=== PATIENT | male | born 1965 | race African-American/Black ===

== ENCOUNTER 2018-03-27 11:39 | Outpatient (CLI) | payer OTHER, BC ==
--- NOTE | 2018-03-27 14:26 | RAD ---
PA AND LATERAL CHEST X-RAY 03/27/18 HISTORY: Dyspnea. COMPARISON: 11/06/15. FINDINGS: The cardiac silhouette and pulmonary vasculature are within normal limits. Again noted are increased interstitial densities seen throughout the lungs bilaterally, overall similar in distribution to the prior study, likely related to chronic interstitial lung changes. Lucencies are seen in each lung ape x which may be related to bullous emphysematous changes. No new focal area of consolidation or pleura l fluid is seen. Again noted is prominence of the hilar structures bilaterally. Prominent calcified h ilar lymph nodes were seen on prior CT exam on 08/31/16 likely accounting for this finding. No other i nterval change. IMPRESSION: Chronic lung changes without evidence of an acute cardiopulmonary process. POS: [facility]
== END 2018-03-27 11:40 | disposition home or self-care (01) ==
LOC: RAD 11:39
PROVIDERS: ATTEND Internal Medicine Critical Care Medicine
DX: R06.00 Dyspnea, unspecified (principal)
CPT/HCPCS: 71046

== ENCOUNTER 2018-06-05 07:32 | Outpatient (CLI) | payer OTHER, BC ==
--- NOTE | 2018-06-05 09:41 | CT ---
CT CHEST WITHOUT CONTRAST: Comparison: 08-31-16, 08-06-15, 04-30-13 History: Sarcoidosis. Technique: Multiple contiguous axial images were obtained in a CT of the chest without contrast. Margaret nal reformats were performed. FINDINGS: Multiple bullae are seen in the lung apices. Increased interstitial lung markings are seen in the rig ht middle lobe and lingula. There are also increased peripheral interstitial lung markings in the shirlene ateral lower lobes. These findings are stable compared to the most recent examination but have progre ssed compared to the exam from 2013. There are multiple enlarged and calcified hilar and mediastinal lymph nodes. The calcifications have become more prominent compared to the exam from 2013. The heart is normal in size. There is stable en largement of the main pulmonary artery. No pneumothorax or pleural effusions are seen. No suspicious pulmonary nodules are present. Visualized subdiaphragmatic structures are unremarkable. The patient is status post cholecystectomy. The osseous structures and chest wall soft tissues are unremarkable. 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 These findings are stable compared to the most recent exam but have progressed from 2013. POS: [facility]
== END 2018-06-05 07:33 | disposition home or self-care (01) ==
LOC: CP 07:32 → CT 07:33
PROVIDERS: ATTEND Internal Medicine Critical Care Medicine
DX: D86.9 Sarcoidosis, unspecified (principal); J84.10 Pulmonary fibrosis, unspecified; J43.9 Emphysema, unspecified
CPT/HCPCS: 71250; 94060; 94727; 94729

== ENCOUNTER 2018-11-13 10:46 | Outpatient (CLI) | payer OTHER, BC ==
--- NOTE | 2018-11-13 11:00 | RAD ---
Exam: Chest 2 views HISTORY:Dyspnea Comparison: 10/19/2018 FINDINGS: Lungs: Patchy bilateral perihilar opacities. Scattered linear oriented densities of each hemithorax m ay relate to calcified pleura. Correlate for history of asbestos related pleural disease. Relative lucency at each upper lung zone indicative of pulmonary emphysema. Cardiac silhouette:Enlarged Pulmonary vessels: Engorged Pleural Spaces: Clear Pneumothorax: None Osseous abnormalities: None of acuity. IMPRESSION: Bilateral perihilar opacities with prominent cardiac silhouette, and pulmonary vascular p rominence which may relate to edema from CHF. Recommend clinical correlation, as well as imaging follow-up.
== END 2018-11-13 10:47 | disposition home or self-care (01) ==
LOC: RAD 10:46
PROVIDERS: ATTEND Internal Medicine Critical Care Medicine
DX: R06.00 Dyspnea, unspecified (principal); R91.8 Other nonspecific abnormal finding of lung field
CPT/HCPCS: 36415; 71046; 80053; 82103; 85025

== ENCOUNTER 2018-12-06 12:55 | Outpatient (CLI) | payer OTHER, BC ==
--- NOTE | 2018-12-06 14:38 | CT ---
CT Chest WO Con: 12/06/2018 12:00 AM CLINICAL INDICATION: Sarcoidosis. COMPARISON: CT of the chest dated June 05, 2018. FINDINGS: Lung and Large Airways: Severe bullous disease in an upper lobe distribution stable. The interstitial fibrotic change of the residual lung with scattered areas of bronchiectasis are stable. Pleura: No effusion or mass. Vessels: Scattered vascular calcifications of the thoracic aorta and coronary arteries are stable. Heart: Normal appearing. No pericardial effusion.. Mediastinum and Bhakti: The numerous enlarged calcified mediastinal and hilar lymph nodes are stable. Chest Wall and Lower Neck: Normal. Upper Abdomen: No acute abnormality. Bones: No acute osseous abnormality. IMPRESSION: Stable examination with severe upper lobe distribution bullous lung disease and scattered interstitia l fibrotic change with areas of scattered bronchiectasis. No acute airspace opacity is evident. No pneumothorax or pleural effusion is demonstrated. Extensive calcified mediastinal and hilar lymphadenopathy is stable.
== END 2018-12-06 12:56 | disposition home or self-care (01) ==
LOC: CT 12:55
PROVIDERS: ATTEND Internal Medicine Critical Care Medicine
DX: D86.9 Sarcoidosis, unspecified (principal); R06.00 Dyspnea, unspecified; J47.9 Bronchiectasis, uncomplicated; J43.9 Emphysema, unspecified; J84.10 Pulmonary fibrosis, unspecified; R59.0 Localized enlarged lymph nodes
CPT/HCPCS: 71250

== ENCOUNTER 2018-12-11 10:14 | Outpatient (CLI) | payer OTHER, BC ==
--- NOTE | 2018-12-12 13:49 | PFT ---
PATIENT HISTORY: HEIGHT: 70 WEIGHT:170 SMOKER: NO HOW LONG:NA PACKS PER DAY PRODUCTIVE COUGH: LUNG DISEASE: PHYSICIAN INTERPRETATION FINAL REPORT: Patient had good effort and cooperation. He had a dry cough during testing. Body box was attempted but could not be performed correctly. Nitrogen washout and Diffusion capacity could not be performed due to a circuit leak. FVC 2.99 (73%), FEV1 1.68 (52%) FEV1/FVC 0.56 FRC 3.29 (105%), RV 2.10 (98%),TLC 6.47 (103%) There is a reduction to both the FEV1 and the FVC. The ratio is consistent with obstructive air flow limitation. There is no significant change following the administration of a bronchodilator. Lung volumes fall within the normal limits. IMPRESSION: Overall, these pulmonary function studies are most consistent with moderately severe obstructive air flow limitation, with no reversibility and normal lung volumes. Interpret the lung volumes with cation given that equipment malfunction was noted. Lacquer Sprayer: ANGIE Wirer Helper: ANGIE MCDONALD
== END 2018-12-11 10:15 | disposition home or self-care (01) ==
LOC: CP 10:14
PROVIDERS: ATTEND Internal Medicine Critical Care Medicine
DX: R06.00 Dyspnea, unspecified (principal); D86.9 Sarcoidosis, unspecified
CPT/HCPCS: 94060

== ENCOUNTER 2019-03-12 08:13 | Outpatient (CLI) | payer OTHER, BC ==
--- NOTE | 2019-03-15 08:05 | PFT ---
PATIENT HISTORY: HEIGHT: 70 IN WEIGHT: 176 SMOKER: NEVER HOW LONG: PACKS PER DAY: PRODUCTIVE COUGH: LUNG DISEASE: PHYSICIAN INTERPRETATION PFT data: 03/12/2019 FEV1 1.43 L 44% predicted, FVC 2.51 L 61% predicted. There is no improvement in flows after bronchodilatation. The Residual Volume is extremely elevated. Total Lung Capacity is normal. DLCO severely reduced. The Maximum Ventilatory Volume is mildly decreased. Compared to PFTs obtained 12/11/2018, the FEV1 and FVC have somewhat decreased. Also, the Residual Volume is much worse on current test compared to old study. IMPRESSION: There is an obstructive pulmonary impairment which is moderate to severe in degree. Air trapping is present. Gas exchange is severely reduced. Inside Technical Sales Representative: ANGIE Teamsite Developer: ANGIE MCDONALD
== END 2019-03-12 08:14 | disposition home or self-care (01) ==
LOC: CP 08:13
PROVIDERS: ATTEND Internal Medicine Critical Care Medicine
DX: D86.9 Sarcoidosis, unspecified (principal)
CPT/HCPCS: 36415; 80053; 85025; 94060; 94727; 94729

== ENCOUNTER 2019-05-11 11:44 | Inpatient (IN) | payer OTHER, BC ==
[2019-05-11 12:12] LABS: Actual Bicarbonate (HCO3a) 23.8 mEq/L (22-28); Analyzer IN Cardio ER; Base Excess (BEa) -3.6 mEq/L (-2.0 to +3.0); CO2 Tension 51.7 mmHg (35.0-45.0); Calcium, Ionized 1.18 mmol/L (1.12-1.30); Carboxyhemoglobin (COHb) 1.5 gm% (0.0-3.0); Hemoglobin (Hb) 16.7 g/dL (14.0-18.0); Potassium - ABG Lab 3.39 mmol/L (3.70-5.30); pH, Arterial 7.28 (7.35-7.45)
[2019-05-11] MEDS ORDERED: Ondansetron PF 4 MG/2 ML Vial ONE (12:12)
[2019-05-11] MEDS ORDERED: Ketamine 50 MG/ML (10ML VIAL) ONE (12:14)
[2019-05-11] MEDS ORDERED: Rocuronium Bromide 50 MG/5 ML VIAL ONE (12:14)
[2019-05-11 12:15] LABS: #Eosinphils 0.2 thou/uL (0.0-0.7); #Lymphocytes 3.7 thou/uL (1.20-3.40); #Neutrophils 10.1 thou/uL (1.40-6.50); %Basophils 0.3 % (0.0-1.0); %Eosinophils 1.2 % (0.0-10.0); %Lymphocytes 24.8 % (21.0-51.0); %Monocytes 6.8 % (0.0-10.0); %Neutrophils 66.9 % (42.0-75.0); Mean Corpuscular HGB CONC 32.5 g/dL (32.0-36.0); Mean Corpuscular Hemoglobin 32.8 pg (27.0-31.0); Mean Platelet Volume 6.7 fL (7.4-10.4); Platelet Count 289 thou/uL (130-400); RBC Distribution Width 14.2 % (11.5-14.5); Red Blood Cell (RBC) Count 4.89 mill/uL (4.70-6.10)
[2019-05-11 12:38] LABS: ALT (SGPT) 18 U/L (8-55); AST (SGOT) 29 U/L (5-34); Albumin 4.5 g/dL (3.5-5.0); Alkaline Phosphatase 45 U/L (40-110); Anion Gap 18 mmol/L (10-20); BUN (Urea Nitrogen) 26 mg/dL (8.4-25.7); Bilirubin, Total 1.7 mg/dL (0.2-1.2); Calc. Creatinine Clearance 0 mL/min (70-130); Calcium 9.6 mg/dL (7.8-10.44); Carbon Dioxide 25 mmol/L (22-29); Chloride 101 mmol/L (98-107); Estimated GFR-MDRD 70; Globulin 2.8 g/dL (2.4-3.5); Glucose 139 mg/dL (70-105); Potassium 3.4 mmol/L (3.5-5.1); Protein, Total 7.3 g/dL (6.0-8.3); Sodium 141 mmol/L (136-145)
--- NOTE | 2019-05-11 12:41 | RAD ---
XR Chest 1 View Portable History: Difficulty breathing Comparison: CT chest December 06, 2018 Findings: Large right pneumothorax with mild leftward mediastinal shift. The peripheral pleura is mar kedly thickened. Severe emphysematous changes and scarring throughout the left lung. Large left apical bulla. Heart size mildly enlarged. Endotracheal tube tip is at level of clavicles. Enteric tube tip below diaphragm although out of field of view. Impression: Large right pneumothorax with subtle leftward mediastinal shift. Given the extensive enmanuel pheral pleural thickening, there is likely an underlying component of trapped lung and may be difficult to reexpand. Code CR: Dr. Sanders at 12:37 PM
--- NOTE | 2019-05-11 12:49 | RAD ---
CHEST ONE VIEW: COMPARISON: Earlier same day. CLINICAL HISTORY: Large pneumothorax, followup. FINDINGS: Demonstration of a large right-sided pneumothorax, similar in configuration to prior exam with persis tent mild leftward shift of the mediastinum. Diffuse interstitial opacification remains throughout the left lung as well as within the compressed right pulmonary parenchyma. Endotracheal tube and ente jackie catheter remain in place. IMPRESSION: Grossly stable large volume right pneumothorax with mild leftward mediastinal shift for which tension component should be considered. Transcribed Date/Time: 05/11/2019 12:52 PM
[2019-05-11] MEDS ORDERED: fentaNYL Citrate/PF 2,000 MCG in Sodium Chloride 0.9% 60 ML IV SCH ×2 (12:52→13:57)
[2019-05-11] MEDS ORDERED: Fentanyl 100 MCG/2 ML VIAL ONE (12:56)
[2019-05-11 13:06] LABS: ALV-art Gradient 232.875 (0-20); Puncture Site LRA
--- NOTE | 2019-05-11 13:26 | RAD ---
XR Chest 1 View Portable History: Chest tube placement Comparison: Radiograph same day Findings: Interval placement of a thoracostomy tube with moderate reexpansion of the right lung. Mild ly reexpansion edema. Fibrosis both lower lobes. Impression: Size decreased right pneumothorax after thoracostomy tube placement with tip near the ple ural apex.
[2019-05-11] MEDS ORDERED: Ventilator Sedation Protocol 1 EACH FS ONE (13:45)
[2019-05-11] MEDS ORDERED: Ondansetron PF 4 MG/2 ML Vial IVP PRN (13:45)
[2019-05-11] MEDS ORDERED: CCU Electrolyte Replacement 1 EACH FS ONE (13:45)
[2019-05-11] MEDS ORDERED: Potassium Chloride 40 MEQ in Premix Bag 1 BAG IVPB PRN (13:56)
[2019-05-11] MEDS ORDERED: Potassium Chloride 40 MEQ in Sodium Chloride 0.9% 250 ML 250 ML IVPB PRN (13:56)
[2019-05-11] MEDS ORDERED: PHOS-NAK 1 PKT PACK PO PRN ×2 (13:56)
[2019-05-11] MEDS ORDERED: Magnesium 2 GM/50 ML 2 GM in Premix Bag 1 BAG IVPB PRN (13:56)
[2019-05-11] MEDS ORDERED: CCU ELECTROLYTE REPLACEMENT PROTOCOL FS PRN (13:56)
[2019-05-11] MEDS ORDERED: Potassium Phosphate 12 MMOL in Sodium Chloride 0.9% 250 ML 250 ML IV PRN (13:56)
[2019-05-11] MEDS ORDERED: Magnesium Oxide 400 MG TAB PO PRN ×2 (13:56)
[2019-05-11] MEDS ORDERED: Potassium Phosphate 15 MMOL in Sodium Chloride 0.9% 250 ML 250 ML IV PRN (13:56)
[2019-05-11] MEDS ORDERED: Potassium Phosphate 9 MMOL in Sodium Chloride 0.9% 100 ML IVPB PRN (13:56)
[2019-05-11] MEDS ORDERED: Potassium Chloride 20 MEQ TAB PO PRN (13:56)
[2019-05-11] MEDS ORDERED: Morphine 2 MG/ML SYRINGE SLOW IVP PRN (13:57)
[2019-05-11] MEDS ORDERED: Lorazepam 2 MG/ML VIAL SLOW IVP PRN (13:57)
[2019-05-11] MEDS ORDERED: DISCONTINUE PREVIOUS NARCOTIC PAIN MEDICATIONS AND BENZODIAZEPINES FS SCH (13:57)
[2019-05-11] MEDS ORDERED: Propofol BOLUS 1,000 MG/100 ML VIAL IV PRN (13:57)
[2019-05-11] MEDS ORDERED: Fentanyl BOLUS 250 ML IVPB PRN (14:00)
--- NOTE | 2019-05-11 14:32 | HP ---
REASON FOR ADMISSION: Acute respiratory failure, pneumothorax on the right side. HISTORY OF PRESENTING ILLNESS: Please note, majority of this history is obtained by talking to the ER physician, Dr. Hutson, as the patient is currently intubated. Per Dr. Hutson, the patient was having shortness of breath at home. EMS was summoned, and his saturations were in the 50% range. He was placed on nasal cannula oxygen along with nebulizations, which brought the saturations up to 80%. He was brought to emergency room and was placed on BiPAP initially and was saturating 90%. He suddenly deteriorated and also vomited once, which prompted intubation. Prior to any of this being done, Dr. Hutson asked the patient if he wants to be intubated and wants to be a full code, for which the patient answered he wanted everything done. He has known history of sarcoidosis per prior records and has seen Dr. Galloway in the past. He has had prior CAT scans done, which shows severe bilateral upper lobe lung disease with severe bullae seen as well. PAST MEDICAL AND SURGICAL HISTORY: History of sarcoidosis with lung involvement. Bullous lung disease. Prior colonoscopy. He has had mediastinoscopy with lymph node biopsy done, which revealed findings of noncaseating granuloma and sarcoidosis. He has had cholecystectomy. He has had eccrine gland removal from his axilla. PERSONAL HISTORY: Does not abuse alcohol or drugs. He works with [employer]. FAMILY HISTORY: Per prior records, the patient's father when he was 21 years old. Mother was alive. ALLERGIES: NO KNOWN DRUG ALLERGIES. CURRENT MEDICATIONS: Per [employer] based on June of 2015, he is on: 1. Norvasc 5 mg daily. 2. Atorvastatin 20 mg daily. 3. Hydrochlorothiazide 25 mg daily. 4. Cozaar 50 mg daily. 5. Prednisone p.r.n. CODE STATUS: Full. REVIEW OF SYSTEMS: Cannot be obtained as the patient is intubated and is not oriented at present. PHYSICAL EXAMINATION: GENERAL: The patient is a 54-year-old male, who is currently on ventilator and is not in any distress. VITAL SIGNS: Blood pressure 136/84, pulse 100 per minute, respiratory rate 18 per minute, temperature 98 degrees Fahrenheit, and saturating 96% on ventilator with FiO2 of 50%. He is orally intubated up to 26 cm to the incisor teeth. He also has an NG tube placed orally. NECK: Supple. No elevated JVD. HEENT: Eyes, the patient appears to have some exophthalmos. Pupils are 3 mm, sluggishly reacting to light. Oral cavity, mucous membranes are dry. No exudates as mentioned above. He has endotracheal tube and nasogastric tube placed through his mouth. RESPIRATORY: Air entry 1+ bilateral. Scattered rhonchi plus and crackles plus bilateral. CARDIOVASCULAR SYSTEM: S1 and S2 heard. Tachycardic. ABDOMEN: Soft. Bowel sounds heard. No tenderness, rigidity, or guarding. EXTREMITIES: No peripheral edema or calf tenderness. VASCULAR SYSTEM: Peripheral pulses 2+ bilateral. No ischemic ulcerations or gangrene. CENTRAL NERVOUS SYSTEM: No gross focal deficits noted. The patient was moving all extremities prior to getting intubated. No current focal neurologic sign seen. PSYCHIATRIC SYSTEM: Cannot be assessed as the patient is currently intubated and is sedated. DIAGNOSTIC STUDIES: EKG done shows sinus tach at 122 beats per minute. There is incomplete RBBB seen. Blood gas done shows a pH of 7.28, pCO2 51, and pO2 59. White count of 15, H and H 16 and 49, platelet count 289, MCV is 101 with 66% neutrophils. BUN 26, creatinine 1.2, serum glucose 139, and total bilirubin 1.7. BNP 543. Chest x-ray done shows right-sided pneumothorax with chest tube placement and a repeat x-ray done shows clearing of pneumothorax. CLINICAL IMPRESSION AND PLAN: The patient will be admitted to ICU for acute respiratory failure with hypoxia and hypercarbia. He has known history of sarcoid lung disease. The patient also had underlying bullous disease in both upper lobes in the past. He will be on Solu-Medrol 40 mg IV q.6 hourly, gentle hydration with normal saline, DuoNeb, empiric Levaquin. Dr. Arora and Dr. Alarcon have been consulted from the ER by Dr. Hutson. We will closely monitor him in ICU. I have tried calling his , Ms. Abrahan Motta, and I am unable to reach her. We will try again later today. He has a chest tube on right side with good air entry now. Job ID: [id number] [facility]
[2019-05-11] MEDS ORDERED: Propofol 1,000 MG/100 ML VIAL IV ONE (14:58)
--- NOTE | 2019-05-11 14:58 | CON ---
DATE OF CONSULTATION: 05/11/2019 CONSULTING PHYSICIAN: Adanist . REASON FOR CONSULTATION: Pneumothorax and acute respiratory failure requiring mechanical ventilation. HISTORY OF PRESENT ILLNESS: The patient is a 54-year-old male with known sarcoidosis. He apparently had trouble breathing today and subsequently came to the hospital for further evaluation. He was intubated after failing BiPAP. After intubation, chest x-ray was obtained showing a large right pneumothorax. Based on what the family is saying, it is my supposition that the patient probably had the pneumothorax prior to presentation at the hospital. PAST MEDICAL HISTORY: 1. Sarcoidosis. 2. Hypertension. PAST SURGICAL HISTORY: EGD. FAMILY MEDICAL HISTORY: Essentially unremarkable. SOCIAL HISTORY: He works in maintenance at [employer]. Never smoker. Does not use illicit drugs. Very occasionally use alcohol. MEDICATIONS: Prior to admission; 1. Prednisone 2.5 mg daily. 2. Losartan 50 mg daily. 3. Hydrochlorothiazide 25 mg daily. 4. Atorvastatin 40 mg daily. 5. Amlodipine 5 mg daily. ALLERGIES: NONE. REVIEW OF SYSTEMS: Cannot be obtained as the patient is currently on mechanical ventilation. PHYSICAL EXAMINATION: VITAL SIGNS: Temperature 98, pulse 111, blood pressure 130/84, O2 saturations 100%. GENERAL: He is currently paralyzed, intubated, sedated on mechanical ventilation. HEENT: Pupils are reactive. Sclerae are anicteric. Oropharynx, clear. NECK: No adenopathy or JVD. LUNGS: Coarse breath sounds bilaterally. No hyper-resonance to percussion. CARDIOVASCULAR: S1 and S2. Slightly tachycardic. ABDOMEN: Soft, nontender, and nondistended. EXTREMITIES: No clubbing, cyanosis, or edema. LABORATORY DATA: Initial ABG; pH 7.28, pCO2 of 52, PO2 of 59, that was on BiPAP 12/6. Sodium 141, potassium 3.4, chloride 101, CO2 of 25, BUN 26, creatinine 1.3, glucose 139. White blood cell count 15, hematocrit 49.3, and platelet count 289. IMAGING STUDIES: His x-ray showed a large right pneumothorax, has since been evacuated by thoracostomy tube drainage. He has no air leak on the Pleur-evac. Endotracheal tube is in good position. ASSESSMENT: 1. Acute respiratory failure secondary to right tension pneumothorax. 2. Sarcoidosis. PLAN: 1. Continue chest tube drainage. 2. Continue antibiotics, steroids, nebulization treatments. 3. Hopefully extubate tomorrow. Job ID: [id number]
[2019-05-11 16:20] LABS: Actual Bicarbonate (HCO3a) 25.3 mEq/L (22-28); Base Excess (BEa) -2.4 mEq/L (-2.0 to +3.0); CO2 Tension 55.1 mmHg (35.0-45.0); Calcium, Ionized 1.17 mmol/L (1.12-1.30); Carboxyhemoglobin (COHb) 1.8 gm% (0.0-3.0); Hemoglobin (Hb) 15.5 g/dL (14.0-18.0); O2 Tension (PaO2) 95.3 mmHg (80.0-100.0); Potassium - ABG Lab 3.97 mmol/L (3.70-5.30); pH, Arterial 7.28 (7.35-7.45)
[2019-05-11] MEDS: methylPREDNISolone Sod Succ/PF 125 MG/2 ML VIAL IVP SCH ×2 (16:57→19:24)
[2019-05-11] MEDS: Sodium Chloride 0.9% 1,000 ML IV SCH (16:58)
[2019-05-11] MEDS: Famotidine/PF 20 mg/2ml Vial SLOW IVP SCH (19:24)
[2019-05-11] MEDS: Propofol 1,000 MG/100 ML VIAL IV PRN (19:25)
[2019-05-12] MEDS: methylPREDNISolone Sod Succ/PF 125 MG/2 ML VIAL IVP SCH ×2 (01:23→08:59)
[2019-05-12] MEDS: Sodium Chloride 0.9% 1,000 ML IV SCH ×2 (04:33→19:33)
[2019-05-12 04:52] LABS: #Lymphocytes 0.4 thou/uL (1.20-3.40); #Monocytes 0.3 thou/uL (0.11-0.59); #Neutrophils 9.8 thou/uL (1.40-6.50); %Monocytes 3.1 % (0.0-10.0); %Neutrophils 92.9 % (42.0-75.0); Hemoglobin 13.7 g/dL (14.0-18.0); Mean Corpuscular HGB CONC 32.6 g/dL (32.0-36.0); Mean Corpuscular Hemoglobin 33.1 pg (27.0-31.0); Mean Platelet Volume 6.7 fL (7.4-10.4); Platelet Count 209 thou/uL (130-400); RBC Distribution Width 14.1 % (11.5-14.5); Red Blood Cell (RBC) Count 4.13 mill/uL (4.70-6.10); White Blood Cell (WBC) Count 10.5 thou/uL (4.8-10.8)
[2019-05-12 05:12] LABS: Anion Gap 16 mmol/L (10-20); BUN (Urea Nitrogen) 21 mg/dL (8.4-25.7); Calc. Creatinine Clearance 85 mL/min (70-130); Calcium 8.7 mg/dL (7.8-10.44); Carbon Dioxide 25 mmol/L (22-29); Chloride 104 mmol/L (98-107); Estimated GFR-MDRD 87; Glucose 152 mg/dL (70-105); Potassium 5.1 mmol/L (3.5-5.1); Sodium 140 mmol/L (136-145)
[2019-05-12] MEDS: Propofol 1,000 MG/100 ML VIAL IV PRN (05:14)
--- NOTE | 2019-05-12 07:57 | RAD ---
XR Chest 1 View Portable History: Pneumonia. Comparison: Radiograph prior day Findings: There is lucency the right upper hemithorax is over the anterior right pneumothorax and on apical pneumothorax. Large left upper lobe bulla. Expansion pulmonary edema right lower lobe. Fibrosis in both lower lobes. Impression: Concern for anterior location of the right-sided pneumothorax. An upright view is recomme nded.
[2019-05-12 08:01] LABS: Actual Bicarbonate (HCO3a) 27.1 mEq/L (22-28); Base Excess (BEa) 0.6 mEq/L (-2.0 to +3.0); CO2 Tension 50.6 mmHg (35.0-45.0); Calcium, Ionized 1.15 mmol/L (1.12-1.30); Carboxyhemoglobin (COHb) 1.3 gm% (0.0-3.0); Hemoglobin (Hb) 14.6 g/dL (14.0-18.0); O2 Tension (PaO2) 130.2 mmHg (80.0-100.0); Potassium - ABG Lab 4.69 mmol/L (3.70-5.30); pH, Arterial 7.35 (7.35-7.45)
[2019-05-12 08:03] LABS: Puncture Site L.R.
[2019-05-12 08:09] LABS: ALV-art Gradient 121.025 (0-20); Puncture Site L.R.
[2019-05-12] MEDS ORDERED: FLU VACC QS2019-20(6MOS UP)/PF 60 MCG/0.5 ML SYRINGE IM ONE (09:00)
[2019-05-12] MEDS ORDERED: Prevnar 13-Val Conj/PF 0.5 ML SYRINGE IM ONE (09:00)
[2019-05-12] MEDS: Enoxaparin Sodium 40 MG/0.4 ML SYRINGE SC SCH (09:01)
[2019-05-12] MEDS: Famotidine/PF 20 mg/2ml Vial SLOW IVP SCH ×2 (09:02→19:28)
[2019-05-12] MEDS ORDERED: DC Sedation Protocol FS ONE (09:30)
[2019-05-12] MEDS ORDERED: methylPREDNISolone Sod Succ/PF 125 MG/2 ML VIAL IVP SCH ×2 (09:31→14:00)
[2019-05-12] MEDS ORDERED: methylPREDNISolone Sod Succ 40 MG VIAL IVP SCH (09:45)
--- NOTE | 2019-05-12 10:12 | PRG ---
DATE OF SERVICE: 05/12/2019 35 minutes of critical care time. SUBJECTIVE: The patient remains intubated on mechanical ventilation. He has had no specific difficulties overnight. He wakes up, follows commands without difficulty. OBJECTIVE: VITAL SIGNS: His temperature is 98.6, pulse 77, respirations 18, blood pressure 115/74, and sat 100%. HEENT: Unremarkable. NECK: No adenopathy or JVD. LUNGS: Clear bilaterally. He has no air leak from his chest tube. CARDIAC: S1 and S2. Regular. ABDOMEN: Soft. EXTREMITIES: No edema. LABORATORY DATA: PH 7.35, pCO2 of 51, pO2 of 130 on SIMV rate 18, tidal volume 500, PEEP 5, pressure support 10, FiO2 of 40%. White blood cell count 10.5, hematocrit 41, and platelet count 209. Sodium 140, potassium 5.1, chloride 104, CO2 of 25, BUN 21, creatinine 1.1, glucose 152. His x-ray shows resolution of pneumothorax. ASSESSMENT: 1. Right pneumothorax, now status post right thoracostomy tube placement. 2. Acute respiratory failure, requiring mechanical ventilation. 3. Underlying sarcoidosis. PLAN: It looks like he will pass spontaneous breathing trial and we will be able to extubate. We will leave the chest tube in. Hopefully, get that out in a day or two. Job ID: [id number]
--- NOTE | 2019-05-12 14:07 | PRG ---
DATE OF SERVICE: 05/12/2019 SUBJECTIVE: The patient seen at bedside, does sitting in a chair, status post extubation today. Complains of mild chest tube site pain, otherwise not in distress. Denies any headache, nausea, vomiting, or diarrhea. Family also present in the room. OBJECTIVE: VITAL SIGNS: Blood pressure 115/77, pulse 91, respirations 18, and oxygen saturation 100% on 3 L nasal cannula. GENERAL: The patient is lying in bed comfortably, not in any distress. HEENT: Conjunctivae are normal. Oral mucosa moist. NECK: Supple. No JVD. No lymphadenopathy. CHEST: Decreased air entry, right lower lung roman. Chest tube in place. ABDOMEN: Soft. Negative edema of feet. LABORATORY DATA: Chest x-ray, concern for anterior location of the right-sided pneumothorax. CBC unremarkable except white blood cell 10.5, hemoglobin 13.7, and platelet 209. BMP unremarkable except potassium 5.1 and blood glucose 152. Troponin negative. ABG; 7.35, 50, and 130. IMPRESSION: 1. Acute hypoxemic hypercapnic respiratory failure, most likely secondary to right-sided tension pneumothorax, status post intubation and chest tube placement, status post extubation today, currently saturating well with oxygen. Continue right-sided chest tube management as per Pulmonology. Continue incentive spirometry. The patient currently not in distress. Continue pain medication as needed. 2. History of sarcoidosis. Continue steroids. Continue home medications with heparin. Continue prophylactic antibiotics. 3. Hypertension. Hold antihypertensive blood pressure medication today. 4. Deep venous thrombosis/gastrointestinal prophylaxis. PLAN: Discussed with the patient and family member and nursing staff. Job ID: [id number]
[2019-05-12] MEDS: methylPREDNISolone Sod Succ 40 MG VIAL IVP SCH ×2 (15:50→19:29)
[2019-05-12] MEDS: Cyclobenzaprine 10 MG TAB PO PRN (19:28)
[2019-05-13] MEDS: methylPREDNISolone Sod Succ 40 MG VIAL IVP SCH ×3 (01:24→15:00)
[2019-05-13 05:33] LABS: #Lymphocytes 0.4 thou/uL (1.20-3.40); #Monocytes 0.7 thou/uL (0.11-0.59); #Neutrophils 11.3 thou/uL (1.40-6.50); %Eosinophils 0.1 % (0.0-10.0); %Lymphocytes 3.2 % (21.0-51.0); %Monocytes 5.3 % (0.0-10.0); %Neutrophils 91.3 % (42.0-75.0); Hemoglobin 12.7 g/dL (14.0-18.0); Mean Corpuscular HGB CONC 32.2 g/dL (32.0-36.0); Mean Corpuscular Hemoglobin 32.8 pg (27.0-31.0); Mean Platelet Volume 7.1 fL (7.4-10.4); Platelet Count 189 thou/uL (130-400); RBC Distribution Width 14.2 % (11.5-14.5); Red Blood Cell (RBC) Count 3.87 mill/uL (4.70-6.10); White Blood Cell (WBC) Count 12.4 thou/uL (4.8-10.8)
[2019-05-13 05:58] LABS: Anion Gap 11 mmol/L (10-20); BUN (Urea Nitrogen) 22 mg/dL (8.4-25.7); Calc. Creatinine Clearance 80 mL/min (70-130); Calcium 8.6 mg/dL (7.8-10.44); Carbon Dioxide 29 mmol/L (22-29); Chloride 104 mmol/L (98-107); Estimated GFR-MDRD 81; Glucose 131 mg/dL (70-105); Sodium 139 mmol/L (136-145)
[2019-05-13] MEDS: azaTHIOprine 50 MG TAB PO SCH (07:59)
[2019-05-13] MEDS: Cyclobenzaprine 10 MG TAB PO PRN (07:59)
[2019-05-13] MEDS: Acetaminophen 325 MG TAB PO PRN (08:00)
[2019-05-13] MEDS: Famotidine/PF 20 mg/2ml Vial SLOW IVP SCH (08:00)
[2019-05-13] MEDS: Isosorbide Mononitrate (ER) 30 MG TAB PO SCH (08:00)
[2019-05-13] MEDS: Enoxaparin Sodium 40 MG/0.4 ML SYRINGE SC SCH (08:00)
--- NOTE | 2019-05-13 08:27 | RAD ---
FRONTAL VIEW CHEST: COMPARISON: Previous day. INDICATION: Pneumothorax, follow-up. FINDINGS: Right thoracostomy tube remains. Degree of expansion of the right lung is similar in appearance. No d iscrete pneumothorax is visualized within limitations of technique, given overlying, extrinsic artifacts. Chest is otherwise stable. IMPRESSION: Stable appearance of the right chest with indwelling thoracostomy tube and no significant pneumothora x identified. Transcribed Date/Time: 05/13/2019 8:37 AM
[2019-05-13] MEDS ORDERED: predniSONE 5 MG TAB PO SCH (09:00)
[2019-05-13] MEDS: Sodium Chloride 0.9% 1,000 ML IV SCH (10:40)
--- NOTE | 2019-05-13 10:47 | PDOC.HOSPP ---
- Subjective Encounter Date: 05/13/19 Encounter Time: 10:45 Subjective: no sob, comfortable - Objective Vital Signs & Weight: Vital Signs (12 hours) Temp Pulse Resp Pulse Ox 05/13/19 08:00 97.9 F 05/13/19 07:45 85 18 100 05/13/19 03:00 98.5 F 05/12/19 23:00 99.2 F Weight Weight 171 lb 11.841 oz Most Recent Monitor Data Heart Rate from ECG 89 NIBP 118/74 NIBP BP-Mean 80 Respiration from ECG 23 SpO2 100 I&O: 05/12/19 05/13/19 05/14/19 06:59 06:59 06:59 Intake Total 2336.2 300 Output Total 1975 Balance 361.2 300 Result Diagrams: 05/13/19 05:14 05/13/19 05:14 Hospitalist ROS - Medication Medications: Active Medications Generic Name Dose Route Start Last Admin Trade Name Freq PRN Reason Stop Dose Admin Acetaminophen 650 mg 05/11/19 13:45 05/13/19 08:00 Tylenol PO 650 mg Q4H PRN Administration Headache/Fever/Mild Pain (1-3) Albuterol/Ipratropium 3 ml 05/11/19 15:00 05/13/19 07:45 Duoneb NEB 3 ml [id number] EVELYN Administration Azathioprine 150 mg 05/13/19 09:00 05/13/19 07:59 Imuran PO 150 mg QAM EVELYN Administration Cholecalciferol 5,000 units 05/13/19 09:00 05/13/19 07:59 Vitamin D3 PO 5,000 units DAILY EVELYN Administration Cyclobenzaprine HCl 10 mg 05/12/19 13:17 05/13/19 07:59 Flexeril PO 10 mg TIDPRN PRN Administration Moderate Pain (4-6) Enoxaparin Sodium 40 mg 05/12/19 09:00 05/13/19 08:00 Lovenox SC 40 mg 0900 EVELYN Administration Famotidine 20 mg 05/11/19 21:00 05/13/19 08:00 Pepcid SLOW IVP Not Given Q12HR EVELYN Levofloxacin 500 mg/ Device 100 mls @ 100 mls/hr 05/11/19 14:00 05/12/19 15: 50 IVPB 100 mls 1400 EVELYN Administration Sodium Chloride 1,000 mls @ 70 mls/hr 05/11/19 13:45 05/13/19 10:40 Normal Saline 0.9% IV Not Given .[id number] EVELYN Isosorbide Mononitrate 30 mg 05/13/19 09:00 05/13/19 08:00 Imdur Er PO 30 mg DAILY EVELYN Administration Methylprednisolone Sodium Succinate 20 mg 05/12/19 14:00 05/13/19 07:58 Solu-Medrol IVP 20 mg 0200,0800,1400,2000 EVELYN Administration Pantoprazole Sodium 40 mg 05/13/19 09:00 05/13/19 08:00 Protonix PO 40 mg DAILY EVELYN Administration Prednisone 10 mg 05/13/19 09:00 05/13/19 08:00 Prednisone PO Not Given DAILY EVELYN Sodium Chloride 10 ml 05/12/19 21:00 05/13/19 10:41 Flush - Normal Saline IVF Not Given Q12HR EVELYN - Exam Neck: no JVD Heart: RRR, no murmur Respiratory: CTAB Respiratory - other findings: chest tube on R Gastrointestinal: soft, normal bowel sounds Extremities: no edema Hosp A/P (1) Acute respiratory failure with hypoxemia Code(s): J96.01 - ACUTE RESPIRATORY FAILURE WITH HYPOXIA Status: Acute (2) Spontaneous pneumothorax Code(s): J93.83 - OTHER PNEUMOTHORAX Status: Acute (3) Sarcoidosis Code(s): D86.9 - SARCOIDOSIS, UNSPECIFIED Status: Chronic (4) HTN (hypertension) Code(s): I10 - ESSENTIAL (PRIMARY) HYPERTENSION Status: Chronic Qualifiers: Hypertension type: essential hypertension Qualified Code(s): I10 - Essential (primary) hypertension - Plan post extubation R chest tube cont routine prednisone, antihypertensives
[2019-05-13] MEDS: Morphine 4 MG/ML VIAL SLOW IVP PRN ×2 (12:58→22:30)
--- NOTE | 2019-05-13 15:55 | PRG ---
DATE OF SERVICE: 05/13/2019 SUBJECTIVE: Mr. Gauthier's events have been reviewed. His radiographs have been reviewed. His right lung is inflated now. His chest tube is to water seal. He has no complaints. OBJECTIVE: VITAL SIGNS: Heart rates in the 90s, blood pressure 122/76, respiratory rates in 20s, and oximetry is 100%. LUNGS: Clear. HEART: Regular rhythm. ABDOMEN: Soft. IMPRESSION AND PLAN: Sarcoid with upper lobe lung destruction. He has a negative alpha-1 antitrypsin level. He is on Imuran and a low-dose of prednisone because he developed signs of adrenal insufficiency when he was tapered off the prednisone. He has an obstructive pattern on pulmonary function tests, so we have treated him with long-acting bronchodilators. He is stable at this point in time. Once his chest tube is out, we may be able to send him home within the next 24 hours. Job ID: [id number]
[2019-05-14] MEDS: Enoxaparin Sodium 40 MG/0.4 ML SYRINGE SC SCH (07:49)
[2019-05-14] MEDS: Isosorbide Mononitrate (ER) 30 MG TAB PO SCH (07:50)
[2019-05-14] MEDS: azaTHIOprine 50 MG TAB PO SCH (07:50)
--- NOTE | 2019-05-14 08:42 | PDOC.HOSPP ---
- Subjective Encounter Date: 05/14/19 Encounter Time: 08:41 Subjective: alert, chest tube out - Objective Vital Signs & Weight: Vital Signs (12 hours) Temp Pulse Resp Pulse Ox 05/14/19 08:00 98.2 F 100 05/14/19 07:09 97 20 99 05/14/19 04:00 98.1 F 05/13/19 23:00 98.8 F Weight Weight 171 lb 11.841 oz Most Recent Monitor Data Heart Rate from ECG 85 NIBP 117/80 NIBP BP-Mean 92 Respiration from ECG 26 SpO2 92 I&O: 05/13/19 05/14/19 05/15/19 06:59 06:59 06:59 Intake Total 2336.2 1115 200 Output Total 1975 1255 0 Balance 361.2 -140 200 Result Diagrams: 05/13/19 05:14 05/13/19 05:14 Hospitalist ROS - Medication Medications: Active Medications Generic Name Dose Route Start Last Admin Trade Name Freq PRN Reason Stop Dose Admin Acetaminophen 650 mg 05/11/19 13:45 05/13/19 08:00 Tylenol PO 650 mg Q4H PRN Administration Headache/Fever/Mild Pain (1-3) Albuterol/Ipratropium 3 ml 05/13/19 18:30 05/14/19 07:09 Duoneb NEB 3 ml TID-RT EVELYN Administration Azathioprine 150 mg 05/13/19 09:00 05/14/19 07:50 Imuran PO 150 mg QAM EVELYN Administration Cholecalciferol 5,000 units 05/13/19 09:00 05/14/19 07:49 Vitamin D3 PO 5,000 units DAILY EVELYN Administration Cyclobenzaprine HCl 10 mg 05/12/19 13:17 05/13/19 07:59 Flexeril PO 10 mg TIDPRN PRN Administration Moderate Pain (4-6) Enoxaparin Sodium 40 mg 05/12/19 09:00 05/14/19 07:49 Lovenox SC 40 mg 0900 EVELYN Administration Isosorbide Mononitrate 30 mg 05/13/19 09:00 05/14/19 07:50 Imdur Er PO 30 mg DAILY EVELYN Administration Levofloxacin 500 mg 05/14/19 06:00 05/14/19 05:29 Levaquin PO 500 mg 0600 EVELYN Administration Morphine Sulfate 4 mg 05/13/19 12:33 05/13/19 22:30 Morphine SLOW IVP 4 mg Q2H PRN Administration Pain Pantoprazole Sodium 40 mg 05/13/19 09:00 05/14/19 07:50 Protonix PO 40 mg DAILY EVELYN Administration Prednisone 40 mg 05/14/19 09:00 05/14/19 07:50 Prednisone PO 40 mg DAILY EVELYN Administration Sodium Chloride 10 ml 05/13/19 21:00 05/14/19 07:51 Flush - Normal Saline IVF 10 ml Q12HR EVELYN Administration - Exam Neck: no JVD Heart: RRR, no murmur Respiratory: CTAB Gastrointestinal: soft, normal bowel sounds Extremities: no edema Hosp A/P (1) Acute respiratory failure with hypoxemia Code(s): J96.01 - ACUTE RESPIRATORY FAILURE WITH HYPOXIA Status: Acute (2) Spontaneous pneumothorax Code(s): J93.83 - OTHER PNEUMOTHORAX Status: Acute (3) Sarcoidosis Code(s): D86.9 - SARCOIDOSIS, UNSPECIFIED Status: Chronic (4) HTN (hypertension) Code(s): I10 - ESSENTIAL (PRIMARY) HYPERTENSION Status: Chronic Qualifiers: Hypertension type: essential hypertension Qualified Code(s): I10 - Essential (primary) hypertension - Plan post chest tube removal cont routine prednisone, antihypertensives
--- NOTE | 2019-05-14 08:44 | RAD ---
PORTABLE CHEST: HISTORY: Respiratory distress. COMPARISON: 05/13/2019 FINDINGS: Heart size and mediastinum are within normal limits. Right chest tube is in place. Parenchymal lung c hanges are stable. IMPRESSION: Stable examination. POS: [facility]
[2019-05-14] MEDS ORDERED: predniSONE 20 MG TAB PO SCH (09:00)
[2019-05-14] MEDS: Losartan 25 MG TAB PO SCH (16:20)
--- NOTE | 2019-05-14 19:38 | PRG ---
DATE OF SERVICE: 05/14/2019 SUBJECTIVE: Andres Gauthier had his chest tube removed early this morning. He is in no distress. He is transferred out of the Critical Care Unit. OBJECTIVE: VITAL SIGNS: He is afebrile. Oximetry is 94% on 3 L cannula. Respiratory rate 16. LUNGS: Clear. HEART: Regular rhythm. ABDOMEN: Soft. IMAGING: Chest radiograph this morning showed inflated right lung. 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 He is stable to move out of the Critical Care Unit. Once he is ambulatory and weaned off oxygen, we will discharge him home. Job ID: [id number]
[2019-05-15] MEDS: Acetaminophen 325 MG TAB PO PRN (04:54)
--- NOTE | 2019-05-15 08:02 | RAD ---
PORTABLE CHEST: DATE: 05/15/2019. PROVIDED CLINICAL HISTORY: Pneumonia. FINDINGS: Comparison 05/14/2019. Interval removal of right-sided chest tube. Small right pneumothorax is noted . Cardiac and mediastinal silhouette is unchanged in appearance. Mid and lower lung zone interstiti al opacities with emphysematous change redemonstrated. IMPRESSION: Status post right-sided chest tube removal with small right pneumothorax. POS: OFF
[2019-05-15] MEDS: Losartan 25 MG TAB PO SCH (08:30)
[2019-05-15] MEDS: azaTHIOprine 50 MG TAB PO SCH (08:30)
[2019-05-15] MEDS: Enoxaparin Sodium 40 MG/0.4 ML SYRINGE SC SCH (08:31)
[2019-05-15] MEDS: Isosorbide Mononitrate (ER) 30 MG TAB PO SCH (08:31)
[2019-05-15] MEDS: predniSONE 20 MG TAB PO SCH (08:31)
--- NOTE | 2019-05-15 09:30 | PDOC.HOSPP ---
- Subjective Encounter Date: 05/15/19 Encounter Time: 09:26 Subjective: sob walking - Objective Vital Signs & Weight: Vital Signs (12 hours) Temp Pulse Resp BP Pulse Ox 05/15/19 07:49 98.0 F 85 20 143/93 H 92 L 05/15/19 06:33 98 05/15/19 06:31 87 16 98 05/15/19 04:00 98.0 F 86 18 129/87 93 L Weight Weight 171 lb 11.841 oz Most Recent Monitor Data Heart Rate from ECG 85 NIBP 117/80 NIBP BP-Mean 92 Respiration from ECG 26 SpO2 92 I&O: 05/14/19 05/15/19 05/16/19 06:59 06:59 06:59 Intake Total 1115 680 Output Total 1255 0 Balance -140 680 Result Diagrams: 05/13/19 05:14 05/13/19 05:14 Hospitalist ROS - Medication Medications: Active Medications Generic Name Dose Route Start Last Admin Trade Name Freq PRN Reason Stop Dose Admin Acetaminophen 650 mg 05/11/19 13:45 05/15/19 04:54 Tylenol PO 650 mg Q4H PRN Administration Headache/Fever/Mild Pain (1-3) Albuterol/Ipratropium 3 ml 05/13/19 18:30 05/15/19 06:31 Duoneb NEB 3 ml TID-RT EVELYN Administration Azathioprine 150 mg 05/13/19 09:00 05/15/19 08:30 Imuran PO 150 mg QAM EVELYN Administration Cholecalciferol 5,000 units 05/13/19 09:00 05/15/19 08:29 Vitamin D3 PO 5,000 units DAILY EVELYN Administration Cyclobenzaprine HCl 10 mg 05/12/19 13:17 05/13/19 07:59 Flexeril PO 10 mg TIDPRN PRN Administration Moderate Pain (4-6) Enoxaparin Sodium 40 mg 05/12/19 09:00 05/15/19 08:31 Lovenox SC 40 mg 0900 EVELYN Administration Isosorbide Mononitrate 30 mg 05/13/19 09:00 05/15/19 08:31 Imdur Er PO 30 mg DAILY EVELYN Administration Levofloxacin 500 mg 05/14/19 06:00 05/15/19 04:54 Levaquin PO 500 mg 0600 EVELYN Administration Losartan Potassium 50 mg 05/15/19 09:00 05/15/19 08:30 Cozaar PO 50 mg DAILY EVELYN Administration Pantoprazole Sodium 40 mg 05/13/19 09:00 05/15/19 08:30 Protonix PO 40 mg DAILY EVELYN Administration Prednisone 20 mg 05/15/19 09:00 05/15/19 08:31 Prednisone PO 20 mg DAILY EVELYN Administration Sodium Chloride 10 ml 05/13/19 21:00 05/15/19 08:31 Flush - Normal Saline IVF Not Given Q12HR EVELYN - Exam General Appearance: NAD Neck: no JVD Heart: RRR, no murmur Respiratory: CTAB Respiratory - other findings: good BS bilat Gastrointestinal: soft, non-tender, normal bowel sounds Extremities: no edema Hosp A/P (1) Acute respiratory failure with hypoxemia Code(s): J96.01 - ACUTE RESPIRATORY FAILURE WITH HYPOXIA Status: Acute (2) Spontaneous pneumothorax Code(s): J93.83 - OTHER PNEUMOTHORAX Status: Acute (3) Sarcoidosis Code(s): D86.9 - SARCOIDOSIS, UNSPECIFIED Status: Chronic (4) HTN (hypertension) Code(s): I10 - ESSENTIAL (PRIMARY) HYPERTENSION Status: Chronic Qualifiers: Hypertension type: essential hypertension Qualified Code(s): I10 - Essential (primary) hypertension - Plan RA sat 77, WAS 64 with O2 post exercise. has not been evaluated by pulmonology for his sarcoid lung prior to this event discuss with Pulmonology
--- NOTE | 2019-05-15 15:31 | PRG ---
DATE OF SERVICE: 05/15/2019 SUBJECTIVE: Andres Gauthier desats with exercise, . OBJECTIVE: VITAL SIGNS: He is afebrile. Oximetry is 2 L. He is not on oxygen. Blood pressure 126/86. HEART: Unchanged. ABDOMEN: Unchanged. He has tiny apical pneumothorax IMPRESSION: Spontaneous pneumothorax with sarcoid. PLAN: Increase his activity level, hopefully with increased activity we will see improvement in his . Job ID: [id number]
[2019-05-16] MEDS: azaTHIOprine 50 MG TAB PO SCH (08:46)
[2019-05-16] MEDS: Losartan 25 MG TAB PO SCH (08:47)
[2019-05-16] MEDS: Isosorbide Mononitrate (ER) 30 MG TAB PO SCH (08:47)
[2019-05-16] MEDS: predniSONE 20 MG TAB PO SCH (08:47)
[2019-05-16] MEDS: Enoxaparin Sodium 40 MG/0.4 ML SYRINGE SC SCH (08:47)
--- NOTE | 2019-05-16 09:59 | PDOC.HOSPP ---
- Subjective Encounter Date: 05/16/19 Encounter Time: 09:57 Subjective: no chest pain or sob - Objective Vital Signs & Weight: Vital Signs (12 hours) Temp Pulse Resp BP Pulse Ox 05/16/19 07:58 80 15 05/16/19 07:43 98.4 F 92 16 146/92 H 99 Weight Weight 171 lb 11.841 oz Most Recent Monitor Data Heart Rate from ECG 85 NIBP 117/80 NIBP BP-Mean 92 Respiration from ECG 26 SpO2 92 I&O: 05/15/19 05/16/19 05/17/19 06:59 06:59 06:59 Intake Total 680 800 Output Total 0 Balance 680 800 Result Diagrams: 05/13/19 05:14 05/13/19 05:14 Hospitalist ROS - Medication Medications: Active Medications Generic Name Dose Route Start Last Admin Trade Name Freq PRN Reason Stop Dose Admin Acetaminophen 650 mg 05/11/19 13:45 05/15/19 04:54 Tylenol PO 650 mg Q4H PRN Administration Headache/Fever/Mild Pain (1-3) Albuterol/Ipratropium 3 ml 05/13/19 18:30 05/16/19 07:58 Duoneb NEB 3 ml TID-RT EVELYN Administration Azathioprine 150 mg 05/13/19 09:00 05/16/19 08:46 Imuran PO 150 mg QAM EVELYN Administration Cholecalciferol 5,000 units 05/13/19 09:00 05/16/19 08:46 Vitamin D3 PO 5,000 units DAILY EVELYN Administration Cyclobenzaprine HCl 10 mg 05/12/19 13:17 05/13/19 07:59 Flexeril PO 10 mg TIDPRN PRN Administration Moderate Pain (4-6) Enoxaparin Sodium 40 mg 05/12/19 09:00 05/16/19 08:47 Lovenox SC 40 mg 0900 EVELYN Administration Isosorbide Mononitrate 30 mg 05/13/19 09:00 05/16/19 08:47 Imdur Er PO 30 mg DAILY EVELYN Administration Levofloxacin 500 mg 05/14/19 06:00 05/16/19 06:03 Levaquin PO 500 mg 0600 EVELYN Administration Losartan Potassium 50 mg 05/15/19 09:00 05/16/19 08:47 Cozaar PO 50 mg DAILY EVELYN Administration Pantoprazole Sodium 40 mg 05/13/19 09:00 05/16/19 08:47 Protonix PO 40 mg DAILY EVELYN Administration Prednisone 20 mg 05/15/19 09:00 05/16/19 08:47 Prednisone PO 20 mg DAILY EVELYN Administration Sodium Chloride 10 ml 05/13/19 21:00 05/16/19 08:47 Flush - Normal Saline IVF Not Given Q12HR EVELYN - Exam Neck: no JVD, no carotid bruit Heart: RRR, no murmur Respiratory: CTAB Gastrointestinal: soft, normal bowel sounds Extremities: no edema Hosp A/P (1) Acute respiratory failure with hypoxemia Code(s): J96.01 - ACUTE RESPIRATORY FAILURE WITH HYPOXIA Status: Acute (2) Spontaneous pneumothorax Code(s): J93.83 - OTHER PNEUMOTHORAX Status: Acute (3) Sarcoidosis Code(s): D86.9 - SARCOIDOSIS, UNSPECIFIED Status: Chronic (4) HTN (hypertension) Code(s): I10 - ESSENTIAL (PRIMARY) HYPERTENSION Status: Chronic Qualifiers: Hypertension type: essential hypertension Qualified Code(s): I10 - Essential (primary) hypertension - Plan CXR reveals continued res still requiring O@ still desats with exercise, discuss with intensivistolution of Pneumothorax
--- NOTE | 2019-05-16 10:11 | RAD ---
ONE VIEW CHEST: HISTORY: Pneumonia, COMPARISON: 05/15/2019. FINDINGS: Normal cardiac silhouette. The pulmonary vessels and hilum are normal. Costophrenic angles are karen r. Lungs are hyperinflated. Chronic changes are noted. Stable opacification of the lung bases. St able right apical pneumothorax. IMPRESSION: 1. Stable right apical pneumothorax. 2. Chronic lung parenchymal changes. POS: [facility]
--- NOTE | 2019-05-16 10:51 | RAD ---
CHEST 1 VIEW: HISTORY: Pneumothorax. Comparison: 05/16/2019. FINDINGS: Cardiac silhouette: Normal. Aorta: Unremarkable. Pulmonary vessels: Normal. Costophrenic angles: Clear. Lungs: Chronic changes of the lung parenchyma. Pneumothorax: Interval development of a severe right-sided pneumothorax. Osseous abnormalities: None. IMPRESSION: 1. Interval development of a severe right-sided pneumothorax. 2. Chronic changes of the lung parenchyma. 3. Results of the study discussed with Dr. Zuñiga 05/16/2019 at 10:51 AM. Code CR Transcribed Date/Time: 05/16/2019 10:54 AM
[2019-05-16] MEDS ORDERED: Lidocaine 1% (PF) 30 ML VIAL ONE (10:58)
[2019-05-16] MEDS ORDERED: Sodium Chloride 0.9% 1,000 ML IV SCH (11:00)
--- NOTE | 2019-05-16 11:15 | PDOC.HOSPP ---
- Subjective Encounter Date: 05/16/19 Encounter Time: 11:13 Subjective: acute respiratory distress - Objective Vital Signs & Weight: Vital Signs (12 hours) Temp Pulse Resp BP Pulse Ox 05/16/19 07:58 80 15 05/16/19 07:43 98.4 F 92 16 146/92 H 99 Weight Weight 171 lb 11.841 oz Most Recent Monitor Data Heart Rate from ECG 85 NIBP 117/80 NIBP BP-Mean 92 Respiration from ECG 26 SpO2 92 I&O: 05/15/19 05/16/19 05/17/19 06:59 06:59 06:59 Intake Total 680 800 Output Total 0 Balance 680 800 Result Diagrams: 05/13/19 05:14 05/13/19 05:14 Radiology Reviewed by me: Yes (cxr- large pneumothoax on R) Hospitalist ROS - Medication Medications: Active Medications Generic Name Dose Route Start Last Admin Trade Name Freq PRN Reason Stop Dose Admin Acetaminophen 650 mg 05/11/19 13:45 05/15/19 04:54 Tylenol PO 650 mg Q4H PRN Administration Headache/Fever/Mild Pain (1-3) Albuterol/Ipratropium 3 ml 05/13/19 18:30 05/16/19 07:58 Duoneb NEB 3 ml TID-RT EVELYN Administration Azathioprine 150 mg 05/13/19 09:00 05/16/19 08:46 Imuran PO 150 mg QAM EVELYN Administration Cholecalciferol 5,000 units 05/13/19 09:00 05/16/19 08:46 Vitamin D3 PO 5,000 units DAILY EVELYN Administration Cyclobenzaprine HCl 10 mg 05/12/19 13:17 05/13/19 07:59 Flexeril PO 10 mg TIDPRN PRN Administration Moderate Pain (4-6) Enoxaparin Sodium 40 mg 05/12/19 09:00 05/16/19 08:47 Lovenox SC 40 mg 0900 EVELYN Administration Isosorbide Mononitrate 30 mg 05/13/19 09:00 05/16/19 08:47 Imdur Er PO 30 mg DAILY EVELYN Administration Levofloxacin 500 mg 05/14/19 06:00 05/16/19 06:03 Levaquin PO 500 mg 0600 EVELYN Administration Losartan Potassium 50 mg 05/15/19 09:00 05/16/19 08:47 Cozaar PO 50 mg DAILY EVELYN Administration Pantoprazole Sodium 40 mg 05/13/19 09:00 05/16/19 08:47 Protonix PO 40 mg DAILY EVELYN Administration Prednisone 20 mg 05/15/19 09:00 05/16/19 08:47 Prednisone PO 20 mg DAILY EVELYN Administration Sodium Chloride 10 ml 05/13/19 21:00 05/16/19 08:47 Flush - Normal Saline IVF Not Given Q12HR EVELYN - Exam General - other findings: struggling to reath Heart: RRR, no murmur Heart - other findings: tachy Respiratory - other findings: dereased BS on R Gastrointestinal: soft, normal bowel sounds Extremities: no edema Hosp A/P (1) Acute respiratory failure with hypoxemia Code(s): J96.01 - ACUTE RESPIRATORY FAILURE WITH HYPOXIA Status: Acute (2) Spontaneous pneumothorax Code(s): J93.83 - OTHER PNEUMOTHORAX Status: Acute (3) Sarcoidosis Code(s): D86.9 - SARCOIDOSIS, UNSPECIFIED Status: Chronic (4) HTN (hypertension) Code(s): I10 - ESSENTIAL (PRIMARY) HYPERTENSION Status: Chronic Qualifiers: Hypertension type: essential hypertension Qualified Code(s): I10 - Essential (primary) hypertension - Plan recurrent pneumothorax with O2 sat about 50% and HR 130 CXR obtianed,moved to CCU intensivi called Chest tube placd EKG, CBC, CMP ordered 45 m1n Critcal care time (1030 [id number]
--- NOTE | 2019-05-16 11:34 | RAD ---
Exam: Chest one view: HISTORY: Chest tube insertion, follow-up pneumothorax COMPARISON: 05/16/2019, 10:43 AM FINDINGS: The previously noted large right-sided pneumothorax has markedly improved with some persistent apical component. Extensive bilateral chronic interstitial lung disease. Bilateral upper lung bullous changes. IMPRESSION: Marked improvement in the large right-sided pneumothorax after placement of a small-caliber chest tub e. Continued short-term follow-up.
[2019-05-16 11:35] LABS: ALT (SGPT) 40 U/L (8-55); AST (SGOT) 31 U/L (5-34); Albumin 4.1 g/dL (3.5-5.0); Alkaline Phosphatase 42 U/L (40-110); Anion Gap 14 mmol/L (10-20); BUN (Urea Nitrogen) 19 mg/dL (8.4-25.7); Bilirubin, Total 1.7 mg/dL (0.2-1.2); Calc. Creatinine Clearance 76 mL/min (70-130); Calcium 9.4 mg/dL (7.8-10.44); Carbon Dioxide 31 mmol/L (22-29); Chloride 102 mmol/L (98-107); Estimated GFR-MDRD 76; Globulin 2.9 g/dL (2.4-3.5); Glucose 121 mg/dL (70-105); Potassium 3.6 mmol/L (3.5-5.1); Sodium 143 mmol/L (136-145)
[2019-05-16 11:37] LABS: Hemoglobin 15.3 g/dL (14.0-18.0); Lymphocytes 9 % (21-51); MDiff Complete? YES; Mean Corpuscular HGB CONC 31.4 g/dL (32.0-36.0); Mean Corpuscular Hemoglobin 32.1 pg (27.0-31.0); Mean Platelet Volume 7.1 fL (7.4-10.4); Monocytes 7 % (0-10); Neutrophil 84 % (42-75); Platelet Count 232 thou/uL (130-400); Platelet Morphology Comment Appears Adequate; RBC Distribution Width 14.1 % (11.5-14.5); Red Blood Cell (RBC) Count 4.78 mill/uL (4.70-6.10); White Blood Cell (WBC) Count 13.4 thou/uL (4.8-10.8)
[2019-05-16] MEDS: Sodium Chloride 0.9% 1,000 ML IV SCH ×2 (12:05→19:52)
[2019-05-16] MEDS ORDERED: Midazolam HCl 2 mg/2 ml Vial ONE (13:13)
[2019-05-16] MEDS ORDERED: Fentanyl 100 MCG/2 ML VIAL ONE (13:13)
[2019-05-16] MEDS ORDERED: Lidocaine 1% w/Epinephrine 1:100K 20 ML VIAL ONE (13:13)
--- NOTE | 2019-05-16 14:13 | RAD ---
Exam: Chest one view: HISTORY: Chest tube placement COMPARISON: 05/16/2019 11:18 AM The patient's small caliber chest tube has been removed with placement of a larger caliber chest tube with the tip extending into the right apex. There may be a very tiny amount of right apical persistent pneumothorax. Extensive stable bilateral perihilar and lower lobe parenchymal changes. No new process. IMPRESSION: Placement of large-caliber chest tube with possible tiny right apical pneumothorax. Otherwise stable chest.
[2019-05-16] MEDS ORDERED: Morphine 4 MG/ML VIAL ONE (14:33)
--- NOTE | 2019-05-16 15:15 | OP ---
DATE OF PROCEDURE: 05/16/2019 PROCEDURE PERFORMED: A 28-Prydeinig right tube thoracostomy. PREOPERATIVE DIAGNOSIS: Recurrent right pneumothorax. POSTOPERATIVE DIAGNOSIS: Recurrent right pneumothorax. ANESTHESIA: 1% lidocaine, local anesthesia with intravenous sedation consisting of a total of 2 mg of Versed and 50 mcg of fentanyl. INDICATIONS FOR PROCEDURE: The patient is a 54-year-old man with sarcoidosis, who presented with shortness of breath and was found to have a large right-sided pneumothorax. It was decompressed with tube thoracostomy. His chest tube was removed, but today he had recurrence of it. He was decompressed with an 8-Prydeinig catheter, which is now being replaced with a more conventional chest tube. NARRATIVE REPORT: After informed consent was obtained, the patient was incrementally given sedation, and his right chest was prepped and draped in sterile fashion. 1% lidocaine was infiltrated in the skin and subcutaneous tissues overlying the rib, a little lateral to the nipple line just above the level of the xiphoid. The skin was sharply incised, and a subcutaneous tract was developed superiorly and posteriorly by blunt dissection. Additional lidocaine was then infiltrated over the superior rib margin and into the intercostal space. Blunt dissection was used to enter the pleural space, which was then probed with my finger. A 28-Prydeinig chest tube was then inserted and secured to the skin with suture. He was connected to close suction drainage and dressed. The patient's small bore catheter was then removed. The chest x-ray is pending. Job ID: [id number]
[2019-05-16] MEDS: Cyclobenzaprine 10 MG TAB PO PRN ×2 (15:41→23:45)
[2019-05-16] MEDS: Morphine 4 MG/ML VIAL SLOW IVP PRN ×4 (15:41→23:45)
--- NOTE | 2019-05-16 17:11 | PRG ---
DATE OF SERVICE: 05/16/2019 Andres Gauthier developed respiratory distress this morning. Chest radiograph showed recurrence of his pneumothorax. My associate, Dr. Saenz placed a small bore chest tube. I have consulted CT Surgery to place a larger tube given the extent of his upper lung field bullous disease. When I evaluated him, his only complaint was some chest discomfort. Equal breath sounds. Heart, regular rhythm. Abdomen is soft. Extremities without asymmetry. Chest radiograph shows placement of a small bore tube with inflation of his lung. Since then, larger tube has been placed by Dr. Koenig. Obviously, this tube will stay in for a longer period of time. I talked to Dr. Alarcon about stapling of blebs, but given the anatomy of his pathology, it would be difficult he tells me to know where to staple. At this point in time, we will just continue with chest tube suction much longer. Tomorrow, we will encourage him to get out of bed more. Add morphine to his medicine list. Job ID: [id number]
--- NOTE | 2019-05-16 17:34 | EKG ---
Test Reason : Blood Pressure : / mmHG Vent. Rate : 102 BPM Atrial Rate : 102 BPM P-R Int : 116 ms QRS Dur : 104 ms QT Int : 368 ms P-R-T Axes : 073 087 068 degrees QTc Int : 479 ms Sinus tachycardia Possible Left atrial enlargement Incomplete right bundle branch block Abnormal ECG When compared with ECG of 11-MAY-2019 11:51, (Unconfirmed) Premature ventricular complexes are no longer Present ST now depressed in Anterior leads T wave inversion more evident in Anterior leads Confirmed by DR. Gen CROW (3) on 05/16/2019 5:33:47 PM Referred By: EILEEN Confirmed By:DR. Gen CROW
[2019-05-17] MEDS: Morphine 4 MG/ML VIAL SLOW IVP PRN ×5 (03:38→20:29)
[2019-05-17] MEDS: Sodium Chloride 0.9% 1,000 ML IV SCH ×2 (05:24→16:40)
[2019-05-17] MEDS ORDERED: Metoprolol Tartrate 5 MG/5 ML VIAL ONE (06:49)
[2019-05-17] MEDS ORDERED: Metoprolol Tartrate 5 MG/5 ML VIAL IVP SCH (07:00)
--- NOTE | 2019-05-17 07:58 | PRG ---
DATE OF SERVICE: 05/17/2019 SUBJECTIVE: Mr. Gauthier has better pain control today. OBJECTIVE: GENERAL: He is in no distress. LUNGS: Clear. HEART: Regular rhythm. ABDOMEN: Soft. EXTREMITIES: Without edema. LABORATORY DATA: White count 13.4, hemoglobin 15.3, platelets 232. Chest radiograph shows inflation of his right lung. He has had some SVT today. He is given Lopressor by the hospitalist early. I ordered an echocardiogram earlier because of this and we will have Cardiology see him. He has no air leak, looking at his chest tube drainage. We will continue supportive care for his spontaneous pneumothorax created by sarcoidosis. Job ID: [id number]
--- NOTE | 2019-05-17 08:17 | RAD ---
PORTABLE CHEST: HISTORY: Pneumonia. COMPARISON: Prior day's exam. FINDINGS: Right-sided chest tube remains in place. I do not see a definite pneumothorax on this exam. Some im provement to the bibasilar lung changes. COPD changes are noted. There are prominent emphysematous changes in the upper lobes. IMPRESSION: Interval improvement in the bibasilar interstitial lung changes. POS: OFF
[2019-05-17] MEDS: azaTHIOprine 50 MG TAB PO SCH (09:25)
[2019-05-17] MEDS: Enoxaparin Sodium 40 MG/0.4 ML SYRINGE SC SCH (09:25)
[2019-05-17] MEDS: predniSONE 20 MG TAB PO SCH (09:26)
[2019-05-17] MEDS: Isosorbide Mononitrate (ER) 30 MG TAB PO SCH (09:26)
[2019-05-17] MEDS: Losartan 25 MG TAB PO SCH (09:26)
--- NOTE | 2019-05-17 10:38 | OP ---
DATE OF PROCEDURE: 05/16/2019 SERVICE: Pulmonary Medicine. PROCEDURE PERFORMED: Right-sided chest tube placement in the anterior second intercostal space. CONSENT: The consent was implied because this was an emergent procedure. STAFF PHYSICIAN: Ryan Saenz MD MEDICATIONS USED: Lidocaine 1% without epinephrine, 10 mL. PREOPERATIVE DIAGNOSES: 1. Acute hypoxic respiratory failure. 2. Tension pneumothorax. POSTOPERATIVE DIAGNOSES: 1. Acute hypoxic respiratory failure. 2. Tension pneumothorax. DESCRIPTION OF PROCEDURE: A time-out was performed by the procedure team and patient. The patient was positively identified using name and date of . The procedure site was marked. Vital sign monitoring was accomplished by noninvasive hemodynamic monitoring, pulse oximetry, and telemetry. In the supine position, the skin overlying the second intercostal space was prepped and draped in sterile fashion and anesthetized with 1% lidocaine without epinephrine. A finder needle was inserted in the pleural space with return of significant amount of air. A small chest tube was then inserted in the same location. The catheter was sutured to the skin with 3-0 silk needle x1. After the catheter was placed, the hemodynamics immediately improved. He was hooked up to chest tube drainage kit, and there was small amount of bubbling. Postprocedure chest x-ray demonstrated near complete re-expansion of the right lung. ESTIMATED BLOOD LOSS: None. COMPLICATIONS: None. Job ID: [id number] [facility]
--- NOTE | 2019-05-17 14:21 | EKG ---
Test Reason : Blood Pressure : / mmHG Vent. Rate : 140 BPM Atrial Rate : 140 BPM P-R Int : 118 ms QRS Dur : 094 ms QT Int : 284 ms P-R-T Axes : 021 090 034 degrees QTc Int : 433 ms Sinus tachycardia with Premature supraventricular complexes Right ventricular hypertrophy with repolarization abnormality Nonspecific T wave abnormality Abnormal ECG When compared with ECG of 16-MAY-2019 12:00, Premature supraventricular complexes are now Present Nonspecific T wave abnormality now evident in Inferior leads Confirmed by DR. Gen CROW (3) on 05/17/2019 2:21:12 PM Referred By: ZACARIAS Confirmed By:DR. Gen CROW
--- NOTE | 2019-05-17 15:20 | PDOC.HOSPP ---
- Subjective Subjective: Seen and examined. In ICU, with chest tube in position. Expected chest discomfort at chest tube site. Pain with deep inspiration as expected. All questions answered in detail. - Objective Vital Signs & Weight: Vital Signs (12 hours) Temp Pulse Resp Pulse Ox 05/17/19 13:34 100 20 100 05/17/19 12:00 98.7 F 05/17/19 08:00 98 05/17/19 07:27 135 H 20 100 05/17/19 07:00 97.9 F 05/17/19 04:00 97.6 F Weight Weight 171 lb 11.841 oz Most Recent Monitor Data Heart Rate from ECG 106 NIBP 86/60 NIBP BP-Mean 68 Respiration from ECG 19 SpO2 100 I&O: 05/16/19 05/17/19 05/18/19 06:59 06:59 06:59 Intake Total 800 6018 240 Output Total 1270 600 Balance 800 4748 -360 Result Diagrams: 05/16/19 10:53 05/16/19 10:53 Radiology Reviewed by me: Yes (CXR) Hospitalist ROS - Review of Systems All other systems reviewed; all pertinent +/- noted in HPI/Subj - Medication Medications: Active Medications Generic Name Dose Route Start Last Admin Trade Name Freq PRN Reason Stop Dose Admin Acetaminophen 650 mg 05/11/19 13:45 05/15/19 04:54 Tylenol PO 650 mg Q4H PRN Administration Headache/Fever/Mild Pain (1-3) Albuterol/Ipratropium 3 ml 05/13/19 18:30 05/17/19 13:34 Duoneb NEB 3 ml TID-RT EVELYN Administration Azathioprine 150 mg 05/13/19 09:00 05/17/19 09:25 Imuran PO 150 mg QAM EVELYN Administration Cholecalciferol 5,000 units 05/13/19 09:00 05/17/19 09:25 Vitamin D3 PO 5,000 units DAILY EVELYN Administration Cyclobenzaprine HCl 10 mg 05/12/19 13:17 05/16/19 23:45 Flexeril PO 10 mg TIDPRN PRN Administration Moderate Pain (4-6) Enoxaparin Sodium 40 mg 05/12/19 09:00 05/17/19 09:25 Lovenox SC 40 mg 0900 EVELYN Administration Sodium Chloride 1,000 mls @ 100 mls/hr 05/16/19 11:00 05/17/19 05:24 Normal Saline 0.9% IV 1,000 mls .Q10H EVELYN Administration Isosorbide Mononitrate 30 mg 05/13/19 09:00 05/17/19 09:26 Imdur Er PO 30 mg DAILY EVELYN Administration Levofloxacin 500 mg 05/14/19 06:00 05/17/19 05:20 Levaquin PO 500 mg 0600 EVELYN Administration Losartan Potassium 50 mg 05/15/19 09:00 05/17/19 09:26 Cozaar PO 50 mg DAILY EVELYN Administration Morphine Sulfate 4 mg 05/16/19 14:32 05/17/19 10:01 Morphine SLOW IVP 4 mg Q1H PRN Administration Chest Pain Pantoprazole Sodium 40 mg 05/13/19 09:00 05/17/19 09:26 Protonix PO 40 mg DAILY EVELYN Administration Prednisone 20 mg 05/15/19 09:00 05/17/19 09:26 Prednisone PO 20 mg DAILY EVELYN Administration Sodium Chloride 10 ml 05/13/19 21:00 05/17/19 09:42 Flush - Normal Saline IVF Not Given Q12HR EVELYN - Exam General Appearance: NAD, awake alert Eye: anicteric sclera ENT: normocephalic atraumatic, moist mucosa Neck: supple, symmetric, no lymphadenopathy Heart: no murmur, no gallops, no rubs Respiratory: no wheezes, no rales, no ronchi Respiratory - other findings: Decreased brath sounds right. Chest tube in position Gastrointestinal: soft, non-tender, no guarding, no rigidity Extremities: no clubbing, no edema Skin: normal turgor, no rashes Neurological: cranial nerve grossly intact, no weakness Psychiatric: normal affect, A&O x 3 Hosp A/P (1) Pleurisy Code(s): R09.1 - PLEURISY Status: Acute (2) Acute respiratory failure with hypoxemia Code(s): J96.01 - ACUTE RESPIRATORY FAILURE WITH HYPOXIA Status: Acute (3) Spontaneous pneumothorax Code(s): J93.83 - OTHER PNEUMOTHORAX Status: Acute (4) HTN (hypertension) Code(s): I10 - ESSENTIAL (PRIMARY) HYPERTENSION Status: Chronic Qualifiers: Hypertension type: essential hypertension Qualified Code(s): I10 - Essential (primary) hypertension (5) Sarcoidosis Code(s): D86.9 - SARCOIDOSIS, UNSPECIFIED Status: Chronic - Plan Plan: Intensive care unit Critical care/pulmonology consultation, recommendations appreciated chest tube management supplemental oxygen to maintain O2 saturation Symptomatic control for pleuritic chest pain pulmonary hygiene blood pressure control blood sugar control continue home medications as able
--- NOTE | 2019-05-17 17:16 | CON ---
DATE OF CONSULTATION: 05/17/2019 REASON FOR CONSULTATION: SVT. HISTORY OF PRESENT ILLNESS: Mr. Gauthier is a pleasant 54-year-old gentleman, who comes to the hospital for respiratory failure. He was found to have a spontaneous right-sided pneumothorax, thought to be related to sarcoidosis and had to have a chest tube placed. He has been in the ICU since. This morning, he had a run of tachycardia, appeared to be SVT, so Cardiology has been consulted for this. On my evaluation, Mr. Gauthier has no new complaints. He states that he did not really feel any palpitations this morning. He denies any chest pain other than the discomfort of the chest and the right-sided pneumothorax. PAST MEDICAL HISTORY: 1. Sarcoidosis with lung involvement. 2. Bullous lung disease. PAST SURGICAL HISTORY: 1. Mediastinoscopy with lymph node biopsy, which revealed noncaseating granulomas and sarcoid. 2. Cholecystectomy. 3. Eccrine gland removal from his axilla. SOCIAL HISTORY: No alcohol, tobacco, or drugs. FAMILY HISTORY: No early coronary artery disease. ALLERGIES: NO KNOWN DRUG ALLERGIES. OUTPATIENT MEDICATIONS: 1. Norvasc 5 mg a day. 2. Atorvastatin 20 mg a day. 3. Hydrochlorothiazide 25 mg a day. 4. Cozaar 50 mg a day. 5. Prednisone. REVIEW OF SYSTEMS: A 12-point review of systems was done and was found to be negative unless stated in the history of present illness. PHYSICAL EXAMINATION: VITAL SIGNS: Temperature 98.3, pulse 105, respiratory rate 20, saturating 98% on 2 L nasal cannula, and blood pressure 107/83. GENERAL: Awake, alert, and oriented x3. In no distress. HEENT: Normocephalic, atraumatic. NECK: Supple. LUNGS: Clear. CARDIOVASCULAR: S1 and S2. No S3 or S4. No murmurs. ABDOMEN: Soft. Positive bowel sounds. EXTREMITIES: No edema. SKIN: Warm and dry. LABORATORY DATA: Laboratory work was reviewed. White count of 13, hemoglobin 15, hematocrit 48, and platelet count of 232. ABG was reviewed, chemistries were reviewed, mostly unremarkable. Total bilirubin 1.7. BNP was 543 with normal troponin. Telemetry was reviewed. He had a small run of nonsustained atrial tachycardia about 25 seconds of worth. This was asymptomatic. He converted on his own. ASSESSMENT: 1. Nonsustained atrial tachycardia/supraventricular tachycardia. 2. Spontaneous pneumothorax. 3. Sarcoidosis. PLAN: 1. We would plan on stopping his isosorbide mononitrate to make sure that his blood pressure does not come down too much and we will put him on a very low-dose beta sandy daily. Otherwise, continue to monitor on telemetry once out of the ICU. 2. Echocardiogram to be done. Thank you for letting me to participate in the care of your patient. We will follow. Job ID: [id number]
[2019-05-17] MEDS: Acetaminophen 325 MG TAB PO PRN (20:20)
[2019-05-17] MEDS: Cyclobenzaprine 10 MG TAB PO PRN (20:21)
[2019-05-18] MEDS: Morphine 4 MG/ML VIAL SLOW IVP PRN ×3 (02:43→19:32)
[2019-05-18] MEDS: Sodium Chloride 0.9% 1,000 ML IV SCH ×3 (03:20→22:00)
--- NOTE | 2019-05-18 07:36 | RAD ---
EXAM: Portable chest PROVIDED CLINICAL HISTORY: Pneumonia COMPARISON: 05/17/2019 FINDINGS: Significant interval change with respect to the prior examination is not apparent. IMPRESSION: As above.
[2019-05-18] MEDS: azaTHIOprine 50 MG TAB PO SCH (09:00)
[2019-05-18] MEDS: predniSONE 20 MG TAB PO SCH (09:02)
[2019-05-18] MEDS: Enoxaparin Sodium 40 MG/0.4 ML SYRINGE SC SCH (09:03)
--- NOTE | 2019-05-18 11:30 | PRG ---
DATE OF SERVICE: 05/18/2019 SERVICE: Pulmonary Service. INTERVAL HISTORY: The patient is doing really well from Respiratory standpoint. Breathing comfortably. No complaints of chest discomfort, nausea, or vomiting. His chest tube insertion site is uncomfortable. Whenever he takes a deep breath or cough, he does get pleuritic chest discomfort. Otherwise, he is breathing fine. PHYSICAL EXAMINATION: VITAL SIGNS: Afebrile, pulse 106, blood pressure 141/95, respirations 22, and saturation 94%, currently on 2 L nasal cannula. GENERAL: The patient is awake and alert, in no apparent distress. LUNGS: Decent air entry with no prolonged expiratory phase or wheezing present. HEART: Normal rate and regular. ABDOMEN: Soft, nontender, and nondistended. Bowel sounds are positive. MUSCULOSKELETAL: No cyanosis or clubbing. There is no pitting in the bilateral lower extremities. NEUROLOGIC: Grossly nonfocal. LABORATORY DATA: WBC 13.4, hemoglobin 15.3, and platelets 232,000. Basic metabolic profile is otherwise unremarkable. All of these laboratories are several days old. IMAGING DATA: Chest x-ray demonstrates chest tube is in good position. There is a very small apical pneumothorax present. Otherwise, there is wonderful expansion of the lung. I do not see any focal consolidating lesions present. Echocardiogram demonstrates normal ejection fraction. There is a right ventricular pressure elevation. Grade 3/3 diastolic dysfunction. There is a reduced right ventricular systolic function. Pressures are moderately elevated at 45. ASSESSMENT: 1. Acute on chronic hypoxic respiratory failure. 2. Secondary spontaneous pneumothorax, recurrent. 3. Sarcoidosis. 4. Pulmonary hypertension based on echo only. 5. Chronic diastolic heart failure, currently euvolemic. DISCUSSION AND PLAN: The patient is doing fine from Respiratory standpoint. He has had no leak for 24 hours. I am going to give him one additional day. If he is without leak tomorrow morning, we will consider once again removing his chest tube. Pulmonary/Critical Care will follow while he remains in the ICU. Job ID: [id number]
--- NOTE | 2019-05-18 13:02 | PDOC.CPN ---
- Subjective Date: 05/18/19 Time: 13:00 Interval history: He is doing better. No more arrhythmias seen. - Review of Systems General: denies: fever/chills, weight/appetite/sleep changes, night sweats, fatigue Respiratory: denies: cough, congestion, shortness of breath, exercise intolerance Cardiovascular: denies: chest pain, palpitation, edema, paroxysmal nocturnal dyspnea, orthopnea Gastrointestinal: denies: nausea, vomiting, diarrhea, constipation, abd pain, GI bleeding Musculoskeletal: denies: pain, tenderness, stiffness, swelling, arthritis/ arthralgias Neurological: denies: numbness, syncope, seizure, weakness - Objective Allergies/Adverse Reactions: Allergies Allergy/AdvReac Type Severity Reaction Status Date / Time No Known Allergies Allergy Unverified 06/19/15 15:23 Visit Medications: Current Medications Acetaminophen (Tylenol) 650 mg PO Q4H PRN PRN Reason: Headache/Fever/Mild Pain (1-3) Last Admin: 05/17/19 20:20 Dose: 650 mg Albuterol/Ipratropium (Duoneb) 3 ml NEB TID-RT [facility] Last Admin: 05/18/19 07:40 Dose: 3 ml Azathioprine (Imuran) 150 mg PO QAM [facility] Last Admin: 05/18/19 09:00 Dose: 150 mg Cholecalciferol (Vitamin D3) 5,000 units PO DAILY [facility] Last Admin: 05/18/19 08:59 Dose: 5,000 units Cyclobenzaprine HCl (Flexeril) 10 mg PO TIDPRN PRN PRN Reason: Moderate Pain (4-6) Last Admin: 05/17/19 20:21 Dose: 10 mg Enoxaparin Sodium (Lovenox) 40 mg SC 0900 [facility] Last Admin: 05/18/19 09:03 Dose: 40 mg Sodium Chloride (Normal Saline 0.9%) 1,000 mls @ 100 mls/hr IV .Q10H [facility] Last Admin: 05/18/19 11:54 Dose: 1,000 mls Levofloxacin (Levaquin) 500 mg PO 0600 [facility] Last Admin: 05/18/19 06:20 Dose: 500 mg Metoprolol Succinate (Toprol Xl) 12.5 mg PO DAILY [facility] Last Admin: 05/18/19 09:01 Dose: 12.5 mg Morphine Sulfate (Morphine) 4 mg SLOW IVP Q1H PRN PRN Reason: Chest Pain Last Admin: 05/18/19 05:59 Dose: 4 mg Ondansetron HCl (Zofran) 4 mg IVP Q6H PRN PRN Reason: Nausea/Vomiting Pantoprazole Sodium (Protonix) 40 mg PO DAILY [facility] Last Admin: 05/18/19 09:01 Dose: 40 mg Prednisone (Prednisone) 20 mg PO DAILY [facility] Last Admin: 05/18/19 09:02 Dose: 20 mg Sodium Chloride (Flush - Normal Saline) 10 ml IVF Q12HR [facility] Last Admin: 05/18/19 09:03 Dose: 10 ml Sodium Chloride (Flush - Normal Saline) 10 ml IVF PRN PRN PRN Reason: Saline Flush Vital Signs & Weight: Vital Signs Temp Pulse Resp Pulse Ox 05/18/19 11:00 98.3 F 05/18/19 07:49 100 05/18/19 07:42 99 05/18/19 07:40 110 H 15 99 05/18/19 07:00 98.6 F 05/18/19 04:00 98.5 F Weight 178 lb 12.718 oz - Physical Exam General: alert & oriented x3, no apparent distress HEENT: mucus membranes moist Neck: supple neck, midline trachea Cardiac: regular rate and rhythm, no murmur Lungs: normal breath sounds Neuro: grossly intact Abdomen: active bowel sounds, soft, non-tender Extremities: no edema Skin: clear Musculoskeletal: no pain - Labs Result Diagrams: 05/16/19 10:53 05/16/19 10:53 Troponin/CKMB Troponin I 0.027 ng/mL (< 0.028) 05/11/19 12:01 - Telemetry Sinus rhythms and dysrhythmias: sinus tachycardia - Assessment/Plan Assessment/Plan: 1. Atrial tachycardia vs SVT 2. Spontaneous Pneumothorax. 3. Sarcoid lung 4. Grade 3/3 diastolic dysfunction. 5. Mild pulmonary hypertension.
--- NOTE | 2019-05-18 14:23 | PDOC.HOSPP ---
- Subjective Subjective: Seen and examined. Clinically improving. Still with pain related to the chest tube and pain with deep inspiration that is not worsened or significantly gotten better. Family at bedside, all questions answered in detail. Happy with progression. - Objective Vital Signs & Weight: Vital Signs (12 hours) Temp Pulse Resp Pulse Ox 05/18/19 14:12 92 18 99 05/18/19 11:00 98.3 F 05/18/19 07:49 100 05/18/19 07:42 99 05/18/19 07:40 110 H 15 99 05/18/19 07:00 98.6 F 05/18/19 04:00 98.5 F Weight Weight 178 lb 12.718 oz Most Recent Monitor Data Heart Rate from ECG 96 NIBP 119/80 NIBP BP-Mean 93 Respiration from ECG 27 SpO2 100 I&O: 05/17/19 05/18/19 05/19/19 06:59 06:59 06:59 Intake Total 6018 2939 920 Output Total 1270 1620 900 Balance 4748 1319 20 Result Diagrams: 05/16/19 10:53 05/16/19 10:53 Radiology Reviewed by me: Yes Hospitalist ROS - Review of Systems All other systems reviewed; all pertinent +/- noted in HPI/Subj - Medication Medications: Active Medications Generic Name Dose Route Start Last Admin Trade Name Freq PRN Reason Stop Dose Admin Acetaminophen 650 mg 05/11/19 13:45 05/17/19 20:20 Tylenol PO 650 mg Q4H PRN Administration Headache/Fever/Mild Pain (1-3) Albuterol/Ipratropium 3 ml 05/13/19 18:30 05/18/19 14:12 Duoneb NEB 3 ml TID-RT EVELYN Administration Azathioprine 150 mg 05/13/19 09:00 05/18/19 09:00 Imuran PO 150 mg QAM EVELYN Administration Cholecalciferol 5,000 units 05/13/19 09:00 05/18/19 08:59 Vitamin D3 PO 5,000 units DAILY EVELYN Administration Cyclobenzaprine HCl 10 mg 05/12/19 13:17 05/17/19 20:21 Flexeril PO 10 mg TIDPRN PRN Administration Moderate Pain (4-6) Enoxaparin Sodium 40 mg 05/12/19 09:00 05/18/19 09:03 Lovenox SC 40 mg 0900 EVELYN Administration Sodium Chloride 1,000 mls @ 100 mls/hr 05/16/19 11:00 05/18/19 11:54 Normal Saline 0.9% IV 1,000 mls .Q10H EVELYN Administration Levofloxacin 500 mg 05/14/19 06:00 05/18/19 06:20 Levaquin PO 500 mg 0600 EVELYN Administration Metoprolol Succinate 12.5 mg 05/18/19 09:00 05/18/19 09:01 Toprol Xl PO 12.5 mg DAILY EVELYN Administration Morphine Sulfate 4 mg 05/16/19 14:32 05/18/19 05:59 Morphine SLOW IVP 4 mg Q1H PRN Administration Chest Pain Pantoprazole Sodium 40 mg 05/13/19 09:00 05/18/19 09:01 Protonix PO 40 mg DAILY EVELYN Administration Prednisone 20 mg 05/15/19 09:00 05/18/19 09:02 Prednisone PO 20 mg DAILY EVELYN Administration Sodium Chloride 10 ml 05/13/19 21:00 05/18/19 09:03 Flush - Normal Saline IVF 10 ml Q12HR EVELYN Administration - Exam General Appearance: NAD, awake alert Eye: anicteric sclera ENT: normocephalic atraumatic, moist mucosa Neck: supple, no lymphadenopathy Heart: no murmur, no gallops, no rubs Respiratory: no wheezes, no rales, no ronchi Respiratory - other findings: Deminished breath sounds on the right Gastrointestinal: soft, non-tender, no guarding, no rigidity Extremities: no edema Skin: no lesions, no rashes Neurological: cranial nerve grossly intact, no focal deficits Musculoskeletal: normal tone, normal strength Psychiatric: normal affect, A&O x 3 Hosp A/P (1) Pleurisy Code(s): R09.1 - PLEURISY Status: Acute (2) Acute respiratory failure with hypoxemia Code(s): J96.01 - ACUTE RESPIRATORY FAILURE WITH HYPOXIA Status: Acute (3) Spontaneous pneumothorax Code(s): J93.83 - OTHER PNEUMOTHORAX Status: Acute (4) HTN (hypertension) Code(s): I10 - ESSENTIAL (PRIMARY) HYPERTENSION Status: Chronic Qualifiers: Hypertension type: essential hypertension Qualified Code(s): I10 - Essential (primary) hypertension (5) Sarcoidosis Code(s): D86.9 - SARCOIDOSIS, UNSPECIFIED Status: Chronic - Plan Plan: Intensive care unit Critical care/pulmonology consultation, recommendations appreciated Cardiology consultation, recommendations appreciated Improving on maximum medical management chest tube management supplemental oxygen to maintain O2 saturation Symptomatic control for pleuritic chest pain pulmonary hygiene blood pressure control blood sugar control continue home medications as able
[2019-05-19] MEDS: Morphine 4 MG/ML VIAL SLOW IVP PRN (04:07)
[2019-05-19] MEDS: Acetaminophen 325 MG TAB PO PRN (07:17)
[2019-05-19] MEDS: azaTHIOprine 50 MG TAB PO SCH (08:31)
[2019-05-19] MEDS: Enoxaparin Sodium 40 MG/0.4 ML SYRINGE SC SCH (08:31)
[2019-05-19] MEDS: predniSONE 20 MG TAB PO SCH (08:33)
[2019-05-19] MEDS: Sodium Chloride 0.9% 1,000 ML IV SCH (08:34)
--- NOTE | 2019-05-19 09:29 | RAD ---
Exam: Chest one view: HISTORY: Follow-up pneumonia COMPARISON: 05/18/2019 FINDINGS: Marked bullous emphysema changes and linear, interstitial, reticular nodular parenchymal changes thro ughout both lungs. Stable right chest tube. No significant pneumothorax. IMPRESSION: Overall stable chest.
--- NOTE | 2019-05-19 11:23 | PDOC.HOSPP ---
- Subjective Subjective: Seen and examined. Clinically improving. Breathing much more comfortably. Chest x-ray reviewed. Still with expected pain. - Objective Vital Signs & Weight: Vital Signs (12 hours) Temp Pulse Resp Pulse Ox 05/19/19 07:34 98 05/19/19 07:00 97.9 F 05/19/19 06:41 91 20 100 05/19/19 04:00 98.2 F 05/19/19 00:00 98.4 F Weight Weight 178 lb 5.663 oz Most Recent Monitor Data Heart Rate from ECG 89 NIBP 137/88 NIBP BP-Mean 104 Respiration from ECG 23 SpO2 98 I&O: 05/18/19 05/19/19 05/20/19 06:59 06:59 06:59 Intake Total 2939 3449 370 Output Total 1620 2295 200 Balance 1319 1154 170 Result Diagrams: 05/16/19 10:53 05/16/19 10:53 Radiology Reviewed by me: Yes Hospitalist ROS - Review of Systems All other systems reviewed; all pertinent +/- noted in HPI/Subj - Medication Medications: Active Medications Generic Name Dose Route Start Last Admin Trade Name Freq PRN Reason Stop Dose Admin Acetaminophen 650 mg 05/11/19 13:45 05/19/19 07:17 Tylenol PO 650 mg Q4H PRN Administration Headache/Fever/Mild Pain (1-3) Albuterol/Ipratropium 3 ml 05/13/19 18:30 05/19/19 06:41 Duoneb NEB 3 ml TID-RT EVELYN Administration Azathioprine 150 mg 05/13/19 09:00 05/19/19 08:31 Imuran PO 150 mg QAM EVELYN Administration Cholecalciferol 5,000 units 05/13/19 09:00 05/19/19 08:32 Vitamin D3 PO 5,000 units DAILY EVELYN Administration Cyclobenzaprine HCl 10 mg 05/12/19 13:17 05/17/19 20:21 Flexeril PO 10 mg TIDPRN PRN Administration Moderate Pain (4-6) Enoxaparin Sodium 40 mg 05/12/19 09:00 05/19/19 08:31 Lovenox SC 40 mg 0900 EVELYN Administration Sodium Chloride 1,000 mls @ 100 mls/hr 05/16/19 11:00 05/19/19 08:34 Normal Saline 0.9% IV Not Given .Q10H EVELYN Levofloxacin 500 mg 05/14/19 06:00 05/19/19 05:40 Levaquin PO 500 mg 0600 EVELYN Administration Metoprolol Succinate 12.5 mg 05/18/19 09:00 05/19/19 08:32 Toprol Xl PO 12.5 mg DAILY EVELYN Administration Morphine Sulfate 4 mg 05/16/19 14:32 05/19/19 04:07 Morphine SLOW IVP 4 mg Q1H PRN Administration Chest Pain Pantoprazole Sodium 40 mg 05/13/19 09:00 05/19/19 08:32 Protonix PO 40 mg DAILY EVELYN Administration Prednisone 20 mg 05/15/19 09:00 05/19/19 08:33 Prednisone PO 20 mg DAILY EVELYN Administration Sodium Chloride 10 ml 05/13/19 21:00 05/19/19 08:33 Flush - Normal Saline IVF 10 ml Q12HR EVELYN Administration - Exam General Appearance: NAD Eye: anicteric sclera ENT: normocephalic atraumatic, moist mucosa Neck: supple, symmetric, no lymphadenopathy Heart: RRR, no murmur, no gallops Respiratory: CTAB, no wheezes, no rales, no ronchi Respiratory - other findings: improved aeration of the right lung and more symetrical breath sounds Gastrointestinal: soft, non-tender, no guarding, no rigidity Extremities: no edema Skin: no lesions, no rashes Neurological: cranial nerve grossly intact, no focal deficits Musculoskeletal: normal tone, normal strength Psychiatric: normal affect, A&O x 3 Hosp A/P (1) Pleurisy Code(s): R09.1 - PLEURISY Status: Acute (2) Acute respiratory failure with hypoxemia Code(s): J96.01 - ACUTE RESPIRATORY FAILURE WITH HYPOXIA Status: Acute (3) Spontaneous pneumothorax Code(s): J93.83 - OTHER PNEUMOTHORAX Status: Acute (4) HTN (hypertension) Code(s): I10 - ESSENTIAL (PRIMARY) HYPERTENSION Status: Chronic Qualifiers: Hypertension type: essential hypertension Qualified Code(s): I10 - Essential (primary) hypertension (5) Sarcoidosis Code(s): D86.9 - SARCOIDOSIS, UNSPECIFIED Status: Chronic - Plan Plan: Intensive care unit Critical care/pulmonology consultation, recommendations appreciated Cardiology consultation, recommendations appreciated Improving on maximum medical management chest tube management, improving with maximum medical/ surgical care CXR reviewed supplemental oxygen to maintain O2 saturation Symptomatic control for pleuritic chest pain pulmonary hygiene blood pressure control blood sugar control continue home medications as able
[2019-05-19] MEDS: Milk Of Magnesia 30 ML UDCUP PO PRN (11:25)
--- NOTE | 2019-05-19 13:29 | PDOC.CPN ---
- Subjective Date: 05/19/19 Time: 13:27 - Review of Systems General: denies: fever/chills, weight/appetite/sleep changes, night sweats, fatigue Respiratory: denies: cough, congestion, shortness of breath, exercise intolerance Cardiovascular: reports: chest pain. denies: palpitation, edema, paroxysmal nocturnal dyspnea, orthopnea Gastrointestinal: denies: nausea, vomiting, diarrhea, constipation, abd pain, GI bleeding Musculoskeletal: denies: pain, tenderness, stiffness, swelling, arthritis/ arthralgias Neurological: denies: numbness, syncope, seizure, weakness - Objective Allergies/Adverse Reactions: Allergies Allergy/AdvReac Type Severity Reaction Status Date / Time No Known Allergies Allergy Unverified 06/19/15 15:23 Visit Medications: Current Medications Acetaminophen (Tylenol) 650 mg PO Q4H PRN PRN Reason: Headache/Fever/Mild Pain (1-3) Last Admin: 05/19/19 07:17 Dose: 650 mg Albuterol/Ipratropium (Duoneb) 3 ml NEB TID-RT [facility] Last Admin: 05/19/19 06:41 Dose: 3 ml Azathioprine (Imuran) 150 mg PO QAM [facility] Last Admin: 05/19/19 08:31 Dose: 150 mg Cholecalciferol (Vitamin D3) 5,000 units PO DAILY [facility] Last Admin: 05/19/19 08:32 Dose: 5,000 units Cyclobenzaprine HCl (Flexeril) 10 mg PO TIDPRN PRN PRN Reason: Moderate Pain (4-6) Last Admin: 05/17/19 20:21 Dose: 10 mg Enoxaparin Sodium (Lovenox) 40 mg SC 0900 [facility] Last Admin: 05/19/19 08:31 Dose: 40 mg Sodium Chloride (Normal Saline 0.9%) 1,000 mls @ 100 mls/hr IV .Q10H [facility] Last Admin: 05/19/19 08:34 Dose: Not Given Levofloxacin (Levaquin) 500 mg PO 0600 [facility] Last Admin: 05/19/19 05:40 Dose: 500 mg Magnesium Hydroxide (Milk Of Magnesium) 30 ml PO Q12H PRN PRN Reason: Constipation Last Admin: 05/19/19 11:25 Dose: 30 ml Metoprolol Succinate (Toprol Xl) 12.5 mg PO DAILY [facility] Last Admin: 05/19/19 08:32 Dose: 12.5 mg Morphine Sulfate (Morphine) 4 mg SLOW IVP Q1H PRN PRN Reason: Chest Pain Last Admin: 05/19/19 04:07 Dose: 4 mg Ondansetron HCl (Zofran) 4 mg IVP Q6H PRN PRN Reason: Nausea/Vomiting Pantoprazole Sodium (Protonix) 40 mg PO DAILY [facility] Last Admin: 05/19/19 08:32 Dose: 40 mg Prednisone (Prednisone) 20 mg PO DAILY [facility] Last Admin: 05/19/19 08:33 Dose: 20 mg Sodium Chloride (Flush - Normal Saline) 10 ml IVF Q12HR [facility] Last Admin: 05/19/19 08:33 Dose: 10 ml Sodium Chloride (Flush - Normal Saline) 10 ml IVF PRN PRN PRN Reason: Saline Flush Vital Signs & Weight: Vital Signs Temp Pulse Resp Pulse Ox 05/19/19 12:00 98 F 05/19/19 07:34 98 05/19/19 07:00 97.9 F 05/19/19 06:41 91 20 100 05/19/19 04:00 98.2 F Weight 178 lb 5.663 oz - Physical Exam General: alert & oriented x3 HEENT: mucus membranes moist, normocephaly Neck: supple neck Cardiac: regular rate and rhythm Lungs: decreased breath sounds Neuro: grossly intact Abdomen: active bowel sounds, soft, non-tender Extremities: no edema Skin: clear Musculoskeletal: no pain - Labs Result Diagrams: 05/16/19 10:53 05/16/19 10:53 Troponin/CKMB Troponin I 0.027 ng/mL (< 0.028) 05/11/19 12:01 - Telemetry Sinus rhythms and dysrhythmias: sinus rhythm - Assessment/Plan Assessment/Plan: 1. Atrial tachycardia vs SVT 2. Spontaneous Pneumothorax. 3. Sarcoid lung 4. Grade 3/3 diastolic dysfunction. 5. Mild pulmonary hypertension. PLAN: - Continue low dose BB. - Normal LV function. - BP well controlled.
--- NOTE | 2019-05-19 15:10 | PRG ---
DATE OF SERVICE: 05/19/2019 SERVICE: Pulmonary Medicine. INTERVAL HISTORY: The patient put out about 120 mL of water through his chest tube last night. I did not see any air leak this morning. That being said, earlier, Dr. Katz did. As such, the chest tubes staying in for an additional day. The patient is absolutely wonderful. He has no complaints other than when he coughs or takes a deep breath. PHYSICAL EXAMINATION: VITAL SIGNS: Afebrile, pulse 97, blood pressure 124/83, respirations 35, saturations 100%, currently on 2 L nasal cannula. GENERAL: The patient is awake, alert, in no apparent distress. LUNGS: Decent air entry. There are extensive crackles present. No prolonged expiratory phase or wheezing appreciated. HEART: Normal rate regular. ABDOMEN: Soft, nontender, nondistended. Bowel sounds are positive. MUSCULOSKELETAL: No cyanosis or clubbing. There is no pitting in the bilateral lower extremities. NEUROLOGIC: Grossly nonfocal. IMAGING STUDIES: Chest x-ray demonstrates good placement of the right-sided thoracostomy drain. I do not appreciate any apical pneumothorax. There is very good expansion of bilateral lung roman. Cardiac silhouette is generous. Chronic interstitial lung markings are present. ASSESSMENT: 1. Acute hypoxic respiratory failure, improved. 2. Spontaneous secondary pneumothorax, recurrent. 3. Sarcoidosis. 4. Pulmonary hypertension based on echo criteria. 5. Chronic diastolic heart failure, euvolemic. DISCUSSION AND PLAN: The patient is doing wonderful from a respiratory standpoint. We will continue daily surveillance chest x-rays. Once the air leak completely stops, a removal of the chest tube will be performed. Pulmonary will continue to follow while the patient remains inhouse. Hemodynamics and respiratory status otherwise stable. Job ID: [id number]
[2019-05-19] MEDS: HYDROcodone/Acetaminophen 10/325 mg Tablet PO PRN ×2 (17:28→22:22)
[2019-05-19] MEDS: Morphine 2 MG/ML SYRINGE SLOW IVP PRN ×2 (17:53→22:48)
[2019-05-20] MEDS: HYDROcodone/Acetaminophen 10/325 mg Tablet PO PRN ×3 (05:42→19:18)
[2019-05-20] MEDS: predniSONE 20 MG TAB PO SCH (09:20)
[2019-05-20] MEDS: azaTHIOprine 50 MG TAB PO SCH (09:20)
[2019-05-20] MEDS: Enoxaparin Sodium 40 MG/0.4 ML SYRINGE SC SCH (09:22)
--- NOTE | 2019-05-20 09:26 | RAD ---
PORTABLE CHEST: Date: 05/20/19 PROVIDED CLINICAL HISTORY: Pneumonia. FINDINGS: Comparison with 05/19/19. Significant interval change with respect to the prior examination is not apparent. IMPRESSION: As above. POS: OFF
[2019-05-20] MEDS: Milk Of Magnesia 30 ML UDCUP PO PRN ×2 (09:28→20:53)
--- NOTE | 2019-05-20 15:05 | PDOC.HOSPP ---
- Subjective Subjective: Seen and examined. Patient breathing more comfortably. Less pain associated with chest tube. No new complaints. Family at bedside, all questions answered in detail. Patient and family are happy with plan of care. - Objective Vital Signs & Weight: Vital Signs (12 hours) Temp Pulse Resp Pulse Ox 05/20/19 12:58 95 18 99 05/20/19 11:00 98.1 F 05/20/19 08:19 99 05/20/19 08:06 95 20 99 05/20/19 08:00 100 05/20/19 07:00 98.1 F 05/20/19 04:00 98.0 F Weight Weight 172 lb 6.424 oz Most Recent Monitor Data Heart Rate from ECG 92 NIBP 122/87 NIBP BP-Mean 98 Respiration from ECG 12 SpO2 100 I&O: 05/19/19 05/20/19 05/21/19 06:59 06:59 06:59 Intake Total 3449 1320 1090 Output Total 2295 1230 300 Balance 1154 90 790 Result Diagrams: 05/16/19 10:53 05/16/19 10:53 Radiology Reviewed by me: Yes (CXR) Hospitalist ROS - Review of Systems All other systems reviewed; all pertinent +/- noted in HPI/Subj - Medication Medications: Active Medications Generic Name Dose Route Start Last Admin Trade Name Freq PRN Reason Stop Dose Admin Acetaminophen 650 mg 05/11/19 13:45 05/19/19 07:17 Tylenol PO 650 mg Q4H PRN Administration Headache/Fever/Mild Pain (1-3) Hydrocodone Bitart/Acetaminophen 1 tab 05/19/19 14:53 05/20/19 09:26 [place] 10/325 PO 1 tab Q4H PRN Administration Pain 4-6 Albuterol/Ipratropium 3 ml 05/13/19 18:30 05/20/19 12:58 Duoneb NEB 3 ml TID-RT [facility] Administration Azathioprine 150 mg 05/13/19 09:00 05/20/19 09:20 Imuran PO 150 mg QAM [facility] Administration Cholecalciferol 5,000 units 05/13/19 09:00 05/20/19 09:21 Vitamin D3 PO 5,000 units DAILY [facility] Administration Cyclobenzaprine HCl 10 mg 05/12/19 13:17 05/17/19 20:21 Flexeril PO 10 mg TIDPRN PRN Administration Moderate Pain (4-6) Enoxaparin Sodium 40 mg 05/12/19 09:00 05/20/19 09:22 Lovenox SC 40 mg 0900 [facility] Administration Magnesium Hydroxide 30 ml 05/19/19 09:31 05/20/19 09:28 Milk Of Magnesium PO 30 ml Q12H PRN Administration Constipation Metoprolol Succinate 12.5 mg 05/18/19 09:00 05/20/19 09:20 Toprol Xl PO 12.5 mg DAILY [facility] Administration Morphine Sulfate 2 mg 05/19/19 14:53 05/19/19 22:48 Morphine SLOW IVP 2 mg Q1H PRN Administration Chest Pain Pantoprazole Sodium 40 mg 05/13/19 09:00 05/20/19 09:20 Protonix PO 40 mg DAILY [facility] Administration Prednisone 20 mg 05/15/19 09:00 05/20/19 09:20 Prednisone PO 20 mg DAILY [facility] Administration Sodium Chloride 10 ml 05/13/19 21:00 05/20/19 09:38 Flush - Normal Saline IVF 10 ml Q12HR [facility] Administration - Exam General Appearance: NAD, awake alert Eye: PERRL, anicteric sclera ENT: normocephalic atraumatic, moist mucosa Neck: supple, symmetric, no lymphadenopathy Heart: no murmur, no gallops, no rubs Respiratory: no rales, no ronchi, normal chest expansion, wheezes Respiratory - other findings: Improved aeration on the right, chest tube taped into postion Gastrointestinal: soft, non-tender, non-distended, no guarding, no rigidity Extremities: no edema Skin: no rashes Neurological: cranial nerve grossly intact, no focal deficits Musculoskeletal: generalized weakness Psychiatric: normal affect, A&O x 3 Hosp A/P (1) Pleurisy Code(s): R09.1 - PLEURISY Status: Acute (2) Acute respiratory failure with hypoxemia Code(s): J96.01 - ACUTE RESPIRATORY FAILURE WITH HYPOXIA Status: Acute (3) Spontaneous pneumothorax Code(s): J93.83 - OTHER PNEUMOTHORAX Status: Acute (4) HTN (hypertension) Code(s): I10 - ESSENTIAL (PRIMARY) HYPERTENSION Status: Chronic Qualifiers: Hypertension type: essential hypertension Qualified Code(s): I10 - Essential (primary) hypertension (5) Sarcoidosis Code(s): D86.9 - SARCOIDOSIS, UNSPECIFIED Status: Chronic - Plan Plan: Intensive care unit Critical care/pulmonology consultation, recommendations appreciated Cardiology consultation, recommendations appreciated Breathing more comfortably today, on low flow NC chest tube management, improving with maximum medical/ surgical care CXR reviewed supplemental oxygen to maintain O2 saturation Symptomatic control for pleuritic chest pain pulmonary hygiene blood pressure control blood sugar control continue home medications as able Patient and family happy with progression and plan of care
--- NOTE | 2019-05-20 18:06 | PDOC.CPN ---
- Subjective Date: 05/20/19 Time: 18:05 Interval history: No new issues. No recurrent arrhythmias. - Review of Systems General: denies: fever/chills, weight/appetite/sleep changes, night sweats, fatigue Respiratory: denies: cough, congestion, shortness of breath, exercise intolerance Cardiovascular: denies: chest pain, palpitation, edema, paroxysmal nocturnal dyspnea, orthopnea Gastrointestinal: denies: nausea, vomiting, diarrhea, constipation, abd pain, GI bleeding Musculoskeletal: reports: pain. denies: tenderness, stiffness, swelling, arthritis/arthralgias Neurological: denies: numbness, syncope, seizure, weakness - Objective Allergies/Adverse Reactions: Allergies Allergy/AdvReac Type Severity Reaction Status Date / Time No Known Allergies Allergy Unverified 06/19/15 15:23 Visit Medications: Current Medications Acetaminophen (Tylenol) 650 mg PO Q4H PRN PRN Reason: Headache/Fever/Mild Pain (1-3) Last Admin: 05/19/19 07:17 Dose: 650 mg Hydrocodone Bitart/Acetaminophen ([place] 10/325) 1 tab PO Q4H PRN PRN Reason: Pain 4-6 Last Admin: 05/20/19 09:26 Dose: 1 tab Albuterol/Ipratropium (Duoneb) 3 ml NEB TID-RT [facility] Last Admin: 05/20/19 12:58 Dose: 3 ml Azathioprine (Imuran) 150 mg PO QAM [facility] Last Admin: 05/20/19 09:20 Dose: 150 mg Cholecalciferol (Vitamin D3) 5,000 units PO DAILY [facility] Last Admin: 05/20/19 09:21 Dose: 5,000 units Cyclobenzaprine HCl (Flexeril) 10 mg PO TIDPRN PRN PRN Reason: Moderate Pain (4-6) Last Admin: 05/17/19 20:21 Dose: 10 mg Enoxaparin Sodium (Lovenox) 40 mg SC 0900 [facility] Last Admin: 05/20/19 09:22 Dose: 40 mg Magnesium Hydroxide (Milk Of Magnesium) 30 ml PO Q12H PRN PRN Reason: Constipation Last Admin: 05/20/19 09:28 Dose: 30 ml Metoprolol Succinate (Toprol Xl) 12.5 mg PO DAILY [facility] Last Admin: 05/20/19 09:20 Dose: 12.5 mg Morphine Sulfate (Morphine) 2 mg SLOW IVP Q1H PRN PRN Reason: Chest Pain Last Admin: 05/19/19 22:48 Dose: 2 mg Ondansetron HCl (Zofran) 4 mg IVP Q6H PRN PRN Reason: Nausea/Vomiting Pantoprazole Sodium (Protonix) 40 mg PO DAILY [facility] Last Admin: 05/20/19 09:20 Dose: 40 mg Prednisone (Prednisone) 20 mg PO DAILY [facility] Last Admin: 05/20/19 09:20 Dose: 20 mg Sodium Chloride (Flush - Normal Saline) 10 ml IVF Q12HR [facility] Last Admin: 05/20/19 09:38 Dose: 10 ml Sodium Chloride (Flush - Normal Saline) 10 ml IVF PRN PRN PRN Reason: Saline Flush Vital Signs & Weight: Vital Signs Temp Pulse Resp Pulse Ox 05/20/19 15:00 97.9 F 05/20/19 12:58 95 18 99 05/20/19 11:00 98.1 F 05/20/19 08:19 99 05/20/19 08:06 95 20 99 05/20/19 08:00 100 05/20/19 07:00 98.1 F Weight 172 lb 6.424 oz - Physical Exam General: alert & oriented x3 HEENT: mucus membranes moist Neck: supple neck Cardiac: regular rate and rhythm Lungs: decreased breath sounds Neuro: grossly intact Abdomen: active bowel sounds, soft, non-tender Extremities: no edema Skin: clear Musculoskeletal: no pain - Labs Result Diagrams: 05/16/19 10:53 05/16/19 10:53 Troponin/CKMB Troponin I 0.027 ng/mL (< 0.028) 05/11/19 12:01 - Telemetry Sinus rhythms and dysrhythmias: sinus rhythm - Assessment/Plan Assessment/Plan: 1. Atrial tachycardia vs SVT 2. Spontaneous Pneumothorax. 3. Sarcoid lung 4. Grade 3/3 diastolic dysfunction. 5. Mild pulmonary hypertension. PLAN: - Continue low dose BB. - Normal LV function. - BP well controlled. - Will sign off. Please call with any questions.
[2019-05-20] MEDS: Cyclobenzaprine 10 MG TAB PO PRN (20:54)
--- NOTE | 2019-05-21 07:59 | RAD ---
EXAM: Single view of the chest HISTORY: Right pneumothorax COMPARISON: 05/20/2019 FINDINGS: Single view of the chest shows a normal sized cardiomediastinal silhouette. The right ches t tube is unchanged in position. No pneumothorax is visualized. There is no evidence of consolidation, mass, or pleural effusion. Atelectasis is seen in the lung bases. The bones are unrema rkable. IMPRESSION: Stable exam
[2019-05-21] MEDS: Enoxaparin Sodium 40 MG/0.4 ML SYRINGE SC SCH (08:04)
[2019-05-21] MEDS: Cyclobenzaprine 10 MG TAB PO PRN (08:05)
[2019-05-21] MEDS: azaTHIOprine 50 MG TAB PO SCH (08:05)
[2019-05-21] MEDS: predniSONE 20 MG TAB PO SCH (08:06)
[2019-05-21] MEDS: HYDROcodone/Acetaminophen 10/325 mg Tablet PO PRN (11:13)
[2019-05-21] MEDS: Morphine 2 MG/ML SYRINGE SLOW IVP PRN ×2 (12:22→21:34)
--- NOTE | 2019-05-21 19:14 | PRG ---
DATE OF SERVICE: 05/21/2019 SUBJECTIVE: Mr. Gauthier continues to do reasonably well. We had a long talk with his and him about this illness, disability. My goal for him would be to get him back to work if at all possible. 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 He has not had rapid progression of his CT or pulmonary function abnormalities fortunately. He has been maintained on Imuran. I feel that he has a degree of adrenal insufficiency, so he has been kept on a low dose of prednisone. Hemodynamics remained stable. He does not have an air leak today. His pain is intermittently controlled with the hydrocodone, but he is still requiring occasional morphine doses. We will plan to cut his prednisone back to 10 mg a day starting tomorrow, which is his baseline. He will probably have a chest tube to water seal for many days prior to removing it since he had a recurrence of his pneumothorax only a few days after his chest tube was removed last time. He clearly does not do well with one lung ventilation. He has bilateral equal breath sounds without wheezes. Heart, regular rhythm. Abdomen is soft. He has not had any recent recurrence of his SVT. White count and lab work had been repeated since the 7th. We will order a lab in the morning. IMPRESSION: 1. Sarcoidosis. 2. Spontaneous pneumothorax. I will fill out his [place] papers for him. Hopefully, he can get him back to work. I anticipated the several weeks for a strong enough to go back to work at a minimum. Job ID: [id number]
--- NOTE | 2019-05-21 19:34 | PRG ---
DATE OF SERVICE: 05/20/2019 SUBJECTIVE: Andres Gauthier has no new complaints. I answered his 's and his questions again about going back to work. It is too early to tell whether he will be able to, but I am hopeful that he can. OBJECTIVE: VITAL SIGNS: Heart rate is 107, respiratory rates in 20s, oximetry is 98% on 2 L, and blood pressure 114/79. LUNGS: Remarkably equal breath sounds. HEART: Regular rhythm. ABDOMEN: Soft. EXTREMITIES: Without edema. Chest tube does not show an air leak at the time I was in the room with him. We will see him again in followup. He is stable to move out of Critical Care to intermediate care. Job ID: [id number]
[2019-05-22] MEDS: Cyclobenzaprine 10 MG TAB PO PRN ×2 (03:46→22:13)
[2019-05-22 05:45] LABS: Anion Gap 10 mmol/L (10-20); BUN (Urea Nitrogen) 18 mg/dL (8.4-25.7); Calc. Creatinine Clearance 91 mL/min (70-130); Calcium 8.2 mg/dL (7.8-10.44); Carbon Dioxide 29 mmol/L (22-29); Chloride 108 mmol/L (98-107); Estimated GFR-MDRD 89; Glucose 82 mg/dL (70-105); Sodium 143 mmol/L (136-145)
[2019-05-22 05:58] LABS: Band 8 % (5-11); Hemoglobin 12.1 g/dL (14.0-18.0); Lymphocytes 16 % (21-51); MDiff Complete? YES; Mean Corpuscular HGB CONC 32.3 g/dL (32.0-36.0); Mean Platelet Volume 6.8 fL (7.4-10.4); Monocytes 10 % (0-10); Neutrophil 65 % (42-75); Platelet Count 187 thou/uL (130-400); RBC Distribution Width 13.5 % (11.5-14.5); Reactive Lymphocytes 1 % (0-10); Red Blood Cell (RBC) Count 3.68 mill/uL (4.70-6.10); White Blood Cell (WBC) Count 7.8 thou/uL (4.8-10.8)
--- NOTE | 2019-05-22 08:00 | RAD ---
RADIOGRAPH CHEST 1 VIEW: DATE: 05/22/2019 TIME: 4:41 AM HISTORY: 54-year-old male with pneumonia COMPARISON: 05/21/2019 5:01 AM FINDINGS: Right-sided chest tube remains. Bilateral lower lung zone infiltrates remain. Hyperinflation of bilat eral mid and upper lung zones consistent with COPD, including large left upper lobe bullae. No pneumothorax identified. No interval change. IMPRESSION: 1. Right-sided chest tube. 2. No pneumothorax identified. 3. Severe paraseptal emphysema. 4. Bibasilar infiltrates, probably chronic. 5. No interval change.
[2019-05-22] MEDS: HYDROcodone/Acetaminophen 10/325 mg Tablet PO PRN (10:08)
[2019-05-22] MEDS: azaTHIOprine 50 MG TAB PO SCH (10:09)
[2019-05-22] MEDS: Enoxaparin Sodium 40 MG/0.4 ML SYRINGE SC SCH (10:10)
[2019-05-22] MEDS: predniSONE 20 MG TAB PO SCH (10:10)
--- NOTE | 2019-05-22 13:10 | PRG ---
DATE OF SERVICE: 05/22/2019 SUBJECTIVE: Mr. Gauthier went for a walk today, off suction today, with his Pleur-Evac and when he got back and sat down on the bedside commode, he started developing an air leak that was visible and shortness of breath. As soon as he was connected back to suction, the nurse tells me a large volume of air came out through the Pleur-evac and then his dyspnea resolved. He does not have an air leak at this time, but it is clear that he still has a defect in the surface of the lung that probably is exposed with removal of negative pressure. I have asked the nurses not to remove him from negative pressure and he will have to go to a bedside commode and exercise walking in place. OBJECTIVE: VITAL SIGNS: He is afebrile. Oximetry is 97% on 2 L, blood pressure 140/98, and heart rate 87. LUNGS: He has equal breath sounds at this time. HEART: Regular rhythm. ABDOMEN: Soft, IMAGING STUDIES: Chest x-ray at 9 a.m. showed no pneumothorax. IMPRESSION: 1. Sarcoidosis. 2. Spontaneous pneumothorax with persistent air leak. PLAN: Continue current care. Job ID: [id number]
--- NOTE | 2019-05-22 18:36 | PDOC.HOSPP ---
- Subjective Encounter Date: 05/22/19 Encounter Time: 12:00 Subjective: no sob, has pain at chest tube site at bedside - Objective Vital Signs & Weight: Vital Signs (12 hours) Temp Pulse Pulse Resp BP Pulse Ox Pulse Ox 05/22/19 15:37 97.3 F L 05/22/19 13:26 104 H 21 H 100 05/22/19 11:07 98.4 F 05/22/19 09:52 102 H 129/82 99 05/22/19 08:00 97 05/22/19 07:39 100 05/22/19 07:38 86 14 100 05/22/19 07:34 98.0 F Weight Weight 179 lb 3.2 oz Most Recent Monitor Data Heart Rate from ECG 106 NIBP 129/82 NIBP BP-Mean 97 Respiration from ECG 26 SpO2 99 I&O: 05/21/19 05/22/19 05/23/19 06:59 06:59 06:59 Intake Total 1870 860 Output Total 1230 425 Balance 640 435 Result Diagrams: 05/22/19 04:53 05/22/19 04:53 Hospitalist ROS - Medication Medications: Active Medications Generic Name Dose Route Start Last Admin Trade Name Freq PRN Reason Stop Dose Admin Acetaminophen 650 mg 05/11/19 13:45 05/19/19 07:17 Tylenol PO 650 mg Q4H PRN Administration Headache/Fever/Mild Pain (1-3) Hydrocodone Bitart/Acetaminophen 1 tab 05/19/19 14:53 05/22/19 10:08 [place] 10/325 PO 1 tab Q4H PRN Administration Pain 4-6 Albuterol/Ipratropium 3 ml 05/13/19 18:30 05/22/19 13:26 Duoneb NEB 3 ml TID-RT [facility] Administration Azathioprine 150 mg 05/13/19 09:00 05/22/19 10:09 Imuran PO 150 mg QAM [facility] Administration Cyclobenzaprine HCl 10 mg 05/12/19 13:17 05/22/19 03:46 Flexeril PO 10 mg TIDPRN PRN Administration Moderate Pain (4-6) Enoxaparin Sodium 40 mg 05/12/19 09:00 05/22/19 10:10 Lovenox SC 40 mg 0900 [facility] Administration Magnesium Hydroxide 30 ml 05/19/19 09:31 05/20/19 20:53 Milk Of Magnesium PO 30 ml Q12H PRN Administration Constipation Metoprolol Succinate 12.5 mg 05/18/19 09:00 05/22/19 10:09 Toprol Xl PO 12.5 mg DAILY [facility] Administration Morphine Sulfate 2 mg 05/19/19 14:53 05/21/19 21:34 Morphine SLOW IVP 2 mg Q1H PRN Administration Chest Pain Pantoprazole Sodium 40 mg 05/13/19 09:00 05/22/19 10:10 Protonix PO 40 mg DAILY [facility] Administration Prednisone 10 mg 05/22/19 09:00 05/22/19 10:10 Prednisone PO 10 mg DAILY [facility] Administration Sodium Chloride 10 ml 05/13/19 21:00 05/22/19 10:20 Flush - Normal Saline IVF 10 ml Q12HR [facility] Administration - Exam General Appearance: awake alert Eye: PERRL, anicteric sclera ENT: no oropharyngeal lesions, moist mucosa Neck: supple, no JVD Heart: RRR, no murmur Respiratory: no wheezes, no rales Respiratory - other findings: chest tube right side+ Gastrointestinal: soft, non-tender, normal bowel sounds Extremities: no cyanosis, no edema Neurological: cranial nerve grossly intact, no focal deficits Psychiatric: normal affect, A&O x 3 Hosp A/P (1) Spontaneous pneumothorax Code(s): J93.83 - OTHER PNEUMOTHORAX Status: Acute (2) HTN (hypertension) Code(s): I10 - ESSENTIAL (PRIMARY) HYPERTENSION Status: Chronic Qualifiers: Hypertension type: essential hypertension Qualified Code(s): I10 - Essential (primary) hypertension (3) Sarcoidosis Code(s): D86.9 - SARCOIDOSIS, UNSPECIFIED Status: Chronic - Plan has severe bullous lung disease with sarcoidosis (biopsy proven) recurrent pneumothorax, has chest tube on right side hemostable continue azathioprine, nebs, toprol xl, protonix and prednisone at 10mg echo showed normal ef
[2019-05-23] MEDS: HYDROcodone/Acetaminophen 10/325 mg Tablet PO PRN ×3 (06:11→22:54)
--- NOTE | 2019-05-23 07:52 | RAD ---
Chest AP view INDICATION: Pneumonia COMPARISON: May 22, 2019 FINDINGS: Lungs:Bibasilar interstitial and airspace opacities are stable. Emphysema changes are stable. Cardiac silhouette:Mild cardiomegaly is stable Pulmonary vasculature:Normal Pleural spaces:Right-sided thoracostomy tube is unchanged in position. No pneumothorax. Upper abdomen:No abnormality seen. Osseous structures: No acute osseous abnormality. Additional findings:None. IMPRESSION: Stable exam. Persistent bibasilar pneumonia. No pneumothorax. Right-sided thoracostomy tu be is unchanged. Mild cardiomegaly is stable.
[2019-05-23] MEDS: Enoxaparin Sodium 40 MG/0.4 ML SYRINGE SC SCH (08:56)
[2019-05-23] MEDS: azaTHIOprine 50 MG TAB PO SCH (08:56)
[2019-05-23] MEDS: predniSONE 20 MG TAB PO SCH (08:56)
--- NOTE | 2019-05-23 12:19 | PDOC.HOSPP ---
- Subjective Encounter Date: 05/23/19 Encounter Time: 11:00 Subjective: awake, not in distress at bedside - Objective Vital Signs & Weight: Vital Signs (12 hours) Temp Pulse Resp BP Pulse Ox 05/23/19 07:50 98.2 F 05/23/19 07:35 100 05/23/19 07:25 100 05/23/19 07:23 92 21 H 97 05/23/19 04:00 148/96 H 05/23/19 03:37 98.3 F Weight Weight 175 lb 1.6 oz Most Recent Monitor Data Heart Rate from ECG 100 NIBP 133/90 NIBP BP-Mean 104 Respiration from ECG 39 SpO2 94 I&O: 05/22/19 05/23/19 05/24/19 06:59 06:59 06:59 Intake Total 860 510 Output Total 425 400 Balance 435 110 Result Diagrams: 05/22/19 04:53 05/22/19 04:53 Hospitalist ROS - Medication Medications: Active Medications Generic Name Dose Route Start Last Admin Trade Name Freq PRN Reason Stop Dose Admin Acetaminophen 650 mg 05/11/19 13:45 05/19/19 07:17 Tylenol PO 650 mg Q4H PRN Administration Headache/Fever/Mild Pain (1-3) Hydrocodone Bitart/Acetaminophen 1 tab 05/19/19 14:53 05/23/19 12:14 [place] 10/325 PO 1 tab Q4H PRN Administration Pain 4-6 Albuterol/Ipratropium 3 ml 05/13/19 18:30 05/23/19 07:23 Duoneb NEB 3 ml TID-RT EVELYN Administration Azathioprine 150 mg 05/13/19 09:00 05/23/19 08:56 Imuran PO 150 mg QAM EVELYN Administration Cyclobenzaprine HCl 10 mg 05/12/19 13:17 05/22/19 22:13 Flexeril PO 10 mg TIDPRN PRN Administration Moderate Pain (4-6) Enoxaparin Sodium 40 mg 05/12/19 09:00 05/23/19 08:56 Lovenox SC 40 mg 0900 EVELYN Administration Magnesium Hydroxide 30 ml 05/19/19 09:31 05/20/19 20:53 Milk Of Magnesium PO 30 ml Q12H PRN Administration Constipation Metoprolol Succinate 12.5 mg 05/18/19 09:00 05/23/19 08:57 Toprol Xl PO 12.5 mg DAILY EVELYN Administration Morphine Sulfate 2 mg 05/19/19 14:53 05/21/19 21:34 Morphine SLOW IVP 2 mg Q1H PRN Administration Chest Pain Pantoprazole Sodium 40 mg 05/13/19 09:00 05/23/19 08:56 Protonix PO 40 mg DAILY EVELYN Administration Prednisone 10 mg 05/22/19 09:00 05/23/19 08:56 Prednisone PO 10 mg DAILY EVELYN Administration Sodium Chloride 10 ml 05/13/19 21:00 05/23/19 08:57 Flush - Normal Saline IVF 10 ml Q12HR EVELYN Administration - Exam General Appearance: NAD, awake alert Eye: PERRL, anicteric sclera ENT: no oropharyngeal lesions, moist mucosa Neck: supple, no JVD Heart: RRR, no murmur Respiratory: no wheezes, no rales Respiratory - other findings: chest tube right+ Gastrointestinal: soft, non-tender, non-distended, normal bowel sounds Extremities: no cyanosis, no edema Neurological: cranial nerve grossly intact, no focal deficits Psychiatric: normal affect, A&O x 3 Hosp A/P (1) Spontaneous pneumothorax Code(s): J93.83 - OTHER PNEUMOTHORAX Status: Acute (2) HTN (hypertension) Code(s): I10 - ESSENTIAL (PRIMARY) HYPERTENSION Status: Chronic Qualifiers: Hypertension type: essential hypertension Qualified Code(s): I10 - Essential (primary) hypertension (3) Sarcoidosis Code(s): D86.9 - SARCOIDOSIS, UNSPECIFIED Status: Chronic - Plan has severe bullous lung disease with sarcoidosis (biopsy proven) recurrent pneumothorax, has chest tube on right side hemostable continue azathioprine, nebs, toprol xl, protonix and prednisone at 10mg echo showed normal ef d/w patient and at bedside, I have shown them a old CT chest and current xrays, are aware of reasons for rec pneumothorax
--- NOTE | 2019-05-23 16:13 | PRG ---
DATE OF SERVICE: 05/23/2019 Mr. Gauthier is in no distress. He is talking on the phone with a friend of his. I have filled out disability placard as well as [place] papers for him and his . His heart rate is 100, respiratory rate is in the 20s, oximetry is 99%, and blood pressure 140/93. I have asked him to walk in place four times a day. He has only walked with physical therapy today. It is imperative that we not connect him from suction, but it is also imperative that he exercise in place, so he will never recover from this. He has no air leak looking at his pleural vac. He has equal breath sounds. We will continue with suctioning for now under the guidance supervision of Cardiothoracic surgery. Job ID: [id number]
--- NOTE | 2019-05-23 18:30 | PDOC.CPN ---
- Subjective Date: 05/23/19 Time: 18:29 Interval history: Called to bedside as he went back into [facility]. He is asymptomatic. - Review of Systems General: denies: fever/chills, weight/appetite/sleep changes, night sweats, fatigue Respiratory: denies: cough, congestion, shortness of breath, exercise intolerance Cardiovascular: denies: chest pain, palpitation, edema, paroxysmal nocturnal dyspnea, orthopnea Gastrointestinal: denies: nausea, vomiting, diarrhea, constipation, abd pain, GI bleeding Musculoskeletal: denies: pain, tenderness, stiffness, swelling, arthritis/ arthralgias Neurological: denies: numbness, syncope, seizure, weakness - Objective Allergies/Adverse Reactions: Allergies Allergy/AdvReac Type Severity Reaction Status Date / Time No Known Allergies Allergy Unverified 06/19/15 15:23 Visit Medications: Current Medications Acetaminophen (Tylenol) 650 mg PO Q4H PRN PRN Reason: Headache/Fever/Mild Pain (1-3) Last Admin: 05/19/19 07:17 Dose: 650 mg Hydrocodone Bitart/Acetaminophen ([place] 10/325) 1 tab PO Q4H PRN PRN Reason: Pain 4-6 Last Admin: 05/23/19 12:14 Dose: 1 tab Albuterol/Ipratropium (Duoneb) 3 ml NEB TID-RT [facility] Last Admin: 05/23/19 13:18 Dose: 3 ml Azathioprine (Imuran) 150 mg PO QAM [facility] Last Admin: 05/23/19 08:56 Dose: 150 mg Cyclobenzaprine HCl (Flexeril) 10 mg PO TIDPRN PRN PRN Reason: Moderate Pain (4-6) Last Admin: 05/22/19 22:13 Dose: 10 mg Enoxaparin Sodium (Lovenox) 40 mg SC 0900 [facility] Last Admin: 05/23/19 08:56 Dose: 40 mg Diltiazem HCl 125 mg/Miscellaneous Medication 1 each/ Sodium Chloride 125 mls @ 5 mls/hr IVPB INF [facility]; Protocol Magnesium Hydroxide (Milk Of Magnesium) 30 ml PO Q12H PRN PRN Reason: Constipation Last Admin: 05/20/19 20:53 Dose: 30 ml Metoprolol Succinate (Toprol Xl) 12.5 mg PO DAILY [facility] Last Admin: 05/23/19 08:57 Dose: 12.5 mg Morphine Sulfate (Morphine) 2 mg SLOW IVP Q1H PRN PRN Reason: Chest Pain Last Admin: 05/21/19 21:34 Dose: 2 mg Ondansetron HCl (Zofran) 4 mg IVP Q6H PRN PRN Reason: Nausea/Vomiting Pantoprazole Sodium (Protonix) 40 mg PO DAILY [facility] Last Admin: 05/23/19 08:56 Dose: 40 mg Prednisone (Prednisone) 10 mg PO DAILY [facility] Last Admin: 05/23/19 08:56 Dose: 10 mg Sodium Chloride (Flush - Normal Saline) 10 ml IVF Q12HR [facility] Last Admin: 05/23/19 08:57 Dose: 10 ml Sodium Chloride (Flush - Normal Saline) 10 ml IVF PRN PRN PRN Reason: Saline Flush Vital Signs & Weight: Vital Signs Temp Pulse Pulse Pulse Pulse Resp BP 05/23/19 13:21 116 H 101 H 120 H 160/106 H 05/23/19 13:18 101 H 25 H 05/23/19 07:50 98.2 F 05/23/19 07:35 05/23/19 07:25 05/23/19 07:23 92 21 H BP Pulse Ox Pulse Ox Pulse Ox 05/23/19 13:21 140/93 H 100 100 05/23/19 13:18 99 05/23/19 07:50 05/23/19 07:35 100 05/23/19 07:25 100 05/23/19 07:23 97 Admit Weight 171 lb 11.841 oz Weight 175 lb 1.6 oz - Physical Exam General: alert & oriented x3 HEENT: mucus membranes moist Neck: supple neck Cardiac: regular rate and rhythm, tachycardia Lungs: normal breath sounds Neuro: grossly intact Abdomen: active bowel sounds, soft, non-tender Extremities: no edema Skin: clear Musculoskeletal: no pain - Labs Result Diagrams: 05/22/19 04:53 05/22/19 04:53 Troponin/CKMB Troponin I 0.027 ng/mL (< 0.028) 05/11/19 12:01 - Telemetry Supraventricular conduction: other (Atrial tachycardia.) - Assessment/Plan Assessment/Plan: 1. Atrial tachycardia 2. Spontaneous Pneumothorax. 3. Sarcoid lung 4. Grade 3/3 diastolic dysfunction. 5. Mild pulmonary hypertension. PLAN: - Continue low dose BB. - Normal LV function. - Will start amiodarone drip for rate control. I expect him to convert soon. Will consult EP for opinion on antiarrhythmics and possibly ablation in future. May not be best time to do an ablation now given his pneumothorax and would not place on ventilator for sedation.
[2019-05-23] MEDS: Amiodarone 450 MG in Dextrose 5% in Water 250 ML IVPB SCH (20:01)
[2019-05-24] MEDS: HYDROcodone/Acetaminophen 10/325 mg Tablet PO PRN ×3 (03:39→18:37)
[2019-05-24] MEDS: Amiodarone 450 MG in Dextrose 5% in Water 250 ML IVPB SCH (03:41)
--- NOTE | 2019-05-24 08:28 | RAD ---
SINGLE VIEW OF THE CHEST: COMPARISON: 05/23/2019. HISTORY: Pneumonia. FINDINGS: A single view of the chest shows an enlarged but stable cardiomediastinal silhouette. A right chest tube is again seen without evidence of pneumothorax. Bibasilar atelectasis is seen. No significant change has occurred compared to the prior exam. IMPRESSION: Stable exam. POS: CET
[2019-05-24] MEDS: Enoxaparin Sodium 40 MG/0.4 ML SYRINGE SC SCH (09:18)
[2019-05-24] MEDS: predniSONE 20 MG TAB PO SCH (09:18)
[2019-05-24] MEDS: azaTHIOprine 50 MG TAB PO SCH (09:18)
--- NOTE | 2019-05-24 11:36 | PRG ---
DATE OF SERVICE: 05/24/2019 SUBJECTIVE: Andres rangel does not have an air leak. I have encouraged him to walk in place. OBJECTIVE: VITAL SIGNS: Heart rate is 98, blood pressure 120/84, and respiratory rate 30. LUNGS: Clear. HEART: Regular rhythm. ABDOMEN: Soft. IMPRESSION: Sarcoid with spontaneous pneumothorax, requiring 2 chest tubes this admission. CT surgery will decide when to place him to water-seal. I have encouraged him to walk in place. Remain connected to suction for now. Ideally needs to be walking in place for 15 to 20 or even 30 minutes four times a day if he wants to have a decent amount of strength when he is discharged. Job ID: [id number]
--- NOTE | 2019-05-24 14:09 | PDOC.HOSPP ---
- Subjective Encounter Date: 05/24/19 Encounter Time: 10:35 Subjective: no sob or chest pain is sitting in chair - Objective Vital Signs & Weight: Vital Signs (12 hours) Temp Pulse Pulse Pulse Resp BP BP 05/24/19 12:36 101 H 28 H 05/24/19 11:37 98.6 F 05/24/19 10:30 84 96 104/74 120/84 05/24/19 08:00 96.1 F L 05/24/19 07:42 05/24/19 07:41 85 16 05/24/19 03:14 97.0 F L 05/24/19 03:00 98 F Pulse Ox Pulse Ox Pulse Ox 05/24/19 12:36 98 05/24/19 11:37 05/24/19 10:30 94 L 96 05/24/19 08:00 99 05/24/19 07:42 100 05/24/19 07:41 05/24/19 03:14 05/24/19 03:00 Weight Admit Weight 171 lb 11.841 oz Weight 169 lb 4 oz Most Recent Monitor Data Heart Rate from ECG 99 NIBP 118/82 NIBP BP-Mean 94 Respiration from ECG 31 SpO2 100 I&O: 05/23/19 05/24/19 05/25/19 06:59 06:59 06:59 Intake Total 510 1265 Output Total 400 950 10 Balance 110 315 -10 Result Diagrams: 05/22/19 04:53 05/22/19 04:53 Hospitalist ROS - Medication Medications: Active Medications Generic Name Dose Route Start Last Admin Trade Name Freq PRN Reason Stop Dose Admin Acetaminophen 650 mg 05/11/19 13:45 05/19/19 07:17 Tylenol PO 650 mg Q4H PRN Administration Headache/Fever/Mild Pain (1-3) Hydrocodone Bitart/Acetaminophen 1 tab 05/19/19 14:53 05/24/19 13:05 [place] 10/325 PO 1 tab Q4H PRN Administration Pain 4-6 Albuterol/Ipratropium 3 ml 05/13/19 18:30 05/24/19 12:36 Duoneb NEB 3 ml TID-RT EVELYN Administration Azathioprine 150 mg 05/13/19 09:00 05/24/19 09:18 Imuran PO 150 mg QAM EVELYN Administration Cyclobenzaprine HCl 10 mg 05/12/19 13:17 05/22/19 22:13 Flexeril PO 10 mg TIDPRN PRN Administration Moderate Pain (4-6) Enoxaparin Sodium 40 mg 05/12/19 09:00 05/24/19 09:18 Lovenox SC 40 mg 0900 EVELYN Administration Amiodarone HCl 450 mg/ 259 mls @ 0 mls/hr 05/23/19 18:45 05/24/19 03:41 Dextrose/Water IVPB 259 mls INF EVELYN Administration Protocol Per Protocol Magnesium Hydroxide 30 ml 05/19/19 09:31 05/20/19 20:53 Milk Of Magnesium PO 30 ml Q12H PRN Administration Constipation Metoprolol Succinate 12.5 mg 05/18/19 09:00 05/24/19 09:19 Toprol Xl PO 12.5 mg DAILY EVELYN Administration Morphine Sulfate 2 mg 05/19/19 14:53 05/21/19 21:34 Morphine SLOW IVP 2 mg Q1H PRN Administration Chest Pain Pantoprazole Sodium 40 mg 05/13/19 09:00 05/24/19 09:18 Protonix PO 40 mg DAILY EVELYN Administration Prednisone 10 mg 05/22/19 09:00 05/24/19 09:18 Prednisone PO 10 mg DAILY EVELYN Administration Sodium Chloride 10 ml 05/13/19 21:00 05/24/19 09:19 Flush - Normal Saline IVF 10 ml Q12HR EVELYN Administration - Exam General Appearance: awake alert Eye: PERRL, anicteric sclera ENT: no oropharyngeal lesions, moist mucosa Neck: supple, no JVD Heart: RRR, no murmur Respiratory: no wheezes, no rales Respiratory - other findings: chest tube+ Gastrointestinal: soft, non-tender, non-distended, normal bowel sounds Extremities: no cyanosis, no edema Neurological: cranial nerve grossly intact, no focal deficits Psychiatric: normal affect, A&O x 3 Hosp A/P (1) Spontaneous pneumothorax Code(s): J93.83 - OTHER PNEUMOTHORAX Status: Acute (2) HTN (hypertension) Code(s): I10 - ESSENTIAL (PRIMARY) HYPERTENSION Status: Chronic Qualifiers: Hypertension type: essential hypertension Qualified Code(s): I10 - Essential (primary) hypertension (3) Sarcoidosis Code(s): D86.9 - SARCOIDOSIS, UNSPECIFIED Status: Chronic - Plan has severe bullous lung disease with sarcoidosis (biopsy proven) recurrent pneumothorax, has chest tube on right side hemostable on azathioprine, nebs, toprol xl, protonix and prednisone at 10mg echo showed normal ef patient and are aware of reasons for rec pneumothorax.
--- NOTE | 2019-05-24 15:40 | PDOC.CPN ---
- Subjective Date: 05/24/19 Time: 15:37 Interval history: He is doing well. No angina. Back in sinus. - Review of Systems General: denies: fever/chills, weight/appetite/sleep changes, night sweats, fatigue Respiratory: denies: cough, congestion, shortness of breath, exercise intolerance Cardiovascular: denies: chest pain, palpitation, edema, paroxysmal nocturnal dyspnea, orthopnea Gastrointestinal: denies: nausea, vomiting, diarrhea, constipation, abd pain, GI bleeding Musculoskeletal: denies: pain, tenderness, stiffness, swelling, arthritis/ arthralgias Neurological: denies: numbness, syncope, seizure, weakness - Objective Allergies/Adverse Reactions: Allergies Allergy/AdvReac Type Severity Reaction Status Date / Time No Known Allergies Allergy Unverified 06/19/15 15:23 Visit Medications: Current Medications Acetaminophen (Tylenol) 650 mg PO Q4H PRN PRN Reason: Headache/Fever/Mild Pain (1-3) Last Admin: 05/19/19 07:17 Dose: 650 mg Hydrocodone Bitart/Acetaminophen ([place] 10/325) 1 tab PO Q4H PRN PRN Reason: Pain 4-6 Last Admin: 05/24/19 13:05 Dose: 1 tab Albuterol/Ipratropium (Duoneb) 3 ml NEB TID-RT [facility] Last Admin: 05/24/19 12:36 Dose: 3 ml Azathioprine (Imuran) 150 mg PO QAM [facility] Last Admin: 05/24/19 09:18 Dose: 150 mg Cyclobenzaprine HCl (Flexeril) 10 mg PO TIDPRN PRN PRN Reason: Moderate Pain (4-6) Last Admin: 05/22/19 22:13 Dose: 10 mg Enoxaparin Sodium (Lovenox) 40 mg SC 0900 [facility] Last Admin: 05/24/19 09:18 Dose: 40 mg Amiodarone HCl 450 mg/ (Dextrose/Water) 259 mls @ 0 mls/hr IVPB INF [facility]; Protocol Last Admin: 05/24/19 03:41 Dose: 259 mls Magnesium Hydroxide (Milk Of Magnesium) 30 ml PO Q12H PRN PRN Reason: Constipation Last Admin: 05/20/19 20:53 Dose: 30 ml Metoprolol Succinate (Toprol Xl) 12.5 mg PO DAILY [facility] Last Admin: 05/24/19 09:19 Dose: 12.5 mg Morphine Sulfate (Morphine) 2 mg SLOW IVP Q1H PRN PRN Reason: Chest Pain Last Admin: 05/21/19 21:34 Dose: 2 mg Ondansetron HCl (Zofran) 4 mg IVP Q6H PRN PRN Reason: Nausea/Vomiting Pantoprazole Sodium (Protonix) 40 mg PO DAILY [facility] Last Admin: 05/24/19 09:18 Dose: 40 mg Prednisone (Prednisone) 10 mg PO DAILY [facility] Last Admin: 05/24/19 09:18 Dose: 10 mg Sodium Chloride (Flush - Normal Saline) 10 ml IVF Q12HR [facility] Last Admin: 05/24/19 09:19 Dose: 10 ml Sodium Chloride (Flush - Normal Saline) 10 ml IVF PRN PRN PRN Reason: Saline Flush Vital Signs & Weight: Vital Signs Temp Pulse Pulse Pulse Resp BP BP 05/24/19 12:36 101 H 28 H 05/24/19 11:37 98.6 F 05/24/19 10:30 84 96 104/74 120/84 05/24/19 08:00 96.1 F L 05/24/19 07:42 05/24/19 07:41 85 16 Pulse Ox Pulse Ox Pulse Ox 05/24/19 12:36 98 05/24/19 11:37 05/24/19 10:30 94 L 96 05/24/19 08:00 99 05/24/19 07:42 100 05/24/19 07:41 Admit Weight 171 lb 11.841 oz Weight 169 lb 4 oz - Physical Exam General: alert & oriented x3 HEENT: mucus membranes moist Neck: supple neck Cardiac: regular rate and rhythm, no murmur Lungs: normal breath sounds Neuro: grossly intact Abdomen: soft Extremities: no edema Skin: clear Musculoskeletal: no pain - Labs Result Diagrams: 05/22/19 04:53 05/22/19 04:53 Troponin/CKMB Troponin I 0.027 ng/mL (< 0.028) 05/11/19 12:01 - Telemetry Sinus rhythms and dysrhythmias: sinus rhythm - Assessment/Plan Assessment/Plan: 1. Atrial tachycardia 2. Spontaneous Pneumothorax. 3. Sarcoid lung 4. Grade 3/3 diastolic dysfunction. 5. Mild pulmonary hypertension. PLAN: - Continue low dose BB and amiodarone gtt. - Normal LV function. - EP consult.
[2019-05-25] MEDS: HYDROcodone/Acetaminophen 10/325 mg Tablet PO PRN ×3 (05:12→23:37)
--- NOTE | 2019-05-25 09:00 | RAD ---
RADIOGRAPH CHEST 1 VIEW: DATE: 05/25/2019 TIME: 4:45 AM HISTORY: 54-year-old male with pneumonia COMPARISON: 05/22/2019 and 05/24/2019 FINDINGS: Right-sided chest tube remains. Bilateral lower lung zone infiltrates remain. Hyperinflation of bilat eral mid and upper lung zones consistent with COPD, including large left upper lobe bullae. No pneumothorax identified. No interval change. IMPRESSION: 1. Right-sided chest tube. 2. No pneumothorax identified. 3. Severe paraseptal emphysema. 4. Bibasilar infiltrates, probably chronic. 5. No interval change.
[2019-05-25] MEDS: azaTHIOprine 50 MG TAB PO SCH (09:17)
[2019-05-25] MEDS: Enoxaparin Sodium 40 MG/0.4 ML SYRINGE SC SCH (09:18)
[2019-05-25] MEDS: predniSONE 20 MG TAB PO SCH (09:18)
--- NOTE | 2019-05-25 09:45 | PRG ---
DATE OF SERVICE: 05/25/2019 SUBJECTIVE: This morning, no pain. No shortness of breath. X-ray shows the right lung is up. No pneumothorax. I do not see any air leak. OBJECTIVE: VITAL SIGNS: Temperature 97, respirations 16, saturations are 98%, blood pressure 120/84. CHEST: Decreased breath sounds. No wheezing. CARDIAC: Normal S1 and S2. No gallops. ABDOMEN: No masses. ASSESSMENT: Pneumothorax, sarcoidosis spontaneous, status post chest tube. PLAN: Continue supportive care and PT. Continue CT drainage. Job ID: [id number]
--- NOTE | 2019-05-25 10:51 | PRG ---
DATE OF SERVICE: 05/25/2019 SUBJECTIVE: Mr. Gauthier says his breathing is doing okay today. No chest pain unless he takes a breath. He is in normal sinus rhythm. OBJECTIVE: LUNGS: Some diffuse scattered wheezing. CARDIAC: Normal S1. Normal S2. ABDOMEN: Soft and nontender. EXTREMITIES: No edema. ASSESSMENT: 1. Status post spontaneous pneumothorax. 2. Sarcoid lung disease. 3. Atrial tachycardia, currently in sinus rhythm. PLAN: 1. He has been taken off the intravenous amiodarone. 2. He is on a beta sandy, low-dose metoprolol succinate 12.5 mg a day. We will increase to 25 mg a day starting tomorrow. Job ID: [id number]
--- NOTE | 2019-05-25 12:17 | PDOC.HOSPP ---
- Subjective Encounter Date: 05/25/19 Encounter Time: 08:50 Subjective: no sob or palp has pain at chest tube insertion site - Objective Vital Signs & Weight: Vital Signs (12 hours) Temp Pulse Resp Pulse Ox 05/25/19 10:32 97.8 F 05/25/19 07:21 97.6 F 05/25/19 07:10 90 16 05/25/19 07:09 98 05/25/19 04:00 98.5 F 05/25/19 00:32 95 Weight Admit Weight 171 lb 11.841 oz Weight 175 lb 3.2 oz Most Recent Monitor Data Heart Rate from ECG 101 NIBP 127/85 NIBP BP-Mean 99 Respiration from ECG 22 SpO2 97 I&O: 05/24/19 05/25/19 05/26/19 06:59 06:59 06:59 Intake Total 1265 1610 Output Total 950 995 Balance 315 615 Result Diagrams: 05/22/19 04:53 05/22/19 04:53 Hospitalist ROS - Medication Medications: Active Medications Generic Name Dose Route Start Last Admin Trade Name Freq PRN Reason Stop Dose Admin Acetaminophen 650 mg 05/11/19 13:45 05/19/19 07:17 Tylenol PO 650 mg Q4H PRN Administration Headache/Fever/Mild Pain (1-3) Hydrocodone Bitart/Acetaminophen 1 tab 05/19/19 14:53 05/25/19 10:59 [place] 10/325 PO 1 tab Q4H PRN Administration Pain 4-6 Albuterol/Ipratropium 3 ml 05/13/19 18:30 05/25/19 07:10 Duoneb NEB 3 ml TID-RT EVELYN Administration Azathioprine 150 mg 05/13/19 09:00 05/25/19 09:17 Imuran PO 150 mg QAM EVELYN Administration Cyclobenzaprine HCl 10 mg 05/12/19 13:17 05/22/19 22:13 Flexeril PO 10 mg TIDPRN PRN Administration Moderate Pain (4-6) Enoxaparin Sodium 40 mg 05/12/19 09:00 05/25/19 09:18 Lovenox SC 40 mg 0900 EVELYN Administration Magnesium Hydroxide 30 ml 05/19/19 09:31 05/20/19 20:53 Milk Of Magnesium PO 30 ml Q12H PRN Administration Constipation Morphine Sulfate 2 mg 05/19/19 14:53 05/21/19 21:34 Morphine SLOW IVP 2 mg Q1H PRN Administration Chest Pain Pantoprazole Sodium 40 mg 05/13/19 09:00 05/25/19 09:18 Protonix PO 40 mg DAILY EVELYN Administration Prednisone 10 mg 05/22/19 09:00 05/25/19 09:18 Prednisone PO 10 mg DAILY [facility]ELYN Administration Sodium Chloride 10 ml 05/13/19 21:00 05/25/19 09:18 Flush - Normal Saline IVF 10 ml Q12HR EVELYN Administration - Exam General Appearance: awake alert Eye: PERRL, anicteric sclera ENT: no oropharyngeal lesions, moist mucosa Neck: supple, no JVD Heart: RRR, no murmur Respiratory: no wheezes, no rales Gastrointestinal: soft, non-tender, non-distended, normal bowel sounds Extremities: no cyanosis, no edema Neurological: cranial nerve grossly intact, no focal deficits Psychiatric: normal affect, A&O x 3 Hosp A/P (1) Spontaneous pneumothorax Code(s): J93.83 - OTHER PNEUMOTHORAX Status: Acute (2) HTN (hypertension) Code(s): I10 - ESSENTIAL (PRIMARY) HYPERTENSION Status: Chronic Qualifiers: Hypertension type: essential hypertension Qualified Code(s): I10 - Essential (primary) hypertension (3) Sarcoidosis Code(s): D86.9 - SARCOIDOSIS, UNSPECIFIED Status: Chronic - Plan has severe bullous lung disease with sarcoidosis (biopsy proven) recurrent pneumothorax, has chest tube on right side hemostable on azathioprine, nebs, toprol xl, protonix and prednisone at 10mg echo showed normal ef patient and are aware of reasons for rec pneumothorax.
--- NOTE | 2019-05-26 09:26 | PDOC.HOSPP ---
- Subjective Encounter Date: 05/26/19 Encounter Time: 09:24 Subjective: Patient seen and examined. No new complaints. No overnight events. No N/V or cp reported. No sob. - Objective Vital Signs & Weight: Vital Signs (12 hours) Temp Pulse Resp Pulse Ox 05/26/19 07:04 97.2 F L 05/26/19 06:59 93 12 05/26/19 03:55 98.0 F 05/26/19 01:37 98 05/25/19 23:56 98.3 F Weight Admit Weight 171 lb 11.841 oz Weight 175 lb 1.6 oz Most Recent Monitor Data Heart Rate from ECG 91 NIBP 139/96 NIBP BP-Mean 110 Respiration from ECG 21 SpO2 99 I&O: 05/25/19 05/26/19 05/27/19 06:59 06:59 06:59 Intake Total 1610 1230 Output Total 995 1090 Balance 615 140 Result Diagrams: 05/22/19 04:53 05/22/19 04:53 Radiology Reviewed by me: Yes Hospitalist ROS - Medication Medications: Active Medications Generic Name Dose Route Start Last Admin Trade Name Freq PRN Reason Stop Dose Admin Acetaminophen 650 mg 05/11/19 13:45 05/19/19 07:17 Tylenol PO 650 mg Q4H PRN Administration Headache/Fever/Mild Pain (1-3) Hydrocodone Bitart/Acetaminophen 1 tab 05/19/19 14:53 05/25/19 23:37 [place] 10/325 PO 1 tab Q4H PRN Administration Pain 4-6 Albuterol/Ipratropium 3 ml 05/13/19 18:30 05/26/19 06:59 Duoneb NEB 3 ml TID-RT EVELYN Administration Azathioprine 150 mg 05/13/19 09:00 05/25/19 09:17 Imuran PO 150 mg QAM EVELYN Administration Cyclobenzaprine HCl 10 mg 05/12/19 13:17 05/22/19 22:13 Flexeril PO 10 mg TIDPRN PRN Administration Moderate Pain (4-6) Enoxaparin Sodium 40 mg 05/12/19 09:00 05/25/19 09:18 Lovenox SC 40 mg 0900 EVELYN Administration Magnesium Hydroxide 30 ml 05/19/19 09:31 05/20/19 20:53 Milk Of Magnesium PO 30 ml Q12H PRN Administration Constipation Morphine Sulfate 2 mg 05/19/19 14:53 05/21/19 21:34 Morphine SLOW IVP 2 mg Q1H PRN Administration Chest Pain Pantoprazole Sodium 40 mg 05/13/19 09:00 05/25/19 09:18 Protonix PO 40 mg DAILY EVELYN Administration Prednisone 10 mg 05/22/19 09:00 05/25/19 09:18 Prednisone PO 10 mg DAILY EVELYN Administration Sodium Chloride 10 ml 05/13/19 21:00 05/25/19 20:50 Flush - Normal Saline IVF 10 ml Q12HR EVELYN Administration - Exam General Appearance: NAD Eye: anicteric sclera ENT: normocephalic atraumatic Neck: supple Heart: RRR Respiratory: CTAB Gastrointestinal: soft Extremities: no edema Neurological: no weakness Musculoskeletal: normal tone, normal strength Psychiatric: normal affect Hosp A/P (1) Acute respiratory failure with hypoxemia Code(s): J96.01 - ACUTE RESPIRATORY FAILURE WITH HYPOXIA Status: Acute (2) Pleurisy Code(s): R09.1 - PLEURISY Status: Acute (3) Spontaneous pneumothorax Code(s): J93.83 - OTHER PNEUMOTHORAX Status: Acute (4) HTN (hypertension) Code(s): I10 - ESSENTIAL (PRIMARY) HYPERTENSION Status: Chronic Qualifiers: Hypertension type: essential hypertension Qualified Code(s): I10 - Essential (primary) hypertension (5) Sarcoidosis Code(s): D86.9 - SARCOIDOSIS, UNSPECIFIED Status: Chronic - Plan old records reviewed/req, plan discussed w/ family, PT/OT, oncology social work, DVT proph w/lovenox continue azathioprine, prednisone. Appreciate pulm/card input. continue rt sidede CT drainage. Toprol dose adjusted by cardiology. Monitor HR. f/u CXR. Hemo stable. AM labs.
[2019-05-26] MEDS: Enoxaparin Sodium 40 MG/0.4 ML SYRINGE SC SCH (09:32)
[2019-05-26] MEDS: predniSONE 20 MG TAB PO SCH (09:32)
--- NOTE | 2019-05-26 09:32 | PRG ---
DATE OF SERVICE: 05/26/2019 SUBJECTIVE: Mr. Gauthier is doing fine. He is sitting up in the chair. No complaints. OBJECTIVE: VITAL SIGNS: Blood pressure 139/96 and pulse is 100 and sinus. LUNGS: Clear. CARDIAC: Normal S1. Normal S2. ASSESSMENT AND PLAN: 1. Status post spontaneous pneumothorax. 2. Atrial arrhythmias, controlled. He is on low-dose beta sandy. Dr. Marshall to resume care tomorrow. Job ID: [id number]
[2019-05-26] MEDS: azaTHIOprine 50 MG TAB PO SCH (09:33)
--- NOTE | 2019-05-26 10:24 | RAD ---
Exam: Chest one view HISTORY:Pneumonia Comparison: 05/25/2019 FINDINGS: Cardiac silhouette:Stable cardiomegaly Aorta: Unremarkable Pulmonary vessels: Normal Costophrenic angles: Clear LUNGS: Persistent interstitial opacities throughout the lung parenchyma, greatest in the lung bases. Stable emphysematous changes in the left and right upper lobe. Pneumothorax: Stable right-sided chest tube. No definite pneumothorax. Osseous abnormalities: None IMPRESSION: No significant interval change.
--- NOTE | 2019-05-26 11:21 | PRG ---
DATE OF SERVICE: 05/26/2019 SUBJECTIVE: This morning, he is awake, alert, responsive, in no distress. X-ray looks good. I do not see any evidence of an air leak in the chest tube. OBJECTIVE: VITAL SIGNS: Blood pressure 119/84, saturations are 98%, respirations 24, pulse 80, and afebrile. CHEST: Decreased breath sounds. No wheezing. CARDIAC: Normal S1 and S2. No gallops. ABDOMEN: No masses. ASSESSMENT: Spontaneous pneumothorax and azotemia, resolved. PLAN: Continue supportive care and PT. We will follow. Job ID: [id number]
[2019-05-26] MEDS: HYDROcodone/Acetaminophen 10/325 mg Tablet PO PRN ×2 (13:07→22:05)
--- NOTE | 2019-05-26 16:18 | EKG ---
Test Reason : Blood Pressure : / mmHG Vent. Rate : 138 BPM Atrial Rate : 138 BPM P-R Int : 122 ms QRS Dur : 092 ms QT Int : 362 ms P-R-T Axes : 020 084 033 degrees QTc Int : 548 ms Poor data quality, interpretation may be adversely affected Sinus tachycardia Incomplete right bundle branch block Abnormal ECG Confirmed by DR. Amadeo HILLMAN ([id number]) on 05/26/2019 4:18:44 PM Referred By: Confirmed By:DR. Amadeo HILLMAN
[2019-05-27 06:41] LABS: #Eosinphils 0.2 thou/uL (0.0-0.7); #Lymphocytes 0.8 thou/uL (1.20-3.40); #Monocytes 0.6 thou/uL (0.11-0.59); #Neutrophils 5.8 thou/uL (1.40-6.50); %Basophils 0.2 % (0.0-1.0); %Monocytes 7.7 % (0.0-10.0); %Neutrophils 78.2 % (42.0-75.0); Hemoglobin 12.2 g/dL (14.0-18.0); Mean Corpuscular HGB CONC 33.1 g/dL (32.0-36.0); Mean Corpuscular Hemoglobin 32.8 pg (27.0-31.0); Mean Corpuscular Volume 99.2 fL (78.0-98.0); Mean Platelet Volume 6.5 fL (7.4-10.4); Platelet Count 216 thou/uL (130-400); RBC Distribution Width 13.4 % (11.5-14.5); Red Blood Cell (RBC) Count 3.72 mill/uL (4.70-6.10); White Blood Cell (WBC) Count 7.4 thou/uL (4.8-10.8)
[2019-05-27 07:10] LABS: Anion Gap 10 mmol/L (10-20); BUN (Urea Nitrogen) 13 mg/dL (8.4-25.7); Calc. Creatinine Clearance 98 mL/min (70-130); Calcium 8.7 mg/dL (7.8-10.44); Carbon Dioxide 28 mmol/L (22-29); Chloride 106 mmol/L (98-107); Estimated GFR-MDRD Greater than 90; Glucose 83 mg/dL (70-105); Sodium 140 mmol/L (136-145)
--- NOTE | 2019-05-27 08:14 | RAD ---
FRONTAL RADIOGRAPH CHEST: DATE: 05/27/2019. COMPARISON: 05/26/2019. HISTORY: Pneumonia. FINDINGS: There are coarse increased linear interstitial densities noted in the bilateral perihilar regions in both lung bases, unchanged when compared to the prior exam. Stable emphysematous changes are noted i n bilateral lung apices. Stable subcutaneous gas within right chest wall with stable medial right-si ded chest tube. Small pneumothorax in right lung apex is unchanged. IMPRESSION: Stable appearance of the chest as detailed above. POS: AMMY
[2019-05-27] MEDS: Enoxaparin Sodium 40 MG/0.4 ML SYRINGE SC SCH (09:15)
[2019-05-27] MEDS: predniSONE 20 MG TAB PO SCH (09:16)
[2019-05-27] MEDS: azaTHIOprine 50 MG TAB PO SCH (09:16)
--- NOTE | 2019-05-27 13:32 | PDOC.HOSPP ---
- Subjective Encounter Date: 05/27/19 Encounter Time: 12:20 Subjective: no sob or pain feels good at bedside - Objective Vital Signs & Weight: Vital Signs (12 hours) Temp Pulse Resp Pulse Ox 05/27/19 11:59 99 26 H 05/27/19 11:32 98.4 F 05/27/19 08:00 97 05/27/19 07:29 97.6 F 05/27/19 06:57 88 19 05/27/19 04:00 98.6 F Weight Admit Weight 171 lb 11.841 oz Weight 172 lb 4.8 oz Most Recent Monitor Data Heart Rate from ECG 98 NIBP 146/89 NIBP BP-Mean 108 Respiration from ECG 36 SpO2 100 I&O: 05/26/19 05/27/19 05/28/19 06:59 06:59 06:59 Intake Total 1230 650 Output Total 1090 1410 Balance 140 -760 Result Diagrams: 05/27/19 06:10 05/27/19 06:10 Hospitalist ROS - Medication Medications: Active Medications Generic Name Dose Route Start Last Admin Trade Name Freq PRN Reason Stop Dose Admin Acetaminophen 650 mg 05/11/19 13:45 05/19/19 07:17 Tylenol PO 650 mg Q4H PRN Administration Headache/Fever/Mild Pain (1-3) Hydrocodone Bitart/Acetaminophen 1 tab 05/19/19 14:53 05/26/19 22:05 [place] 10/325 PO 1 tab Q4H PRN Administration Pain 4-6 Albuterol/Ipratropium 3 ml 05/13/19 18:30 05/27/19 11:59 Duoneb NEB 3 ml TID-RT EVELYN Administration Azathioprine 150 mg 05/13/19 09:00 05/27/19 09:16 Imuran PO 150 mg QAM EVELYN Administration Cyclobenzaprine HCl 10 mg 05/12/19 13:17 05/22/19 22:13 Flexeril PO 10 mg TIDPRN PRN Administration Moderate Pain (4-6) Enoxaparin Sodium 40 mg 05/12/19 09:00 05/27/19 09:15 Lovenox SC 40 mg 0900 EVELYN Administration Magnesium Hydroxide 30 ml 05/19/19 09:31 05/20/19 20:53 Milk Of Magnesium PO 30 ml Q12H PRN Administration Constipation Metoprolol Succinate 25 mg 05/26/19 09:00 05/27/19 09:16 Toprol Xl PO 25 mg DAILY EVELYN Administration Morphine Sulfate 2 mg 05/19/19 14:53 05/21/19 21:34 Morphine SLOW IVP 2 mg Q1H PRN Administration Chest Pain Pantoprazole Sodium 40 mg 05/13/19 09:00 05/27/19 09:16 Protonix PO 40 mg DAILY EVELYN Administration Prednisone 10 mg 05/22/19 09:00 05/27/19 09:16 Prednisone PO 10 mg DAILY EVELYN Administration Sodium Chloride 10 ml 05/13/19 21:00 05/27/19 09:17 Flush - Normal Saline IVF 10 ml Q12HR EVELYN Administration - Exam General Appearance: NAD, awake alert Eye: PERRL, anicteric sclera ENT: no oropharyngeal lesions, moist mucosa Neck: supple, no JVD Heart: RRR, no murmur Respiratory: no wheezes, no rales Respiratory - other findings: right chest tube Gastrointestinal: soft, non-tender, normal bowel sounds Extremities: no cyanosis, no edema Neurological: cranial nerve grossly intact, no focal deficits Psychiatric: normal affect, A&O x 3 Hosp A/P (1) Spontaneous pneumothorax Code(s): J93.83 - OTHER PNEUMOTHORAX Status: Acute (2) HTN (hypertension) Code(s): I10 - ESSENTIAL (PRIMARY) HYPERTENSION Status: Chronic Qualifiers: Hypertension type: essential hypertension Qualified Code(s): I10 - Essential (primary) hypertension (3) Sarcoidosis Code(s): D86.9 - SARCOIDOSIS, UNSPECIFIED Status: Chronic - Plan has severe bullous lung disease with sarcoidosis (biopsy proven) recurrent pneumothorax, has chest tube on right side, removal per CTS/pulm adv hemostable on azathioprine, nebs, toprol xl, protonix and prednisone at 10mg echo showed normal ef patient and are aware of reasons for rec pneumothorax.
--- NOTE | 2019-05-27 16:59 | PRG ---
DATE OF SERVICE: 05/27/2019 Mr. Gauthier is clinically unchanged. He still has chest tube in. His chest radiograph stable. Main issue at this point is weakness. He was working up until the day he developed his pneumothorax. I am hoping with some physical therapy, we can get him back there. I planned to talk to Dr. Alarcon today about possibly placing talc in the pleural space to minimize the risk of this in the future. My hesitancy with regard to that would be that it might make a little technically more difficult for lung transplant procedure in the future, but at the same time decreased risk of recurrent pneumothorax which was almost fatal for him. He does not have enough reserve to tolerate a completely collapsed lung. Job ID: [id number]
--- NOTE | 2019-05-27 19:24 | CON ---
DATE OF CONSULTATION: 05/27/2019 This is Verena Nuñez NP performing a consultation in collaboration with Jewel Chavira MD. PRIMARY BLACK PULLER: Lauro Marshall MD. REASON FOR CONSULTATION: SVT. HISTORY OF PRESENT ILLNESS: Mr. Gauthier is a 54-year-old gentleman who presented to [facility] for respiratory failure. He was found to have spontaneous right-sided pneumothorax likely related to sarcoidosis and had a chest tube placed. On 05/17, he had a run of tachycardia at 140 to 150 beats per minute, thought to be SVT and Cardiology was consulted for this. He was started on low dose beta blockers and Cardiology signed off. On 05/23, he had recurrent and more sustained episode of SVT and he was placed on IV amiodarone for rate control and anticipating that he was spontaneously converted to sinus rhythm. His IV amiodarone was stopped. EP consultation is for consideration of possible ablation versus antiarrhythmic guidance regarding this supraventricular arrhythmia. Mr. Gauthier continues to have chest tube in place. There have been multiple attempts to remove this chest tube, all of which have been unsuccessful and his lung deflates again. When he is having his SVT and tachycardic episode, he is asymptomatic. He is aware that his heart rate is beating fast and heavily, but has no associated symptoms such as chest pain, dizziness, passing out. He reports that he has occasionally had episodes similar to this in the past, but these are largely not bothersome or limiting to him other than the awareness of his heart rate going rapidly. Mr. Gauthier is currently sitting upright in his chair. He denies any current heart racing, palpitations, chest pain, pressure, syncope, near syncope, stroke, or stroke like symptoms. He continues to feel somewhat short of breath and weak. He reports having a stress test in the past with his private secretary, but has never required a left heart catheterization. Also an echocardiogram this hospitalization showed a preserved EF with grade 3 diastolic dysfunction as well as moderately elevated RV systolic pressure of 45 mmHg. REVIEW OF SYSTEMS: A 12-point review of systems was negative except that listed above in HPI. PAST MEDICAL HISTORY: 1. Sarcoidosis with lung involvement. 2. Bullous lung disease. 3. Mediastinoscopy with lymph node biopsy revealing noncaseating granuloma and sarcoid. 4. Cholecystectomy. 5. Eccrine gland removal from his axilla. SOCIAL HISTORY: Negative for alcohol, tobacco, or illicit drug use. FAMILY HISTORY: Negative for sudden cardiac or early onset coronary artery disease. ALLERGIES: NO KNOWN DRUG ALLERGIES. HOME MEDICATIONS: 1. Losartan one tablet daily. 2. Vitamin D3 5000 units daily. 3. Flexeril 10 mg p.o. t.i.d. as needed. 4. Protonix 40 mg daily. 5. Isosorbide mononitrate 30 mg daily. 6. Azathioprine 150 mg q.a.m. 7. Amlodipine 5 mg daily. 8. Atorvastatin 1 tablet daily. 9. Prednisone 10 mg daily. OBJECTIVE: VITAL SIGNS: Most recent vital signs; temperature 98.7 degrees Fahrenheit, pulse 100, blood pressure 113/80, respirations 20, and oxygen is 95 % on supplemental O2 via nasal cannula. GENERAL: The patient is alert and oriented. Speech is clear. Affect is appropriate. He is in no apparent distress, sitting upright in the chair at the time of exam. NECK: Supple without jugular venous distention. There is no lymphadenopathy. Carotids are without bruit. LUNGS: Bilateral lung roman exhibit crackles diminished in the bases. Respirations are even and unlabored. There is poor bilateral excursion with deep inspiration. HEART: Rate is regular but rapid with crisp S1 and S2. PMI is nondisplaced. ABDOMEN: Soft and nontender without palpable masses. EXTREMITIES: Warm and dry to touch. Well perfused without clubbing, cyanosis, or edema. NEUROLOGIC: Nonfocal. Grossly intact with no unilateral deficits. Gait was not assessed. LABORATORY DATA: Hematology was unremarkable. Today chemistry unremarkable, creatinine 0.95, potassium 4. Liver enzymes are within normal limits. Echocardiogram on 05/17/2019, ejection fraction 60% to 65%, D-shaped left ventricle, grade 3/3 diastolic dysfunction, mild concentric LVH, dilated RV with reduced RV systolic function, mildly dilated left atrium, markedly enlarged right atrium, elevated RV systolic pressure 45 mmHg, small pericardial effusion without tamponade. Telemetry and EKGs were all personally reviewed. Bedside monitoring reveals sinus rhythm/sinus tachycardia with 2 to 3 episodes of atrial tachycardia. A very short run of typical atrial flutter is seen. [place] intervals remain within normal ranges. 12-lead EKG in the chart from 05/23 shows sinus tachycardia versus atrial tachycardia. Onset and termination were not captured. Ventricular rate at that time was ~140 beats per minute IMPRESSION: 1. Supraventricular tachycardia likely atrial tachycardia, asymptomatic with rates 140 to 150 beats per minute. Brief run of atria flutter 2. Spontaneous pneumothorax. 3. Sarcoidosis with lung involvement. 4. Preserved ejection fraction. No history of coronary artery disease. 5. Non sustained ventricular tachycardia PLAN AND RECOMMENDATIONS: Mr. Gauthier appears to be having paroxysmal episodes of atrial tachycardia in the setting of recurrent pneumothorax. On the , his episode was more sustained and he was briefly placed on amiodarone until he converted to sinus rhythm. He remains borderline tachycardic at 100 beats per minute despite the addition of low-dose beta blockers. He is currently on Toprol-XL 25 mg daily. At this point with his acute recurrent pneumothorax issues ongoing with failed attempts at removing his chest tube, we would refrain from ablation. This does not appear to be AVNRT and ablation could be more involved process for him. He is asymptomatic with his episodes which could all be related to his curent respiratory issues. For now, we would opt for medical management adding flecainide 50 mg b.i.d. His QRS is narrowed at 102 msec. This was all discussed at length with Mr. Gauthier and his family at bedside. We discussed atrial arrhythmias and treatment options. They are in full agreement with medical management at this time. They understand that should he become symptomatic and episodes are not responsive to medical management, ablation could be considered if he is medically stable. The patient's consultation was performed in collaboration from Dr. Chavira. Thank you for allowing us to participate in care of this patient. We will follow. Job ID: [id number] [facility]
[2019-05-27] MEDS: Flecainide 50 MG TAB PO SCH (20:36)
[2019-05-27] MEDS: HYDROcodone/Acetaminophen 10/325 mg Tablet PO PRN (20:37)
--- NOTE | 2019-05-28 08:30 | RAD ---
CHEST ONE VIEW: INDICATIONS: History of pneumonia. COMPARISON: Prior exam dated 05/27/2019. FINDINGS: Coarse prominent interstitial lung markings are stable. Cardiomegaly persists. A right-sided thoracos stephenie tube is unchanged. Bullous disease of both lung apices appears similar appearing. Small right ap ical pneumothorax has reduced in size. Small residual apical pneumothorax remains IMPRESSION: 1. Slowly resolving right apical pneumothorax. 2. Stable chronic obstructive pulmonary disease change. 3. Stable cardiomegaly. POS: TPC
[2019-05-28] MEDS: azaTHIOprine 50 MG TAB PO SCH (08:53)
[2019-05-28] MEDS: Flecainide 50 MG TAB PO SCH ×2 (08:53→21:46)
[2019-05-28] MEDS: Enoxaparin Sodium 40 MG/0.4 ML SYRINGE SC SCH (08:53)
[2019-05-28] MEDS: predniSONE 20 MG TAB PO SCH (08:53)
--- NOTE | 2019-05-28 11:26 | PRG ---
DATE OF SERVICE: 05/28/2019 Andres Gauthier has no air leak. He has been seen by the personal banking advisor. Last air leak that I am aware of was when he walked disconnected from wall suction last . When he was reconnected, he had a significant amount of air evacuated from his pleural space. I would resign myself to giving him talc, but apparently [place] available [place] told. I have been hestant to use doxycycline given the discomfort associated with this. We will continue suction for now. Discussed with CT Surgery again today. He is in no distress. Has equal breath sounds on both sides. We will continue to do physical therapy in the room. Job ID: [id number] MTDD
--- NOTE | 2019-05-28 13:39 | PDOC.HOSPP ---
- Subjective Encounter Date: 05/28/19 Encounter Time: 12:00 Subjective: no sob, feels better at bedside is eating and sleeping well exercising next to bed and on bed is having reg bm's - Objective Vital Signs & Weight: Vital Signs (12 hours) Temp Pulse Resp Pulse Ox 05/28/19 07:00 98.4 F 05/28/19 06:56 96 05/28/19 06:54 82 16 96 05/28/19 03:36 97.2 F L 05/28/19 02:36 91 L Weight Admit Weight 171 lb 11.841 oz Weight 172 lb 4.8 oz Most Recent Monitor Data Heart Rate from ECG 88 NIBP 130/84 NIBP BP-Mean 99 Respiration from ECG 27 SpO2 97 I&O: 05/27/19 05/28/19 05/29/19 06:59 06:59 06:59 Intake Total 650 700 Output Total 1410 2185 Balance -760 -1597 Result Diagrams: 05/27/19 06:10 05/27/19 06:10 Hospitalist ROS - Medication Medications: Active Medications Generic Name Dose Route Start Last Admin Trade Name Freq PRN Reason Stop Dose Admin Acetaminophen 650 mg 05/11/19 13:45 05/19/19 07:17 Tylenol PO 650 mg Q4H PRN Administration Headache/Fever/Mild Pain (1-3) Hydrocodone Bitart/Acetaminophen 1 tab 05/19/19 14:53 05/27/19 20:37 [place] 10/325 PO 1 tab Q4H PRN Administration Pain 4-6 Albuterol/Ipratropium 3 ml 05/13/19 18:30 05/28/19 06:54 Duoneb NEB 3 ml TID-RT EVELYN Administration Azathioprine 150 mg 05/13/19 09:00 05/28/19 08:53 Imuran PO 150 mg QAM EVELYN Administration Cyclobenzaprine HCl 10 mg 05/12/19 13:17 05/22/19 22:13 Flexeril PO 10 mg TIDPRN PRN Administration Moderate Pain (4-6) Enoxaparin Sodium 40 mg 05/12/19 09:00 05/28/19 08:53 Lovenox SC 40 mg 0900 EVELYN Administration Flecainide Acetate 50 mg 05/27/19 21:00 05/28/19 08:53 Tambocor PO 50 mg Q12HR EVELYN Administration Magnesium Hydroxide 30 ml 05/19/19 09:31 05/20/19 20:53 Milk Of Magnesium PO 30 ml Q12H PRN Administration Constipation Metoprolol Succinate 25 mg 05/26/19 09:00 05/28/19 08:53 Toprol Xl PO 25 mg DAILY EVELYN Administration Morphine Sulfate 2 mg 05/19/19 14:53 05/21/19 21:34 Morphine SLOW IVP 2 mg Q1H PRN Administration Chest Pain Pantoprazole Sodium 40 mg 05/13/19 09:00 05/28/19 08:53 Protonix PO 40 mg DAILY EVELYN Administration Prednisone 10 mg 05/22/19 09:00 05/28/19 08:53 Prednisone PO 10 mg DAILY EVELYN Administration Sodium Chloride 10 ml 05/13/19 21:00 05/28/19 08:54 Flush - Normal Saline IVF 10 ml Q12HR EVELYN Administration - Exam General Appearance: NAD, awake alert Eye: PERRL, anicteric sclera ENT: no oropharyngeal lesions Neck: supple, no JVD Heart: RRR, no murmur Respiratory: no wheezes, no rales Respiratory - other findings: chest tube right Gastrointestinal: soft, non-tender, non-distended, normal bowel sounds Extremities: no cyanosis, no edema Neurological: cranial nerve grossly intact, no focal deficits Psychiatric: normal affect, A&O x 3 Hosp A/P (1) Spontaneous pneumothorax Code(s): J93.83 - OTHER PNEUMOTHORAX Status: Acute (2) HTN (hypertension) Code(s): I10 - ESSENTIAL (PRIMARY) HYPERTENSION Status: Chronic Qualifiers: Hypertension type: essential hypertension Qualified Code(s): I10 - Essential (primary) hypertension (3) Sarcoidosis Code(s): D86.9 - SARCOIDOSIS, UNSPECIFIED Status: Chronic - Plan has severe bullous lung disease with sarcoidosis (biopsy proven) recurrent pneumothorax, has chest tube on right side, removal per CTS/pulm adv plans are on for possible pleurodesis? hemostable on azathioprine, nebs, toprol xl, protonix and prednisone at 10mg echo showed normal ef patient and are aware of reasons for rec pneumothorax.
--- NOTE | 2019-05-28 21:08 | PDOC.CPN ---
- Subjective Date: 05/28/19 Time: 08:00 Interval history: EP PROGRESS NOTE:05/28/19 Seen as follow up for paroxysmal atrial tachycardia and arrhythmia management. Pt feels well today. Resting in bed. No new cardiac related concerns. - Review of Systems General: denies: fever/chills, weight/appetite/sleep changes, night sweats, fatigue Respiratory: reports: cough, shortness of breath. denies: congestion, exercise intolerance Cardiovascular: denies: chest pain, palpitation, edema, paroxysmal nocturnal dyspnea, orthopnea Gastrointestinal: denies: nausea, vomiting, diarrhea, constipation, abd pain, GI bleeding Musculoskeletal: reports: pain (r/t chest tube), tenderness. denies: stiffness , swelling Neurological: denies: syncope, weakness - Objective Allergies/Adverse Reactions: Allergies Allergy/AdvReac Type Severity Reaction Status Date / Time No Known Allergies Allergy Unverified 06/19/15 15:23 Visit Medications: Current Medications Acetaminophen (Tylenol) 650 mg PO Q4H PRN PRN Reason: Headache/Fever/Mild Pain (1-3) Last Admin: 05/19/19 07:17 Dose: 650 mg Hydrocodone Bitart/Acetaminophen ([place] 10/325) 1 tab PO Q4H PRN PRN Reason: Pain 4-6 Last Admin: 05/27/19 20:37 Dose: 1 tab Albuterol/Ipratropium (Duoneb) 3 ml NEB TID-RT [facility] Last Admin: 05/28/19 18:29 Dose: 3 ml Azathioprine (Imuran) 150 mg PO QAM [facility] Last Admin: 05/28/19 08:53 Dose: 150 mg Cyclobenzaprine HCl (Flexeril) 10 mg PO TIDPRN PRN PRN Reason: Moderate Pain (4-6) Last Admin: 05/22/19 22:13 Dose: 10 mg Enoxaparin Sodium (Lovenox) 40 mg SC 0900 [facility] Last Admin: 05/28/19 08:53 Dose: 40 mg Flecainide Acetate (Tambocor) 50 mg PO Q12HR [facility] Last Admin: 05/28/19 08:53 Dose: 50 mg Magnesium Hydroxide (Milk Of Magnesium) 30 ml PO Q12H PRN PRN Reason: Constipation Last Admin: 05/20/19 20:53 Dose: 30 ml Metoprolol Succinate (Toprol Xl) 25 mg PO DAILY [facility] Last Admin: 05/28/19 08:53 Dose: 25 mg Morphine Sulfate (Morphine) 2 mg SLOW IVP Q1H PRN PRN Reason: Chest Pain Last Admin: 05/21/19 21:34 Dose: 2 mg Ondansetron HCl (Zofran) 4 mg IVP Q6H PRN PRN Reason: Nausea/Vomiting Pantoprazole Sodium (Protonix) 40 mg PO DAILY [facility] Last Admin: 05/28/19 08:53 Dose: 40 mg Prednisone (Prednisone) 10 mg PO DAILY [facility] Last Admin: 05/28/19 08:53 Dose: 10 mg Sodium Chloride (Flush - Normal Saline) 10 ml IVF Q12HR [facility] Last Admin: 05/28/19 08:54 Dose: 10 ml Sodium Chloride (Flush - Normal Saline) 10 ml IVF PRN PRN PRN Reason: Saline Flush Vital Signs & Weight: Vital Signs Temp Pulse Pulse Pulse Resp BP BP 05/28/19 19:40 99.0 F 05/28/19 18:29 92 16 05/28/19 16:00 98.6 F 05/28/19 14:49 100 90 124/89 135/91 H 05/28/19 13:35 89 24 H 05/28/19 12:00 97.4 F L Pulse Ox Pulse Ox Pulse Ox 05/28/19 19:40 05/28/19 18:29 93 L 05/28/19 16:00 05/28/19 14:49 88 L 96 05/28/19 13:35 97 05/28/19 12:00 Admit Weight 171 lb 11.841 oz Weight 172 lb 4.8 oz - Physical Exam General: alert & oriented x3, appears well, no apparent distress HEENT: mucus membranes moist, normocephaly Neck: supple neck, midline trachea, no JVD/HJR, no masses, no bruit, no lymphadenopathy, no thromegaly Cardiac: regular rate and rhythm, no murmur, regular rate, regular rhythm Neuro: other (diminished. Poor inspiratory effort. Crackles throughout) Abdomen: unremarkable, active bowel sounds, soft, no masses - Labs Result Diagrams: 05/27/19 06:10 05/27/19 06:10 Troponin/CKMB Troponin I 0.027 ng/mL (< 0.028) 05/11/19 12:01 - Telemetry Sinus rhythms and dysrhythmias: sinus rhythm - Assessment/Plan Assessment/Plan: 1. Supraventricular tachycardia likely atrial tachycardia -asymptomatic with rates 140 to 150 beats per minute. -Brief run of atria flutter 2. Spontaneous pneumothorax. 3. Sarcoidosis with lung involvement. 4. Preserved ejection fraction. No history of coronary artery disease. 5. Non sustained ventricular tachycardia ~12 beats, <3 seconds Low dose flecainide started to suppress atrial arrhythmias, QRS stable. Rhythm stable overnight and this AM. No further PAT or sinus tach runs. Continue beta sandy for NSVT.
[2019-05-29] MEDS: HYDROcodone/Acetaminophen 10/325 mg Tablet PO PRN ×3 (05:06→23:29)
--- NOTE | 2019-05-29 08:32 | RAD ---
PORTABLE CHEST 1 VIEW: DATE: 05/29/2019. TIME: 4:37 a.m. HISTORY: Pneumonia. FINDINGS/IMPRESSION: Comparison is made with the exam of the previous day. Right-sided chest tube remains in place. Chronic changes are again seen. The heart size is stable. A questionable tiny right apical pneumothorax may be present. POS: HANH
[2019-05-29] MEDS: Enoxaparin Sodium 40 MG/0.4 ML SYRINGE SC SCH (09:15)
[2019-05-29] MEDS: predniSONE 20 MG TAB PO SCH (09:16)
[2019-05-29] MEDS: Flecainide 50 MG TAB PO SCH ×2 (09:16→20:43)
[2019-05-29] MEDS: azaTHIOprine 50 MG TAB PO SCH (09:17)
--- NOTE | 2019-05-29 13:57 | PDOC.CPN ---
- Subjective Date: 05/29/19 Time: 13:54 Interval history: EP PROGRESS NOTE:05/29/19 Seen as follow up for paroxysmal atrial tachycardia and arrhythmia management. Pt feels well today. Resting in bed. No new cardiac related concerns. - Review of Systems Respiratory: reports: shortness of breath - Objective Allergies/Adverse Reactions: Allergies Allergy/AdvReac Type Severity Reaction Status Date / Time No Known Allergies Allergy Unverified 06/19/15 15:23 Visit Medications: Current Medications Acetaminophen (Tylenol) 650 mg PO Q4H PRN PRN Reason: Headache/Fever/Mild Pain (1-3) Last Admin: 05/19/19 07:17 Dose: 650 mg Hydrocodone Bitart/Acetaminophen ([place] 10/325) 1 tab PO Q4H PRN PRN Reason: Pain 4-6 Last Admin: 05/29/19 05:06 Dose: 1 tab Albuterol/Ipratropium (Duoneb) 3 ml NEB TID-RT [facility] Last Admin: 05/29/19 12:39 Dose: 3 ml Azathioprine (Imuran) 150 mg PO QAM [facility] Last Admin: 05/29/19 09:17 Dose: 150 mg Cyclobenzaprine HCl (Flexeril) 10 mg PO TIDPRN PRN PRN Reason: Moderate Pain (4-6) Last Admin: 05/22/19 22:13 Dose: 10 mg Enoxaparin Sodium (Lovenox) 40 mg SC 0900 [facility] Last Admin: 05/29/19 09:15 Dose: 40 mg Flecainide Acetate (Tambocor) 50 mg PO Q12HR [facility] Last Admin: 05/29/19 09:16 Dose: 50 mg Magnesium Hydroxide (Milk Of Magnesium) 30 ml PO Q12H PRN PRN Reason: Constipation Last Admin: 05/20/19 20:53 Dose: 30 ml Metoprolol Succinate (Toprol Xl) 25 mg PO DAILY [facility] Last Admin: 05/29/19 09:17 Dose: 25 mg Morphine Sulfate (Morphine) 2 mg SLOW IVP Q1H PRN PRN Reason: Chest Pain Last Admin: 05/21/19 21:34 Dose: 2 mg Ondansetron HCl (Zofran) 4 mg IVP Q6H PRN PRN Reason: Nausea/Vomiting Pantoprazole Sodium (Protonix) 40 mg PO DAILY [facility] Last Admin: 05/29/19 09:17 Dose: 40 mg Prednisone (Prednisone) 10 mg PO DAILY [facility] Last Admin: 05/29/19 09:16 Dose: 10 mg Sodium Chloride (Flush - Normal Saline) 10 ml IVF Q12HR [facility] Last Admin: 05/29/19 09:17 Dose: 10 ml Sodium Chloride (Flush - Normal Saline) 10 ml IVF PRN PRN PRN Reason: Saline Flush Vital Signs & Weight: Vital Signs Temp Pulse Resp Pulse Ox 05/29/19 12:39 93 17 05/29/19 11:27 97.6 F 05/29/19 08:00 96 05/29/19 07:10 97.9 F 05/29/19 07:06 84 20 05/29/19 03:55 93 L 05/29/19 03:41 98.4 F Admit Weight 171 lb 11.841 oz Weight 172 lb 4.8 oz - Physical Exam General: alert & oriented x3, appears well Neck: no JVD/HJR, no bruit Cardiac: regular rate and rhythm, no murmur Lungs: clear to auscultation, normal exam (CT still in place) - Labs Result Diagrams: 05/27/19 06:10 05/27/19 06:10 Troponin/CKMB Troponin I 0.027 ng/mL (< 0.028) 05/11/19 12:01 - Telemetry Sinus rhythms and dysrhythmias: sinus rhythm - Assessment/Plan Assessment/Plan: 1. Supraventricular tachycardia likely atrial tachycardia -asymptomatic with rates 140 to 150 beats per minute. -Brief run of atria flutter 2. Spontaneous pneumothorax. 3. Sarcoidosis with lung involvement. 4. Preserved ejection fraction. No history of coronary artery disease. 5. Non sustained ventricular tachycardia ~12 beats, <3 seconds Low dose flecainide started to suppress atrial arrhythmias, QRS stable. Rhythm stable overnight and this AM. No further PAT or sinus tach runs. Continue beta sandy for NSVT. Appears stable Would sign off. Call if can be further help.
--- NOTE | 2019-05-29 16:59 | PRG ---
DATE OF SERVICE: 05/29/2019 Mr. Gauthier is unchanged. He still has no air leak. I talked to Dr. Alarcon about doing a chemical pleurodesis. I think the severity of his decompensation when he has a pneumothorax. We would leave this to need to do something to hopefully minimize the risk for future pneumothorax. I have been hesitant to recommend this because of issues with possible lung transplantation in the future, but I do not think we have any choice. There is no [place] surgical option from my discussion with Dr. Alarcon from a standpoint of stapling blebs or anything like that, so this probably is the best option. We ideal since doxycycline is painful to sedate him for that procedure and perhaps give him a fentanyl pump for pain control afterward. He is willing to go through with this. The next step will be probably just place a Heimlich valve on his chest tube and hopefully we can document that he is stable for a few days in the hospital and getting home one day next week. Job ID: [id number]
--- NOTE | 2019-05-29 20:32 | PDOC.HOSPP ---
- Subjective Encounter Date: 05/29/19 Encounter Time: 11:28 Subjective: 54 y/o male with Sacroid and bullous lung disease admitted with acute SOB. Intubated due to worsening Symptoms and further evaluation revealed large pneumonthorax wchich was treated with thoracostomy with resolution. He however later developed recurrent pneumothorac hence chest tube placement. Hospital course was complaicted by development of tachyarrhthmia which was thought to be atrial tachycardia or SVT. No new problem. - Objective Vital Signs & Weight: Vital Signs (12 hours) Temp Pulse Pulse Resp BP BP Pulse Ox 05/29/19 20:00 98.9 F 05/29/19 18:53 93 28 H 100 05/29/19 15:53 92 88/73 L 119/89 05/29/19 15:17 98.4 F 05/29/19 12:39 93 17 05/29/19 11:27 97.6 F Pulse Ox 05/29/19 20:00 05/29/19 18:53 05/29/19 15:53 96 05/29/19 15:17 05/29/19 12:39 05/29/19 11:27 Weight Admit Weight 171 lb 11.841 oz Weight 172 lb 4.8 oz Most Recent Monitor Data Heart Rate from ECG 95 NIBP 103/74 NIBP BP-Mean 83 Respiration from ECG 32 SpO2 100 I&O: 05/28/19 05/29/19 05/30/19 06:59 06:59 06:59 Intake Total 700 1380 1210 Output Total 2185 1870 510 Balance -1485 -490 700 Result Diagrams: 05/27/19 06:10 05/27/19 06:10 Hospitalist ROS - Medication Medications: Active Medications Generic Name Dose Route Start Last Admin Trade Name Freq PRN Reason Stop Dose Admin Acetaminophen 650 mg 05/11/19 13:45 05/19/19 07:17 Tylenol PO 650 mg Q4H PRN Administration Headache/Fever/Mild Pain (1-3) Hydrocodone Bitart/Acetaminophen 1 tab 05/19/19 14:53 05/29/19 18:32 [place] 10/325 PO 1 tab Q4H PRN Administration Pain 4-6 Albuterol/Ipratropium 3 ml 05/13/19 18:30 05/29/19 18:53 Duoneb NEB 3 ml TID-RT EVELYN Administration Azathioprine 150 mg 05/13/19 09:00 05/29/19 09:17 Imuran PO 150 mg QAM EVELYN Administration Cyclobenzaprine HCl 10 mg 05/12/19 13:17 05/22/19 22:13 Flexeril PO 10 mg TIDPRN PRN Administration Moderate Pain (4-6) Enoxaparin Sodium 40 mg 05/12/19 09:00 05/29/19 09:15 Lovenox SC 40 mg 09 EVELYN Administration Flecainide Acetate 50 mg 05/27/19 21:00 05/29/19 09:16 Tambocor PO 50 mg Q12HR EVELYN Administration Magnesium Hydroxide 30 ml 05/19/19 09:31 05/20/19 20:53 Milk Of Magnesium PO 30 ml Q12H PRN Administration Constipation Metoprolol Succinate 25 mg 05/26/19 09:00 05/29/19 09:17 Toprol Xl PO 25 mg DAILY EVELYN Administration Morphine Sulfate 2 mg 05/19/19 14:53 05/21/19 21:34 Morphine SLOW IVP 2 mg Q1H PRN Administration Chest Pain Pantoprazole Sodium 40 mg 05/13/19 09:00 05/29/19 09:17 Protonix PO 40 mg DAILY EVELYN Administration Prednisone 10 mg 05/22/19 09:00 05/29/19 09:16 Prednisone PO 10 mg DAILY EVELYN Administration Sodium Chloride 10 ml 05/13/19 21:00 05/29/19 09:17 Flush - Normal Saline IVF 10 ml Q12HR EVELYN Administration - Exam General Appearance: awake alert Eye: anicteric sclera ENT: normocephalic atraumatic Neck: supple Heart: RRR Respiratory: no ronchi, normal chest expansion Respiratory - other findings: Right chest tube noted. Gastrointestinal: soft, non-tender, non-distended, normal bowel sounds Extremities: no cyanosis, no edema Neurological: cranial nerve grossly intact, no focal deficits Psychiatric: A&O x 3 Hosp A/P (1) Spontaneous pneumothorax Code(s): J93.83 - OTHER PNEUMOTHORAX Status: Acute (2) Acute respiratory failure with hypoxemia Code(s): J96.01 - ACUTE RESPIRATORY FAILURE WITH HYPOXIA Status: Acute (3) Paroxysmal SVT (supraventricular tachycardia) Code(s): I47.1 - SUPRAVENTRICULAR TACHYCARDIA Status: Acute (4) Diastolic dysfunction Code(s): I51.89 - OTHER ILL-DEFINED HEART DISEASES Status: Acute (5) Mild pulmonary hypertension Code(s): I27.20 - PULMONARY HYPERTENSION, UNSPECIFIED Status: Acute (6) NSVT (nonsustained ventricular tachycardia) Code(s): I47.2 - VENTRICULAR TACHYCARDIA Status: Acute (7) Pleurisy Code(s): R09.1 - PLEURISY Status: Acute (8) HTN (hypertension) Code(s): I10 - ESSENTIAL (PRIMARY) HYPERTENSION Status: Chronic Qualifiers: Hypertension type: essential hypertension Qualified Code(s): I10 - Essential (primary) hypertension (9) Sarcoidosis Code(s): D86.9 - SARCOIDOSIS, UNSPECIFIED Status: Chronic - Plan Chest tube management as per CTS antiarrhythmics as per EPS. Analgesic as needed Continue supportive care.
[2019-05-30 05:34] LABS: #Eosinphils 0.3 thou/uL (0.0-0.7); #Lymphocytes 1.1 thou/uL (1.20-3.40); #Monocytes 0.6 thou/uL (0.11-0.59); %Basophils 0.5 % (0.0-1.0); %Eosinophils 3.4 % (0.0-10.0); %Lymphocytes 13.3 % (21.0-51.0); %Monocytes 7.6 % (0.0-10.0); %Neutrophils 75.2 % (42.0-75.0); Hemoglobin 12.2 g/dL (14.0-18.0); Mean Corpuscular HGB CONC 31.7 g/dL (32.0-36.0); Mean Corpuscular Hemoglobin 32.1 pg (27.0-31.0); Mean Platelet Volume 6.5 fL (7.4-10.4); Platelet Count 236 thou/uL (130-400); RBC Distribution Width 13.3 % (11.5-14.5); Red Blood Cell (RBC) Count 3.82 mill/uL (4.70-6.10)
[2019-05-30 05:51] LABS: Albumin 3.2 g/dL (3.5-5.0); Anion Gap 9 mmol/L (10-20); BUN (Urea Nitrogen) 14 mg/dL (8.4-25.7); BUN/Creatinine Ratio 10.85; Calc. Creatinine Clearance 71 mL/min (70-130); Calcium 8.7 mg/dL (7.8-10.44); Carbon Dioxide 35 mmol/L (22-29); Chloride 103 mmol/L (98-107); Estimated GFR-MDRD 70; Glucose 88 mg/dL (70-105); Magnesium 1.8 mg/dL (1.6-2.6); Phosphorus 3.8 mg/dL (2.3-4.7); Potassium 4.8 mmol/L (3.5-5.1); Sodium 142 mmol/L (136-145)
[2019-05-30] MEDS ORDERED: SODIUM CHLORIDE 0.9% I-PLEURAL SCH (06:00)
[2019-05-30] MEDS ORDERED: Midazolam HCl 5 mg/5 ml Vial FS SCH ×3 (06:00→07:45)
[2019-05-30] MEDS ORDERED: Lidocaine 1% (PF) 30 ML VIAL I-PLEURAL SCH (06:00)
[2019-05-30] MEDS ORDERED: DOXYCYCLINE HYCLATE I-PLEURAL SCH (06:00)
[2019-05-30] MEDS: Fentanyl 100 MCG/2 ML VIAL SLOW IVP SCH ×4 (06:50→08:39)
--- NOTE | 2019-05-30 08:01 | RAD ---
Portable frontal chest radiograph: 05/30/2019 COMPARISON: 05/29/2019 HISTORY: Pneumonia, evaluate right-sided chest tube in FINDINGS: Stable right chest tube. Coarse increased linear interstitial density noted in the lung bas es with emphysematous change and bilateral lung apices. No discrete pneumothorax is evident on either side. Interstitial and mild alveolar opacity noted in bilateral lung bases, unchanged. Stable heart and med iastinal contours. IMPRESSION: Stable appearance of the chest as detailed above.
[2019-05-30] MEDS ORDERED: Midazolam HCl 2 mg/2 ml Vial IVP SCH (08:15)
[2019-05-30] MEDS ORDERED: Ketorolac Tromethamine 30 MG/ML VIAL IVP PRN (08:58)
[2019-05-30] MEDS ORDERED: Promethazine HCl 25 MG/ML VIAL IM PRN (08:58)
[2019-05-30] MEDS ORDERED: diphenhydrAMINE 50 MG/ML VIAL IM/IV PRN (08:58)
[2019-05-30] MEDS ORDERED: diphenhydrAMINE 25 MG CAP PO PRN (08:58)
[2019-05-30] MEDS ORDERED: Acetaminophen 1,000 MG in Premix Bag 1 BAG IVPB PRN (08:59)
[2019-05-30] MEDS ORDERED: Fentanyl 100 MCG/2 ML VIAL SLOW IVP SCH (09:00)
--- NOTE | 2019-05-30 09:38 | PRG ---
DATE OF SERVICE: 05/30/2019 SUBJECTIVE: Mr. Gauthier recently underwent pleurodesis. He has a significant discomfort. He currently received Versed and is currently on fentanyl. From a rhythm standpoint, his rhythm has been stable over the last 48 hours. OBJECTIVE: VITAL SIGNS: Heart rate 79, blood pressure 130/81. LUNGS: Decreased breath sounds on right versus left. HEART: Regular rate and rhythm. ABDOMEN: Soft, nontender, and nondistended. EXTREMITIES: No edema. IMPRESSION: 1. Arrhythmia. 2. Spontaneous pneumothorax. 3. Sarcoidosis. RECOMMENDATIONS: The patient is currently being followed by Dr. Chavira for arrhythmia. From a CV standpoint, he is otherwise stable. Continue flecainide 50 mg p.o. b.i.d. Job ID: [id number]
[2019-05-30] MEDS: azaTHIOprine 50 MG TAB PO SCH (10:11)
[2019-05-30] MEDS: predniSONE 20 MG TAB PO SCH (10:11)
[2019-05-30] MEDS: Flecainide 50 MG TAB PO SCH ×2 (10:11→20:18)
[2019-05-30] MEDS: Enoxaparin Sodium 40 MG/0.4 ML SYRINGE SC SCH (10:12)
[2019-05-30] MEDS: fentaNYL Citrate/PF 2,000 MCG in Sodium Chloride 0.9% 60 ML IV PRN (10:15)
--- NOTE | 2019-05-30 10:26 | PRG ---
DATE OF SERVICE: 05/30/2019 Andres Gauthier had doxycycline pleurodesis this morning. He had a tremendous amount of pain afterwards. I contacted the Anesthesia Service and they provided him with a pain pump. Currently, his blood pressures came down. He became hypertensive and diaphoretic with the pain. He now appears comfortable. He has equal breath sounds. I believe, the doxycycline is in his pleural space for a couple of hours and rolling [id number]. Discussed the above with the nurses. Job ID: [id number]
--- NOTE | 2019-05-30 13:49 | PDOC.HOSPP ---
- Subjective Encounter Date: 05/30/19 Encounter Time: 10:48 Subjective: 54 y/o male with Sacroid and bullous lung disease admitted with acute SOB. Intubated due to worsening Symptoms and further evaluation revealed large pneumonthorax wchich was treated with thoracostomy with resolution. He however later developed recurrent pneumothorac hence chest tube placement. Hospital course was complaicted by development of tachyarrhthmia which was thought to be atrial tachycardia or SVT. No new problem. Had doxycyline pleurodesis earlier today. - Objective Vital Signs & Weight: Vital Signs (12 hours) Temp Pulse Resp Pulse Ox 05/30/19 12:21 88 24 H 98 05/30/19 12:00 98 05/30/19 11:09 98.2 F 05/30/19 08:00 94 L 05/30/19 07:43 97.2 F L 05/30/19 03:32 98.6 F Weight Admit Weight 171 lb 11.841 oz Weight 172 lb 4.8 oz Most Recent Monitor Data Heart Rate from ECG 89 NIBP 141/88 NIBP BP-Mean 105 Respiration from ECG 26 SpO2 97 I&O: 05/29/19 05/30/19 05/31/19 06:59 06:59 06:59 Intake Total 1380 1450 Output Total 1870 1170 Balance -490 280 Result Diagrams: 05/30/19 05:06 05/30/19 05:06 Hospitalist ROS - Medication Medications: Active Medications Generic Name Dose Route Start Last Admin Trade Name Freq PRN Reason Stop Dose Admin Acetaminophen 650 mg 05/11/19 13:45 05/19/19 07:17 Tylenol PO 650 mg Q4H PRN Administration Headache/Fever/Mild Pain (1-3) Albuterol/Ipratropium 3 ml 05/13/19 18:30 05/30/19 12:21 Duoneb NEB 3 ml TID-RT EVELYN Administration Azathioprine 150 mg 05/13/19 09:00 05/30/19 10:11 Imuran PO 150 mg QAM EVELYN Administration Cyclobenzaprine HCl 10 mg 05/12/19 13:17 05/22/19 22:13 Flexeril PO 10 mg TIDPRN PRN Administration Moderate Pain (4-6) Enoxaparin Sodium 40 mg 05/12/19 09:00 05/30/19 10:12 Lovenox SC 40 mg 0900 EVELYN Administration Flecainide Acetate 50 mg 05/27/19 21:00 05/30/19 10:11 Tambocor PO 50 mg Q12HR EVELYN Administration Fentanyl Citrate 2,000 mcg/ 100 mls @ 0 mls/hr 05/30/19 08:58 05/30/19 10:15 Sodium Chloride IV 100 mls INF PRN Administration Pain As Directed Acetaminophen 1,000 mg/ Device 100 mls @ 400 mls/hr 05/30/19 08:59 05/30/19 09:17 IVPB 05/31/19 09:00 100 mls Q6H PRN Administration PAIN/FEVER Ketorolac Tromethamine 30 mg 05/30/19 08:58 05/30/19 09:16 Toradol IVP 06/02/19 08:59 30 mg Q6H PRN Administration Moderate Pain 4-6 Lidocaine HCl 20 ml 05/30/19 06:00 05/30/19 06:43 Xylocaine 1% Pf I-PLEURAL 05/30/19 20:00 10 ml WILLCALL EVELYN Administration Magnesium Hydroxide 30 ml 05/19/19 09:31 05/20/19 20:53 Milk Of Magnesium PO 30 ml Q12H PRN Administration Constipation Metoprolol Succinate 25 mg 05/26/19 09:00 05/30/19 10:13 Toprol Xl PO 25 mg DAILY EVELYN Administration Pantoprazole Sodium 40 mg 05/13/19 09:00 05/30/19 10:11 Protonix PO 40 mg DAILY EVELYN Administration Prednisone 10 mg 05/22/19 09:00 05/30/19 10:11 Prednisone PO 10 mg DAILY EVELYN Administration Sodium Chloride 10 ml 05/13/19 21:00 05/30/19 10:13 Flush - Normal Saline IVF 10 ml Q12HR EVELYN Administration - Exam General Appearance: awake alert Eye: anicteric sclera ENT: normocephalic atraumatic Neck: supple, symmetric, no JVD Heart: RRR Respiratory: no ronchi, normal chest expansion, no tachypnea Respiratory - other findings: fair air entry with pleural rub and transmitted sound. chest tube in place Gastrointestinal: soft, non-tender, non-distended, normal bowel sounds Extremities: no cyanosis, no edema Neurological: cranial nerve grossly intact, no focal deficits Psychiatric: A&O x 3 Hosp A/P (1) Spontaneous pneumothorax Code(s): J93.83 - OTHER PNEUMOTHORAX Status: Acute (2) Acute respiratory failure with hypoxemia Code(s): J96.01 - ACUTE RESPIRATORY FAILURE WITH HYPOXIA Status: Acute (3) Paroxysmal SVT (supraventricular tachycardia) Code(s): I47.1 - SUPRAVENTRICULAR TACHYCARDIA Status: Acute (4) Diastolic dysfunction Code(s): I51.89 - OTHER ILL-DEFINED HEART DISEASES Status: Acute (5) Mild pulmonary hypertension Code(s): I27.20 - PULMONARY HYPERTENSION, UNSPECIFIED Status: Acute (6) NSVT (nonsustained ventricular tachycardia) Code(s): I47.2 - VENTRICULAR TACHYCARDIA Status: Acute (7) Pleurisy Code(s): R09.1 - PLEURISY Status: Acute (8) HTN (hypertension) Code(s): I10 - ESSENTIAL (PRIMARY) HYPERTENSION Status: Chronic Qualifiers: Hypertension type: essential hypertension Qualified Code(s): I10 - Essential (primary) hypertension (9) Sarcoidosis Code(s): D86.9 - SARCOIDOSIS, UNSPECIFIED Status: Chronic - Plan Chest tube management as per CTS. S/p Doxycycline pleurodesis antiarrhythmics as per EPS. On flecainide Analgesic as needed Continue supportive care.
[2019-05-30] MEDS ORDERED: Naloxone HCl 0.4 mg/ml Vial IV PRN (22:29)
--- NOTE | 2019-05-31 07:37 | PRG ---
DATE OF SERVICE: 05/29/2019 SUBJECTIVE: Mr. Gauthier is doing better. He continues to have pain, but not as significant as yesterday. His rhythm has been stable overnight. OBJECTIVE: VITAL SIGNS: Blood pressure 134/88, pulse 81, respirations 20. LUNGS: Decreased breath sounds on right versus left. HEART: Regular rate and rhythm. ABDOMEN: Soft, nontender, and nondistended. EXTREMITIES: No edema. PERTINENT LABORATORY DATA: Hemoglobin 12.2, hematocrit 38.6. Creatinine 1.29. IMPRESSION: 1. Supraventricular tachycardia. 2. Recurrent spontaneous pneumothorax. 3. Sarcoidosis. RECOMMENDATIONS: 1. Repeat EKG today. 2. Continue flecainide for rhythm changes. We would consider changing to beta sandy therapy given that he has been stable. Job ID: [id number]
[2019-05-31] MEDS: azaTHIOprine 50 MG TAB PO SCH (08:56)
[2019-05-31] MEDS: Flecainide 50 MG TAB PO SCH ×2 (08:56→20:18)
[2019-05-31] MEDS: predniSONE 20 MG TAB PO SCH (08:56)
[2019-05-31] MEDS: Enoxaparin Sodium 40 MG/0.4 ML SYRINGE SC SCH (08:57)
--- NOTE | 2019-05-31 09:31 | RAD ---
CHEST 1 VIEW: Date: 05/31/19 INDICATION: History of pneumonia. COMPARISON: Prior exam dated 05/30/19. FINDINGS: There has been some improvement in the bibasilar air space opacity seen from the prior exam. Right-si ded thoracostomy tube is unchanged. Severe COPD change is again noted. No pneumothorax is evident. Mi ld cardiomegaly is stable. Osseous structures are unchanged. IMPRESSION: Improving bibasilar opacity. POS: OFF
[2019-05-31 09:48] LABS: Anion Gap 8 mmol/L (10-20); BUN (Urea Nitrogen) 18 mg/dL (8.4-25.7); BUN/Creatinine Ratio 17.65; Calc. Creatinine Clearance 89 mL/min (70-130); Calcium 8.2 mg/dL (7.8-10.44); Carbon Dioxide 29 mmol/L (22-29); Chloride 106 mmol/L (98-107); Estimated GFR-MDRD Greater than 90; Glucose 88 mg/dL (70-105); Phosphorus 3.3 mg/dL (2.3-4.7); Sodium 139 mmol/L (136-145)
--- NOTE | 2019-05-31 18:19 | PDOC.HOSPP ---
- Subjective Encounter Date: 05/31/19 Encounter Time: 12:18 Subjective: 54 y/o male with Sacroid and bullous lung disease admitted with acute SOB. Intubated due to worsening Symptoms and further evaluation revealed large pneumothorax wchich was treated with thoracostomy with resolution. He however later developed recurrent pneumothorac hence chest tube placement. Hospital course was complaicted by development of tachyarrhthmia which was thought to be atrial tachycardia or SVT. Had doxycyline pleurodesis. Chest pain is better controlled. - Objective Vital Signs & Weight: Vital Signs (12 hours) Temp Pulse Resp Pulse Ox 05/31/19 15:14 97.2 F L 05/31/19 13:41 83 22 H 96 05/31/19 11:09 97.1 F L 05/31/19 08:00 97 05/31/19 07:17 98.0 F 05/31/19 07:00 81 21 H 100 Weight Admit Weight 171 lb 11.841 oz Weight 172 lb 4.8 oz Most Recent Monitor Data Heart Rate from ECG 78 NIBP 123/82 NIBP BP-Mean 95 Respiration from ECG 22 SpO2 100 I&O: 05/30/19 05/31/19 06/01/19 06:59 06:59 06:59 Intake Total 1450 1204 Output Total 1170 740 Balance 280 464 Result Diagrams: 05/30/19 05:06 05/31/19 08:52 Hospitalist ROS - Medication Medications: Active Medications Generic Name Dose Route Start Last Admin Trade Name Freq PRN Reason Stop Dose Admin Acetaminophen 650 mg 05/11/19 13:45 05/19/19 07:17 Tylenol PO 650 mg Q4H PRN Administration Headache/Fever/Mild Pain (1-3) Albuterol/Ipratropium 3 ml 05/13/19 18:30 05/31/19 13:41 Duoneb NEB 3 ml TID-RT EVELYN Administration Azathioprine 150 mg 05/13/19 09:00 05/31/19 08:56 Imuran PO 150 mg QAM EVELYN Administration Cyclobenzaprine HCl 10 mg 05/12/19 13:17 05/22/19 22:13 Flexeril PO 10 mg TIDPRN PRN Administration Moderate Pain (4-6) Enoxaparin Sodium 40 mg 05/12/19 09:00 05/31/19 08:57 Lovenox SC 40 mg 0900 EVELYN Administration Flecainide Acetate 50 mg 05/27/19 21:00 05/31/19 08:56 Tambocor PO 50 mg Q12HR EVELYN Administration Fentanyl Citrate 2,000 mcg/ 100 mls @ 0 mls/hr 05/30/19 08:58 05/30/19 10:15 Sodium Chloride IV 100 mls INF PRN Administration Pain As Directed Ketorolac Tromethamine 30 mg 05/30/19 08:58 05/30/19 09:16 Toradol IVP 06/02/19 08:59 30 mg Q6H PRN Administration Moderate Pain 4-6 Magnesium Hydroxide 30 ml 05/19/19 09:31 05/20/19 20:53 Milk Of Magnesium PO 30 ml Q12H PRN Administration Constipation Metoprolol Succinate 25 mg 05/26/19 09:00 05/31/19 08:57 Toprol Xl PO 25 mg DAILY EVELYN Administration Pantoprazole Sodium 40 mg 05/13/19 09:00 05/31/19 08:57 Protonix PO 40 mg DAILY EVELYN Administration Prednisone 10 mg 05/22/19 09:00 05/31/19 08:56 Prednisone PO 10 mg DAILY EVELYN Administration Sodium Chloride 10 ml 05/13/19 21:00 05/31/19 08:57 Flush - Normal Saline IVF 10 ml Q12HR EVELYN Administration - Exam General Appearance: awake alert Eye: anicteric sclera ENT: normocephalic atraumatic Neck: supple, symmetric Heart: RRR Respiratory: no wheezes, no ronchi, normal chest expansion Respiratory - other findings: good air entry with few fine bibasal crackles posteriorly Gastrointestinal: soft, non-tender, non-distended, normal bowel sounds Extremities: no cyanosis, no edema Neurological: cranial nerve grossly intact, no focal deficits Musculoskeletal: normal tone Psychiatric: normal affect, A&O x 3 Hosp A/P (1) Spontaneous pneumothorax Code(s): J93.83 - OTHER PNEUMOTHORAX Status: Acute (2) Acute respiratory failure with hypoxemia Code(s): J96.01 - ACUTE RESPIRATORY FAILURE WITH HYPOXIA Status: Acute (3) Paroxysmal SVT (supraventricular tachycardia) Code(s): I47.1 - SUPRAVENTRICULAR TACHYCARDIA Status: Acute (4) Diastolic dysfunction Code(s): I51.89 - OTHER ILL-DEFINED HEART DISEASES Status: Acute (5) Mild pulmonary hypertension Code(s): I27.20 - PULMONARY HYPERTENSION, UNSPECIFIED Status: Acute (6) NSVT (nonsustained ventricular tachycardia) Code(s): I47.2 - VENTRICULAR TACHYCARDIA Status: Acute (7) Pleurisy Code(s): R09.1 - PLEURISY Status: Acute (8) HTN (hypertension) Code(s): I10 - ESSENTIAL (PRIMARY) HYPERTENSION Status: Chronic Qualifiers: Hypertension type: essential hypertension Qualified Code(s): I10 - Essential (primary) hypertension (9) Sarcoidosis Code(s): D86.9 - SARCOIDOSIS, UNSPECIFIED Status: Chronic - Plan Chest tube management as per CTS. S/p Doxycycline pleurodesis antiarrhythmics as per EPS. On flecainide Analgesic as needed Continue supportive care. Monitor renal function in view of NSAID therapy
[2019-06-01 04:37] LABS: #Eosinphils 0.2 thou/uL (0.0-0.7); #Lymphocytes 0.9 thou/uL (1.20-3.40); #Monocytes 0.6 thou/uL (0.11-0.59); #Neutrophils 6.1 thou/uL (1.40-6.50); %Basophils 0.1 % (0.0-1.0); %Eosinophils 2.6 % (0.0-10.0); %Lymphocytes 11.8 % (21.0-51.0); %Monocytes 7.7 % (0.0-10.0); %Neutrophils 77.8 % (42.0-75.0); Hemoglobin 11.6 g/dL (14.0-18.0); Mean Corpuscular HGB CONC 31.6 g/dL (32.0-36.0); Mean Corpuscular Hemoglobin 31.7 pg (27.0-31.0); Mean Platelet Volume 6.6 fL (7.4-10.4); Platelet Count 233 thou/uL (130-400); Red Blood Cell (RBC) Count 3.65 mill/uL (4.70-6.10); White Blood Cell (WBC) Count 7.8 thou/uL (4.8-10.8)
[2019-06-01 05:00] LABS: Albumin 2.9 g/dL (3.5-5.0); Anion Gap 11 mmol/L (10-20); BUN (Urea Nitrogen) 14 mg/dL (8.4-25.7); BUN/Creatinine Ratio 15.38; Calc. Creatinine Clearance 100 mL/min (70-130); Calcium 8.1 mg/dL (7.8-10.44); Carbon Dioxide 27 mmol/L (22-29); Chloride 107 mmol/L (98-107); Estimated GFR-MDRD Greater than 90; Glucose 106 mg/dL (70-105); Phosphorus 3.2 mg/dL (2.3-4.7); Potassium 3.7 mmol/L (3.5-5.1); Sodium 141 mmol/L (136-145)
--- NOTE | 2019-06-01 08:54 | RAD ---
FRONTAL RADIOGRAPH CHEST: 06/01/2019 HISTORY: Pneumonia. COMPARISON: 05/31/2019 FINDINGS: Stable right-sided chest tube. Small pneumothorax noted in the right lung apex, pleural edge projecti ng just superior to the level of the clavicle. Heart and mediastinal contours are stable. Increased d ensity noted in the region of the AP window, which may signify an enlarged pulmonary artery, on the b asis of PAH. There are emphysematous changes noted in both upper lobes and there is nonspecific patch y increased linear density in the lung bases. There is a linear lucency along the inferior aspect of the right lung, consistent with a tiny degree of basilar pneumothorax on the right. IMPRESSION: Emphysematous changes. Right sided chest tube in place with small pneumothorax in the right lung apex and tiny component of pneumothorax in the right base. POS: [facility]
[2019-06-01] MEDS: azaTHIOprine 50 MG TAB PO SCH (08:56)
[2019-06-01] MEDS: Enoxaparin Sodium 40 MG/0.4 ML SYRINGE SC SCH (08:56)
[2019-06-01] MEDS: Flecainide 50 MG TAB PO SCH ×2 (08:57→20:21)
[2019-06-01] MEDS: predniSONE 20 MG TAB PO SCH (08:57)
--- NOTE | 2019-06-01 18:17 | PRG ---
DATE OF SERVICE: 06/01/2019 SUBJECTIVE: Andres Gauthier remains stable. He appears a little better today. He is in less pain. OBJECTIVE: VITAL SIGNS: He is afebrile, heart rate is 111, respiratory rate is 14 to 18, and oximetry is 99. CHEST: He has equal breath sounds. Chest tube has no air leak. IMPRESSION: Spontaneous pneumothorax status post doxycycline, chemical pleurodesis. PLAN: Continue suction for now. Job ID: [id number]
--- NOTE | 2019-06-01 20:00 | PDOC.HOSPP ---
- Subjective Encounter Date: 06/01/19 Encounter Time: 09:58 Subjective: 54 y/o male with Sacroid and bullous lung disease admitted with acute SOB. Intubated due to worsening Symptoms and further evaluation revealed large pneumothorax wchich was treated with thoracostomy with resolution. He however later developed recurrent pneumothorac hence chest tube placement. Hospital course was complaicted by development of tachyarrhthmia which was thought to be atrial tachycardia or SVT. Had doxycyline pleurodesis on 05/30/2019. Pleuritic chest pain is better. No fever or SOB. - Objective Vital Signs & Weight: Vital Signs (12 hours) Temp Pulse Resp Pulse Ox 06/01/19 19:20 98.6 F 06/01/19 18:51 82 22 H 98 06/01/19 13:18 92 26 H 100 06/01/19 12:00 97.3 F L Weight Admit Weight 171 lb 11.841 oz Weight 172 lb 4.8 oz Most Recent Monitor Data Heart Rate from ECG 82 NIBP 134/90 NIBP BP-Mean 104 Respiration from ECG 21 SpO2 100 I&O: 05/31/19 06/01/19 06/02/19 06:59 06:59 06:59 Intake Total 1204 1710 1510 Output Total 740 960 790 Balance 464 750 720 Result Diagrams: 06/01/19 04:05 06/01/19 04:05 Hospitalist ROS - Medication Medications: Active Medications Generic Name Dose Route Start Last Admin Trade Name Freq PRN Reason Stop Dose Admin Acetaminophen 650 mg 05/11/19 13:45 05/19/19 07:17 Tylenol PO 650 mg Q4H PRN Administration Headache/Fever/Mild Pain (1-3) Albuterol/Ipratropium 3 ml 05/13/19 18:30 06/01/19 18:51 Duoneb NEB 3 ml TID-RT EVELYN Administration Azathioprine 150 mg 05/13/19 09:00 06/01/19 08:56 Imuran PO 150 mg QAM EVELYN Administration Cyclobenzaprine HCl 10 mg 05/12/19 13:17 05/22/19 22:13 Flexeril PO 10 mg TIDPRN PRN Administration Moderate Pain (4-6) Enoxaparin Sodium 40 mg 05/12/19 09:00 06/01/19 08:56 Lovenox SC 40 mg 0900 EVELYN Administration Flecainide Acetate 50 mg 05/27/19 21:00 06/01/19 08:57 Tambocor PO 50 mg Q12HR EVELYN Administration Fentanyl Citrate 2,000 mcg/ 100 mls @ 0 mls/hr 05/30/19 08:58 05/30/19 10:15 Sodium Chloride IV 100 mls INF PRN Administration Pain As Directed Ketorolac Tromethamine 30 mg 05/30/19 08:58 05/30/19 09:16 Toradol IVP 06/02/19 08:59 30 mg Q6H PRN Administration Moderate Pain 4-6 Magnesium Hydroxide 30 ml 05/19/19 09:31 05/20/19 20:53 Milk Of Magnesium PO 30 ml Q12H PRN Administration Constipation Metoprolol Succinate 25 mg 05/26/19 09:00 06/01/19 08:57 Toprol Xl PO 25 mg DAILY EVELYN Administration Pantoprazole Sodium 40 mg 05/13/19 09:00 06/01/19 08:57 Protonix PO 40 mg DAILY EVELYN Administration Prednisone 10 mg 05/22/19 09:00 06/01/19 08:57 Prednisone PO 10 mg DAILY EVELYN Administration Sodium Chloride 10 ml 05/13/19 21:00 06/01/19 08:58 Flush - Normal Saline IVF 10 ml Q12HR EVELYN Administration - Exam General Appearance: awake alert Eye: PERRL, anicteric sclera ENT: normocephalic atraumatic, moist mucosa Neck: supple, symmetric, no JVD Heart: RRR Respiratory: no wheezes, no ronchi, normal chest expansion Respiratory - other findings: fine crackles and transmitted sound both bases posteriorly Gastrointestinal: soft, non-tender, non-distended, normal bowel sounds Extremities: no edema Neurological: cranial nerve grossly intact, no focal deficits Hosp A/P (1) Spontaneous pneumothorax Code(s): J93.83 - OTHER PNEUMOTHORAX Status: Acute (2) Acute respiratory failure with hypoxemia Code(s): J96.01 - ACUTE RESPIRATORY FAILURE WITH HYPOXIA Status: Acute (3) Paroxysmal SVT (supraventricular tachycardia) Code(s): I47.1 - SUPRAVENTRICULAR TACHYCARDIA Status: Acute (4) Diastolic dysfunction Code(s): I51.89 - OTHER ILL-DEFINED HEART DISEASES Status: Acute (5) Mild pulmonary hypertension Code(s): I27.20 - PULMONARY HYPERTENSION, UNSPECIFIED Status: Acute (6) NSVT (nonsustained ventricular tachycardia) Code(s): I47.2 - VENTRICULAR TACHYCARDIA Status: Acute (7) Pleurisy Code(s): R09.1 - PLEURISY Status: Acute (8) HTN (hypertension) Code(s): I10 - ESSENTIAL (PRIMARY) HYPERTENSION Status: Chronic Qualifiers: Hypertension type: essential hypertension Qualified Code(s): I10 - Essential (primary) hypertension (9) Sarcoidosis Code(s): D86.9 - SARCOIDOSIS, UNSPECIFIED Status: Chronic - Plan Chest tube management as per CTS. antiarrhythmics as per EPS. On flecainide Analgesic as needed Continue supportive care. For discharge once cleared by Pulmonary and CTS.
[2019-06-02] MEDS: predniSONE 20 MG TAB PO SCH (09:25)
[2019-06-02] MEDS: Enoxaparin Sodium 40 MG/0.4 ML SYRINGE SC SCH (09:25)
[2019-06-02] MEDS: Flecainide 50 MG TAB PO SCH ×2 (09:26→20:08)
[2019-06-02] MEDS: azaTHIOprine 50 MG TAB PO SCH (09:26)
--- NOTE | 2019-06-02 11:03 | RAD ---
FRONTAL RADIOGRAPH CHEST: 06/02/2019 HISTORY: Pneumonia. COMPARISON: 06/01/2019 FINDINGS: There is a stable right-sided chest tube with slight possible kinking at the right costophrenic angle region. There is a small pneumothorax in the right lung apex, similar when compared to the prior demetra ging. No left-sided pneumothorax. Emphysematous changes noted bilaterally. Nonspecific patchy increas ed linear density noted in both lung bases. Stable small volume subcutaneous emphysema within the rig ht chest wall. IMPRESSION: 1. No appreciable interval change. 2. Stable small pneumothorax in the right lung apex. POS: [facility]
--- NOTE | 2019-06-02 12:49 | EKG ---
Test Reason : Blood Pressure : / mmHG Vent. Rate : 092 BPM Atrial Rate : 092 BPM P-R Int : 122 ms QRS Dur : 104 ms QT Int : 422 ms P-R-T Axes : 066 085 093 degrees QTc Int : 521 ms Normal sinus rhythm Possible Left atrial enlargement Incomplete right bundle branch block Prolonged QT Abnormal ECG When compared with ECG of 23-MAY-2019 17:15, Vent. rate has decreased BY 46 BPM Nonspecific T wave abnormality no longer evident in Inferior leads Confirmed by HARMAN GRAY (2) on 06/02/2019 12:49:04 PM Referred By: ANKITA HITCHCOCK Confirmed By:HARMAN GRAY
--- NOTE | 2019-06-02 14:48 | PDOC.HOSPP ---
- Subjective Encounter Date: 06/02/19 Encounter Time: 10:46 Subjective: 54 y/o male with Sacroid and bullous lung disease admitted with acute SOB. Intubated due to worsening Symptoms and further evaluation revealed large pneumothorax which was initially treated with thoracostomy with resolution. He however later developed recurrent pneumothorax hence chest tube placement. Hospital course was complaicted by development of tachyarrhthmia which was thought to be atrial tachycardia or SVT and was started on flecainide by EPS with resolution. Had doxycyline pleurodesis on 05/30/2019. No new problem. No fever or SOB. - Objective Vital Signs & Weight: Vital Signs (12 hours) Temp Pulse Resp Pulse Ox 06/02/19 13:29 89 20 97 06/02/19 12:00 98.2 F 06/02/19 08:00 100 06/02/19 07:15 98.0 F 06/02/19 06:58 72 20 100 06/02/19 03:39 98.0 F Weight Admit Weight 171 lb 11.841 oz Weight 170 lb 9 oz Most Recent Monitor Data Heart Rate from ECG 99 NIBP 134/85 NIBP BP-Mean 101 Respiration from ECG 21 SpO2 92 I&O: 06/01/19 06/02/19 06/03/19 06:59 06:59 06:59 Intake Total 1710 2742 270 Output Total 960 1450 Balance 750 1292 270 Result Diagrams: 06/01/19 04:05 06/01/19 04:05 Hospitalist ROS - Medication Medications: Active Medications Generic Name Dose Route Start Last Admin Trade Name Freq PRN Reason Stop Dose Admin Acetaminophen 650 mg 05/11/19 13:45 05/19/19 07:17 Tylenol PO 650 mg Q4H PRN Administration Headache/Fever/Mild Pain (1-3) Albuterol/Ipratropium 3 ml 05/13/19 18:30 06/02/19 13:29 Duoneb NEB 3 ml TID-RT EVELYN Administration Azathioprine 150 mg 05/13/19 09:00 06/02/19 09:26 Imuran PO 150 mg QAM EVELYN Administration Cyclobenzaprine HCl 10 mg 05/12/19 13:17 05/22/19 22:13 Flexeril PO 10 mg TIDPRN PRN Administration Moderate Pain (4-6) Enoxaparin Sodium 40 mg 05/12/19 09:00 06/02/19 09:25 Lovenox SC 40 mg 0900 EVELYN Administration Flecainide Acetate 50 mg 05/27/19 21:00 06/02/19 09:26 Tambocor PO 50 mg Q12HR EVELYN Administration Fentanyl Citrate 2,000 mcg/ 100 mls @ 0 mls/hr 05/30/19 08:58 05/30/19 10:15 Sodium Chloride IV 100 mls INF PRN Administration Pain As Directed Magnesium Hydroxide 30 ml 05/19/19 09:31 05/20/19 20:53 Milk Of Magnesium PO 30 ml Q12H PRN Administration Constipation Metoprolol Succinate 25 mg 05/26/19 09:00 06/02/19 09:25 Toprol Xl PO 25 mg DAILY EVELYN Administration Pantoprazole Sodium 40 mg 05/13/19 09:00 06/02/19 09:26 Protonix PO 40 mg DAILY EVELYN Administration Prednisone 10 mg 05/22/19 09:00 06/02/19 09:25 Prednisone PO 10 mg DAILY EVELYN Administration Sodium Chloride 10 ml 05/13/19 21:00 06/02/19 09:26 Flush - Normal Saline IVF 10 ml Q12HR EVELYN Administration - Exam General Appearance: awake alert Eye: anicteric sclera ENT: normocephalic atraumatic Neck: supple, symmetric Heart: RRR Respiratory: no wheezes, no ronchi, normal chest expansion Respiratory - other findings: few bibasal fine crackles posteriorly. R chest tube in place Gastrointestinal: soft, non-tender, non-distended, normal bowel sounds Extremities: no cyanosis, no edema Neurological: cranial nerve grossly intact, no focal deficits Psychiatric: normal affect, A&O x 3 Hosp A/P (1) Spontaneous pneumothorax Code(s): J93.83 - OTHER PNEUMOTHORAX Status: Acute (2) Acute respiratory failure with hypoxemia Code(s): J96.01 - ACUTE RESPIRATORY FAILURE WITH HYPOXIA Status: Acute (3) Paroxysmal SVT (supraventricular tachycardia) Code(s): I47.1 - SUPRAVENTRICULAR TACHYCARDIA Status: Acute (4) Diastolic dysfunction Code(s): I51.89 - OTHER ILL-DEFINED HEART DISEASES Status: Acute (5) Mild pulmonary hypertension Code(s): I27.20 - PULMONARY HYPERTENSION, UNSPECIFIED Status: Acute (6) NSVT (nonsustained ventricular tachycardia) Code(s): I47.2 - VENTRICULAR TACHYCARDIA Status: Acute (7) Pleurisy Code(s): R09.1 - PLEURISY Status: Acute (8) HTN (hypertension) Code(s): I10 - ESSENTIAL (PRIMARY) HYPERTENSION Status: Chronic Qualifiers: Hypertension type: essential hypertension Qualified Code(s): I10 - Essential (primary) hypertension (9) Sarcoidosis Code(s): D86.9 - SARCOIDOSIS, UNSPECIFIED Status: Chronic - Plan Chest tube management as per CTS. CXR still showed small apical pneumothorax. On flecainide as per EPS. Analgesic as needed Continue supportive care.
--- NOTE | 2019-06-02 21:52 | PRG ---
DATE OF SERVICE: 06/02/2019 SUBJECTIVE: Mr. Gauthier remains to suction. He had no complaints. He is trying to exercise in the room with his Pleur-Evac connected to suction. OBJECTIVE: VITAL SIGNS: Oximetry is 100% on 3 L. LUNGS: Bilateral equal breath sounds. HEART: Regular rhythm. ABDOMEN: Soft. IMPRESSION: Spontaneous pneumothorax associated with sarcoid, status post two chest tube placements this admission. He has now undergone doxycycline pleurodesis. His pain for the most part resolved. We will continue with suction and eventually be switched to water seal and a Heimlich valve to go home with the chest tube. Job ID: [id number]
[2019-06-03] MEDS: Flecainide 50 MG TAB PO SCH ×2 (10:13→20:10)
[2019-06-03] MEDS: azaTHIOprine 50 MG TAB PO SCH (10:13)
[2019-06-03] MEDS: predniSONE 20 MG TAB PO SCH (10:14)
[2019-06-03] MEDS: Enoxaparin Sodium 40 MG/0.4 ML SYRINGE SC SCH (10:14)
--- NOTE | 2019-06-03 10:17 | RAD ---
RADIOGRAPH CHEST 1 VIEW: Date: 06/03/19 Time: 0434 HOURS HISTORY: 54-year-old male follow-up pneumonia. COMPARISON: 06/02/19 at 0434 hours. FINDINGS: Previously, there was a small right pneumothorax. That has become significantly larger, and currently occupies approximately 25% volume of the right hemithoracic cavity. Right-sided chest tube is unchan ged. Infiltrates at right medial lower lung zone unchanged. Large left apical bullae again noted. Pro minent interstitial markings throughout the left lung. IMPRESSION: 1. Interval increase in volume of right-sided pneumothorax. 2. No other interval change. JN [] POS: [facility]
--- NOTE | 2019-06-03 11:16 | PRG ---
DATE OF SERVICE: 05/31/2019 SUBJECTIVE: Mr. Gauthier states he is feeling better today. He has less discomfort. Intake is 1204, output 740. Chest tube drainage is 300 mL. OBJECTIVE: equal breath sounds. HEART: Regular rhythm. ABDOMEN: Soft He has no air leak. Chest x-ray, no change with the exception of atelectasisat his base. IMPRESSION: 1. Status post doxycycline pleurodesis after spontaneous pneumothorax x2. 2. Sarcoid . 3.supraventricular tachycardia, seen by the automatic steel tie adjuster, felt to be most likely atrial tachycardia that was asymptomatic. He was also felt to have a brief run of atrial flutter. He certainly could have sarcoid involving his cardiac conductions. 4. We will continue to follow. 5. We might consider placing his chest tube to water seal tomorrow and starting to ambulate outside of his room, will talk to CT surgery about this. Job ID: [id number] MTDD
--- NOTE | 2019-06-03 13:23 | PRG ---
DATE OF SERVICE: 06/03/2019 SERVICE: Pulmonary Medicine. INTERVAL HISTORY: The patient is doing okay from respiratory standpoint. He continues to have chest tube, which is being drained. He denies any current fevers, chills, nausea, or vomiting. There are no significant overnight events and he has no symptoms other than localized to his right chest wall. PHYSICAL EXAMINATION: VITAL SIGNS: Afebrile, pulse 92, blood pressure 121/85, respirations 30, and saturation 97%, currently on 1 L nasal cannula. HEENT: Normocephalic and atraumatic. Sclerae white. Conjunctivae pink. Oral mucosa is moist without lesions. LUNGS: Decent air entry. Crackles are present. No prolonged expiratory phase or wheezing is appreciated. HEART: Normal rate, regular. ABDOMEN: Soft, nontender, nondistended. Bowel sounds are positive. MUSCULOSKELETAL: No cyanosis or clubbing. There is no pitting in the bilateral lower extremities. NEUROLOGIC: Grossly nonfocal. IMAGING DATA: Chest x-ray demonstrates slight enlargement of the right apical pneumothorax and right lateral pneumothorax. Chest tube is in inferior/dependent location. ASSESSMENT: 1. Acute hypoxic respiratory failure. 2. Secondary spontaneous pneumothorax, status post pleurodesis. 3. Sarcoidosis. 4. Pulmonary hypertension by echo criteria only. 5. Chronic diastolic heart failure, currently euvolemic. DISCUSSION AND PLAN: I had the patient to take a deep breath and cough hard. It is my suspicion this apical area, it may not be communicating with the rest of the chest cavity. We will try him on water seal. If he can tolerate this, even if he has a little bit of a persistent pneumothorax, we may be able to send him home with a Heimlich valve. Pulmonary/Critical Care will continue to follow along. Job ID: [id number]
[2019-06-03] MEDS: fentaNYL Citrate/PF 2,000 MCG in Sodium Chloride 0.9% 60 ML IV PRN (15:07)
--- NOTE | 2019-06-03 16:44 | PDOC.HOSPP ---
- Subjective Encounter Date: 06/03/19 Encounter Time: 11:42 Subjective: 54 y/o male with Sacroid and bullous lung disease admitted with acute SOB. Intubated due to worsening Symptoms and further evaluation revealed large pneumothorax which was initially treated with thoracostomy with resolution. He however later developed recurrent pneumothorax hence chest tube placement. Hospital course was complaicted by development of tachyarrhthmia which was thought to be atrial tachycardia or SVT and was started on flecainide by EPS with resolution. Had doxycyline pleurodesis on 05/30/2019. No new problem. No fever or SOB. CXR still persistent apical pneumothorax. - Objective Vital Signs & Weight: Vital Signs (12 hours) Temp Pulse Pulse Pulse Resp BP BP 06/03/19 15:21 98.3 F 06/03/19 14:17 91 28 H 06/03/19 11:18 97.9 F 06/03/19 08:42 90 89 99/67 137/87 06/03/19 08:00 06/03/19 07:21 96.8 F L 06/03/19 07:03 06/03/19 07:02 83 28 H Pulse Ox Pulse Ox Pulse Ox 06/03/19 15:21 06/03/19 14:17 96 06/03/19 11:18 06/03/19 08:42 114 H 96 06/03/19 08:00 98 06/03/19 07:21 06/03/19 07:03 97 06/03/19 07:02 97 Weight Admit Weight 171 lb 11.841 oz Weight 172 lb 4 oz Most Recent Monitor Data Heart Rate from ECG 91 NIBP 122/88 NIBP BP-Mean 99 Respiration from ECG 32 SpO2 97 I&O: 06/02/19 06/03/19 06/04/19 06:59 06:59 06:59 Intake Total 2742 1516 Output Total 1450 735 Balance 1292 781 Result Diagrams: 06/01/19 04:05 06/01/19 04:05 Hospitalist ROS - Medication Medications: Active Medications Generic Name Dose Route Start Last Admin Trade Name Freq PRN Reason Stop Dose Admin Acetaminophen 650 mg 05/11/19 13:45 05/19/19 07:17 Tylenol PO 650 mg Q4H PRN Administration Headache/Fever/Mild Pain (1-3) Albuterol/Ipratropium 3 ml 05/13/19 18:30 06/03/19 14:17 Duoneb NEB 3 ml TID-RT EVELYN Administration Azathioprine 150 mg 05/13/19 09:00 06/03/19 10:13 Imuran PO 150 mg QAM EVELYN Administration Cyclobenzaprine HCl 10 mg 05/12/19 13:17 05/22/19 22:13 Flexeril PO 10 mg TIDPRN PRN Administration Moderate Pain (4-6) Enoxaparin Sodium 40 mg 05/12/19 09:00 06/03/19 10:14 Lovenox SC 40 mg 0900 EVELYN Administration Flecainide Acetate 50 mg 05/27/19 21:00 06/03/19 10:13 Tambocor PO 50 mg Q12HR EVELYN Administration Fentanyl Citrate 2,000 mcg/ 100 mls @ 0 mls/hr 05/30/19 08:58 06/03/19 15:07 Sodium Chloride IV 100 mls INF PRN Administration Pain As Directed Magnesium Hydroxide 30 ml 05/19/19 09:31 05/20/19 20:53 Milk Of Magnesium PO 30 ml Q12H PRN Administration Constipation Metoprolol Succinate 25 mg 05/26/19 09:00 06/03/19 10:13 Toprol Xl PO 25 mg DAILY EVELYN Administration Pantoprazole Sodium 40 mg 05/13/19 09:00 06/03/19 10:14 Protonix PO 40 mg DAILY EVELYN Administration Prednisone 10 mg 05/22/19 09:00 06/03/19 10:14 Prednisone PO 10 mg DAILY EVELYN Administration Sodium Chloride 10 ml 05/13/19 21:00 06/03/19 10:14 Flush - Normal Saline IVF 10 ml Q12HR EVELYN Administration - Exam General Appearance: awake alert Eye: anicteric sclera ENT: normocephalic atraumatic, moist mucosa Neck: supple, symmetric Heart: RRR Respiratory: no wheezes, no ronchi, normal chest expansion Respiratory - other findings: Bibasal crackles noted Gastrointestinal: soft, non-tender, non-distended, normal bowel sounds Extremities: no cyanosis, no edema Neurological: cranial nerve grossly intact, no focal deficits Musculoskeletal: generalized weakness Psychiatric: normal affect, A&O x 3 Hosp A/P (1) Spontaneous pneumothorax Code(s): J93.83 - OTHER PNEUMOTHORAX Status: Acute (2) Acute respiratory failure with hypoxemia Code(s): J96.01 - ACUTE RESPIRATORY FAILURE WITH HYPOXIA Status: Acute (3) Paroxysmal SVT (supraventricular tachycardia) Code(s): I47.1 - SUPRAVENTRICULAR TACHYCARDIA Status: Acute (4) Diastolic dysfunction Code(s): I51.89 - OTHER ILL-DEFINED HEART DISEASES Status: Acute (5) Mild pulmonary hypertension Code(s): I27.20 - PULMONARY HYPERTENSION, UNSPECIFIED Status: Acute (6) NSVT (nonsustained ventricular tachycardia) Code(s): I47.2 - VENTRICULAR TACHYCARDIA Status: Acute (7) Pleurisy Code(s): R09.1 - PLEURISY Status: Acute (8) HTN (hypertension) Code(s): I10 - ESSENTIAL (PRIMARY) HYPERTENSION Status: Chronic Qualifiers: Hypertension type: essential hypertension Qualified Code(s): I10 - Essential (primary) hypertension (9) Sarcoidosis Code(s): D86.9 - SARCOIDOSIS, UNSPECIFIED Status: Chronic (10) Physical deconditioning Code(s): R53.81 - OTHER MALAISE Status: Acute - Plan Chest tube management as per CTS. CXR still showed small apical pneumothorax. Analgesic as needed Continue supportive care. PT to continue
--- NOTE | 2019-06-04 07:45 | RAD ---
Chest AP view INDICATION: History of pneumonia COMPARISON: Prior exam dated June 03, 2019 FINDINGS: Lungs:The bibasilar interstitial and airspace opacities, right greater than left persists. Chronic marietta ng changes are stable. 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 Cardiac silhouette:Mild cardiomegaly is stable Pulmonary vasculature:Normal Pleural spaces:Small right apical pneumothorax is slightly reduced in size from the prior exam. Right -sided thoracostomy tube is unchanged in position. Upper abdomen:No abnormality seen. Osseous structures: No acute osseous abnormality. Additional findings:None. IMPRESSION: Decrease in size of the right apical pneumothorax. Right-sided thoracostomy tube. Stable bibasilar opacities.
[2019-06-04] MEDS: azaTHIOprine 50 MG TAB PO SCH (09:17)
[2019-06-04] MEDS: Enoxaparin Sodium 40 MG/0.4 ML SYRINGE SC SCH (09:17)
[2019-06-04] MEDS: predniSONE 20 MG TAB PO SCH (09:18)
[2019-06-04] MEDS: Flecainide 50 MG TAB PO SCH ×2 (09:18→20:26)
--- NOTE | 2019-06-04 09:43 | PDOC.HOSPP ---
- Subjective Encounter Date: 06/04/19 Encounter Time: 09:41 Subjective: 54 y/o male with Sacroid and bullous lung disease admitted with acute SOB. Intubated due to worsening Symptoms and further evaluation revealed large pneumothorax which was initially treated with thoracostomy with resolution. He however later developed recurrent pneumothorax hence chest tube placement. Hospital course was complaicted by development of tachyarrhthmia which was thought to be atrial tachycardia or SVT and was started on flecainide by EPS with resolution. Had doxycyline pleurodesis on 05/30/2019. Developed worsening SOB and hypoxia this morning associated with worsening cough. No fever or chest pain. - Objective Vital Signs & Weight: Vital Signs (12 hours) Temp Pulse Resp Pulse Ox 06/04/19 08:00 97 06/04/19 07:15 98.6 F 06/04/19 06:44 84 22 H 06/04/19 04:00 26 H 06/03/19 23:26 97.6 F Weight Admit Weight 171 lb 11.841 oz Weight 173 lb 7 oz Most Recent Monitor Data Heart Rate from ECG 82 NIBP 134/94 NIBP BP-Mean 107 Respiration from ECG 18 SpO2 98 I&O: 06/03/19 06/04/19 06/05/19 06:59 06:59 06:59 Intake Total 1516 1728 Output Total 735 1015 Balance 781 713 Result Diagrams: 06/01/19 04:05 06/01/19 04:05 Hospitalist ROS - Medication Medications: Active Medications Generic Name Dose Route Start Last Admin Trade Name Freq PRN Reason Stop Dose Admin Acetaminophen 650 mg 05/11/19 13:45 05/19/19 07:17 Tylenol PO 650 mg Q4H PRN Administration Headache/Fever/Mild Pain (1-3) Albuterol/Ipratropium 3 ml 05/13/19 18:30 06/04/19 06:44 Duoneb NEB 3 ml TID-RT EVELYN Administration Azathioprine 150 mg 05/13/19 09:00 06/04/19 09:17 Imuran PO 150 mg QAM EVELYN Administration Cyclobenzaprine HCl 10 mg 05/12/19 13:17 05/22/19 22:13 Flexeril PO 10 mg TIDPRN PRN Administration Moderate Pain (4-6) Enoxaparin Sodium 40 mg 05/12/19 09:00 06/04/19 09:17 Lovenox SC 40 mg 0900 EVELYN Administration Flecainide Acetate 50 mg 05/27/19 21:00 06/04/19 09:18 Tambocor PO 50 mg Q12HR EVELYN Administration Fentanyl Citrate 2,000 mcg/ 100 mls @ 0 mls/hr 05/30/19 08:58 06/03/19 15:07 Sodium Chloride IV 100 mls INF PRN Administration Pain As Directed Magnesium Hydroxide 30 ml 05/19/19 09:31 05/20/19 20:53 Milk Of Magnesium PO 30 ml Q12H PRN Administration Constipation Metoprolol Succinate 25 mg 05/26/19 09:00 06/04/19 09:17 Toprol Xl PO 25 mg DAILY EVELYN Administration Pantoprazole Sodium 40 mg 05/13/19 09:00 06/04/19 09:17 Protonix PO 40 mg DAILY EVELYN Administration Prednisone 10 mg 05/22/19 09:00 06/04/19 09:18 Prednisone PO 10 mg DAILY EVELYN Administration Sodium Chloride 10 ml 05/13/19 21:00 06/04/19 09:18 Flush - Normal Saline IVF 10 ml Q12HR EVELYN Administration - Exam General Appearance: awake alert General - other findings: mild to moderate reesspiratory distress Eye: anicteric sclera ENT: normocephalic atraumatic, moist mucosa Neck: supple, symmetric, no JVD Heart: RRR Respiratory: tachypneic Respiratory - other findings: decreased air entry right base and mid zone. Gastrointestinal: soft, non-tender, non-distended, normal bowel sounds Extremities: no cyanosis, no edema Neurological: cranial nerve grossly intact, no focal deficits Psychiatric: A&O x 3 Hosp A/P (1) Spontaneous pneumothorax Code(s): J93.83 - OTHER PNEUMOTHORAX Status: Acute (2) Acute respiratory failure with hypoxemia Code(s): J96.01 - ACUTE RESPIRATORY FAILURE WITH HYPOXIA Status: Acute (3) Paroxysmal SVT (supraventricular tachycardia) Code(s): I47.1 - SUPRAVENTRICULAR TACHYCARDIA Status: Acute (4) Diastolic dysfunction Code(s): I51.89 - OTHER ILL-DEFINED HEART DISEASES Status: Acute (5) Mild pulmonary hypertension Code(s): I27.20 - PULMONARY HYPERTENSION, UNSPECIFIED Status: Acute (6) NSVT (nonsustained ventricular tachycardia) Code(s): I47.2 - VENTRICULAR TACHYCARDIA Status: Acute (7) Pleurisy Code(s): R09.1 - PLEURISY Status: Acute (8) HTN (hypertension) Code(s): I10 - ESSENTIAL (PRIMARY) HYPERTENSION Status: Chronic Qualifiers: Hypertension type: essential hypertension Qualified Code(s): I10 - Essential (primary) hypertension (9) Sarcoidosis Code(s): D86.9 - SARCOIDOSIS, UNSPECIFIED Status: Chronic (10) Physical deconditioning Code(s): R53.81 - OTHER MALAISE Status: Acute - Plan Acute worsening of respiratory status: ? worsening of pneumothorax vs mucus plugging. Will get Stat Chest X ray. increase oxygen supplementation. Chest tube management as per CTS and pulmonary Analgesic as needed Continue supportive care. Further treatment to follow CXR review. CT chest contemplated given persistent bilateral bibasal opacities.
--- NOTE | 2019-06-04 10:08 | RAD ---
CHEST 1 VIEW: HISTORY: Shortness of breath, chest tube. COMPARISON: 06/04/2019. FINDINGS: A moderate-sized right-sided pneumothorax has developed since the most recent prior study after takin g the chest tube off of suction. The left chest is stable. IMPRESSION: Development of a moderate right-sided pneumothorax after taking the chest tube off suction. Findings were discussed with nurse Tori who indicated that they are putting the patient back on suct ion. Stable left chest and cardiomegaly. CODE CR POS: TPC
--- NOTE | 2019-06-04 13:36 | PRG ---
DATE OF SERVICE: 06/04/2019 SERVICE: Pulmonary Medicine. INTERVAL HISTORY: The patient was doing poorly overnight from respiratory standpoint with significant amounts of coughing. This morning, he had a chest x-ray demonstrating an interval enlargement in the pneumothorax. He was put back on suction, his breathing improved immediately. He has no complaints of chest discomfort, nausea, vomiting, fevers, or chills. His appetite is poor. Otherwise, he is doing okay. PHYSICAL EXAMINATION: VITAL SIGNS: Afebrile. Pulse 87, blood pressure 138/89, respirations 31, saturation 100% on room air. GENERAL: The patient is awake and alert, in no apparent distress. LUNGS: Decent air entry. No prolonged expiratory phase. Crackles are present. No wheezing or rhonchi. HEART: Normal rate, regular. ABDOMEN: Soft, nontender, nondistended. Bowel sounds are positive. MUSCULOSKELETAL: No cyanosis or clubbing. There is no pitting in the bilateral lower extremities. NEUROLOGIC: Grossly nonfocal. IMAGING DATA: Chest x-ray demonstrates interval increase in size of the right apical pneumothorax. Chronic interstitial lung changes are present throughout bilateral lung roman. ASSESSMENT: 1. Acute hypoxic respiratory failure. 2. Secondary spontaneous pneumothorax, status post pleurodesis. 3. Sarcoidosis. 4. Pulmonary hypertension by echo criteria. 5. Chronic diastolic heart failure, euvolemic. DISCUSSION AND PLAN: We had to put the patient back on suction. At this moment, there is not a significant air leak. We will repeat a chest x-ray tomorrow morning. On a personal note, the patient's mother couple of days ago. Because of this, he would very much like to make it to her , which is scheduled for Monday. We are going to do everything we can to arrange for him to have a portable suction canister and a day pass from the hospital on Monday, so that he can attend the . Pulmonary/Critical Care will continue to follow closely. Job ID: [id number]
[2019-06-05 04:18] LABS: Albumin 2.9 g/dL (3.5-5.0); Anion Gap 11 mmol/L (10-20); BUN (Urea Nitrogen) 16 mg/dL (8.4-25.7); BUN/Creatinine Ratio 11.94; Calc. Creatinine Clearance 68 mL/min (70-130); Calcium 8.4 mg/dL (7.8-10.44); Carbon Dioxide 30 mmol/L (22-29); Chloride 107 mmol/L (98-107); Estimated GFR-MDRD 67; Glucose 96 mg/dL (70-105); Phosphorus 4.5 mg/dL (2.3-4.7); Potassium 4.2 mmol/L (3.5-5.1); Sodium 144 mmol/L (136-145)
[2019-06-05 04:19] LABS: #Eosinphils 0.3 thou/uL (0.0-0.7); #Lymphocytes 0.9 thou/uL (1.20-3.40); #Monocytes 0.7 thou/uL (0.11-0.59); #Neutrophils 5.4 thou/uL (1.40-6.50); %Basophils 0.2 % (0.0-1.0); %Eosinophils 4.6 % (0.0-10.0); %Lymphocytes 12.1 % (21.0-51.0); %Monocytes 8.9 % (0.0-10.0); %Neutrophils 74.3 % (42.0-75.0); Hemoglobin 11.8 g/dL (14.0-18.0); Mean Corpuscular HGB CONC 32.1 g/dL (32.0-36.0); Mean Corpuscular Hemoglobin 31.8 pg (27.0-31.0); Mean Corpuscular Volume 99.1 fL (78.0-98.0); Mean Platelet Volume 6.7 fL (7.4-10.4); Platelet Count 235 thou/uL (130-400); RBC Distribution Width 12.9 % (11.5-14.5); Red Blood Cell (RBC) Count 3.71 mill/uL (4.70-6.10); White Blood Cell (WBC) Count 7.3 thou/uL (4.8-10.8)
[2019-06-05] MEDS ORDERED: Sodium Chloride 0.45% 1,000 ML IV SCH (06:45)
--- NOTE | 2019-06-05 06:54 | PRG ---
DATE OF SERVICE: 06/05/2019 SERVICE: Pulmonary Medicine. INTERVAL HISTORY: Patient is breathing a little bit better. This happened immediately on putting him back to suction yesterday. He denies any fevers or chills. There has been no interval change to his condition. PHYSICAL EXAMINATION: VITAL SIGNS: Afebrile, pulse 84, blood pressure 123/101, respirations 30, saturation 100%, currently on 3 L nasal cannula. GENERAL: The patient is awake and alert, in no apparent distress. LUNGS: Decent air entry. No prolonged expiratory phase present. Extensive crackling is noted. No wheezing or rhonchi appreciated. HEART: Normal rate regular. ABDOMEN: Soft, nontender, nondistended, bowel sounds are positive. MUSCULOSKELETAL: No cyanosis or clubbing. No pitting in the bilateral lower extremities. NEUROLOGIC: Grossly nonfocal. LABORATORY DATA: WBC 7.3, hemoglobin 11.8, and platelets 235,000. Bicarb 30. Basic metabolic profile is otherwise unremarkable. Creatinine is gently up trending to 1.34. Albumin 2.9. IMAGING: Chest x-ray demonstrates interval improvement in the pneumothorax. There remains an apical pneumothorax present. Chronic interstitial lung changes are otherwise appreciated. ASSESSMENT: 1. Acute hypoxic respiratory failure. 2. Secondary spontaneous pneumothorax, status post pleurodesis with doxycycline. 3. Sarcoidosis. 4. Pulmonary hypertension by echo criteria only. 5. Chronic diastolic heart failure, likely on the dry side. DISCUSSION AND PLAN: The labs are suggesting slight contraction alkalosis. As such, I will give him 1 L of fluid. I will discontinue it after that. He is going to be in the hospital for a protracted course. LTAC may be a viable option. We are working on setting up a day pass for him to attend his mother's on Monday of this weekend. It appears that we will have the resources to get him there. Pulmonary Medicine will continue to follow. Job ID: [id number]
--- NOTE | 2019-06-05 08:47 | RAD ---
CHEST 1 VIEW: INDICATION: History of pneumonia. COMPARISON: Prior exam dated 06/04/2019. IMPRESSION: There is improvement in the right-sided pneumothorax. Bullous disease and COPD change are similar ap pearing. Airspace opacity involving both lower lobes persist. Cardiomegaly is unchanged. POS: BH
[2019-06-05] MEDS: Enoxaparin Sodium 40 MG/0.4 ML SYRINGE SC SCH (08:48)
[2019-06-05] MEDS: azaTHIOprine 50 MG TAB PO SCH (08:48)
[2019-06-05] MEDS: Flecainide 50 MG TAB PO SCH ×2 (08:48→20:53)
[2019-06-05] MEDS: predniSONE 20 MG TAB PO SCH (08:48)
[2019-06-05] MEDS ORDERED: AFRIN NASAL MIST 15 ML BOT NS PRN (12:13)
[2019-06-05] MEDS: Benzonatate 100 MG CAP PO PRN ×2 (12:43→18:14)
--- NOTE | 2019-06-05 16:40 | PDOC.HOSPP ---
- Subjective Encounter Date: 06/05/19 Encounter Time: 16:38 Subjective: 54 y/o male with Sacroid and bullous lung disease admitted with acute SOB. Intubated due to worsening Symptoms and further evaluation revealed large pneumothorax which was initially treated with thoracostomy with resolution. He however later developed recurrent pneumothorax hence chest tube placement. Hospital course was complaicted by development of tachyarrhthmia which was thought to be atrial tachycardia or SVT and was started on flecainide by EPS with resolution. Had doxycyline pleurodesis on 05/30/2019. Developed worsening SOB and hypoxia on 06/04/2019 after chest tube was removed from suction and repeat CXR showed worsening of pneumothorax which improvedwith reconnection to suction. Still SOB especially with exertion. - Objective Vital Signs & Weight: Vital Signs (12 hours) Temp Pulse Pulse Resp BP Pulse Ox Pulse Ox 06/05/19 15:27 97.1 F L 06/05/19 12:00 96 06/05/19 11:15 97.3 F L 06/05/19 09:12 117 H 155/99 H 90 L 06/05/19 08:00 98 06/05/19 07:43 98.1 F 06/05/19 07:40 83 25 H 100 Pulse Ox Pulse Ox 06/05/19 15:27 06/05/19 12:00 06/05/19 11:15 06/05/19 09:12 77 L 94 L 06/05/19 08:00 06/05/19 07:43 06/05/19 07:40 Weight Admit Weight 171 lb 11.841 oz Weight 172 lb 3 oz Most Recent Monitor Data Heart Rate from ECG 85 NIBP 150/95 NIBP BP-Mean 113 Respiration from ECG 30 SpO2 97 I&O: 06/04/19 06/05/19 06/06/19 06:59 06:59 06:59 Intake Total 1728 1114 Output Total 1015 780 Balance 713 334 Result Diagrams: 06/05/19 03:41 06/05/19 03:41 Hospitalist ROS - Medication Medications: Active Medications Generic Name Dose Route Start Last Admin Trade Name Freq PRN Reason Stop Dose Admin Acetaminophen 650 mg 05/11/19 13:45 05/19/19 07:17 Tylenol PO 650 mg Q4H PRN Administration Headache/Fever/Mild Pain (1-3) Azathioprine 150 mg 05/13/19 09:00 06/05/19 08:48 Imuran PO 150 mg QAM EVELYN Administration Benzonatate 100 mg 06/05/19 12:13 06/05/19 12:43 Tessalon PO 100 mg TIDPRN PRN Administration Cough Cyclobenzaprine HCl 10 mg 05/12/19 13:17 05/22/19 22:13 Flexeril PO 10 mg TIDPRN PRN Administration Moderate Pain (4-6) Enoxaparin Sodium 40 mg 05/12/19 09:00 06/05/19 08:48 Lovenox SC 40 mg 0900 EVELYN Administration Flecainide Acetate 50 mg 05/27/19 21:00 06/05/19 08:48 Tambocor PO 50 mg Q12HR EVELYN Administration Fentanyl Citrate 2,000 mcg/ 100 mls @ 0 mls/hr 05/30/19 08:58 06/03/19 15:07 Sodium Chloride IV 100 mls INF PRN Administration Pain As Directed Magnesium Hydroxide 30 ml 05/19/19 09:31 05/20/19 20:53 Milk Of Magnesium PO 30 ml Q12H PRN Administration Constipation Metoprolol Succinate 25 mg 05/26/19 09:00 06/05/19 08:48 Toprol Xl PO 25 mg DAILY EVELYN Administration Pantoprazole Sodium 40 mg 05/13/19 09:00 06/05/19 08:48 Protonix PO 40 mg DAILY EVELYN Administration Prednisone 10 mg 05/22/19 09:00 06/05/19 08:48 Prednisone PO 10 mg DAILY EVELYN Administration Sodium Chloride 10 ml 05/13/19 21:00 06/05/19 09:09 Flush - Normal Saline IVF Not Given Q12HR EVELYN - Exam General Appearance: awake alert Eye: anicteric sclera ENT: normocephalic atraumatic, moist mucosa Neck: supple, symmetric Heart: RRR Respiratory: tachypneic Respiratory - other findings: decreased air entry right base with some transmitted sound Gastrointestinal: soft, non-tender, non-distended, normal bowel sounds Extremities: no edema Neurological: cranial nerve grossly intact, no focal deficits Hosp A/P (1) Spontaneous pneumothorax Code(s): J93.83 - OTHER PNEUMOTHORAX Status: Acute (2) Acute respiratory failure with hypoxemia Code(s): J96.01 - ACUTE RESPIRATORY FAILURE WITH HYPOXIA Status: Acute (3) Paroxysmal SVT (supraventricular tachycardia) Code(s): I47.1 - SUPRAVENTRICULAR TACHYCARDIA Status: Acute (4) Diastolic dysfunction Code(s): I51.89 - OTHER ILL-DEFINED HEART DISEASES Status: Acute (5) Mild pulmonary hypertension Code(s): I27.20 - PULMONARY HYPERTENSION, UNSPECIFIED Status: Acute (6) NSVT (nonsustained ventricular tachycardia) Code(s): I47.2 - VENTRICULAR TACHYCARDIA Status: Acute (7) Pleurisy Code(s): R09.1 - PLEURISY Status: Acute (8) HTN (hypertension) Code(s): I10 - ESSENTIAL (PRIMARY) HYPERTENSION Status: Chronic Qualifiers: Hypertension type: essential hypertension Qualified Code(s): I10 - Essential (primary) hypertension (9) Sarcoidosis Code(s): D86.9 - SARCOIDOSIS, UNSPECIFIED Status: Chronic (10) Physical deconditioning Code(s): R53.81 - OTHER MALAISE Status: Acute (11) MARCELINO (acute kidney injury) Code(s): N17.9 - ACUTE KIDNEY FAILURE, UNSPECIFIED Status: Acute - Plan IVF therapy as per pulmonary. Monitor renal function Chest tube management as per CTS and pulmonary Analgesic as needed Continue supportive care.
[2019-06-05] MEDS ORDERED: traMADol HCl 50 MG TAB PO PRN ×2 (17:47)
[2019-06-05] MEDS ORDERED: Fentanyl 100 MCG/2 ML VIAL SLOW IVP PRN (17:48)
[2019-06-05] MEDS: HYDROcodone/Acetaminophen 10/325 mg Tablet PO PRN (19:28)
[2019-06-06 04:42] LABS: Albumin 2.8 g/dL (3.5-5.0); Anion Gap 5 mmol/L (10-20); BUN (Urea Nitrogen) 12 mg/dL (8.4-25.7); BUN/Creatinine Ratio 11.32; Calc. Creatinine Clearance 87 mL/min (70-130); Calcium 8.4 mg/dL (7.8-10.44); Carbon Dioxide 35 mmol/L (22-29); Chloride 106 mmol/L (98-107); Estimated GFR-MDRD 88; Glucose 88 mg/dL (70-105); Phosphorus 3.6 mg/dL (2.3-4.7); Sodium 142 mmol/L (136-145)
[2019-06-06] MEDS: HYDROcodone/Acetaminophen 10/325 mg Tablet PO PRN ×3 (05:18→23:01)
[2019-06-06] MEDS: Benzonatate 100 MG CAP PO PRN ×2 (05:31→17:17)
--- NOTE | 2019-06-06 07:20 | RAD ---
CHEST 1 VIEW: Date: 06/06/19 INDICATION: Pneumonia. COMPARISON: Prior exam dated 06/05/19. IMPRESSION: Right apical pneumothorax is unchanged. Right-sided thoracostomy tube is stable. COPD and cardiomegal y stable. Bibasilar air space opacities are mildly improved. Osseous structures are unchanged. POS: BH
[2019-06-06] MEDS: predniSONE 20 MG TAB PO SCH (09:29)
[2019-06-06] MEDS: azaTHIOprine 50 MG TAB PO SCH (09:29)
[2019-06-06] MEDS: Enoxaparin Sodium 40 MG/0.4 ML SYRINGE SC SCH (09:29)
[2019-06-06] MEDS: Flecainide 50 MG TAB PO SCH ×2 (09:29→20:51)
--- NOTE | 2019-06-06 14:28 | PDOC.HOSPP ---
- Subjective Encounter Date: 06/06/19 Encounter Time: 10:26 Subjective: 54 y/o male with Sacroid and bullous lung disease admitted with acute SOB. Intubated due to worsening Symptoms and further evaluation revealed large pneumothorax which was initially treated with thoracostomy with resolution. He however later developed recurrent pneumothorax hence chest tube placement. Hospital course was complaicted by development of tachyarrhthmia which was thought to be atrial tachycardia or SVT and was started on flecainide by EPS with resolution. Had doxycyline pleurodesis on 05/30/2019. Developed worsening SOB and hypoxia on 06/04/2019 after chest tube was removed from suction and repeat CXR showed worsening of pneumothorax which improved with reconnection to suction. Getting SOB and hypoxic with minimal exertion. - Objective Vital Signs & Weight: Vital Signs (12 hours) Temp Pulse BP Pulse Ox Pulse Ox Pulse Ox Pulse Ox 06/06/19 09:02 113 H 141/100 H 78 L 68 L 92 L 06/06/19 08:00 98 06/06/19 07:09 97.4 F L 06/06/19 03:39 97.6 F Weight Admit Weight 171 lb 11.841 oz Weight 175 lb Most Recent Monitor Data Heart Rate from ECG 82 NIBP 152/96 NIBP BP-Mean 114 Respiration from ECG 25 SpO2 94 I&O: 06/05/19 06/06/19 06/07/19 06:59 06:59 06:59 Intake Total 1114 3500 Output Total 780 920 Balance 334 2580 Result Diagrams: 06/05/19 03:41 06/06/19 03:49 Hospitalist ROS - Medication Medications: Active Medications Generic Name Dose Route Start Last Admin Trade Name Freq PRN Reason Stop Dose Admin Acetaminophen 650 mg 05/11/19 13:45 05/19/19 07:17 Tylenol PO 650 mg Q4H PRN Administration Headache/Fever/Mild Pain (1-3) Hydrocodone Bitart/Acetaminophen 2 tab 06/05/19 17:45 06/06/19 05:18 [place] 10/325 PO 2 tab Q4H PRN Administration PAIN SCALE 7-10 Azathioprine 150 mg 05/13/19 09:00 06/06/19 09:29 Imuran PO 150 mg QAM EVELYN Administration Benzonatate 100 mg 06/05/19 12:13 06/06/19 05:31 Tessalon PO 100 mg TIDPRN PRN Administration Cough Cyclobenzaprine HCl 10 mg 05/12/19 13:17 05/22/19 22:13 Flexeril PO 10 mg TIDPRN PRN Administration Moderate Pain (4-6) Enoxaparin Sodium 40 mg 05/12/19 09:00 06/06/19 09:29 Lovenox SC 40 mg 0900 EVELYN Administration Flecainide Acetate 50 mg 05/27/19 21:00 06/06/19 09:29 Tambocor PO 50 mg Q12HR EVELYN Administration Magnesium Hydroxide 30 ml 05/19/19 09:31 05/20/19 20:53 Milk Of Magnesium PO 30 ml Q12H PRN Administration Constipation Metoprolol Succinate 25 mg 05/26/19 09:00 06/06/19 09:29 Toprol Xl PO 25 mg DAILY EVELYN Administration Pantoprazole Sodium 40 mg 05/13/19 09:00 06/06/19 09:29 Protonix PO 40 mg DAILY EVELYN Administration Prednisone 10 mg 05/22/19 09:00 06/06/19 09:29 Prednisone PO 10 mg DAILY EVELYN Administration Sodium Chloride 10 ml 05/13/19 21:00 06/06/19 09:30 Flush - Normal Saline IVF 10 ml Q12HR EVELYN Administration - Exam General Appearance: awake alert General - other findings: mild to moderate respiratory distress ENT: normocephalic atraumatic, moist mucosa Neck: supple, symmetric, no JVD Heart: RRR Respiratory - other findings: decreased air entry right hemithorax. Few scattered rhonchi both lung field Gastrointestinal: soft, non-tender, non-distended, normal bowel sounds Extremities: no cyanosis, no edema Neurological: cranial nerve grossly intact, no focal deficits Musculoskeletal: generalized weakness Psychiatric: A&O x 3 Hosp A/P (1) Spontaneous pneumothorax Code(s): J93.83 - OTHER PNEUMOTHORAX Status: Acute (2) Acute respiratory failure with hypoxemia Code(s): J96.01 - ACUTE RESPIRATORY FAILURE WITH HYPOXIA Status: Acute (3) Paroxysmal SVT (supraventricular tachycardia) Code(s): I47.1 - SUPRAVENTRICULAR TACHYCARDIA Status: Acute (4) Diastolic dysfunction Code(s): I51.89 - OTHER ILL-DEFINED HEART DISEASES Status: Acute (5) Mild pulmonary hypertension Code(s): I27.20 - PULMONARY HYPERTENSION, UNSPECIFIED Status: Acute (6) NSVT (nonsustained ventricular tachycardia) Code(s): I47.2 - VENTRICULAR TACHYCARDIA Status: Acute (7) Pleurisy Code(s): R09.1 - PLEURISY Status: Acute (8) HTN (hypertension) Code(s): I10 - ESSENTIAL (PRIMARY) HYPERTENSION Status: Chronic Qualifiers: Hypertension type: essential hypertension Qualified Code(s): I10 - Essential (primary) hypertension (9) Sarcoidosis Code(s): D86.9 - SARCOIDOSIS, UNSPECIFIED Status: Chronic (10) Physical deconditioning Code(s): R53.81 - OTHER MALAISE Status: Acute (11) MARCELINO (acute kidney injury) Code(s): N17.9 - ACUTE KIDNEY FAILURE, UNSPECIFIED Status: Acute - Plan Chest tube management as per CTS and pulmonary Analgesic as needed Continue supportive care.
--- NOTE | 2019-06-06 15:52 | ULT ---
BILATERAL LOWER EXTREMITY VENOUS DUPLEX EXAM: Date: 06/06/19 INDICATION: Lower extremity pain and edema. Hypoxia. FINDINGS: Deep veins of both lower extremities evaluated with ultrasound Doppler. Color Doppler with spectral a nalysis and compression studies performed. Deep veins of both lower extremities show normal blood mohsen w and compression. No evidence of deep venous thrombosis. IMPRESSION: Negative bilateral lower extremity venous duplex exam. POS: OFF
--- NOTE | 2019-06-06 16:55 | PRG ---
DATE OF SERVICE: 06/06/2019 LABORATORY DATA: Andres Gauthier continues the chest tube suction. He gets short of breath when he moves around. A lot of this was related to deconditioning. He has now been in the hospital almost a month. I recommended lower extremity venography today as I cannot rule out thromboembolic disease by taking him downstairs. His Dopplers were negative. He has equal breath sounds. IMPRESSION: Sarcoid with apical bullous disease, status post spontaneous pneumothorax. PLAN: Continue with suction after doxycycline pleurodesis. Job ID: [id number]
[2019-06-07] MEDS: Benzonatate 100 MG CAP PO PRN ×3 (05:17→19:47)
--- NOTE | 2019-06-07 09:33 | RAD ---
CHEST 1 VIEW: INDICATION: Pneumonia. COMPARISON: Prior exam dated 06/06/2019. IMPRESSION: Examination has not appreciably changed from the comparison examination. Right apical pneumothorax i s stable. Right basilar airspace opacities persist. Cardiomegaly is stable. COPD change is again n oted. POS: BH
[2019-06-07] MEDS: Flecainide 50 MG TAB PO SCH ×2 (09:49→20:41)
[2019-06-07] MEDS: azaTHIOprine 50 MG TAB PO SCH (09:49)
[2019-06-07] MEDS: predniSONE 20 MG TAB PO SCH (09:49)
[2019-06-07] MEDS: Enoxaparin Sodium 40 MG/0.4 ML SYRINGE SC SCH (09:52)
--- NOTE | 2019-06-07 11:06 | PRG ---
DATE OF SERVICE: 06/07/2019 SUBJECTIVE: He feels very poorly. He is having trouble coughing. He is having right-sided chest pain. OBJECTIVE: VITAL SIGNS: Temperature 96.7, pulse 97, blood pressure 165/110, O2 saturation 100%. HEENT: Unremarkable. NECK: No adenopathy or JVD. LUNGS: Diminished breath sounds on the right compared to left. He has a chest tube on the right. CARDIAC: S1, S2. Regular. ABDOMEN: Soft. EXTREMITIES: No edema. IMAGING DATA: Doppler ultrasound of the lower extremities was negative. A chest x-ray demonstrates right-sided chest tube. No evidence of pneumothorax. There is no evidence of air leak on chest tube. ASSESSMENT: 1. Sarcoidosis. 2. Right pneumothorax. PLAN: 1. Add Mucinex to see if this will help his secretions. 2. Continue pain management. 3. Hopefully, chest tube to come out by Monday. Job ID: [id number]
[2019-06-07] MEDS ORDERED: ALPRAZolam 0.25 MG TAB PO PRN (13:42)
--- NOTE | 2019-06-07 14:57 | PDOC.HOSPP ---
- Subjective Encounter Date: 06/07/19 Encounter Time: 14:55 Subjective: 54 y/o male with Sacroid and bullous lung disease admitted with acute SOB. Intubated due to worsening Symptoms and further evaluation revealed large pneumothorax which was initially treated with thoracostomy with resolution. He however later developed recurrent pneumothorax hence chest tube placement. Hospital course was complaicted by development of tachyarrhthmia which was thought to be atrial tachycardia or SVT and was started on flecainide by EPS with resolution. Had doxycyline pleurodesis on 05/30/2019. Developed worsening SOB and hypoxia on 06/04/2019 after chest tube was removed from suction and repeat CXR showed worsening of pneumothorax which improved with reconnection to suction. Getting SOB and hypoxic with minimal exertion. Getting anxious and emotionally labile. Mothers burial is tomorrow and he will not be making it due to worsening respiratory status. - Objective Vital Signs & Weight: Vital Signs (12 hours) Temp Pulse Ox 06/07/19 11:17 98.6 F 06/07/19 08:00 100 06/07/19 07:21 96.7 F L 06/07/19 03:25 97.2 F L Weight Admit Weight 171 lb 11.841 oz Weight 175 lb Most Recent Monitor Data Heart Rate from ECG 103 NIBP 161/103 NIBP BP-Mean 122 Respiration from ECG 30 SpO2 99 I&O: 06/06/19 06/07/19 06/08/19 06:59 06:59 06:59 Intake Total 3500 930 Output Total 920 975 150 Balance 2580 -45 -150 Result Diagrams: 06/05/19 03:41 06/06/19 03:49 Hospitalist ROS - Medication Medications: Active Medications Generic Name Dose Route Start Last Admin Trade Name Freq PRN Reason Stop Dose Admin Acetaminophen 650 mg 05/11/19 13:45 05/19/19 07:17 Tylenol PO 650 mg Q4H PRN Administration Headache/Fever/Mild Pain (1-3) Hydrocodone Bitart/Acetaminophen 1 tab 06/05/19 17:45 06/06/19 23:01 [place] 10/325 PO 1 tab Q4H PRN Administration PAIN SCALE 4-6 Hydrocodone Bitart/Acetaminophen 2 tab 06/05/19 17:45 06/06/19 17:16 [place] 10/325 PO 2 tab Q4H PRN Administration PAIN SCALE 7-10 Alprazolam 0.25 mg 06/07/19 13:42 06/07/19 14:01 Xanax PO 0.25 mg Q4H PRN Administration Anxiety Azathioprine 150 mg 05/13/19 09:00 06/07/19 09:49 Imuran PO 150 mg QAM EVELYN Administration Benzonatate 100 mg 06/05/19 12:13 06/07/19 14:00 Tessalon PO 100 mg TIDPRN PRN Administration Cough Cyclobenzaprine HCl 10 mg 05/12/19 13:17 05/22/19 22:13 Flexeril PO 10 mg TIDPRN PRN Administration Moderate Pain (4-6) Enoxaparin Sodium 40 mg 05/12/19 09:00 06/07/19 09:52 Lovenox SC 40 mg 0900 EVELYN Administration Flecainide Acetate 50 mg 05/27/19 21:00 06/07/19 09:49 Tambocor PO 50 mg Q12HR EVELYN Administration Magnesium Hydroxide 30 ml 05/19/19 09:31 05/20/19 20:53 Milk Of Magnesium PO 30 ml Q12H PRN Administration Constipation Metoprolol Succinate 25 mg 05/26/19 09:00 06/07/19 09:49 Toprol Xl PO 25 mg DAILY EVELYN Administration Pantoprazole Sodium 40 mg 05/13/19 09:00 06/07/19 09:49 Protonix PO 40 mg DAILY EVELYN Administration Prednisone 10 mg 05/22/19 09:00 06/07/19 09:49 Prednisone PO 10 mg DAILY EVELYN Administration Sodium Chloride 10 ml 05/13/19 21:00 06/07/19 09:50 Flush - Normal Saline IVF 10 ml Q12HR EVELYN Administration - Exam General Appearance: awake alert General - other findings: mild respiratory distress Eye: anicteric sclera ENT: normocephalic atraumatic Neck: supple, symmetric, no JVD Heart: RRR Respiratory: no wheezes, no ronchi, tachypneic Gastrointestinal: soft, non-tender, non-distended, normal bowel sounds Extremities: no cyanosis, no edema Neurological: cranial nerve grossly intact, no focal deficits Psychiatric: A&O x 3 Psychiatric - other findings: emotionally labile Hosp A/P (1) Spontaneous pneumothorax Code(s): J93.83 - OTHER PNEUMOTHORAX Status: Acute (2) Acute respiratory failure with hypoxemia Code(s): J96.01 - ACUTE RESPIRATORY FAILURE WITH HYPOXIA Status: Acute (3) Paroxysmal SVT (supraventricular tachycardia) Code(s): I47.1 - SUPRAVENTRICULAR TACHYCARDIA Status: Acute (4) Diastolic dysfunction Code(s): I51.89 - OTHER ILL-DEFINED HEART DISEASES Status: Acute (5) Mild pulmonary hypertension Code(s): I27.20 - PULMONARY HYPERTENSION, UNSPECIFIED Status: Acute (6) NSVT (nonsustained ventricular tachycardia) Code(s): I47.2 - VENTRICULAR TACHYCARDIA Status: Acute (7) Pleurisy Code(s): R09.1 - PLEURISY Status: Acute (8) HTN (hypertension) Code(s): I10 - ESSENTIAL (PRIMARY) HYPERTENSION Status: Chronic Qualifiers: Hypertension type: essential hypertension Qualified Code(s): I10 - Essential (primary) hypertension (9) Sarcoidosis Code(s): D86.9 - SARCOIDOSIS, UNSPECIFIED Status: Chronic (10) Physical deconditioning Code(s): R53.81 - OTHER MALAISE Status: Acute (11) MARCELINO (acute kidney injury) Code(s): N17.9 - ACUTE KIDNEY FAILURE, UNSPECIFIED Status: Acute (12) Anxiety and depression Code(s): F41.9 - ANXIETY DISORDER, UNSPECIFIED; F32.9 - MAJOR DEPRESSIVE DISORDER, SINGLE EPISODE, UNSPECIFIED Status: Acute - Plan Chest tube management as per CTS and pulmonary Analgesic as needed Start xanax prn. Continue supportive care.
[2019-06-07] MEDS: HYDROcodone/Acetaminophen 10/325 mg Tablet PO PRN (19:53)
[2019-06-07] MEDS: guaiFENesin/DM ER PO SCH (20:41)
[2019-06-08] MEDS: HYDROcodone/Acetaminophen 10/325 mg Tablet PO PRN ×3 (00:10→18:19)
--- NOTE | 2019-06-08 07:58 | RAD ---
CHEST 1 VIEW: INDICATION: Pneumonia. IMPRESSION: Right-sided apical pneumothorax is unchanged. Airspace opacity within both lung bases, t greater joao n left is stable. Right-sided thoracostomy tubes are unchanged. COPD change is similar appearing. Cardiomegaly is stable. POS: BH
[2019-06-08] MEDS: Flecainide 50 MG TAB PO SCH ×2 (08:13→20:55)
[2019-06-08] MEDS: azaTHIOprine 50 MG TAB PO SCH (08:16)
[2019-06-08] MEDS: Enoxaparin Sodium 40 MG/0.4 ML SYRINGE SC SCH (08:17)
[2019-06-08] MEDS: guaiFENesin/DM ER PO SCH ×2 (08:17→20:54)
[2019-06-08] MEDS: predniSONE 20 MG TAB PO SCH (08:18)
[2019-06-08] MEDS: Benzonatate 100 MG CAP PO PRN ×2 (08:23→18:19)
[2019-06-08 08:39] LABS: #Basophils 0.1 thou/uL (0.0-0.2); #Eosinphils 0.4 thou/uL (0.0-0.7); #Monocytes 0.7 thou/uL (0.11-0.59); #Neutrophils 6.1 thou/uL (1.40-6.50); %Basophils 0.7 % (0.0-1.0); %Eosinophils 4.7 % (0.0-10.0); %Lymphocytes 11.8 % (21.0-51.0); %Neutrophils 73.8 % (42.0-75.0); Hemoglobin 13.3 g/dL (14.0-18.0); Mean Corpuscular HGB CONC 32.8 g/dL (32.0-36.0); Mean Corpuscular Hemoglobin 32.2 pg (27.0-31.0); Mean Corpuscular Volume 98.1 fL (78.0-98.0); Mean Platelet Volume 6.3 fL (7.4-10.4); Platelet Count 252 thou/uL (130-400); RBC Distribution Width 12.9 % (11.5-14.5); Red Blood Cell (RBC) Count 4.12 mill/uL (4.70-6.10); White Blood Cell (WBC) Count 8.3 thou/uL (4.8-10.8)
[2019-06-08 08:56] LABS: ALT (SGPT) 34 U/L (8-55); AST (SGOT) 27 U/L (5-34); Albumin 3.2 g/dL (3.5-5.0); Alkaline Phosphatase 43 U/L (40-110); Anion Gap 11 mmol/L (10-20); BUN (Urea Nitrogen) 12 mg/dL (8.4-25.7); Bilirubin, Total 1.1 mg/dL (0.2-1.2); Calc. Creatinine Clearance 91 mL/min (70-130); Calcium 8.9 mg/dL (7.8-10.44); Carbon Dioxide 31 mmol/L (22-29); Chloride 103 mmol/L (98-107); Estimated GFR-MDRD Greater than 90; Globulin 2.6 g/dL (2.4-3.5); Glucose 113 mg/dL (70-105); Potassium 3.6 mmol/L (3.5-5.1); Protein, Total 5.8 g/dL (6.0-8.3); Sodium 141 mmol/L (136-145)
--- NOTE | 2019-06-08 10:51 | PRG ---
DATE OF SERVICE: 06/08/2019 SUBJECTIVE: For the first time, his pain is improved. He is able to sit up in bed. He is working with physical therapy. OBJECTIVE: VITAL SIGNS: On exam, temperature 97.9, pulse 87, blood pressure 157/105. A 24-hour intake 1450, output 1375. HEENT: Unremarkable. NECK: No adenopathy or JVD. LUNGS: Clear. CARDIAC: S1, S2. Regular. ABDOMEN: Soft. EXTREMITIES: No edema. DIAGNOSTIC IMPRESSION: His chest x-ray does not show any changes. LABORATORY DATA: White blood cell count 8.3, hematocrit 40, and platelet count 252. Sodium 141, potassium 3.6, BUN 12, creatinine 1.0 and glucose 113. ASSESSMENT: 1. Right-sided pneumothorax - recurrent. 2. Sarcoidosis. 3. Status post pleurodesis. PLAN: 1. I think we can go ahead and back off on his lab draws. 2. Increase activity as tolerated. 3. Hopefully, the chest tube can be removed soon. Job ID: [id number]
--- NOTE | 2019-06-08 13:05 | PDOC.HOSPP ---
- Subjective Encounter Date: 06/08/19 Encounter Time: 11:03 Subjective: 54 y/o male with Sacroid and bullous lung disease admitted with acute SOB. Intubated due to worsening Symptoms and further evaluation revealed large pneumothorax which was initially treated with thoracostomy with resolution. He however later developed recurrent pneumothorax hence chest tube placement. Hospital course was complaicted by development of tachyarrhthmia which was thought to be atrial tachycardia or SVT and was started on flecainide by EPS with resolution. Had doxycyline pleurodesis on 05/30/2019. Developed worsening SOB and hypoxia on 06/04/2019 after chest tube was removed from suction and repeat CXR showed worsening of pneumothorax which improved with reconnection to suction. No new problem - Objective Vital Signs & Weight: Vital Signs (12 hours) Temp Pulse Pulse BP BP Pulse Ox Pulse Ox 06/08/19 11:15 97.8 F 06/08/19 10:14 133 H 122 H 174/115 H 155/105 H 90 L 06/08/19 08:00 100 06/08/19 07:09 97.9 F 06/08/19 03:58 100 06/08/19 03:09 97.7 F Pulse Ox Pulse Ox 06/08/19 11:15 06/08/19 10:14 87 L 96 06/08/19 08:00 06/08/19 07:09 06/08/19 03:58 06/08/19 03:09 Weight Admit Weight 171 lb 11.841 oz Weight 175 lb Most Recent Monitor Data Heart Rate from ECG 81 NIBP 159/97 NIBP BP-Mean 117 Respiration from ECG 21 SpO2 100 I&O: 06/07/19 06/08/19 06/09/19 06:59 06:59 06:59 Intake Total 930 1450 Output Total 975 1375 Balance -45 75 Result Diagrams: 06/08/19 08:26 06/08/19 08:26 Hospitalist ROS - Medication Medications: Active Medications Generic Name Dose Route Start Last Admin Trade Name Freq PRN Reason Stop Dose Admin Acetaminophen 650 mg 05/11/19 13:45 05/19/19 07:17 Tylenol PO 650 mg Q4H PRN Administration Headache/Fever/Mild Pain (1-3) Hydrocodone Bitart/Acetaminophen 1 tab 06/05/19 17:45 06/08/19 00:10 [place] 10/325 PO 1 tab Q4H PRN Administration PAIN SCALE 4-6 Hydrocodone Bitart/Acetaminophen 2 tab 06/05/19 17:45 06/08/19 08:14 [place] 10/325 PO 2 tab Q4H PRN Administration PAIN SCALE 7-10 Alprazolam 0.25 mg 06/07/19 13:42 06/07/19 14:01 Xanax PO 0.25 mg Q4H PRN Administration Anxiety Azathioprine 150 mg 05/13/19 09:00 06/08/19 08:16 Imuran PO 150 mg QAM EVELYN Administration Benzonatate 100 mg 06/05/19 12:13 06/08/19 08:23 Tessalon PO 100 mg TIDPRN PRN Administration Cough Cyclobenzaprine HCl 10 mg 05/12/19 13:17 05/22/19 22:13 Flexeril PO 10 mg TIDPRN PRN Administration Moderate Pain (4-6) Enoxaparin Sodium 40 mg 05/12/19 09:00 06/08/19 08:17 Lovenox SC 40 mg 0900 EVELYN Administration Flecainide Acetate 50 mg 05/27/19 21:00 06/08/19 08:13 Tambocor PO 50 mg Q12HR EVELYN Administration Guaifenesin/Dextromethorphan 1 tab 06/07/19 21:00 06/08/19 08:17 Mucinex Dm PO 1 tab Q12HR EVELYN Administration Magnesium Hydroxide 30 ml 05/19/19 09:31 05/20/19 20:53 Milk Of Magnesium PO 30 ml Q12H PRN Administration Constipation Metoprolol Succinate 25 mg 05/26/19 09:00 06/08/19 08:17 Toprol Xl PO 25 mg DAILY EVELYN Administration Pantoprazole Sodium 40 mg 05/13/19 09:00 06/08/19 08:16 Protonix PO 40 mg DAILY EVELYN Administration Prednisone 10 mg 05/22/19 09:00 06/08/19 08:18 Prednisone PO 10 mg DAILY EVELYN Administration Sodium Chloride 10 ml 05/13/19 21:00 06/08/19 08:18 Flush - Normal Saline IVF 10 ml Q12HR EVELYN Administration - Exam General Appearance: awake alert Eye: anicteric sclera ENT: normocephalic atraumatic Neck: supple, symmetric, no JVD Heart: RRR Respiratory: no wheezes, no ronchi, normal chest expansion Respiratory - other findings: work of breathing is increased Gastrointestinal: soft, non-tender, non-distended, normal bowel sounds Extremities: no cyanosis, no edema Neurological: cranial nerve grossly intact, no focal deficits Psychiatric: A&O x 3 Hosp A/P (1) Spontaneous pneumothorax Code(s): J93.83 - OTHER PNEUMOTHORAX Status: Acute (2) Acute respiratory failure with hypoxemia Code(s): J96.01 - ACUTE RESPIRATORY FAILURE WITH HYPOXIA Status: Acute (3) Paroxysmal SVT (supraventricular tachycardia) Code(s): I47.1 - SUPRAVENTRICULAR TACHYCARDIA Status: Acute (4) Diastolic dysfunction Code(s): I51.89 - OTHER ILL-DEFINED HEART DISEASES Status: Acute (5) Mild pulmonary hypertension Code(s): I27.20 - PULMONARY HYPERTENSION, UNSPECIFIED Status: Acute (6) NSVT (nonsustained ventricular tachycardia) Code(s): I47.2 - VENTRICULAR TACHYCARDIA Status: Acute (7) Pleurisy Code(s): R09.1 - PLEURISY Status: Acute (8) HTN (hypertension) Code(s): I10 - ESSENTIAL (PRIMARY) HYPERTENSION Status: Chronic Qualifiers: Hypertension type: essential hypertension Qualified Code(s): I10 - Essential (primary) hypertension (9) Sarcoidosis Code(s): D86.9 - SARCOIDOSIS, UNSPECIFIED Status: Chronic (10) Physical deconditioning Code(s): R53.81 - OTHER MALAISE Status: Acute (11) MARCELINO (acute kidney injury) Code(s): N17.9 - ACUTE KIDNEY FAILURE, UNSPECIFIED Status: Acute (12) Anxiety and depression Code(s): F41.9 - ANXIETY DISORDER, UNSPECIFIED; F32.9 - MAJOR DEPRESSIVE DISORDER, SINGLE EPISODE, UNSPECIFIED Status: Acute - Plan Chest tube management as per CTS and pulmonary Analgesic as needed Continue supportive care.
[2019-06-09] MEDS: HYDROcodone/Acetaminophen 10/325 mg Tablet PO PRN ×3 (00:37→22:50)
[2019-06-09] MEDS: guaiFENesin/DM ER PO SCH ×2 (09:16→20:44)
[2019-06-09] MEDS: Benzonatate 100 MG CAP PO PRN ×3 (09:16→22:50)
[2019-06-09] MEDS: predniSONE 20 MG TAB PO SCH (09:17)
[2019-06-09] MEDS: azaTHIOprine 50 MG TAB PO SCH (09:18)
[2019-06-09] MEDS: Enoxaparin Sodium 40 MG/0.4 ML SYRINGE SC SCH (09:18)
[2019-06-09] MEDS: Flecainide 50 MG TAB PO SCH ×2 (09:18→20:44)
--- NOTE | 2019-06-09 10:39 | PRG ---
DATE OF SERVICE: 06/09/2019 SUBJECTIVE: The patient is doing better, starting to get more energy. He is not having any chest pain. OBJECTIVE: VITAL SIGNS: His temperature is 98.0, pulse 77, blood pressure 120/74, O2 saturation 100%. HEENT: Unremarkable. NECK: No adenopathy or JVD. CHEST: Clear to auscultation anteriorly and bilaterally. CARDIAC: S1, S2. Regular. ABDOMEN: Soft. EXTREMITIES: No edema. ASSESSMENT: Right-sided pneumothorax - now better. PLAN: Hopefully, the chest tube can be taken out soon. I do think it is probably safe to put it on water-seal. I will check with cardiothoracic surgery. Job ID: [id number]
--- NOTE | 2019-06-09 11:28 | RAD ---
Chest AP view INDICATION: Pneumothorax COMPARISON: June 08, 2019 FINDINGS: Lungs:Bibasilar airspace opacities persist. Severe COPD changes stable. Cardiac silhouette:Cardiomegaly is stable Pulmonary vasculature:Normal Pleural spaces:Right apical and small basilar pneumothorax is unchanged. Right-sided upper thoracosto my tube is unchanged. Upper abdomen:No abnormality seen. Osseous structures: No acute osseous abnormality. Additional findings:None. IMPRESSION: Stable right-sided pneumothorax. Persistent bibasilar airspace opacities. Stable moderate cardiomegaly. COPD change.
--- NOTE | 2019-06-09 14:10 | PDOC.HOSPP ---
- Subjective Encounter Date: 06/09/19 Encounter Time: 11:09 Subjective: 54 y/o male with Sacroid and bullous lung disease admitted with acute SOB. Intubated due to worsening Symptoms and further evaluation revealed large pneumothorax which was initially treated with thoracostomy with resolution. He however later developed recurrent pneumothorax hence chest tube placement. Hospital course was complaicted by development of tachyarrhthmia which was thought to be atrial tachycardia or SVT and was started on flecainide by EPS with resolution. Had doxycyline pleurodesis on 05/30/2019. Developed worsening SOB and hypoxia on 06/04/2019 after chest tube was removed from suction and repeat CXR showed worsening of pneumothorax which improved with reconnection to suction. No new problem. more comfortable today. - Objective Vital Signs & Weight: Vital Signs (12 hours) Temp 06/09/19 12:00 98.6 F 06/09/19 07:10 98.0 F 06/09/19 05:00 98.3 F Weight Admit Weight 171 lb 11.841 oz Weight 175 lb Most Recent Monitor Data Heart Rate from ECG 77 NIBP 128/74 NIBP BP-Mean 92 Respiration from ECG 23 SpO2 100 I&O: 06/08/19 06/09/19 06/10/19 06:59 06:59 06:59 Intake Total 1450 1535 Output Total 1375 1215 Balance 75 320 Result Diagrams: 06/08/19 08:26 06/08/19 08:26 Hospitalist ROS - Medication Medications: Active Medications Generic Name Dose Route Start Last Admin Trade Name Freq PRN Reason Stop Dose Admin Acetaminophen 650 mg 05/11/19 13:45 05/19/19 07:17 Tylenol PO 650 mg Q4H PRN Administration Headache/Fever/Mild Pain (1-3) Hydrocodone Bitart/Acetaminophen 1 tab 06/05/19 17:45 06/08/19 00:10 [place] 10/325 PO 1 tab Q4H PRN Administration PAIN SCALE 4-6 Hydrocodone Bitart/Acetaminophen 2 tab 06/05/19 17:45 06/09/19 09:17 [place] 10/325 PO 2 tab Q4H PRN Administration PAIN SCALE 7-10 Alprazolam 0.25 mg 06/07/19 13:42 06/07/19 14:01 Xanax PO 0.25 mg Q4H PRN Administration Anxiety Azathioprine 150 mg 05/13/19 09:00 06/09/19 09:18 Imuran PO 150 mg QAM EVELYN Administration Benzonatate 100 mg 06/05/19 12:13 06/09/19 09:16 Tessalon PO 100 mg TIDPRN PRN Administration Cough Cyclobenzaprine HCl 10 mg 05/12/19 13:17 05/22/19 22:13 Flexeril PO 10 mg TIDPRN PRN Administration Moderate Pain (4-6) Enoxaparin Sodium 40 mg 05/12/19 09:00 06/09/19 09:18 Lovenox SC 40 mg 0900 EVELYN Administration Flecainide Acetate 50 mg 05/27/19 21:00 06/09/19 09:18 Tambocor PO 50 mg Q12HR EVELYN Administration Guaifenesin/Dextromethorphan 1 tab 06/07/19 21:00 06/09/19 09:16 Mucinex Dm PO 1 tab Q12HR EVELYN Administration Magnesium Hydroxide 30 ml 05/19/19 09:31 05/20/19 20:53 Milk Of Magnesium PO 30 ml Q12H PRN Administration Constipation Metoprolol Succinate 25 mg 05/26/19 09:00 06/09/19 09:16 Toprol Xl PO 25 mg DAILY EVELYN Administration Pantoprazole Sodium 40 mg 05/13/19 09:00 06/09/19 09:16 Protonix PO 40 mg DAILY EVELYN Administration Prednisone 10 mg 05/22/19 09:00 06/09/19 09:17 Prednisone PO 10 mg DAILY EVELYN Administration Sodium Chloride 10 ml 05/13/19 21:00 06/09/19 09:18 Flush - Normal Saline IVF 10 ml Q12HR EVELYN Administration - Exam General Appearance: awake alert Eye: anicteric sclera ENT: normocephalic atraumatic Neck: supple, symmetric, no JVD Heart: RRR Respiratory: no wheezes, no rales, no ronchi, normal chest expansion Respiratory - other findings: chest tube in place Gastrointestinal: soft, non-tender, non-distended, normal bowel sounds Extremities: no cyanosis, no edema Neurological: cranial nerve grossly intact, no focal deficits Psychiatric: A&O x 3 Hosp A/P (1) Spontaneous pneumothorax Code(s): J93.83 - OTHER PNEUMOTHORAX Status: Acute (2) Acute respiratory failure with hypoxemia Code(s): J96.01 - ACUTE RESPIRATORY FAILURE WITH HYPOXIA Status: Acute (3) Paroxysmal SVT (supraventricular tachycardia) Code(s): I47.1 - SUPRAVENTRICULAR TACHYCARDIA Status: Acute (4) Diastolic dysfunction Code(s): I51.89 - OTHER ILL-DEFINED HEART DISEASES Status: Acute (5) Mild pulmonary hypertension Code(s): I27.20 - PULMONARY HYPERTENSION, UNSPECIFIED Status: Acute (6) NSVT (nonsustained ventricular tachycardia) Code(s): I47.2 - VENTRICULAR TACHYCARDIA Status: Acute (7) Pleurisy Code(s): R09.1 - PLEURISY Status: Acute (8) HTN (hypertension) Code(s): I10 - ESSENTIAL (PRIMARY) HYPERTENSION Status: Chronic Qualifiers: Hypertension type: essential hypertension Qualified Code(s): I10 - Essential (primary) hypertension (9) Sarcoidosis Code(s): D86.9 - SARCOIDOSIS, UNSPECIFIED Status: Chronic (10) Physical deconditioning Code(s): R53.81 - OTHER MALAISE Status: Acute (11) MARCELINO (acute kidney injury) Code(s): N17.9 - ACUTE KIDNEY FAILURE, UNSPECIFIED Status: Acute (12) Anxiety and depression Code(s): F41.9 - ANXIETY DISORDER, UNSPECIFIED; F32.9 - MAJOR DEPRESSIVE DISORDER, SINGLE EPISODE, UNSPECIFIED Status: Acute - Plan Chest tube management as per CTS and pulmonary Analgesic as needed Continue supportive care.
[2019-06-09] MEDS ORDERED: Amlodipine 5 MG TAB PO SCH (18:30)
--- NOTE | 2019-06-10 07:43 | RAD ---
Chest AP view INDICATION: Pneumothorax COMPARISON: June 09, 2019 FINDINGS: Lungs:Bibasilar opacities are stable Cardiac silhouette:Mild cardiomegaly is stable Pulmonary vasculature:Normal Pleural spaces:Right-sided pneumothorax is unchanged. Right-sided thoracostomy tube is unchanged. Upper abdomen:No abnormality seen. Osseous structures: No acute osseous abnormality. Additional findings:None. IMPRESSION: Stable exam
[2019-06-10 08:44] LABS: #Eosinphils 0.3 thou/uL (0.0-0.7); #Lymphocytes 0.8 thou/uL (1.20-3.40); #Monocytes 0.7 thou/uL (0.11-0.59); #Neutrophils 5.9 thou/uL (1.40-6.50); %Eosinophils 4.4 % (0.0-10.0); %Lymphocytes 10.5 % (21.0-51.0); %Monocytes 8.7 % (0.0-10.0); %Neutrophils 76.3 % (42.0-75.0); Hemoglobin 12.5 g/dL (14.0-18.0); Mean Corpuscular HGB CONC 32.4 g/dL (32.0-36.0); Mean Corpuscular Volume 98.7 fL (78.0-98.0); Mean Platelet Volume 6.4 fL (7.4-10.4); Platelet Count 230 thou/uL (130-400); RBC Distribution Width 12.8 % (11.5-14.5); Red Blood Cell (RBC) Count 3.89 mill/uL (4.70-6.10); White Blood Cell (WBC) Count 7.7 thou/uL (4.8-10.8)
[2019-06-10 09:02] LABS: Anion Gap 7 mmol/L (10-20); BUN (Urea Nitrogen) 11 mg/dL (8.4-25.7); Calc. Creatinine Clearance 88 mL/min (70-130); Calcium 8.7 mg/dL (7.8-10.44); Carbon Dioxide 36 mmol/L (22-29); Chloride 101 mmol/L (98-107); Estimated GFR-MDRD 89; Glucose 88 mg/dL (70-105); Potassium 3.8 mmol/L (3.5-5.1); Sodium 140 mmol/L (136-145)
--- NOTE | 2019-06-10 09:03 | PDOC.HOSPP ---
- Subjective Encounter Date: 06/10/19 (f/u acute resp failure) Encounter Time: 09:02 Subjective: Pt without complaints this morning - some pain around chest tube site and requesting pain meds. Denies n/v/abd pain. Last BM 2 days ago, was having harder stools. - Objective Vital Signs & Weight: Vital Signs (12 hours) Temp Pulse Resp BP Pulse Ox 06/10/19 07:30 98.0 F 06/10/19 04:28 100 06/10/19 00:00 98.9 F 77 20 139/93 H 100 Weight Admit Weight 171 lb 11.841 oz Weight 175 lb Most Recent Monitor Data Heart Rate from ECG 88 NIBP 138/90 NIBP BP-Mean 106 Respiration from ECG 30 SpO2 100 I&O: 06/09/19 06/10/19 06/11/19 06:59 06:59 06:59 Intake Total 1535 1240 Output Total 1215 1770 Balance 320 -530 Result Diagrams: 06/10/19 08:01 06/08/19 08:26 EKG Reviewed by me: Yes (sinus 80's) Hospitalist ROS - Review of Systems Gastrointestinal: reports: nausea, vomiting, abdominal pain, diarrhea, constipation, melena, hematochezia, other Skin: reports: rash, lesions, selina, bruising, other - Medication Medications: Active Medications Generic Name Dose Route Start Last Admin Trade Name Freq PRN Reason Stop Dose Admin Acetaminophen 650 mg 05/11/19 13:45 05/19/19 07:17 Tylenol PO 650 mg Q4H PRN Administration Headache/Fever/Mild Pain (1-3) Hydrocodone Bitart/Acetaminophen 1 tab 06/05/19 17:45 06/09/19 22:50 [place] 10/325 PO 1 tab Q4H PRN Administration PAIN SCALE 4-6 Hydrocodone Bitart/Acetaminophen 2 tab 06/05/19 17:45 06/09/19 09:17 [place] 10/325 PO 2 tab Q4H PRN Administration PAIN SCALE 7-10 Alprazolam 0.25 mg 06/07/19 13:42 06/07/19 14:01 Xanax PO 0.25 mg Q4H PRN Administration Anxiety Azathioprine 150 mg 05/13/19 09:00 06/09/19 09:18 Imuran PO 150 mg QAM EVELYN Administration Benzonatate 100 mg 06/05/19 12:13 06/09/19 22:50 Tessalon PO 100 mg TIDPRN PRN Administration Cough Cyclobenzaprine HCl 10 mg 05/12/19 13:17 05/22/19 22:13 Flexeril PO 10 mg TIDPRN PRN Administration Moderate Pain (4-6) Enoxaparin Sodium 40 mg 05/12/19 09:00 06/09/19 09:18 Lovenox SC 40 mg 09 EVELYN Administration Flecainide Acetate 50 mg 05/27/19 21:00 06/09/19 20:44 Tambocor PO 50 mg Q12HR EVELYN Administration Guaifenesin/Dextromethorphan 1 tab 06/07/19 21:00 06/09/19 20:44 Mucinex Dm PO 1 tab Q12HR EVELYN Administration Magnesium Hydroxide 30 ml 05/19/19 09:31 05/20/19 20:53 Milk Of Magnesium PO 30 ml Q12H PRN Administration Constipation Metoprolol Succinate 25 mg 05/26/19 09:00 06/09/19 09:16 Toprol Xl PO 25 mg DAILY EVELYN Administration Pantoprazole Sodium 40 mg 05/13/19 09:00 06/09/19 09:16 Protonix PO 40 mg DAILY EVELYN Administration Prednisone 10 mg 05/22/19 09:00 06/09/19 09:17 Prednisone PO 10 mg DAILY EVELYN Administration Sodium Chloride 10 ml 05/13/19 21:00 06/09/19 20:45 Flush - Normal Saline IVF 10 ml Q12HR EVELYN Administration - Exam General Appearance: NAD Neck: supple Heart: RRR, no murmur Respiratory: CTAB, no wheezes, no rales, no ronchi Gastrointestinal: soft, non-tender, non-distended, normal bowel sounds Extremities: no cyanosis, no clubbing, no edema Skin: normal turgor Hosp A/P (1) Acute respiratory failure with hypoxemia Code(s): J96.01 - ACUTE RESPIRATORY FAILURE WITH HYPOXIA Status: Acute (2) Diastolic dysfunction Code(s): I51.89 - OTHER ILL-DEFINED HEART DISEASES Status: Acute (3) Mild pulmonary hypertension Code(s): I27.20 - PULMONARY HYPERTENSION, UNSPECIFIED Status: Acute (4) Paroxysmal SVT (supraventricular tachycardia) Code(s): I47.1 - SUPRAVENTRICULAR TACHYCARDIA Status: Acute (5) Spontaneous pneumothorax Code(s): J93.83 - OTHER PNEUMOTHORAX Status: Acute (6) HTN (hypertension) Code(s): I10 - ESSENTIAL (PRIMARY) HYPERTENSION Status: Chronic Qualifiers: Hypertension type: essential hypertension Qualified Code(s): I10 - Essential (primary) hypertension (7) Sarcoidosis Code(s): D86.9 - SARCOIDOSIS, UNSPECIFIED Status: Chronic - Plan Appreciate consultants: - CVS with chest tube - Cardiology with cardiac meds for rhythm/rate control - Pulmonology - on steroids, azathioprine Add OT, continue PT - add bowel meds scheduled and prn dvt prophy - lovenox gi prophy - on ppi code status full reviewed plan of care with patient, no questions or further needs at end of eval pt remains at high risk in current condition
[2019-06-10] MEDS ORDERED: Polyethylene Glycol 3350 17 GM Packet PO PRN (09:06)
[2019-06-10] MEDS: guaiFENesin/DM ER PO SCH ×2 (09:58→21:59)
[2019-06-10] MEDS: Docusate 100 MG CAP PO SCH ×2 (09:58→21:58)
[2019-06-10] MEDS: HYDROcodone/Acetaminophen 10/325 mg Tablet PO PRN ×3 (09:58→22:07)
[2019-06-10] MEDS: azaTHIOprine 50 MG TAB PO SCH (09:59)
[2019-06-10] MEDS: Amlodipine 5 MG TAB PO SCH (09:59)
[2019-06-10] MEDS: predniSONE 20 MG TAB PO SCH (09:59)
[2019-06-10] MEDS: Flecainide 50 MG TAB PO SCH ×2 (09:59→22:00)
[2019-06-10] MEDS: Enoxaparin Sodium 40 MG/0.4 ML SYRINGE SC SCH (10:00)
[2019-06-10] MEDS: Benzonatate 100 MG CAP PO PRN ×2 (10:10→17:03)
--- NOTE | 2019-06-10 13:39 | RAD ---
PORTABLE CHEST ONE VIEW: 06/10/2019 1:23 p.m. HISTORY: Acute shortness of breath with known pneumothorax. FINDINGS: There is a large right pneumothorax with interval worsening since the earlier exam of 4:11 a.m. from the same date. The right-sided chest tube remains in place. The remainder of the exam is otherwise stable. Report was called over the telephone to the patient's nurse, Maria Del Carmen Alegria, at 1:28 p.m. CODE CR POS: AMMY
--- NOTE | 2019-06-10 14:17 | PRG ---
DATE OF SERVICE: 06/10/2019 SERVICE: Pulmonary Medicine. INTERVAL HISTORY: This morning, the patient had a coughing fit again. This was shortly after he was put on water-seal. He had increasing dyspnea, though his saturations were fine. A stat chest x-ray was performed demonstrating return of a very large effusion. He was subsequently returned to suction. His shortness of breath and his cough improved. He denies any overnight events. Otherwise, there were no interval issues. PHYSICAL EXAMINATION: VITAL SIGNS: Afebrile, pulse 88, blood pressure 152/101, respirations 27, and saturation 100% currently on 4 L nasal cannula. GENERAL: The patient is awake and alert, in no apparent distress. LUNGS: Decent air entry. Crackles are present. No prolonged expiratory phase or wheezing is appreciated. HEART: Normal rate and regular. ABDOMEN: Soft, nontender, and nondistended. Bowel sounds are positive. MUSCULOSKELETAL: No cyanosis or clubbing. There is no pitting in the bilateral lower extremities. NEUROLOGIC: Grossly nonfocal. LABORATORY DATA: WBC 7.7, hemoglobin 12.5, and platelets 230,000. A pH 7.35, pCO2 of 50, and pO2 of 130. Basic metabolic profile is essentially unremarkable except for a bicarb that is gently up trending. IMAGING: Chest x-ray demonstrates a large right-sided pneumothorax. ASSESSMENT: 1. Acute hypoxic respiratory failure. 2. Secondary spontaneous pneumothorax, status post failed pleurodesis. 3. Sarcoidosis. 4. Pulmonary hypertension by echo criteria. 5. Chronic diastolic heart failure. DISCUSSION AND PLAN: The patient is fine from respiratory standpoint. We put him back on suction and his shortness of breath and oxygen requirements improved. Pulmonary will continue to follow while the patient remains inhouse. It is interesting to me that this leak is quite low. That being said, he had a relatively rapid return of the pneumothorax when he was put on water-seal. Unfortunately, we are not going to be able to get him out of the hospital without having some sort of a suction device at home. Job ID: [id number]
[2019-06-11] MEDS: guaiFENesin/DM ER PO SCH ×2 (08:45→21:40)
[2019-06-11] MEDS: Docusate 100 MG CAP PO SCH ×2 (08:45→21:40)
[2019-06-11] MEDS: predniSONE 20 MG TAB PO SCH (08:45)
[2019-06-11] MEDS: Enoxaparin Sodium 40 MG/0.4 ML SYRINGE SC SCH (08:45)
[2019-06-11] MEDS: azaTHIOprine 50 MG TAB PO SCH (08:45)
[2019-06-11] MEDS: Amlodipine 5 MG TAB PO SCH (08:46)
[2019-06-11] MEDS: Flecainide 50 MG TAB PO SCH ×2 (08:46→21:40)
[2019-06-11] MEDS: HYDROcodone/Acetaminophen 10/325 mg Tablet PO PRN ×2 (10:30→21:41)
[2019-06-11] MEDS: Benzonatate 100 MG CAP PO PRN ×2 (10:30→17:38)
[2019-06-11] MEDS: Ondansetron PF 4 MG/2 ML Vial IVP PRN ×2 (11:38→17:55)
--- NOTE | 2019-06-11 11:45 | PDOC.HOSPP ---
- Subjective Encounter Date: 06/11/19 (f/u pneumothorax) Encounter Time: 11:43 Subjective: Pt with recurrent pneumothorax yesterday - placed back on suction. Worked with PT today and short of breath afterwards, coughing and post-tussive emesis. Some abd pain. - Objective Vital Signs & Weight: Vital Signs (12 hours) Temp Pulse Pulse Ox 06/11/19 10:59 98.5 F 06/11/19 08:46 89 06/11/19 08:00 100 06/11/19 07:25 98.0 F 06/11/19 04:05 98.3 F 06/11/19 03:31 98 06/10/19 23:44 97.5 F L Weight Admit Weight 171 lb 11.841 oz Weight 175 lb Most Recent Monitor Data Heart Rate from ECG 82 NIBP 127/84 NIBP BP-Mean 98 Respiration from ECG 29 SpO2 100 I&O: 06/10/19 06/11/19 06/12/19 06:59 06:59 06:59 Intake Total 1240 1100 Output Total 1770 1700 Balance -530 -600 Result Diagrams: 06/10/19 08:01 06/10/19 08:01 EKG Reviewed by me: Yes (tele - sinus, no arrhythmia) Hospitalist ROS - Medication Medications: Active Medications Generic Name Dose Route Start Last Admin Trade Name Freq PRN Reason Stop Dose Admin Acetaminophen 650 mg 05/11/19 13:45 05/19/19 07:17 Tylenol PO 650 mg Q4H PRN Administration Headache/Fever/Mild Pain (1-3) Hydrocodone Bitart/Acetaminophen 1 tab 06/05/19 17:45 06/10/19 22:07 [place] 10/325 PO 1 tab Q4H PRN Administration PAIN SCALE 4-6 Hydrocodone Bitart/Acetaminophen 2 tab 06/05/19 17:45 06/11/19 10:30 [place] 10/325 PO 2 tab Q4H PRN Administration PAIN SCALE 7-10 Alprazolam 0.25 mg 06/07/19 13:42 06/07/19 14:01 Xanax PO 0.25 mg Q4H PRN Administration Anxiety Amlodipine Besylate 2.5 mg 06/10/19 09:00 06/11/19 08:46 Norvasc PO 2.5 mg DAILY EVELYN Administration Azathioprine 150 mg 05/13/19 09:00 06/11/19 08:45 Imuran PO 150 mg QAM EVELYN Administration Benzonatate 100 mg 06/05/19 12:13 06/11/19 10:30 Tessalon PO 100 mg TIDPRN PRN Administration Cough Cyclobenzaprine HCl 10 mg 05/12/19 13:17 05/22/19 22:13 Flexeril PO 10 mg TIDPRN PRN Administration Moderate Pain (4-6) Docusate Sodium 100 mg 06/10/19 09:00 06/11/19 08:45 Colace PO 100 mg BID EVELYN Administration Enoxaparin Sodium 40 mg 05/12/19 09:00 06/11/19 08:45 Lovenox SC 40 mg 09 EVELYN Administration Flecainide Acetate 50 mg 05/27/19 21:00 06/11/19 08:46 Tambocor PO 50 mg Q12HR EVELYN Administration Guaifenesin/Dextromethorphan 1 tab 06/07/19 21:00 06/11/19 08:45 Mucinex Dm PO 1 tab Q12HR EVELYN Administration Magnesium Hydroxide 30 ml 05/19/19 09:31 05/20/19 20:53 Milk Of Magnesium PO 30 ml Q12H PRN Administration Constipation Metoprolol Succinate 25 mg 05/26/19 09:00 06/11/19 08:46 Toprol Xl PO 25 mg DAILY EVELYN Administration Ondansetron HCl 4 mg 05/30/19 08:58 06/11/19 11:38 Zofran IVP 4 mg Q6H PRN Administration Nausea/Vomiting Pantoprazole Sodium 40 mg 05/13/19 09:00 06/11/19 08:46 Protonix PO 40 mg DAILY EVELYN Administration Prednisone 10 mg 05/22/19 09:00 06/11/19 08:45 Prednisone PO 10 mg DAILY EVELYN Administration Sodium Chloride 10 ml 05/13/19 21:00 06/11/19 08:46 Flush - Normal Saline IVF 10 ml Q12HR EVELYN Administration - Exam General Appearance: NAD Heart: RRR, no murmur Respiratory: tachypneic Respiratory - other findings: dec breath sounds throughout right side, no audible wheezing; Gastrointestinal: soft, normal bowel sounds Extremities: no cyanosis, no clubbing, no edema Psychiatric: normal affect Hosp A/P (1) Acute respiratory failure with hypoxemia Code(s): J96.01 - ACUTE RESPIRATORY FAILURE WITH HYPOXIA Status: Acute (2) Diastolic dysfunction Code(s): I51.89 - OTHER ILL-DEFINED HEART DISEASES Status: Acute (3) Mild pulmonary hypertension Code(s): I27.20 - PULMONARY HYPERTENSION, UNSPECIFIED Status: Acute (4) Paroxysmal SVT (supraventricular tachycardia) Code(s): I47.1 - SUPRAVENTRICULAR TACHYCARDIA Status: Acute (5) Spontaneous pneumothorax Code(s): J93.83 - OTHER PNEUMOTHORAX Status: Acute (6) HTN (hypertension) Code(s): I10 - ESSENTIAL (PRIMARY) HYPERTENSION Status: Chronic Qualifiers: Hypertension type: essential hypertension Qualified Code(s): I10 - Essential (primary) hypertension (7) Sarcoidosis Code(s): D86.9 - SARCOIDOSIS, UNSPECIFIED Status: Chronic - Plan Appreciate consultants: - CVS and Pulmonology with chest tube and transition to home planning - Cardiology with cardiac meds for rhythm/rate control continue PT/OT continue bowel meds scheduled and prn dvt prophy - lovenox gi prophy - on ppi code status full reviewed plan of care with patient, no questions or further needs at end of eval pt remains at high risk in current condition
--- NOTE | 2019-06-11 13:46 | PRG ---
DATE OF SERVICE: 06/11/2019 Andres Gauthier had a pneumothorax over the weekend. Now, he have talc in the pharmacy, so the plan will be to try talc pleurodesis tomorrow. I would then consider every other day or every day doxycycline with a fentanyl pump. 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 This was reasonable as well and going home with a suction device is not the best option at this point. It is frustrating that we are still here after a month, but perhaps more aggressive attempts of pleurodesis would work. I discussed the above with Dr. Alarcon and he still sees no reasonable surgical approach to the problem. Job ID: [id number]
[2019-06-11 14:44] VITALS: BMI 25.1
[2019-06-12] MEDS: azaTHIOprine 50 MG TAB PO SCH (12:20)
[2019-06-12] MEDS: Amlodipine 5 MG TAB PO SCH (12:20)
[2019-06-12] MEDS: Docusate 100 MG CAP PO SCH ×2 (12:21→20:41)
[2019-06-12] MEDS: Enoxaparin Sodium 40 MG/0.4 ML SYRINGE SC SCH (12:22)
[2019-06-12] MEDS: guaiFENesin/DM ER PO SCH ×2 (12:22→20:40)
[2019-06-12] MEDS: Flecainide 50 MG TAB PO SCH ×2 (12:22→20:40)
[2019-06-12] MEDS: predniSONE 20 MG TAB PO SCH (12:24)
[2019-06-12] MEDS: Benzonatate 100 MG CAP PO PRN (13:45)
--- NOTE | 2019-06-12 13:53 | PDOC.HOSPP ---
- Subjective Encounter Date: 06/12/19 (f/u pneumothorax) Encounter Time: 13:51 Subjective: Pt has been hospitalixed for over a month for recurrent pneumonthorax despite interventions and chest tube secondary to sarcoid and bullous lung disease. Hospital course complicated by tachyarrhythmia considered either atrial tachycardia or SVT, started on flecainide by EPS with maintenance of sinus rhythm. Pt underwent doxycycline pleurodesis on May 30. Chest tube was placed on water seal, however 2 days ago with coughing episode had return of pneumothorax and return to chest tube with suction. Pt having more nausea over past 1 1/2 days, and c/o of stomach upset but denies any pain. Reports breathing is about the same. - Objective Vital Signs & Weight: Vital Signs (12 hours) Temp Pulse Resp BP Pulse Ox 06/12/19 12:20 89 06/12/19 12:00 98.2 F 79 28 H 152/100 H 100 06/12/19 08:00 98.3 F 83 24 H 143/92 H 100 06/12/19 07:00 100 Weight Admit Weight 171 lb 11.841 oz Weight 175 lb Most Recent Monitor Data Heart Rate from ECG 79 NIBP 139/88 NIBP BP-Mean 105 Respiration from ECG 21 SpO2 100 I&O: 06/11/19 06/12/19 06/13/19 06:59 06:59 06:59 Intake Total 1100 450 Output Total 1700 700 Balance -600 -250 Result Diagrams: 06/10/19 08:01 06/10/19 08:01 EKG Reviewed by me: Yes (tele - sinus 80's, ) Hospitalist ROS - Medication Medications: Active Medications Generic Name Dose Route Start Last Admin Trade Name Freq PRN Reason Stop Dose Admin Acetaminophen 650 mg 05/11/19 13:45 05/19/19 07:17 Tylenol PO 650 mg Q4H PRN Administration Headache/Fever/Mild Pain (1-3) Hydrocodone Bitart/Acetaminophen 1 tab 06/05/19 17:45 06/11/19 21:41 [place] 10/325 PO 1 tab Q4H PRN Administration PAIN SCALE 4-6 Hydrocodone Bitart/Acetaminophen 2 tab 06/05/19 17:45 06/11/19 10:30 [place] 10/325 PO 2 tab Q4H PRN Administration PAIN SCALE 7-10 Alprazolam 0.25 mg 06/07/19 13:42 06/07/19 14:01 Xanax PO 0.25 mg Q4H PRN Administration Anxiety Amlodipine Besylate 2.5 mg 06/10/19 09:00 06/12/19 12:20 Norvasc PO Not Given DAILY [facility] Azathioprine 150 mg 05/13/19 09:00 06/12/19 12:20 Imuran PO Not Given QAM [facility] Cyclobenzaprine HCl 10 mg 05/12/19 13:17 05/22/19 22:13 Flexeril PO 10 mg TIDPRN PRN Administration Moderate Pain (4-6) Docusate Sodium 100 mg 06/10/19 09:00 06/12/19 12:21 Colace PO Not Given BID [facility] Enoxaparin Sodium 40 mg 05/12/19 09:00 06/12/19 12:22 Lovenox SC Not Given 0900 [facility] Flecainide Acetate 50 mg 05/27/19 21:00 06/12/19 12:22 Tambocor PO Not Given Q12HR [facility] Guaifenesin/Dextromethorphan 1 tab 06/07/19 21:00 06/12/19 12:22 Mucinex Dm PO Not Given Q12HR [facility] Magnesium Hydroxide 30 ml 05/19/19 09:31 05/20/19 20:53 Milk Of Magnesium PO 30 ml Q12H PRN Administration Constipation Metoprolol Succinate 25 mg 05/26/19 09:00 06/12/19 12:22 Toprol Xl PO Not Given DAILY [facility] Ondansetron HCl 4 mg 05/30/19 08:58 06/11/19 17:55 Zofran IVP 4 mg Q6H PRN Administration Nausea/Vomiting Pantoprazole Sodium 40 mg 05/13/19 09:00 06/12/19 12:22 Protonix PO Not Given DAILY [facility] Prednisone 10 mg 05/22/19 09:00 06/12/19 12:24 Prednisone PO Not Given DAILY [facility] Sodium Chloride 10 ml 05/13/19 21:00 06/12/19 12:24 Flush - Normal Saline IVF Not Given Q12HR EVELYN - Exam General Appearance: NAD Heart: RRR, no murmur Respiratory: no rales, no ronchi Respiratory - other findings: decreased breath sounds through right side, unchanged Gastrointestinal: soft, non-tender, non-distended Extremities: no cyanosis, no clubbing, no edema Psychiatric - other findings: blunted affect Hosp A/P (1) Acute respiratory failure with hypoxemia Code(s): J96.01 - ACUTE RESPIRATORY FAILURE WITH HYPOXIA Status: Acute (2) Diastolic dysfunction Code(s): I51.89 - OTHER ILL-DEFINED HEART DISEASES Status: Acute (3) Mild pulmonary hypertension Code(s): I27.20 - PULMONARY HYPERTENSION, UNSPECIFIED Status: Acute (4) Paroxysmal SVT (supraventricular tachycardia) Code(s): I47.1 - SUPRAVENTRICULAR TACHYCARDIA Status: Acute (5) Spontaneous pneumothorax Code(s): J93.83 - OTHER PNEUMOTHORAX Status: Acute (6) HTN (hypertension) Code(s): I10 - ESSENTIAL (PRIMARY) HYPERTENSION Status: Chronic Qualifiers: Hypertension type: essential hypertension Qualified Code(s): I10 - Essential (primary) hypertension (7) Sarcoidosis Code(s): D86.9 - SARCOIDOSIS, UNSPECIFIED Status: Chronic - Plan Appreciate consultants: - CVS and Pulmonology with chest tube and plan for intervention by Pulmonology/ Dr. Galloway as materials are available - Cardiology with cardiac meds for rhythm/rate control continue PT/OT continue bowel meds scheduled and prn RN is adjusting pain meds to see if this is contributing to nausea, and managing cough - will change tessalon perles to scheduled. dvt prophy - lovenox gi prophy - on ppi code status full reviewed plan of care with patient, no questions or further needs at end of eval pt remains at high risk in current condition
[2019-06-12] MEDS: Benzonatate 100 MG CAP PO SCH ×2 (14:53→20:40)
[2019-06-12] MEDS: Ondansetron PF 4 MG/2 ML Vial IVP PRN (16:08)
--- NOTE | 2019-06-12 19:10 | PRG ---
DATE OF SERVICE: 06/12/2019 SUBJECTIVE: Andres Gauthier was having a lot of anxiety issues today, which improved with Xanax. We were told talc was going to be here today for pleurodesis, but it is not and now being told he will be here tomorrow. OBJECTIVE: VITAL SIGNS: Blood pressure is 146/96, heart rate is 83, and respiratory rates in the 20s. LUNGS: Unchanged. HEART: Unchanged. ABDOMEN: Unchanged. He has small air leak with a cough. IMPRESSION: Pneumothorax related to sarcoidosis. PLAN: Attempted pleurodesis with talc. He is status post 1 g doxycycline attempted pleurodesis. May have to do talc and then, a few days later do doxycycline. If we can get him stable with a Heimlich valve, this might be a feasible option, but he apparently had complete lung collapse with a water-seal, which is very uncommon. Unfortunately, he may have a fairly large pleural defect, but seals up when his lung is fully inflated. We will continue to follow. Appreciate Cardiothoracic Surgery's help, met with the and answered all her questions. Job ID: [id number]
--- NOTE | 2019-06-12 20:13 | RAD ---
CHEST ONE VIEW: 06/12/19 COMPARISON: 05/16/19, 06/10/19. HISTORY: Air leak in chest tube when coughing. FINDINGS: This exam is on the taken list and submitted for official interpretation 06/12/19 at 8:08 p.m. Redemonstration of a right sided pneumothorax. There has been slight interval inflation of the right lung when compared to the previous exam. Right sided chest tube is noted. Stable cardiac silhouette a nd chronic changes in the left lung. IMPRESSION: Slightly improved aeration/expansion of the right lung. POS: OFF
[2019-06-12] MEDS: HYDROcodone/Acetaminophen 10/325 mg Tablet PO PRN (20:43)
[2019-06-13] MEDS: Docusate 100 MG CAP PO SCH ×2 (09:20→20:49)
[2019-06-13] MEDS: predniSONE 20 MG TAB PO SCH (09:20)
[2019-06-13] MEDS: HYDROcodone/Acetaminophen 10/325 mg Tablet PO PRN ×4 (09:20→22:38)
[2019-06-13] MEDS: Benzonatate 100 MG CAP PO SCH ×3 (09:20→20:50)
[2019-06-13] MEDS: Amlodipine 5 MG TAB PO SCH (09:21)
[2019-06-13] MEDS: Flecainide 50 MG TAB PO SCH ×2 (09:21→20:49)
[2019-06-13] MEDS: azaTHIOprine 50 MG TAB PO SCH (09:21)
[2019-06-13] MEDS: Enoxaparin Sodium 40 MG/0.4 ML SYRINGE SC SCH (09:22)
[2019-06-13] MEDS: guaiFENesin/DM ER PO SCH ×2 (09:43→20:49)
[2019-06-13] MEDS ORDERED: SODIUM CHLORIDE FS SCH (09:45)
[2019-06-13] MEDS ORDERED: TALC FS SCH (09:45)
[2019-06-13] MEDS ORDERED: [UNRECOGNIZED DRUG - OTHER] FS SCH (09:45)
--- NOTE | 2019-06-13 16:46 | PDOC.HOSPP ---
- Subjective Subjective: Seen and examined. Discuss case with patient's family and nursing staff. All questions answered in detail. Patient with difficulty with chest tube and persistent pneumothorax. Patient now sleeping comfortably laying flat as directed by surgery. - Objective Vital Signs & Weight: Vital Signs (12 hours) Temp Pulse Pulse Ox 06/13/19 16:41 97.2 F L 06/13/19 15:25 99 06/13/19 10:38 99.0 F 06/13/19 09:21 89 06/13/19 08:00 100 06/13/19 07:37 98.0 F Weight Admit Weight 171 lb 11.841 oz Weight 175 lb Most Recent Monitor Data Heart Rate from ECG 80 NIBP 116/80 NIBP BP-Mean 92 Respiration from ECG 15 SpO2 100 I&O: 06/12/19 06/13/19 06/14/19 06:59 06:59 06:59 Intake Total 450 1950 Output Total 700 1360 Balance -250 590 Result Diagrams: 06/10/19 08:01 06/10/19 08:01 Radiology Reviewed by me: Yes Hospitalist ROS - Review of Systems All other systems reviewed; all pertinent +/- noted in HPI/Subj - Medication Medications: Active Medications Generic Name Dose Route Start Last Admin Trade Name Freq PRN Reason Stop Dose Admin Acetaminophen 650 mg 05/11/19 13:45 05/19/19 07:17 Tylenol PO 650 mg Q4H PRN Administration Headache/Fever/Mild Pain (1-3) Hydrocodone Bitart/Acetaminophen 1 tab 06/05/19 17:45 06/13/19 09:20 [place] 10/325 PO 1 tab Q4H PRN Administration PAIN SCALE 4-6 Hydrocodone Bitart/Acetaminophen 2 tab 06/05/19 17:45 06/13/19 13:39 [place] 10/325 PO 2 tab Q4H PRN Administration PAIN SCALE 7-10 Alprazolam 0.25 mg 06/07/19 13:42 06/07/19 14:01 Xanax PO 0.25 mg Q4H PRN Administration Anxiety Amlodipine Besylate 2.5 mg 06/10/19 09:00 06/13/19 09:21 Norvasc PO 2.5 mg DAILY EVELYN Administration Azathioprine 150 mg 05/13/19 09:00 06/13/19 09:21 Imuran PO 150 mg QAM EVELYN Administration Benzonatate 100 mg 06/12/19 15:00 06/13/19 13:37 Tessalon PO 100 mg TID EVELYN Administration Cyclobenzaprine HCl 10 mg 05/12/19 13:17 05/22/19 22:13 Flexeril PO 10 mg TIDPRN PRN Administration Moderate Pain (4-6) Docusate Sodium 100 mg 06/10/19 09:00 06/13/19 09:20 Colace PO 100 mg BID EVELYN Administration Enoxaparin Sodium 40 mg 05/12/19 09:00 06/13/19 09:22 Lovenox SC 40 mg 09 EVELYN Administration Flecainide Acetate 50 mg 05/27/19 21:00 06/13/19 09:21 Tambocor PO 50 mg Q12HR EVELYN Administration Guaifenesin/Dextromethorphan 1 tab 06/07/19 21:00 06/13/19 09:43 Mucinex Dm PO 1 tab Q12HR EVELYN Administration Magnesium Hydroxide 30 ml 05/19/19 09:31 05/20/19 20:53 Milk Of Magnesium PO 30 ml Q12H PRN Administration Constipation Metoprolol Succinate 25 mg 05/26/19 09:00 06/13/19 09:21 Toprol Xl PO 25 mg DAILY EVELNY Administration Ondansetron HCl 4 mg 05/30/19 08:58 06/12/19 16:08 Zofran IVP 4 mg Q6H PRN Administration Nausea/Vomiting Pantoprazole Sodium 40 mg 05/13/19 09:00 06/13/19 09:22 Protonix PO 40 mg DAILY EVELYN Administration Prednisone 10 mg 05/22/19 09:00 06/13/19 09:20 Prednisone PO 10 mg DAILY EVELYN Administration Sodium Chloride 10 ml 05/13/19 21:00 06/13/19 09:22 Flush - Normal Saline IVF 10 ml Q12HR EVELYN Administration Tramadol HCl 50 mg 06/05/19 17:47 06/12/19 16:07 Ultram PO 50 mg Q6H PRN Administration PAIN SCALE 1-5 - Exam General Appearance: NAD, awake alert Eye: anicteric sclera ENT: normocephalic atraumatic, moist mucosa Neck: supple, symmetric, no lymphadenopathy Heart: RRR, no murmur, no gallops Respiratory: CTAB, no wheezes, no rales, no ronchi Respiratory - other findings: Diminished breath sounds upper lung roman Gastrointestinal: soft, non-tender, no guarding, no rigidity Extremities: no edema Skin: no lesions, no rashes Neurological: cranial nerve grossly intact, no focal deficits Psychiatric: A&O x 3, somnolent Hosp A/P (1) Pleurisy Code(s): R09.1 - PLEURISY Status: Acute (2) Acute respiratory failure with hypoxemia Code(s): J96.01 - ACUTE RESPIRATORY FAILURE WITH HYPOXIA Status: Acute (3) Spontaneous pneumothorax Code(s): J93.83 - OTHER PNEUMOTHORAX Status: Acute (4) HTN (hypertension) Code(s): I10 - ESSENTIAL (PRIMARY) HYPERTENSION Status: Chronic Qualifiers: Hypertension type: essential hypertension Qualified Code(s): I10 - Essential (primary) hypertension (5) Sarcoidosis Code(s): D86.9 - SARCOIDOSIS, UNSPECIFIED Status: Chronic - Plan Plan: IMCU Surgery consultation, recommendations appreciated pulmonology consultation, recommendations appreciated Cardiology consultation, recommendations appreciated Breathing more comfortably today, on low flow NC chest tube management, improving with maximum medical/ surgical care CXR reviewed supplemental oxygen to maintain O2 saturation Symptomatic control for pleuritic chest pain pulmonary hygiene blood pressure control blood sugar control continue home medications as able Patient and family happy with progression and plan of care
[2019-06-14] MEDS: Docusate 100 MG CAP PO SCH ×2 (09:14→20:55)
[2019-06-14] MEDS: Flecainide 50 MG TAB PO SCH ×2 (09:14→20:55)
[2019-06-14] MEDS: predniSONE 20 MG TAB PO SCH (09:14)
[2019-06-14] MEDS: Amlodipine 5 MG TAB PO SCH (09:15)
[2019-06-14] MEDS: azaTHIOprine 50 MG TAB PO SCH (09:15)
[2019-06-14] MEDS: Benzonatate 100 MG CAP PO SCH ×3 (09:15→20:55)
[2019-06-14] MEDS: HYDROcodone/Acetaminophen 10/325 mg Tablet PO PRN ×3 (09:16→20:55)
[2019-06-14] MEDS: guaiFENesin/DM ER PO SCH ×2 (09:27→20:55)
[2019-06-14] MEDS: Enoxaparin Sodium 40 MG/0.4 ML SYRINGE SC SCH (09:28)
--- NOTE | 2019-06-14 13:16 | PDOC.HOSPP ---
- Subjective Subjective: Seen and examined. Clinically unchanged. Patient with chest tube in position being managed by pulmonology/surgery. Patient breathing well on low-flow nasal cannula. All questions answered in detail. Patient's family at bedside are happy with plan of care. - Objective Vital Signs & Weight: Vital Signs (12 hours) Temp Pulse Pulse BP Pulse Ox Pulse Ox 06/14/19 10:05 100 113/79 100 06/14/19 09:15 89 06/14/19 08:00 95 06/14/19 07:09 99.5 F 06/14/19 03:10 97.5 F L Weight Admit Weight 171 lb 11.841 oz Weight 175 lb Most Recent Monitor Data Heart Rate from ECG 98 NIBP 113/79 NIBP BP-Mean 90 Respiration from ECG 38 SpO2 100 I&O: 06/13/19 06/14/19 06/15/19 06:59 06:59 06:59 Intake Total 1950 190 Output Total 1360 410 Balance 590 -220 Result Diagrams: 06/10/19 08:01 06/10/19 08:01 Radiology Reviewed by me: Yes Hospitalist ROS - Review of Systems All other systems reviewed; all pertinent +/- noted in HPI/Subj - Medication Medications: Active Medications Generic Name Dose Route Start Last Admin Trade Name Freq PRN Reason Stop Dose Admin Acetaminophen 650 mg 05/11/19 13:45 05/19/19 07:17 Tylenol PO 650 mg Q4H PRN Administration Headache/Fever/Mild Pain (1-3) Hydrocodone Bitart/Acetaminophen 1 tab 06/05/19 17:45 06/14/19 09:16 [place] 10/325 PO 1 tab Q4H PRN Administration PAIN SCALE 4-6 Hydrocodone Bitart/Acetaminophen 2 tab 06/05/19 17:45 06/13/19 22:38 [place] 10/325 PO 2 tab Q4H PRN Administration PAIN SCALE 7-10 Alprazolam 0.25 mg 06/07/19 13:42 06/07/19 14:01 Xanax PO 0.25 mg Q4H PRN Administration Anxiety Amlodipine Besylate 2.5 mg 06/10/19 09:00 06/14/19 09:15 Norvasc PO 2.5 mg DAILY EVELYN Administration Azathioprine 150 mg 05/13/19 09:00 06/14/19 09:15 Imuran PO 150 mg QAM EVELYN Administration Benzonatate 100 mg 06/12/19 15:00 06/14/19 09:15 Tessalon PO 100 mg TID EVELYN Administration Cyclobenzaprine HCl 10 mg 05/12/19 13:17 05/22/19 22:13 Flexeril PO 10 mg TIDPRN PRN Administration Moderate Pain (4-6) Docusate Sodium 100 mg 06/10/19 09:00 06/14/19 09:14 Colace PO 100 mg BID EVELYN Administration Enoxaparin Sodium 40 mg 05/12/19 09:00 06/14/19 09:28 Lovenox SC 40 mg 09 EVELYN Administration Flecainide Acetate 50 mg 05/27/19 21:00 06/14/19 09:14 Tambocor PO 50 mg Q12HR COUNT INCLUDES THE [facility] Administration Guaifenesin/Dextromethorphan 1 tab 06/07/19 21:00 06/14/19 09:27 Mucinex Dm PO 1 tab Q12HR EVELYN Administration Magnesium Hydroxide 30 ml 05/19/19 09:31 05/20/19 20:53 Milk Of Magnesium PO 30 ml Q12H PRN Administration Constipation Metoprolol Succinate 25 mg 05/26/19 09:00 06/14/19 09:15 Toprol Xl PO 25 mg DAILY COUNT INCLUDES THE [facility] Administration Ondansetron HCl 4 mg 05/30/19 08:58 06/12/19 16:08 Zofran IVP 4 mg Q6H PRN Administration Nausea/Vomiting Pantoprazole Sodium 40 mg 05/13/19 09:00 06/14/19 09:14 Protonix PO 40 mg DAILY EVELYN Administration Prednisone 10 mg 05/22/19 09:00 06/14/19 09:14 Prednisone PO 10 mg DAILY COUNT INCLUDES THE [facility] Administration Sodium Chloride 10 ml 05/13/19 21:00 06/14/19 12:30 Flush - Normal Saline IVF Not Given Q12HR COUNT INCLUDES THE [facility] Tramadol HCl 50 mg 06/05/19 17:47 06/12/19 16:07 Ultram PO 50 mg Q6H PRN Administration PAIN SCALE 1-5 - Exam General Appearance: NAD Eye: PERRL, anicteric sclera ENT: normocephalic atraumatic, moist mucosa Neck: supple, symmetric, no JVD, no lymphadenopathy Heart: RRR, no murmur, no gallops, no rubs Respiratory: CTAB, no wheezes, no rales, no ronchi, normal chest expansion Gastrointestinal: soft, non-tender, non-distended, no palpable masses, no guarding, no rigidity Extremities: no edema Skin: no lesions, no rashes Neurological: cranial nerve grossly intact, no focal deficits Musculoskeletal: generalized weakness Psychiatric: normal behavior, flat affect Hosp A/P (1) Pleurisy Code(s): R09.1 - PLEURISY Status: Acute (2) Acute respiratory failure with hypoxemia Code(s): J96.01 - ACUTE RESPIRATORY FAILURE WITH HYPOXIA Status: Acute (3) Spontaneous pneumothorax Code(s): J93.83 - OTHER PNEUMOTHORAX Status: Acute (4) HTN (hypertension) Code(s): I10 - ESSENTIAL (PRIMARY) HYPERTENSION Status: Chronic Qualifiers: Hypertension type: essential hypertension Qualified Code(s): I10 - Essential (primary) hypertension (5) Sarcoidosis Code(s): D86.9 - SARCOIDOSIS, UNSPECIFIED Status: Chronic - Plan Plan: IMCU Surgery consultation, recommendations appreciated pulmonology consultation, recommendations appreciated Cardiology consultation, recommendations appreciated Breathing comfortably today, on low flow NC chest tube management, improving with maximum medical/ surgical care CXR reviewed supplemental oxygen to maintain O2 saturation Symptomatic control for pleuritic chest pain pulmonary hygiene blood pressure control blood sugar control continue home medications as able Patient and family happy with progression and plan of care
--- NOTE | 2019-06-14 13:26 | PRG ---
DATE OF SERVICE: 06/14/2019 SUBJECTIVE: Andres Gauthier has no air leak today. He is tachypneic with minimal exercise, which I am sure is largely dependent secondary to deconditioning. He has been on DVT prophylaxis since he was admitted to the hospital. OBJECTIVE: VITAL SIGNS: His blood pressure 113/79, heart rate is 100, respiratory rates in the 20s, oximetry is 89% to 90% on 4 L. LUNGS: Remarkable for slight decreased breath sounds on the right. HEART: Regular rhythm. ABDOMEN: Soft. LABORATORY DATA: We will order a lab again for tomorrow. ASSESSMENT AND PLAN: I have encouraged him to spend as much time out of bed as possible today. I would like to give him another 5 g of talc on Monday if possible. I met with the and answered all of her questions. Job ID: [id number]
[2019-06-14] MEDS ORDERED: Talc Infusion/Pleuradesis 4 GM BOT I-PLEURAL SCH (20:15)
[2019-06-15 04:22] LABS: BUN (Urea Nitrogen) 10 mg/dL (8.4-25.7); Calc. Creatinine Clearance 100 mL/min (70-130); Estimated GFR-MDRD Greater than 90; Glucose 86 mg/dL (70-105)
[2019-06-15 04:31] LABS: Anion Gap 12 mmol/L (10-20); Carbon Dioxide 37 mmol/L (22-29); Chloride 96 mmol/L (98-107); Potassium 5.1 mmol/L (3.5-5.1); Sodium 140 mmol/L (136-145)
[2019-06-15 04:38] LABS: Band 2 % (5-11); Eosinophils 1 % (0-10); Hemoglobin 12.9 g/dL (14.0-18.0); Lymphocytes 8 % (21-51); MDiff Complete? YES; Mean Corpuscular HGB CONC 31.5 g/dL (32.0-36.0); Mean Corpuscular Hemoglobin 31.1 pg (27.0-31.0); Mean Corpuscular Volume 98.6 fL (78.0-98.0); Mean Platelet Volume 6.6 fL (7.4-10.4); Monocytes 7 % (0-10); Neutrophil 82 % (42-75); Platelet Count 231 thou/uL (130-400); Platelet Morphology Comment Appears Adequate; RBC Distribution Width 12.7 % (11.5-14.5); Red Blood Cell (RBC) Count 4.16 mill/uL (4.70-6.10); White Blood Cell (WBC) Count 12.8 thou/uL (4.8-10.8)
[2019-06-15] MEDS: Enoxaparin Sodium 40 MG/0.4 ML SYRINGE SC SCH (10:21)
--- NOTE | 2019-06-15 10:21 | RAD ---
EXAM: Single view of the chest HISTORY: Shortness of breath COMPARISON: 06/10/2019 FINDINGS: Single view of the chest shows a normal sized cardiomediastinal silhouette. A large right pneumothorax is again seen. The volume has slightly decreased compared to the prior exam. A right chest tube is unchanged in position. There is likely a bulla in the left apex. There is no evidence of consolidation, mass, or pleural effusion. The bones are unremarkable. IMPRESSION: Large right pneumothorax
[2019-06-15] MEDS: predniSONE 20 MG TAB PO SCH (10:22)
[2019-06-15] MEDS: Benzonatate 100 MG CAP PO SCH ×3 (10:22→21:32)
[2019-06-15] MEDS: azaTHIOprine 50 MG TAB PO SCH (10:22)
[2019-06-15] MEDS: Docusate 100 MG CAP PO SCH ×2 (10:22→21:33)
[2019-06-15] MEDS: HYDROcodone/Acetaminophen 10/325 mg Tablet PO PRN ×4 (10:23→18:47)
[2019-06-15] MEDS: Flecainide 50 MG TAB PO SCH ×2 (10:23→21:32)
[2019-06-15] MEDS: Amlodipine 5 MG TAB PO SCH (10:23)
[2019-06-15] MEDS: guaiFENesin/DM ER PO SCH ×2 (10:25→21:35)
[2019-06-15] MEDS ORDERED: Lidocaine 1% w/Epinephrine 1:100K 20 ML VIAL ONE (10:37)
--- NOTE | 2019-06-15 11:58 | RAD ---
XR Chest 1 View Portable HISTORY: Chest tube replacement. COMPARISON: Earlier examination the same day. FINDINGS: The right chest tube is now present with the tip in the right lung apex. There is still mod erate pneumothorax present but it is significantly improved as compared to the prior exam. No other interval change. IMPRESSION: Placement of chest tube with improvement to the size of the right-sided pneumothorax.
--- NOTE | 2019-06-15 13:11 | PDOC.HOSPP ---
- Subjective Subjective: Seen and examined. Laying in bed comfortably. Somnolent this a.m. States that he is having a little bit of difficulty breathing, has not tried a breathing treatment yet this morning. at bedside able to aid in history. tells me that he did spend a good portion out of the bed yesterday. Chest tube in position being managed by specialist. - Objective Vital Signs & Weight: Vital Signs (12 hours) Temp Pulse Pulse Ox 06/15/19 11:40 98.9 F 06/15/19 10:23 89 06/15/19 08:00 98 06/15/19 07:16 97.7 F 06/15/19 04:25 99 06/15/19 04:00 97.8 F Weight Admit Weight 171 lb 11.841 oz Weight 175 lb Most Recent Monitor Data Heart Rate from ECG 80 NIBP 136/82 NIBP BP-Mean 100 Respiration from ECG 30 SpO2 100 I&O: 06/14/19 06/15/19 06/16/19 06:59 06:59 06:59 Intake Total 190 1190 Output Total 410 1870 Balance -220 -680 Result Diagrams: 06/15/19 03:45 06/15/19 03:45 Radiology Reviewed by me: Yes Hospitalist ROS - Review of Systems All other systems reviewed; all pertinent +/- noted in HPI/Subj - Medication Medications: Active Medications Generic Name Dose Route Start Last Admin Trade Name Freq PRN Reason Stop Dose Admin Acetaminophen 650 mg 05/11/19 13:45 05/19/19 07:17 Tylenol PO 650 mg Q4H PRN Administration Headache/Fever/Mild Pain (1-3) Hydrocodone Bitart/Acetaminophen 1 tab 06/05/19 17:45 06/15/19 12:18 [place] 10/325 PO 1 tab Q4H PRN Administration PAIN SCALE 4-6 Hydrocodone Bitart/Acetaminophen 2 tab 06/05/19 17:45 06/13/19 22:38 [place] 10/325 PO 2 tab Q4H PRN Administration PAIN SCALE 7-10 Alprazolam 0.25 mg 06/07/19 13:42 06/07/19 14:01 Xanax PO 0.25 mg Q4H PRN Administration Anxiety Amlodipine Besylate 2.5 mg 06/10/19 09:00 06/15/19 10:23 Norvasc PO 2.5 mg DAILY EVELYN Administration Azathioprine 150 mg 05/13/19 09:00 06/15/19 10:22 Imuran PO 150 mg QAM EVELYN Administration Benzonatate 100 mg 06/12/19 15:00 06/15/19 10:22 Tessalon PO 100 mg TID EVELYN Administration Cyclobenzaprine HCl 10 mg 05/12/19 13:17 05/22/19 22:13 Flexeril PO 10 mg TIDPRN PRN Administration Moderate Pain (4-6) Docusate Sodium 100 mg 06/10/19 09:00 06/15/19 10:22 Colace PO 100 mg BID EVELYN Administration Enoxaparin Sodium 40 mg 05/12/19 09:00 06/15/19 10:21 Lovenox SC 40 mg 0900 EVELYN Administration Fentanyl 50 mcg 06/05/19 17:48 06/15/19 11:01 Sublimaze SLOW IVP 50 mcg Q1H PRN Administration BREAKTHROU PAIN Flecainide Acetate 50 mg 05/27/19 21:00 06/15/19 10:23 Tambocor PO 50 mg Q12HR EVELYN Administration Guaifenesin/Dextromethorphan 1 tab 06/07/19 21:00 06/15/19 10:25 Mucinex Dm PO 1 tab Q12HR EVELYN Administration Magnesium Hydroxide 30 ml 05/19/19 09:31 05/20/19 20:53 Milk Of Magnesium PO 30 ml Q12H PRN Administration Constipation Metoprolol Succinate 25 mg 05/26/19 09:00 06/15/19 10:23 Toprol Xl PO 25 mg DAILY EVELYN Administration Ondansetron HCl 4 mg 05/30/19 08:58 06/12/19 16:08 Zofran IVP 4 mg Q6H PRN Administration Nausea/Vomiting Pantoprazole Sodium 40 mg 05/13/19 09:00 06/15/19 10:23 Protonix PO 40 mg DAILY EVELYN Administration Prednisone 10 mg 05/22/19 09:00 06/15/19 10:22 Prednisone PO 10 mg DAILY EVELYN Administration Sodium Chloride 10 ml 05/13/19 21:00 06/15/19 10:24 Flush - Normal Saline IVF 10 ml Q12HR EVELYN Administration Tramadol HCl 50 mg 06/05/19 17:47 06/12/19 16:07 Ultram PO 50 mg Q6H PRN Administration PAIN SCALE 1-5 - Exam General Appearance: NAD Eye: PERRL, anicteric sclera ENT: normocephalic atraumatic, no oropharyngeal lesions, moist mucosa Neck: symmetric, no JVD Heart: no murmur, no gallops, no rubs Respiratory: CTAB, no wheezes, no rales, no ronchi, no tachypnea Respiratory - other findings: Deminished breath sounds right upper lung roman. Breathing comfortably NC Gastrointestinal: soft, non-tender, no guarding, no rigidity Extremities: no edema Skin: no lesions, no rashes Neurological: cranial nerve grossly intact, no focal deficits Musculoskeletal: no muscle wasting Psychiatric: normal behavior, A&O x 3, somnolent Hosp A/P (1) Pleurisy Code(s): R09.1 - PLEURISY Status: Acute (2) Acute respiratory failure with hypoxemia Code(s): J96.01 - ACUTE RESPIRATORY FAILURE WITH HYPOXIA Status: Acute (3) Spontaneous pneumothorax Code(s): J93.83 - OTHER PNEUMOTHORAX Status: Acute (4) HTN (hypertension) Code(s): I10 - ESSENTIAL (PRIMARY) HYPERTENSION Status: Chronic Qualifiers: Hypertension type: essential hypertension Qualified Code(s): I10 - Essential (primary) hypertension (5) Sarcoidosis Code(s): D86.9 - SARCOIDOSIS, UNSPECIFIED Status: Chronic - Plan Plan: IMCU Surgery consultation, recommendations appreciated pulmonology consultation, recommendations appreciated Cardiology consultation, recommendations appreciated Breathing comfortably today, on low flow NC chest tube management, improving with maximum medical/ surgical care CXR reviewed latest image supplemental oxygen to maintain O2 saturation Symptomatic control for pleuritic chest pain pulmonary hygiene blood pressure control blood sugar control continue home medications as able Encourage patient to have time out of bed in chair daily Patient and family happy with progression and plan of care
--- NOTE | 2019-06-15 16:50 | PRG ---
DATE OF SERVICE: 06/15/2019 SERVICE: Pulmonary Medicine. INTERVAL HISTORY: The patient is doing okay from respiratory standpoint at this point. This morning, he had a chest x-ray, which demonstrated basically near-complete collapse of the lung. He had a subsequent chest tube placed. He denies any current fevers, chills, nausea, or vomiting. Otherwise, there has been no interval change to his condition. PHYSICAL EXAMINATION: VITAL SIGNS: Afebrile; pulse 92; blood pressure 119/85; respirations 19; saturation 100%, currently on 5 L nasal cannula. GENERAL: The patient is awake and alert, in no apparent distress. LUNGS: Decent air entry. Crackles are present. No prolonged expiratory phase or wheezing is appreciated. HEART: Normal rate and regular. ABDOMEN: Soft, nontender, nondistended. Bowel sounds are positive. MUSCULOSKELETAL: No cyanosis or clubbing. There is no pitting in the bilateral lower extremities. NEUROLOGIC: Grossly nonfocal. LABORATORY DATA: WBC 12.8, hemoglobin 12.9, and platelets 231,000. Potassium 5.1. Basic metabolic profile is otherwise unremarkable. IMAGING DATA: Chest x-ray post repeat thoracostomy tube demonstrates subcutaneous air, but good re-expansion of the right lung. No interval pneumothorax is present. There has been subsequent removal of the prior chest tube. This one is larger in caliber. ASSESSMENT: 1. Acute on chronic hypoxic respiratory failure. 2. Spontaneous secondary pneumothorax. 3. Sarcoidosis, extensive. DISCUSSION AND PLAN: The patient is going to get pleurodesis once again. If this does not resolve his pneumothorax, he may need to be considered for transition to a tertiary care center for consideration of endobronchial valves. Pulmonary will continue to follow along while the patient remains inhouse. Job ID: [id number]
[2019-06-15] MEDS: Cyclobenzaprine 10 MG TAB PO PRN (22:10)
[2019-06-16] MEDS: HYDROcodone/Acetaminophen 10/325 mg Tablet PO PRN ×4 (00:12→20:35)
[2019-06-16] MEDS ORDERED: Talc Infusion/Pleuradesis 4 GM BOT I-PLEURAL SCH (08:45)
[2019-06-16] MEDS: Flecainide 50 MG TAB PO SCH ×2 (09:21→20:35)
[2019-06-16] MEDS: Docusate 100 MG CAP PO SCH ×2 (09:21→20:35)
[2019-06-16] MEDS: Amlodipine 5 MG TAB PO SCH (09:22)
[2019-06-16] MEDS: azaTHIOprine 50 MG TAB PO SCH (09:22)
[2019-06-16] MEDS: predniSONE 20 MG TAB PO SCH (09:22)
[2019-06-16] MEDS: Benzonatate 100 MG CAP PO SCH ×3 (09:22→20:35)
[2019-06-16] MEDS: Enoxaparin Sodium 40 MG/0.4 ML SYRINGE SC SCH (09:23)
[2019-06-16] MEDS: guaiFENesin/DM ER PO SCH ×2 (09:29→20:35)
--- NOTE | 2019-06-16 10:35 | PDOC.HOSPP ---
- Subjective Subjective: Seen and examined. Clinically stable. Saturating well on low-flow nasal cannula. I asked patient to take a slow deep breaths so that I could listen to his lungs and caused a mild coughing episode with intense pleuritic pain. Surgery and pulmonology are managing chest tube appropriately. All questions answered in detail. Recommended time out of bed today. Needs to use incentives spirometer. - Objective Vital Signs & Weight: Vital Signs (12 hours) Temp Pulse 06/16/19 09:22 89 06/16/19 08:00 98.3 F 06/16/19 04:00 97.9 F 06/15/19 23:50 97.2 F L Weight Admit Weight 171 lb 11.841 oz Weight 175 lb Most Recent Monitor Data Heart Rate from ECG 78 NIBP 111/76 NIBP BP-Mean 87 Respiration from ECG 22 SpO2 100 I&O: 06/15/19 06/16/19 06/17/19 06:59 06:59 06:59 Intake Total 1190 2510 Output Total 1870 2450 Balance -680 60 Result Diagrams: 06/15/19 03:45 06/15/19 03:45 Radiology Reviewed by me: Yes Hospitalist ROS - Review of Systems All other systems reviewed; all pertinent +/- noted in HPI/Subj - Medication Medications: Active Medications Generic Name Dose Route Start Last Admin Trade Name Freq PRN Reason Stop Dose Admin Acetaminophen 650 mg 05/11/19 13:45 05/19/19 07:17 Tylenol PO 650 mg Q4H PRN Administration Headache/Fever/Mild Pain (1-3) Hydrocodone Bitart/Acetaminophen 1 tab 06/15/19 18:02 06/16/19 09:23 [place] 10/325 PO 1 tab Q4H PRN Administration Moderate Pain (4-6) Hydrocodone Bitart/Acetaminophen 2 tab 06/15/19 18:02 06/16/19 00:12 [place] 10/325 PO 2 tab Q4H PRN Administration Severe Pain (7-10) Alprazolam 0.25 mg 06/07/19 13:42 06/07/19 14:01 Xanax PO 0.25 mg Q4H PRN Administration Anxiety Amlodipine Besylate 2.5 mg 06/10/19 09:00 06/16/19 09:22 Norvasc PO 2.5 mg DAILY EVELYN Administration Azathioprine 150 mg 05/13/19 09:00 06/16/19 09:22 Imuran PO 150 mg QAM EVELYN Administration Benzonatate 100 mg 06/12/19 15:00 06/16/19 09:22 Tessalon PO 100 mg TID EVELYN Administration Cyclobenzaprine HCl 10 mg 05/12/19 13:17 06/15/19 22:10 Flexeril PO 10 mg TIDPRN PRN Administration Moderate Pain (4-6) Docusate Sodium 100 mg 06/10/19 09:00 06/16/19 09:21 Colace PO 100 mg BID EVELYN Administration Enoxaparin Sodium 40 mg 05/12/19 09:00 06/16/19 09:23 Lovenox SC 40 mg 09 EVELYN Administration Flecainide Acetate 50 mg 05/27/19 21:00 06/16/19 09:21 Tambocor PO 50 mg Q12HR EVELYN Administration Guaifenesin/Dextromethorphan 1 tab 06/07/19 21:00 06/16/19 09:29 Mucinex Dm PO 1 tab Q12HR EVELYN Administration Magnesium Hydroxide 30 ml 05/19/19 09:31 05/20/19 20:53 Milk Of Magnesium PO 30 ml Q12H PRN Administration Constipation Metoprolol Succinate 25 mg 05/26/19 09:00 06/16/19 09:22 Toprol Xl PO 25 mg DAILY EVELYN Administration Ondansetron HCl 4 mg 05/30/19 08:58 06/12/19 16:08 Zofran IVP 4 mg Q6H PRN Administration Nausea/Vomiting Pantoprazole Sodium 40 mg 05/13/19 09:00 06/16/19 09:22 Protonix PO 40 mg DAILY EVELYN Administration Prednisone 10 mg 05/22/19 09:00 06/16/19 09:22 Prednisone PO 10 mg DAILY EVELYN Administration Sodium Chloride 10 ml 05/13/19 21:00 06/16/19 09:24 Flush - Normal Saline IVF 10 ml Q12HR EVELYN Administration - Exam General Appearance: NAD Eye: anicteric sclera ENT: normocephalic atraumatic, moist mucosa Neck: supple, symmetric, no lymphadenopathy Heart: no murmur, no gallops, no rubs Respiratory: no rales, rhonchi (few), wheezes (few). negative: normal chest expansion (short shallow breaths) Gastrointestinal: soft, non-tender, no guarding, no rigidity Extremities: no edema Skin: no lesions, no rashes Neurological: cranial nerve grossly intact, no focal deficits Musculoskeletal: generalized weakness Psychiatric: normal affect, A&O x 3 Hosp A/P (1) Pleurisy Code(s): R09.1 - PLEURISY Status: Acute (2) Acute respiratory failure with hypoxemia Code(s): J96.01 - ACUTE RESPIRATORY FAILURE WITH HYPOXIA Status: Acute (3) Spontaneous pneumothorax Code(s): J93.83 - OTHER PNEUMOTHORAX Status: Acute (4) HTN (hypertension) Code(s): I10 - ESSENTIAL (PRIMARY) HYPERTENSION Status: Chronic Qualifiers: Hypertension type: essential hypertension Qualified Code(s): I10 - Essential (primary) hypertension (5) Sarcoidosis Code(s): D86.9 - SARCOIDOSIS, UNSPECIFIED Status: Chronic - Plan Plan: IMCU Surgery consultation, recommendations appreciated pulmonology consultation, recommendations appreciated Cardiology consultation, recommendations appreciated Breathing comfortably today, on low flow NC chest tube management, improving with maximum medical/ surgical care CXR reviewed latest image supplemental oxygen to maintain O2 saturation Symptomatic control for pleuritic chest pain pulmonary hygiene blood pressure control blood sugar control continue home medications as able Encourage patient to have time out of bed in chair daily Patient and family happy with progression and plan of care
--- NOTE | 2019-06-16 14:39 | PRG ---
DATE OF SERVICE: 06/16/2019 SERVICE: Pulmonary Medicine. INTERVAL HISTORY: The patient is doing really well from respiratory standpoint. Breathing comfortably. Denies any current chest discomfort, nausea or vomiting other than his chest tube insertion site. Otherwise, there has been no interval change to his condition. PHYSICAL EXAMINATION: VITAL SIGNS: Afebrile, pulse 85, blood pressure 105/71, respirations 31, saturation 100%, currently on 5 L nasal cannula. GENERAL: The patient is awake and alert, in no apparent distress. LUNGS: Decent air entry bilaterally. Extensive crackling is present. No prolonged expiratory phase or wheezing is appreciated. HEART: Normal rate and regular. ABDOMEN: Soft, nontender, nondistended. Bowel sounds are positive. MUSCULOSKELETAL: No cyanosis or clubbing. No pitting in the bilateral lower extremities. NEUROLOGIC: Grossly nonfocal. ASSESSMENT: 1. Acute on chronic hypoxic respiratory failure. 2. Spontaneous secondary to pneumothorax. 3. Sarcoidosis, extensive. ASSESSMENT: The patient is going to have a repeat talc procedure done. If this fails to keep his lung up, he may need to be considered for transition to a tertiary care center for consideration of endobronchial valves. Obviously, this would be a second best option for Mr. Gauthier. Pulmonary will follow while he remains in-house. Job ID: [id number]
[2019-06-17] MEDS: Enoxaparin Sodium 40 MG/0.4 ML SYRINGE SC SCH (10:26)
[2019-06-17] MEDS: Benzonatate 100 MG CAP PO SCH ×3 (10:27→20:05)
[2019-06-17] MEDS: Flecainide 50 MG TAB PO SCH ×2 (10:27→20:05)
[2019-06-17] MEDS: HYDROcodone/Acetaminophen 10/325 mg Tablet PO PRN ×3 (10:27→23:05)
[2019-06-17] MEDS: Amlodipine 5 MG TAB PO SCH (10:28)
[2019-06-17] MEDS: azaTHIOprine 50 MG TAB PO SCH (10:28)
[2019-06-17] MEDS: Docusate 100 MG CAP PO SCH ×2 (10:28→20:08)
[2019-06-17] MEDS: predniSONE 20 MG TAB PO SCH (10:29)
[2019-06-17] MEDS: guaiFENesin/DM ER PO SCH ×2 (11:20→20:05)
--- NOTE | 2019-06-17 11:24 | OP ---
DATE OF PROCEDURE: 06/16/2019 PREOPERATIVE DIAGNOSES: Right tension pneumothorax with nonfunctioning chest tube. PROCEDURE PERFORMED: Right tube thoracostomy. DESCRIPTION OF PROCEDURE: After prepping and draping, 1% lidocaine with epinephrine was used to infiltrate the skin, subcutaneous tissue, and intercostal space. Incision was made. Blunt dissection carried out. Chest was entered and a large amount of air expelled from the chest cavity. A 32 chest tube was then inserted and secured to the skin. The nonfunctioning tube was then removed and a single suture used to approximate the skin edges. The patient tolerated the procedure well. Job ID: [id number]
--- NOTE | 2019-06-17 19:23 | PDOC.HOSPP ---
- Subjective Encounter Date: 06/17/19 Encounter Time: 12:21 Subjective: 54 y/o male with Sacroid and bullous lung disease admitted with acute SOB. Intubated due to worsening Symptoms and further evaluation revealed large pneumothorax which was initially treated with thoracostomy with resolution. He however later developed recurrent pneumothorax hence chest tube placement. Hospital course was complicated by development of tachyarrhthmia which was thought to be atrial tachycardia or SVT and was started on flecainide by EPS with resolution. Had doxycyline pleurodesis on 05/30/2019 which was unsuccessful hence had a repeat. Feel better today. - Objective Vital Signs & Weight: Vital Signs (12 hours) Pulse Pulse BP Pulse Ox Pulse Ox 06/17/19 12:25 99 121/80 100 06/17/19 10:28 89 06/17/19 07:25 99 Weight Admit Weight 171 lb 11.841 oz Weight 175 lb Most Recent Monitor Data Heart Rate from ECG 90 NIBP 129/92 NIBP BP-Mean 104 Respiration from ECG 15 SpO2 100 I&O: 06/16/19 06/17/19 06/18/19 06:59 06:59 06:59 Intake Total 2510 840 1010 Output Total 2450 930 960 Balance 60 -90 50 Result Diagrams: 06/15/19 03:45 06/15/19 03:45 Hospitalist ROS - Medication Medications: Active Medications Generic Name Dose Route Start Last Admin Trade Name Freq PRN Reason Stop Dose Admin Acetaminophen 650 mg 05/11/19 13:45 05/19/19 07:17 Tylenol PO 650 mg Q4H PRN Administration Headache/Fever/Mild Pain (1-3) Hydrocodone Bitart/Acetaminophen 1 tab 06/15/19 18:02 06/16/19 11:12 [place] 10/325 PO 1 tab Q4H PRN Administration Moderate Pain (4-6) Hydrocodone Bitart/Acetaminophen 2 tab 06/15/19 18:02 06/17/19 18:14 [place] 10/325 PO 2 tab Q4H PRN Administration Severe Pain (7-10) Amlodipine Besylate 2.5 mg 06/10/19 09:00 06/17/19 10:28 Norvasc PO 2.5 mg DAILY EVELYN Administration Azathioprine 150 mg 05/13/19 09:00 06/17/19 10:28 Imuran PO 150 mg QAM EVELYN Administration Benzonatate 100 mg 06/12/19 15:00 06/17/19 14:50 Tessalon PO 100 mg TID EVELYN Administration Cyclobenzaprine HCl 10 mg 05/12/19 13:17 06/15/19 22:10 Flexeril PO 10 mg TIDPRN PRN Administration Moderate Pain (4-6) Docusate Sodium 100 mg 06/10/19 09:00 06/17/19 10:28 Colace PO Not Given BID [facility] Enoxaparin Sodium 40 mg 05/12/19 09:00 06/17/19 10:26 Lovenox SC 40 mg 09 EVELYN Administration Flecainide Acetate 50 mg 05/27/19 21:00 06/17/19 10:27 Tambocor PO 50 mg Q12HR EVELYN Administration Guaifenesin/Dextromethorphan 1 tab 06/07/19 21:00 06/17/19 11:20 Mucinex Dm PO 1 tab Q12HR EVELYN Administration Magnesium Hydroxide 30 ml 05/19/19 09:31 05/20/19 20:53 Milk Of Magnesium PO 30 ml Q12H PRN Administration Constipation Metoprolol Succinate 25 mg 05/26/19 09:00 06/17/19 10:28 Toprol Xl PO 25 mg DAILY EVELYN Administration Ondansetron HCl 4 mg 05/30/19 08:58 06/12/19 16:08 Zofran IVP 4 mg Q6H PRN Administration Nausea/Vomiting Pantoprazole Sodium 40 mg 05/13/19 09:00 06/17/19 10:29 Protonix PO 40 mg DAILY EVELYN Administration Prednisone 10 mg 05/22/19 09:00 06/17/19 10:29 Prednisone PO 10 mg DAILY EVELYN Administration Sodium Chloride 10 ml 05/13/19 21:00 06/17/19 10:29 Flush - Normal Saline IVF 10 ml Q12HR EVELYN Administration - Exam General Appearance: awake alert General - other findings: chronically ill looking Eye: anicteric sclera ENT: normocephalic atraumatic Neck: supple, symmetric, no JVD Heart: RRR Respiratory: no wheezes, no ronchi, normal chest expansion Respiratory - other findings: fair air entry bilaterally. chest tube noted Gastrointestinal: soft, non-tender, non-distended, normal bowel sounds Extremities: no cyanosis, no edema Neurological: cranial nerve grossly intact, no focal deficits Musculoskeletal: generalized weakness, diffuse muscle atrophy Psychiatric: A&O x 3 Hosp A/P (1) Spontaneous pneumothorax Code(s): J93.83 - OTHER PNEUMOTHORAX Status: Acute (2) Acute respiratory failure with hypoxemia Code(s): J96.01 - ACUTE RESPIRATORY FAILURE WITH HYPOXIA Status: Acute (3) Paroxysmal SVT (supraventricular tachycardia) Code(s): I47.1 - SUPRAVENTRICULAR TACHYCARDIA Status: Acute (4) Diastolic dysfunction Code(s): I51.89 - OTHER ILL-DEFINED HEART DISEASES Status: Acute (5) Mild pulmonary hypertension Code(s): I27.20 - PULMONARY HYPERTENSION, UNSPECIFIED Status: Acute (6) NSVT (nonsustained ventricular tachycardia) Code(s): I47.2 - VENTRICULAR TACHYCARDIA Status: Acute (7) Pleurisy Code(s): R09.1 - PLEURISY Status: Acute (8) HTN (hypertension) Code(s): I10 - ESSENTIAL (PRIMARY) HYPERTENSION Status: Chronic Qualifiers: Hypertension type: essential hypertension Qualified Code(s): I10 - Essential (primary) hypertension (9) Sarcoidosis Code(s): D86.9 - SARCOIDOSIS, UNSPECIFIED Status: Chronic (10) Physical deconditioning Code(s): R53.81 - OTHER MALAISE Status: Acute (11) MARCELINO (acute kidney injury) Code(s): N17.9 - ACUTE KIDNEY FAILURE, UNSPECIFIED Status: Acute (12) Anxiety and depression Code(s): F41.9 - ANXIETY DISORDER, UNSPECIFIED; F32.9 - MAJOR DEPRESSIVE DISORDER, SINGLE EPISODE, UNSPECIFIED Status: Acute - Plan Chest tube management as per CTS and pulmonary Analgesic as needed Continue supportive care.
[2019-06-18] MEDS: HYDROcodone/Acetaminophen 10/325 mg Tablet PO PRN ×4 (05:48→18:52)
--- NOTE | 2019-06-18 10:31 | PRG ---
DATE OF SERVICE: 06/17/2019 SUBJECTIVE: Andres yasmany talc pleurodesis again over the weekend. OBJECTIVE: His vital Signs been stable. On exam, he did not have an air leak and he has equal breath sounds bilaterally. IMPRESSION: Persistent pneumothorax, status post talc pleurodesis x2. Doxycycline pleurodesis x1. Continue the same. Job ID: [id number]
[2019-06-18] MEDS: guaiFENesin/DM ER PO SCH ×2 (11:33→20:08)
[2019-06-18] MEDS: azaTHIOprine 50 MG TAB PO SCH (11:33)
[2019-06-18] MEDS: Amlodipine 5 MG TAB PO SCH (11:33)
[2019-06-18] MEDS: Docusate 100 MG CAP PO SCH ×2 (11:34→20:08)
[2019-06-18] MEDS: Benzonatate 100 MG CAP PO SCH ×3 (11:34→20:08)
[2019-06-18] MEDS: Flecainide 50 MG TAB PO SCH ×2 (11:34→20:08)
[2019-06-18] MEDS: Enoxaparin Sodium 40 MG/0.4 ML SYRINGE SC SCH (11:34)
[2019-06-18] MEDS: predniSONE 20 MG TAB PO SCH (11:37)
--- NOTE | 2019-06-18 15:25 | PDOC.HOSPP ---
- Subjective Subjective: eating his dinner and have no acute complaints. - Objective Vital Signs & Weight: Vital Signs (12 hours) Temp Pulse Pulse Pulse BP BP BP 06/18/19 11:33 89 143/95 H 06/18/19 10:10 103 H 86 143/95 H 140/89 06/18/19 07:40 06/18/19 07:26 06/18/19 03:59 97.8 F Pulse Ox Pulse Ox Pulse Ox 06/18/19 11:33 06/18/19 10:10 94 L 100 06/18/19 07:40 98 06/18/19 07:26 100 06/18/19 03:59 Weight Admit Weight 171 lb 11.841 oz Weight 175 lb Most Recent Monitor Data Heart Rate from ECG 121 NIBP 143/95 NIBP BP-Mean 111 Respiration from ECG 31 SpO2 86 I&O: 06/17/19 06/18/19 06/19/19 06:59 06:59 06:59 Intake Total 840 1910 Output Total 930 1890 Balance -90 20 Result Diagrams: 06/15/19 03:45 06/15/19 03:45 Hospitalist ROS - Medication Medications: Active Medications Generic Name Dose Route Start Last Admin Trade Name Freq PRN Reason Stop Dose Admin Acetaminophen 650 mg 05/11/19 13:45 05/19/19 07:17 Tylenol PO 650 mg Q4H PRN Administration Headache/Fever/Mild Pain (1-3) Hydrocodone Bitart/Acetaminophen 1 tab 06/15/19 18:02 06/18/19 11:33 [place] 10/325 PO 1 tab Q4H PRN Administration Moderate Pain (4-6) Hydrocodone Bitart/Acetaminophen 2 tab 06/15/19 18:02 06/18/19 14:52 [place] 10/325 PO 2 tab Q4H PRN Administration Severe Pain (7-10) Amlodipine Besylate 2.5 mg 06/10/19 09:00 06/18/19 11:33 Norvasc PO 2.5 mg DAILY EVELYN Administration Azathioprine 150 mg 05/13/19 09:00 06/18/19 11:33 Imuran PO 150 mg QAM EVELYN Administration Benzonatate 100 mg 06/12/19 15:00 06/18/19 14:52 Tessalon PO 100 mg TID EVELYN Administration Cyclobenzaprine HCl 10 mg 05/12/19 13:17 06/15/19 22:10 Flexeril PO 10 mg TIDPRN PRN Administration Moderate Pain (4-6) Docusate Sodium 100 mg 06/10/19 09:00 06/18/19 11:34 Colace PO Not Given BID EVELYN Enoxaparin Sodium 40 mg 05/12/19 09:00 06/18/19 11:34 Lovenox SC 40 mg 0900 EVELYN Administration Flecainide Acetate 50 mg 05/27/19 21:00 06/18/19 11:34 Tambocor PO 50 mg Q12HR EVELYN Administration Guaifenesin/Dextromethorphan 1 tab 06/07/19 21:00 06/18/19 11:33 Mucinex Dm PO 1 tab Q12HR EVELYN Administration Magnesium Hydroxide 30 ml 05/19/19 09:31 05/20/19 20:53 Milk Of Magnesium PO 30 ml Q12H PRN Administration Constipation Metoprolol Succinate 25 mg 05/26/19 09:00 06/18/19 11:31 Toprol Xl PO 25 mg DAILY EVELYN Administration Ondansetron HCl 4 mg 05/30/19 08:58 06/12/19 16:08 Zofran IVP 4 mg Q6H PRN Administration Nausea/Vomiting Pantoprazole Sodium 40 mg 05/13/19 09:00 06/18/19 11:33 Protonix PO 40 mg DAILY EVELYN Administration Prednisone 10 mg 05/22/19 09:00 06/18/19 11:37 Prednisone PO 10 mg DAILY EVELYN Administration Sodium Chloride 10 ml 05/13/19 21:00 06/18/19 11:34 Flush - Normal Saline IVF 10 ml Q12HR EVELYN Administration - Exam Respiratory: no wheezes, no rales (acceptable air entry mid to upper lobes) Hosp A/P - Plan (1) Spontaneous pneumothorax Code(s): J93.83 - OTHER PNEUMOTHORAX Status: Acute (2) Acute respiratory failure with hypoxemia Code(s): J96.01 - ACUTE RESPIRATORY FAILURE WITH HYPOXIA Status: Acute (3) Paroxysmal SVT (supraventricular tachycardia) Code(s): I47.1 - SUPRAVENTRICULAR TACHYCARDIA Status: Acute (4) Diastolic dysfunction Code(s): I51.89 - OTHER ILL-DEFINED HEART DISEASES Status: Acute (5) Mild pulmonary hypertension Code(s): I27.20 - PULMONARY HYPERTENSION, UNSPECIFIED Status: Acute (6) NSVT (nonsustained ventricular tachycardia) Code(s): I47.2 - VENTRICULAR TACHYCARDIA Status: Acute (7) Pleurisy Code(s): R09.1 - PLEURISY Status: Acute (8) HTN (hypertension) Code(s): I10 - ESSENTIAL (PRIMARY) HYPERTENSION Status: Chronic Qualifiers: Hypertension type: essential hypertension Qualified Code(s): I10 - Essential (primary) hypertension (9) Sarcoidosis Code(s): D86.9 - SARCOIDOSIS, UNSPECIFIED Status: Chronic (10) Physical deconditioning Code(s): R53.81 - OTHER MALAISE Status: Acute (11) MARCELINO (acute kidney injury) Code(s): N17.9 - ACUTE KIDNEY FAILURE, UNSPECIFIED Status: Acute (12) Anxiety and depression Code(s): F41.9 - ANXIETY DISORDER, UNSPECIFIED; F32.9 - MAJOR DEPRESSIVE DISORDER, SINGLE EPISODE, UNSPECIFIED Status: Acute - Plan for 06/17 Chest tube management as per CTS and pulmonary Analgesic as needed Continue supportive care. plan for 06/18 chest tube management as per CTS and pulmonary, will discuss LTAC at some point continue same management
--- NOTE | 2019-06-18 22:09 | PRG ---
DATE OF SERVICE: 06/18/2019 SUBJECTIVE: Mr. Gauthier actually looks the best he has looked in a week. OBJECTIVE: VITAL SIGNS: He is afebrile. Heart rate in the 90s, respiratory rates in the teens, oximetry is 100%. LUNGS: He has equal breath sounds. Slightly decreased on the right. HEART: Regular rhythm. ABDOMEN: Soft. IMPRESSION: Recurrent pneumothorax, status post chest tube malfunction this week. PLAN: Tentatively plan to place TALC again tomorrow. Job ID: [id number]
[2019-06-19] MEDS: HYDROcodone/Acetaminophen 10/325 mg Tablet PO PRN ×4 (02:03→23:05)
[2019-06-19 03:25] LABS: #Eosinphils 0.2 thou/uL (0.0-0.7); #Monocytes 0.8 thou/uL (0.11-0.59); %Basophils 0.1 % (0.0-1.0); %Eosinophils 1.6 % (0.0-10.0); %Lymphocytes 8.7 % (21.0-51.0); %Monocytes 7.6 % (0.0-10.0); Hemoglobin 12.3 g/dL (14.0-18.0); Mean Corpuscular HGB CONC 32.6 g/dL (32.0-36.0); Mean Corpuscular Hemoglobin 31.9 pg (27.0-31.0); Mean Platelet Volume 5.9 fL (7.4-10.4); Platelet Count 273 thou/uL (130-400); RBC Distribution Width 12.5 % (11.5-14.5); Red Blood Cell (RBC) Count 3.85 mill/uL (4.70-6.10); White Blood Cell (WBC) Count 10.9 thou/uL (4.8-10.8)
[2019-06-19 03:42] LABS: Anion Gap 12 mmol/L (10-20); BUN (Urea Nitrogen) 11 mg/dL (8.4-25.7); Calc. Creatinine Clearance 132 mL/min (70-130); Carbon Dioxide 34 mmol/L (22-29); Chloride 97 mmol/L (98-107); Estimated GFR-MDRD Greater than 90; Glucose 94 mg/dL (70-105); Potassium 4.1 mmol/L (3.5-5.1); Sodium 139 mmol/L (136-145)
[2019-06-19] MEDS ORDERED: Talc Infusion/Pleuradesis 4 GM BOT I-PLEURAL SCH (06:45)
[2019-06-19] MEDS: Flecainide 50 MG TAB PO SCH ×2 (09:58→20:37)
[2019-06-19] MEDS: predniSONE 20 MG TAB PO SCH (09:58)
[2019-06-19] MEDS: Benzonatate 100 MG CAP PO SCH ×3 (09:58→20:37)
[2019-06-19] MEDS: Amlodipine 5 MG TAB PO SCH (09:58)
[2019-06-19] MEDS: guaiFENesin/DM ER PO SCH ×2 (09:59→19:04)
[2019-06-19] MEDS: azaTHIOprine 50 MG TAB PO SCH (09:59)
[2019-06-19] MEDS: Enoxaparin Sodium 40 MG/0.4 ML SYRINGE SC SCH (09:59)
[2019-06-19] MEDS: Docusate 100 MG CAP PO SCH ×2 (10:00→20:37)
--- NOTE | 2019-06-19 10:40 | PRG ---
DATE OF SERVICE: 06/19/2019 SERVICE: Pulmonary Medicine. INTERVAL HISTORY: The patient is doing okay from a respiratory standpoint. Breathing comfortably. He got pleurodesis this morning once again. Unfortunately, he did not have a significant inflammatory response to the medication going in. He has no specific complaints otherwise. PHYSICAL EXAMINATION: VITAL SIGNS: Afebrile, pulse 89, blood pressure 143/95, respirations 15, saturation 99% on 4 L nasal cannula. GENERAL: The patient is awake and alert, in no apparent distress. LUNGS: Decent air entry. No prolonged expiratory phase or wheezing is appreciated. HEART: Normal rate. Regular. ABDOMEN: Soft, nontender, and nondistended. Bowel sounds are positive. MUSCULOSKELETAL: No cyanosis or clubbing. There is no pitting in the bilateral lower extremities. NEUROLOGIC: Grossly nonfocal. LABORATORY DATA: WBC 10.9, hemoglobin 12.3, platelets 273,000. Basic metabolic profile is otherwise unremarkable. ASSESSMENT: 1. Acute on chronic hypoxic respiratory failure. 2. Secondary spontaneous pneumothorax, status post talc pleurodesis x3, and doxycycline pleurodesis x1. 3. Sarcoidosis, extensive. DISCUSSION AND PLAN: Hopefully, the patient will respond to this time-out procedure. Unfortunately, he did not seem to have much of an inflammatory response to it. As such, I am doubtful that we are going to get the benefit of this procedure. Pulmonary will continue to follow along. Repeat chest x-ray will be performed tomorrow morning. Job ID: [id number]
--- NOTE | 2019-06-19 15:31 | PDOC.HOSPP ---
- Subjective Subjective: feels comfortable, not too much pain post procedure. - Objective Vital Signs & Weight: Vital Signs (12 hours) Temp Pulse BP Pulse Ox 06/19/19 15:28 98.6 F 06/19/19 11:06 97.4 F L 06/19/19 09:58 89 143/95 H 06/19/19 08:00 99 06/19/19 07:27 98.0 F Weight Admit Weight 171 lb 11.841 oz Weight 175 lb Most Recent Monitor Data Heart Rate from ECG 94 NIBP 119/76 NIBP BP-Mean 90 Respiration from ECG 23 SpO2 100 I&O: 06/18/19 06/19/19 06/20/19 06:59 06:59 06:59 Intake Total 1910 2940 Output Total 1890 2310 Balance 20 630 Result Diagrams: 06/19/19 03:15 06/19/19 03:15 Hospitalist ROS - Medication Medications: Active Medications Generic Name Dose Route Start Last Admin Trade Name Freq PRN Reason Stop Dose Admin Acetaminophen 650 mg 05/11/19 13:45 05/19/19 07:17 Tylenol PO 650 mg Q4H PRN Administration Headache/Fever/Mild Pain (1-3) Hydrocodone Bitart/Acetaminophen 1 tab 06/15/19 18:02 06/18/19 11:33 [place] 10/325 PO 1 tab Q4H PRN Administration Moderate Pain (4-6) Hydrocodone Bitart/Acetaminophen 2 tab 06/15/19 18:02 06/19/19 15:02 [place] 10/325 PO 2 tab Q4H PRN Administration Severe Pain (7-10) Amlodipine Besylate 2.5 mg 06/10/19 09:00 06/19/19 09:58 Norvasc PO 2.5 mg DAILY EVELYN Administration Azathioprine 150 mg 05/13/19 09:00 06/19/19 09:59 Imuran PO 150 mg QAM EVELYN Administration Benzonatate 100 mg 06/12/19 15:00 06/19/19 15:02 Tessalon PO 100 mg TID EVELYN Administration Cyclobenzaprine HCl 10 mg 05/12/19 13:17 06/15/19 22:10 Flexeril PO 10 mg TIDPRN PRN Administration Moderate Pain (4-6) Docusate Sodium 100 mg 06/10/19 09:00 06/19/19 10:00 Colace PO Not Given BID [facility] Enoxaparin Sodium 40 mg 05/12/19 09:00 06/19/19 09:59 Lovenox SC 40 mg 09 EVELYN Administration Flecainide Acetate 50 mg 05/27/19 21:00 06/19/19 09:58 Tambocor PO 50 mg Q12HR EVELYN Administration Guaifenesin/Dextromethorphan 1 tab 06/07/19 21:00 06/19/19 09:59 Mucinex Dm PO 1 tab Q12HR EVELYN Administration Magnesium Hydroxide 30 ml 05/19/19 09:31 05/20/19 20:53 Milk Of Magnesium PO 30 ml Q12H PRN Administration Constipation Metoprolol Succinate 25 mg 05/26/19 09:00 06/19/19 09:58 Toprol Xl PO 25 mg DAILY EVELYN Administration Ondansetron HCl 4 mg 05/30/19 08:58 06/12/19 16:08 Zofran IVP 4 mg Q6H PRN Administration Nausea/Vomiting Pantoprazole Sodium 40 mg 05/13/19 09:00 06/19/19 09:58 Protonix PO 40 mg DAILY EVELYN Administration Prednisone 10 mg 05/22/19 09:00 06/19/19 09:58 Prednisone PO 10 mg DAILY EVELYN Administration Sodium Chloride 10 ml 05/13/19 21:00 06/19/19 09:59 Flush - Normal Saline IVF 10 ml Q12HR EVELYN Administration - Exam Eye: PERRL ENT: normocephalic atraumatic Neck: supple, symmetric Respiratory: no wheezes, no rales, no ronchi Gastrointestinal: soft, non-tender, non-distended Extremities: no cyanosis, no clubbing Hosp A/P - Plan (1) Spontaneous pneumothorax Code(s): J93.83 - OTHER PNEUMOTHORAX Status: Acute (2) Acute respiratory failure with hypoxemia Code(s): J96.01 - ACUTE RESPIRATORY FAILURE WITH HYPOXIA Status: Acute (3) Paroxysmal SVT (supraventricular tachycardia) Code(s): I47.1 - SUPRAVENTRICULAR TACHYCARDIA Status: Acute (4) Diastolic dysfunction Code(s): I51.89 - OTHER ILL-DEFINED HEART DISEASES Status: Acute (5) Mild pulmonary hypertension Code(s): I27.20 - PULMONARY HYPERTENSION, UNSPECIFIED Status: Acute (6) NSVT (nonsustained ventricular tachycardia) Code(s): I47.2 - VENTRICULAR TACHYCARDIA Status: Acute (7) Pleurisy Code(s): R09.1 - PLEURISY Status: Acute (8) HTN (hypertension) Code(s): I10 - ESSENTIAL (PRIMARY) HYPERTENSION Status: Chronic Qualifiers: Hypertension type: essential hypertension Qualified Code(s): I10 - Essential (primary) hypertension (9) Sarcoidosis Code(s): D86.9 - SARCOIDOSIS, UNSPECIFIED Status: Chronic (10) Physical deconditioning Code(s): R53.81 - OTHER MALAISE Status: Acute (11) MARCELINO (acute kidney injury) Code(s): N17.9 - ACUTE KIDNEY FAILURE, UNSPECIFIED Status: Acute (12) Anxiety and depression Code(s): F41.9 - ANXIETY DISORDER, UNSPECIFIED; F32.9 - MAJOR DEPRESSIVE DISORDER, SINGLE EPISODE, UNSPECIFIED Status: Acute - Plan for 06/17 Chest tube management as per CTS and pulmonary Analgesic as needed Continue supportive care. plan for 06/18 chest tube management as per CTS and pulmonary, will discuss LTAC at some point continue same management plan for 06/19 post pleurodesis without much discomfort possibly indicating low level of inflammation. further management as per CTS adn pulmonary
[2019-06-20] MEDS: HYDROcodone/Acetaminophen 10/325 mg Tablet PO PRN ×2 (03:51→08:27)
--- NOTE | 2019-06-20 07:44 | RAD ---
Chest one view HISTORY: Pneumothorax. Chest tube. COMPARISON: 06/19/2019. FINDINGS: Cardiac silhouette is magnified by projection. Pulmonary vasculature are unremarkable. Patc hy areas of parenchymal opacity throughout each lower lobe similar in appearance to the prior study. Right thoracostomy tube remains in place, directed towards the right apex. Continued improvement in i nflation of the right lung. Opacity around the periphery of the right upper lobe may represent a small amount of fluid. Emphysematous bullae at the left apex again demonstrated. Small amount of right chest wall gas. IMPRESSION: Continued improvement in expansion of the right lung. Other findings are stable.
[2019-06-20] MEDS: azaTHIOprine 50 MG TAB PO SCH (08:28)
[2019-06-20] MEDS: Amlodipine 5 MG TAB PO SCH (08:29)
[2019-06-20] MEDS: predniSONE 20 MG TAB PO SCH (08:30)
[2019-06-20] MEDS: Enoxaparin Sodium 40 MG/0.4 ML SYRINGE SC SCH (08:31)
[2019-06-20] MEDS: Docusate 100 MG CAP PO SCH ×2 (08:32→21:14)
[2019-06-20] MEDS: Flecainide 50 MG TAB PO SCH ×2 (08:32→21:14)
[2019-06-20] MEDS: Benzonatate 100 MG CAP PO SCH ×3 (08:32→21:14)
[2019-06-20] MEDS: guaiFENesin/DM ER PO SCH ×2 (08:32→21:14)
--- NOTE | 2019-06-20 14:52 | PDOC.HOSPP ---
- Subjective Subjective: doing better , no complaints, receiving PT. - Objective Vital Signs & Weight: Vital Signs (12 hours) Temp Pulse Resp BP Pulse Ox 06/20/19 12:17 19 06/20/19 11:12 97.7 F 06/20/19 08:29 89 135/76 06/20/19 08:00 98 06/20/19 07:02 97.1 F L 06/20/19 04:00 100 06/20/19 03:17 97.8 F Weight Admit Weight 171 lb 11.841 oz Weight 175 lb Most Recent Monitor Data Heart Rate from ECG 101 NIBP 121/75 NIBP BP-Mean 90 Respiration from ECG 25 SpO2 100 I&O: 06/19/19 06/20/19 06/21/19 06:59 06:59 06:59 Intake Total 2940 2330 Output Total 2310 1575 Balance 630 755 Result Diagrams: 06/19/19 03:15 06/19/19 03:15 Hospitalist ROS - Medication Medications: Active Medications Generic Name Dose Route Start Last Admin Trade Name Freq PRN Reason Stop Dose Admin Acetaminophen 650 mg 05/11/19 13:45 05/19/19 07:17 Tylenol PO 650 mg Q4H PRN Administration Headache/Fever/Mild Pain (1-3) Hydrocodone Bitart/Acetaminophen 1 tab 06/15/19 18:02 06/20/19 08:27 [place] 10/325 PO 1 tab Q4H PRN Administration Moderate Pain (4-6) Hydrocodone Bitart/Acetaminophen 2 tab 06/15/19 18:02 06/20/19 03:51 [place] 10/325 PO 2 tab Q4H PRN Administration Severe Pain (7-10) Amlodipine Besylate 2.5 mg 06/10/19 09:00 06/20/19 08:29 Norvasc PO 2.5 mg DAILY EVELYN Administration Azathioprine 150 mg 05/13/19 09:00 06/20/19 08:28 Imuran PO 150 mg QAM EVELYN Administration Benzonatate 100 mg 06/12/19 15:00 06/20/19 14:03 Tessalon PO 100 mg TID EVELYN Administration Cyclobenzaprine HCl 10 mg 05/12/19 13:17 06/15/19 22:10 Flexeril PO 10 mg TIDPRN PRN Administration Moderate Pain (4-6) Docusate Sodium 100 mg 06/10/19 09:00 06/20/19 08:32 Colace PO 100 mg BID EVELYN Administration Enoxaparin Sodium 40 mg 05/12/19 09:00 06/20/19 08:31 Lovenox SC 40 mg 0900 EVELYN Administration Flecainide Acetate 50 mg 05/27/19 21:00 06/20/19 08:32 Tambocor PO 50 mg Q12HR EVELYN Administration Guaifenesin/Dextromethorphan 1 tab 06/07/19 21:00 06/20/19 08:32 Mucinex Dm PO 1 tab Q12HR EVELYN Administration Magnesium Hydroxide 30 ml 05/19/19 09:31 05/20/19 20:53 Milk Of Magnesium PO 30 ml Q12H PRN Administration Constipation Metoprolol Succinate 25 mg 05/26/19 09:00 06/20/19 08:32 Toprol Xl PO 25 mg DAILY EVELYN Administration Ondansetron HCl 4 mg 05/30/19 08:58 06/12/19 16:08 Zofran IVP 4 mg Q6H PRN Administration Nausea/Vomiting Pantoprazole Sodium 40 mg 05/13/19 09:00 06/20/19 08:32 Protonix PO 40 mg DAILY EVELYN Administration Prednisone 10 mg 05/22/19 09:00 06/20/19 08:30 Prednisone PO 10 mg DAILY EVELYN Administration Sodium Chloride 10 ml 05/13/19 21:00 06/20/19 08:25 Flush - Normal Saline IVF 10 ml Q12HR EVELYN Administration - Exam General Appearance: awake alert Eye: PERRL ENT: normocephalic atraumatic Neck: supple, symmetric, no JVD Heart: RRR, no murmur, no gallops Respiratory: normal chest expansion Gastrointestinal: soft Hosp A/P - Plan (1) Spontaneous pneumothorax Code(s): J93.83 - OTHER PNEUMOTHORAX Status: Acute (2) Acute respiratory failure with hypoxemia Code(s): J96.01 - ACUTE RESPIRATORY FAILURE WITH HYPOXIA Status: Acute (3) Paroxysmal SVT (supraventricular tachycardia) Code(s): I47.1 - SUPRAVENTRICULAR TACHYCARDIA Status: Acute (4) Diastolic dysfunction Code(s): I51.89 - OTHER ILL-DEFINED HEART DISEASES Status: Acute (5) Mild pulmonary hypertension Code(s): I27.20 - PULMONARY HYPERTENSION, UNSPECIFIED Status: Acute (6) NSVT (nonsustained ventricular tachycardia) Code(s): I47.2 - VENTRICULAR TACHYCARDIA Status: Acute (7) Pleurisy Code(s): R09.1 - PLEURISY Status: Acute (8) HTN (hypertension) Code(s): I10 - ESSENTIAL (PRIMARY) HYPERTENSION Status: Chronic Qualifiers: Hypertension type: essential hypertension Qualified Code(s): I10 - Essential (primary) hypertension (9) Sarcoidosis Code(s): D86.9 - SARCOIDOSIS, UNSPECIFIED Status: Chronic (10) Physical deconditioning Code(s): R53.81 - OTHER MALAISE Status: Acute (11) MARCELINO (acute kidney injury) Code(s): N17.9 - ACUTE KIDNEY FAILURE, UNSPECIFIED Status: Acute (12) Anxiety and depression Code(s): F41.9 - ANXIETY DISORDER, UNSPECIFIED; F32.9 - MAJOR DEPRESSIVE DISORDER, SINGLE EPISODE, UNSPECIFIED Status: Acute - Plan for 06/17 Chest tube management as per CTS and pulmonary Analgesic as needed Continue supportive care. plan for 06/18 chest tube management as per CTS and pulmonary, will discuss LTAC at some point continue same management plan for 06/19 post pleurodesis without much discomfort possibly indicating low level of inflammation. further management as per CTS adn pulmonary plan for 06/20 continued improvement, continue same management
[2019-06-20] MEDS ORDERED: Acetaminophen/Codeine 30-300mg Tablet PO PRN (18:08)
[2019-06-20] MEDS: Ondansetron PF 4 MG/2 ML Vial IVP PRN (18:25)
[2019-06-20] MEDS: Acetaminophen 325 MG TAB PO PRN (18:27)
[2019-06-20] MEDS: Acetaminophen/Codeine 30-300mg Tablet PO PRN (18:31)
[2019-06-21] MEDS: Acetaminophen/Codeine 30-300mg Tablet PO PRN (01:10)
[2019-06-21] MEDS: Enoxaparin Sodium 40 MG/0.4 ML SYRINGE SC SCH (08:39)
[2019-06-21] MEDS: Flecainide 50 MG TAB PO SCH ×2 (08:39→21:29)
[2019-06-21] MEDS: Benzonatate 100 MG CAP PO SCH ×3 (08:40→21:29)
[2019-06-21] MEDS: azaTHIOprine 50 MG TAB PO SCH (08:40)
[2019-06-21] MEDS: Docusate 100 MG CAP PO SCH ×2 (08:40→21:28)
[2019-06-21] MEDS: Amlodipine 5 MG TAB PO SCH (08:41)
[2019-06-21] MEDS: predniSONE 20 MG TAB PO SCH (08:43)
[2019-06-21] MEDS: guaiFENesin/DM ER PO SCH ×2 (08:43→21:29)
--- NOTE | 2019-06-21 14:52 | PRG ---
DATE OF SERVICE: 06/21/2019 SERVICE: Pulmonary Medicine. INTERVAL HISTORY: The patient is doing okay from respiratory standpoint. Denies any shortness of breath at this point. He has not had any chest discomfort, nausea, vomiting, fevers, or chills. Otherwise, there has been no interval change to his condition. PHYSICAL EXAMINATION: VITAL SIGNS: Afebrile, pulse 89, blood pressure 134/84, respirations 32, saturation 100% on 4 L nasal cannula currently. GENERAL: The patient is awake and alert, in no apparent distress. LUNGS: Decent air entry with no prolonged expiratory phase or wheezing present. HEART: Normal rate regular. ABDOMEN: Soft, nontender, and nondistended. Bowel sounds are positive. MUSCULOSKELETAL: No cyanosis or clubbing or pitting of the bilateral lower extremities. NEUROLOGIC: Grossly nonfocal. IMAGING: Chest x-ray demonstrates a small amount of subcutaneous emphysema on the right. There is an apical pneumothorax which is minimal. There is a thoracostomy tube in good position. ASSESSMENT: 1. Acute on chronic hypoxic respiratory failure. 2. Spontaneous secondary pneumothorax, status post doxycycline pleurodesis and talc pleurodesis x2. 3. Sarcoidosis, extensive. DISCUSSION AND PLAN: The patient is doing fine from respiratory standpoint. Through the weekend, we will put him to water seal again to see whether or not he can tolerate that. Once he does, he can be considered for transition out of the hospital, but to date, he has not been successful at that. Pulmonary/Critical Care will continue to follow very closely while he remains in-house. Dr. Prado will see him through the weekend. Job ID: [id number] MTDD
--- NOTE | 2019-06-21 15:10 | PDOC.HOSPP ---
- Subjective Subjective: doing well, no specific complaints. - Objective Vital Signs & Weight: Vital Signs (12 hours) Temp Pulse BP Pulse Ox 06/21/19 11:20 98.2 F 06/21/19 08:41 89 120/74 06/21/19 08:00 100 06/21/19 07:13 98.1 F 06/21/19 03:41 97.9 F Weight Admit Weight 171 lb 11.841 oz Weight 175 lb Most Recent Monitor Data Heart Rate from ECG 92 NIBP 129/85 NIBP BP-Mean 99 Respiration from ECG 36 SpO2 100 I&O: 06/20/19 06/21/19 06/22/19 06:59 06:59 06:59 Intake Total 2330 1120 Output Total 1575 1170 Balance 755 -50 Result Diagrams: 06/19/19 03:15 06/19/19 03:15 Hospitalist ROS - Medication Medications: Active Medications Generic Name Dose Route Start Last Admin Trade Name Freq PRN Reason Stop Dose Admin Acetaminophen 650 mg 05/11/19 13:45 05/19/19 07:17 Tylenol PO 650 mg Q4H PRN Administration Headache/Fever/Mild Pain (1-3) Acetaminophen/Codeine Phosphate 1 tab 06/20/19 18:08 06/21/19 01:10 Tylenol #3 PO 1 tab Q4H PRN Administration Moderate Pain (4-6) Amlodipine Besylate 2.5 mg 06/10/19 09:00 06/21/19 08:41 Norvasc PO 2.5 mg DAILY EVELYN Administration Azathioprine 150 mg 05/13/19 09:00 06/21/19 08:40 Imuran PO 150 mg QAM EVELYN Administration Benzonatate 200 mg 06/20/19 21:00 06/21/19 08:40 Tessalon PO 200 mg TID EVELYN Administration Cyclobenzaprine HCl 10 mg 05/12/19 13:17 06/15/19 22:10 Flexeril PO 10 mg TIDPRN PRN Administration Moderate Pain (4-6) Docusate Sodium 100 mg 06/10/19 09:00 06/21/19 08:40 Colace PO 100 mg BID EVELYN Administration Enoxaparin Sodium 40 mg 05/12/19 09:00 06/21/19 08:39 Lovenox SC 40 mg 0900 EVELYN Administration Flecainide Acetate 50 mg 05/27/19 21:00 06/21/19 08:39 Tambocor PO 50 mg Q12HR EVELYN Administration Guaifenesin/Dextromethorphan 1 tab 06/21/19 09:00 06/21/19 08:43 Mucinex Dm PO 1 tab Q12HR EVELYN Administration Magnesium Hydroxide 30 ml 05/19/19 09:31 05/20/19 20:53 Milk Of Magnesium PO 30 ml Q12H PRN Administration Constipation Metoprolol Succinate 25 mg 05/26/19 09:00 06/21/19 08:44 Toprol Xl PO 25 mg DAILY EVELYN Administration Ondansetron HCl 4 mg 05/30/19 08:58 06/20/19 18:25 Zofran IVP 4 mg Q6H PRN Administration Nausea/Vomiting Pantoprazole Sodium 40 mg 05/13/19 09:00 06/21/19 08:40 Protonix PO 40 mg DAILY EVELYN Administration Prednisone 10 mg 05/22/19 09:00 06/21/19 08:43 Prednisone PO 10 mg DAILY EVELYN Administration Sodium Chloride 10 ml 05/13/19 21:00 06/21/19 08:39 Flush - Normal Saline IVF 10 ml Q12HR EVELYN Administration - Exam General Appearance: NAD, awake alert Eye: PERRL, anicteric sclera ENT: normocephalic atraumatic Neck: supple, symmetric Heart: RRR, no murmur, no gallops Respiratory: no wheezes, no rales Gastrointestinal: soft, non-tender, non-distended Extremities: no cyanosis, no clubbing Hosp A/P - Plan (1) Spontaneous pneumothorax Code(s): J93.83 - OTHER PNEUMOTHORAX Status: Acute (2) Acute respiratory failure with hypoxemia Code(s): J96.01 - ACUTE RESPIRATORY FAILURE WITH HYPOXIA Status: Acute (3) Paroxysmal SVT (supraventricular tachycardia) Code(s): I47.1 - SUPRAVENTRICULAR TACHYCARDIA Status: Acute (4) Diastolic dysfunction Code(s): I51.89 - OTHER ILL-DEFINED HEART DISEASES Status: Acute (5) Mild pulmonary hypertension Code(s): I27.20 - PULMONARY HYPERTENSION, UNSPECIFIED Status: Acute (6) NSVT (nonsustained ventricular tachycardia) Code(s): I47.2 - VENTRICULAR TACHYCARDIA Status: Acute (7) Pleurisy Code(s): R09.1 - PLEURISY Status: Acute (8) HTN (hypertension) Code(s): I10 - ESSENTIAL (PRIMARY) HYPERTENSION Status: Chronic Qualifiers: Hypertension type: essential hypertension Qualified Code(s): I10 - Essential (primary) hypertension (9) Sarcoidosis Code(s): D86.9 - SARCOIDOSIS, UNSPECIFIED Status: Chronic (10) Physical deconditioning Code(s): R53.81 - OTHER MALAISE Status: Acute (11) MARCELINO (acute kidney injury) Code(s): N17.9 - ACUTE KIDNEY FAILURE, UNSPECIFIED Status: Acute (12) Anxiety and depression Code(s): F41.9 - ANXIETY DISORDER, UNSPECIFIED; F32.9 - MAJOR DEPRESSIVE DISORDER, SINGLE EPISODE, UNSPECIFIED Status: Acute - Plan for 06/17 Chest tube management as per CTS and pulmonary Analgesic as needed Continue supportive care. plan for 06/18 chest tube management as per CTS and pulmonary, will discuss LTAC at some point continue same management plan for 06/19 post pleurodesis without much discomfort possibly indicating low level of inflammation. further management as per CTS adn pulmonary plan for 06/20 continued improvement, continue same management plan for 06/21 continue same management as per CTS
[2019-06-22] MEDS: Amlodipine 5 MG TAB PO SCH (09:50)
[2019-06-22] MEDS: Docusate 100 MG CAP PO SCH ×2 (09:51→20:12)
[2019-06-22] MEDS: azaTHIOprine 50 MG TAB PO SCH (09:51)
[2019-06-22] MEDS: Enoxaparin Sodium 40 MG/0.4 ML SYRINGE SC SCH (09:51)
[2019-06-22] MEDS: Benzonatate 100 MG CAP PO SCH ×3 (09:51→20:11)
[2019-06-22] MEDS: guaiFENesin/DM ER PO SCH ×2 (09:52→20:11)
[2019-06-22] MEDS: Flecainide 50 MG TAB PO SCH ×2 (09:52→20:11)
[2019-06-22] MEDS: predniSONE 20 MG TAB PO SCH (09:52)
--- NOTE | 2019-06-22 10:25 | PRG ---
DATE OF SERVICE: 06/22/2019 SUBJECTIVE: Andres Gauthier remains in the ICU. Chest tube in place. OBJECTIVE: VITAL SIGNS: Temperature 98, pulse 89, blood pressure 120/74, and respirations 18. GENERAL: Denies any pain or shortness of breath. CHEST: No wheezing or crackles. CARDIAC: Normal S1 and S2. No gallops. ABDOMEN: No masses. ASSESSMENT: Spontaneous pneumothorax, status post multiple pleurodesis. Baseline sarcoidosis. PLAN: Continue CT suction. Last chest x-ray looked pretty good except for a nonspecific density in the right base. We will follow. Job ID: [id number]
--- NOTE | 2019-06-22 11:12 | PRG ---
DATE OF SERVICE: 06/22/2019 SUBJECTIVE: The patient is seen and examined at the bedside. He does not have much complaints to offer. His appetite is not that great. He has some nights, he cannot sleep. OBJECTIVE: VITAL SIGNS: Blood pressure is 120/74, pulse is 89, temperature is 98.0, respiratory rate is 32, and O2 is 100. HEENT: His head is atraumatic and normocephalic. Eyes are PERRLA. Sclerae are nonicteric. Oral mucosa is moist. NECK: Supple. LUNGS: Breath sounds diminished at the right base and the midportion of the right lung. The chest tube is in place. The dressing is on the right side of the chest connected to the seal. ABDOMEN: Soft, nontender, and nondistended. EXTREMITIES: No clubbing, cyanosis, or edema. NEUROLOGIC: He is alert and oriented x4. There is no any motor or sensory deficits. LABORATORY DATA: None today. IMPRESSION: 1. Spontaneous pneumothorax with previous history of sarcoidosis, status post multiple pleurodesis unsuccessful. 2. Acute respiratory failure with hypoxemia. 3. Paroxysmal supraventricular tachycardia. 4. Diastolic heart failure. 5. Hypertension. 6. Sarcoidosis. 7. Acute kidney injury. 8. Anxiety and depression. 9. Insomnia. 10. Anorexia. PLAN: CTS, Pulmonary managing chest tube. We will start him on multivitamin once a day to help his appetite and give him an option for melatonin to use p.r.n. as needed at night for his insomnia. We will continue the rest of the regimen. He is on 10 mg of prednisone. At this point, he is on azathioprine, amlodipine, Colace, flecainide, metoprolol, pantoprazole, and DuoNebs. Job ID: [id number]
--- NOTE | 2019-06-22 22:20 | EKG ---
Test Reason : Blood Pressure : / mmHG Vent. Rate : 122 BPM Atrial Rate : 122 BPM P-R Int : 152 ms QRS Dur : 102 ms QT Int : 322 ms P-R-T Axes : 087 103 071 degrees QTc Int : 458 ms Sinus tachycardia with occasional Premature ventricular complexes Rightward axis Incomplete right bundle branch block Abnormal ECG Confirmed by LETTY MULLINS, MILE ([id number]), publications editor RAJ PAZ ([id number]) on 06/22/2019 10:19:35 PM Referred By: Confirmed By:MILE SAENZ MD
[2019-06-22] MEDS: Melatonin 3 MG TAB PO PRN (23:04)
[2019-06-23 08:23] LABS: #Basophils 0.1 thou/uL (0.0-0.2); #Eosinphils 0.2 thou/uL (0.0-0.7); #Neutrophils 7.7 thou/uL (1.40-6.50); %Basophils 0.8 % (0.0-1.0); %Eosinophils 1.9 % (0.0-10.0); %Lymphocytes 9.6 % (21.0-51.0); %Monocytes 9.6 % (0.0-10.0); %Neutrophils 78.1 % (42.0-75.0); Hemoglobin 12.4 g/dL (14.0-18.0); Mean Corpuscular Hemoglobin 31.2 pg (27.0-31.0); Mean Corpuscular Volume 97.6 fL (78.0-98.0); Mean Platelet Volume 5.6 fL (7.4-10.4); Platelet Count 354 thou/uL (130-400); RBC Distribution Width 12.6 % (11.5-14.5); Red Blood Cell (RBC) Count 3.98 mill/uL (4.70-6.10); White Blood Cell (WBC) Count 9.9 thou/uL (4.8-10.8)
[2019-06-23 08:44] LABS: Anion Gap 12 mmol/L (10-20); BUN (Urea Nitrogen) 9 mg/dL (8.4-25.7); Calc. Creatinine Clearance 114 mL/min (70-130); Calcium 9.1 mg/dL (7.8-10.44); Carbon Dioxide 32 mmol/L (22-29); Chloride 102 mmol/L (98-107); Estimated GFR-MDRD Greater than 90; Glucose 94 mg/dL (70-105); Potassium 3.6 mmol/L (3.5-5.1); Sodium 142 mmol/L (136-145)
[2019-06-23] MEDS: azaTHIOprine 50 MG TAB PO SCH (09:58)
[2019-06-23] MEDS: Benzonatate 100 MG CAP PO SCH ×3 (09:58→20:56)
[2019-06-23] MEDS: Enoxaparin Sodium 40 MG/0.4 ML SYRINGE SC SCH (09:58)
[2019-06-23] MEDS: Amlodipine 5 MG TAB PO SCH (09:58)
[2019-06-23] MEDS: Docusate 100 MG CAP PO SCH ×2 (09:58→20:56)
[2019-06-23] MEDS: guaiFENesin/DM ER PO SCH ×2 (09:59→20:56)
[2019-06-23] MEDS: Multivitamin W/ Minerals 1 TAB PO SCH (09:59)
[2019-06-23] MEDS: predniSONE 20 MG TAB PO SCH (09:59)
[2019-06-23] MEDS: Flecainide 50 MG TAB PO SCH ×2 (09:59→20:56)
--- NOTE | 2019-06-23 11:28 | PRG ---
DATE OF SERVICE: 06/23/2019 SUBJECTIVE: Andres Gauthier is doing well. Less cough. Less shortness of breath. OBJECTIVE: VITAL SIGNS: Temperature 97, saturations 93% on 3 L nasal O2, blood pressure 120/74, pulse 80, respirations 18. CHEST: No wheezing or crackles. CARDIAC: Normal S1 and S2. No gallops. ABDOMEN: No masses. LABORATORY DATA: Unremarkable. ASSESSMENT: Pneumothorax spontaneous, status post multiple talc pleurodesis; underlying sarcoidosis. PLAN: Continue supportive care, PT. Hopefully off suction tomorrow. Hopefully, x-rays show that pneumothorax has abated. Job ID: [id number]
--- NOTE | 2019-06-23 12:43 | PRG ---
DATE OF SERVICE: 06/23/2019 SUBJECTIVE: The patient is seen and examined at the bedside. He is in The chest tube is still in and he is connected to suction as per Cardiovascular surgeon's order. He does not have much complaints to offer. There is not much change since yesterday. He does not have much pain. OBJECTIVE: VITAL SIGNS: Blood pressure is 141/92, pulse is 90, respirations 21, O2 saturation is 100%. HEENT: His pupils are responding to light properly. Sclerae are nonicteric. Oral mucosa is moist. NECK: Supple. LUNGS: Dullness is present at the right lower parts of the right lung. HEART: S1 and S2 normal. No S3. No S4. ABDOMEN: Soft, nontender, nondistended. EXTREMITIES: No clubbing, cyanosis, or edema. NEUROLOGICAL: He follows my commands. He moves his all 4 extremities. LABORATORY DATA: Labs showed white count of 9.9, hemoglobin of 12.4, hematocrit 38.8, platelet count is 354. Sodium of 142, potassium 3.6, chloride 102, CO2 of 32, BUN 9, creatinine 0.81, glucose 94, calcium 9.1. IMPRESSION: 1. Spontaneous pneumothorax, status post multiple pleural disease. 2. Sarcoidosis. 3. Acute respiratory failure with hypoxemia. 4. Paroxysmal supraventricular tachycardia. 5. Diastolic heart failure. 6. Hypertension. 7. Acute kidney injury. 8. Anxiety and depression. 9. Insomnia. 10. Anorexia. PLAN: Cardiovascular Surgeon is managing the chest tube along with Pulmonary with no new findings. We will continue current regimen Job ID: [id number]
[2019-06-24] MEDS: Amlodipine 5 MG TAB PO SCH (09:14)
[2019-06-24] MEDS: Benzonatate 100 MG CAP PO SCH ×3 (09:14→20:42)
[2019-06-24] MEDS: Docusate 100 MG CAP PO SCH ×2 (09:14→20:42)
[2019-06-24] MEDS: Enoxaparin Sodium 40 MG/0.4 ML SYRINGE SC SCH (09:14)
[2019-06-24] MEDS: azaTHIOprine 50 MG TAB PO SCH (09:14)
[2019-06-24] MEDS: Flecainide 50 MG TAB PO SCH ×2 (09:15→20:42)
[2019-06-24] MEDS: Multivitamin W/ Minerals 1 TAB PO SCH (09:15)
[2019-06-24] MEDS: predniSONE 20 MG TAB PO SCH (09:15)
[2019-06-24] MEDS: guaiFENesin/DM ER PO SCH ×2 (09:15→20:42)
--- NOTE | 2019-06-24 10:10 | PDOC.HOSPP ---
- Subjective Encounter Date: 06/24/19 Encounter Time: 13:30 Subjective: Patient doing well. No chest pain. No SOB. No cough. Eating well. Chest tube no longer to suction. - Objective Vital Signs & Weight: Vital Signs (12 hours) Temp Pulse BP 06/24/19 09:14 89 120/74 06/24/19 07:20 98.2 F 06/24/19 04:00 98.6 F 06/23/19 23:53 98.5 F Weight Admit Weight 171 lb 11.841 oz Weight 175 lb Most Recent Monitor Data Heart Rate from ECG 84 NIBP 129/88 NIBP BP-Mean 101 Respiration from ECG 25 SpO2 100 I&O: 06/23/19 06/24/19 06/25/19 06:59 06:59 06:59 Intake Total 1410 2110 Output Total 1338 1338 Balance 72 772 Result Diagrams: 06/23/19 08:15 06/23/19 08:15 Hospitalist ROS - Review of Systems Respiratory: denies: cough, shortness of breath, pleuritic pain Cardiovascular: denies: chest pain, palpitations Gastrointestinal: denies: nausea, vomiting, abdominal pain Skin: denies: rash Neurological: denies: weakness, confusion - Medication Medications: Active Medications Generic Name Dose Route Start Last Admin Trade Name Freq PRN Reason Stop Dose Admin Acetaminophen 650 mg 05/11/19 13:45 05/19/19 07:17 Tylenol PO 650 mg Q4H PRN Administration Headache/Fever/Mild Pain (1-3) Acetaminophen/Codeine Phosphate 1 tab 06/20/19 18:08 06/21/19 01:10 Tylenol #3 PO 1 tab Q4H PRN Administration Moderate Pain (4-6) Amlodipine Besylate 2.5 mg 06/10/19 09:00 06/24/19 09:14 Norvasc PO 2.5 mg DAILY EVELYN Administration Azathioprine 150 mg 05/13/19 09:00 06/24/19 09:14 Imuran PO 150 mg QAM EVELYN Administration Benzonatate 200 mg 06/20/19 21:00 06/24/19 09:14 Tessalon PO 200 mg TID EVELYN Administration Cyclobenzaprine HCl 10 mg 05/12/19 13:17 06/15/19 22:10 Flexeril PO 10 mg TIDPRN PRN Administration Moderate Pain (4-6) Docusate Sodium 100 mg 06/10/19 09:00 06/24/19 09:14 Colace PO 100 mg BID EVELNY Administration Enoxaparin Sodium 40 mg 05/12/19 09:00 06/24/19 09:14 Lovenox SC 40 mg 0900 EVELYN Administration Flecainide Acetate 50 mg 05/27/19 21:00 06/24/19 09:15 Tambocor PO 50 mg Q12HR EVELYN Administration Guaifenesin/Dextromethorphan 1 tab 06/21/19 09:00 06/24/19 09:15 Mucinex Dm PO 1 tab Q12HR EVELYN Administration Iron/Minerals/Multivitamins 1 tab 06/23/19 09:00 06/24/19 09:15 Theragran M PO 1 tab DAILY EVELYN Administration Magnesium Hydroxide 30 ml 05/19/19 09:31 05/20/19 20:53 Milk Of Magnesium PO 30 ml Q12H PRN Administration Constipation Melatonin 3 mg 06/22/19 10:45 06/22/19 23:04 Melatonin PO 3 mg HSPRN PRN Administration Insomnia Metoprolol Succinate 25 mg 05/26/19 09:00 06/24/19 09:15 Toprol Xl PO 25 mg DAILY EVELYN Administration Ondansetron HCl 4 mg 05/30/19 08:58 06/20/19 18:25 Zofran IVP 4 mg Q6H PRN Administration Nausea/Vomiting Pantoprazole Sodium 40 mg 05/13/19 09:00 06/24/19 09:15 Protonix PO 40 mg DAILY EVELYN Administration Prednisone 10 mg 05/22/19 09:00 06/24/19 09:15 Prednisone PO 10 mg DAILY EVELYN Administration Sodium Chloride 10 ml 05/13/19 21:00 06/24/19 09:15 Flush - Normal Saline IVF 10 ml Q12HR EVELYN Administration - Exam General Appearance: NAD Eye: PERRL, anicteric sclera ENT: normocephalic atraumatic, moist mucosa Neck: supple Heart: RRR, no murmur Respiratory: CTAB, no wheezes Respiratory - other findings: right chest tube in place to water seal, no suction Gastrointestinal: soft, non-tender, non-distended Psychiatric: normal affect, normal behavior, A&O x 3 Hosp A/P (1) Spontaneous pneumothorax Code(s): J93.83 - OTHER PNEUMOTHORAX Status: Acute Plan: Chest tube in place, pneumothorax resolved on most recent x-ray, wean tube as per CT surgery and pulmonology, hx of multiple pleurodesis (2) Sarcoidosis Code(s): D86.9 - SARCOIDOSIS, UNSPECIFIED Status: Chronic (3) Acute respiratory failure with hypoxemia Code(s): J96.01 - ACUTE RESPIRATORY FAILURE WITH HYPOXIA Status: Acute (4) Paroxysmal SVT (supraventricular tachycardia) Code(s): I47.1 - SUPRAVENTRICULAR TACHYCARDIA Status: Acute (5) Diastolic dysfunction Code(s): I51.89 - OTHER ILL-DEFINED HEART DISEASES Status: Acute (6) HTN (hypertension) Code(s): I10 - ESSENTIAL (PRIMARY) HYPERTENSION Status: Chronic Qualifiers: Hypertension type: essential hypertension Qualified Code(s): I10 - Essential (primary) hypertension - Plan respiratory therapy Pulmonology Consult: Meds - Medications MAR Reviewed: Yes Medications: Current Medications Acetaminophen (Tylenol) 650 mg PO Q4H PRN PRN Reason: Headache/Fever/Mild Pain (1-3) Last Admin: 05/19/19 07:17 Dose: 650 mg Acetaminophen/Codeine Phosphate (Tylenol #3) 1 tab PO Q4H PRN PRN Reason: Moderate Pain (4-6) Last Admin: 06/21/19 01:10 Dose: 1 tab Acetaminophen/Codeine Phosphate (Tylenol #3) 2 tab PO Q4H PRN PRN Reason: Severe Pain (7-10) Albuterol/Ipratropium (Duoneb) 3 ml NEB Q6H PRN PRN Reason: SOB &/or Wheezing Amlodipine Besylate (Norvasc) 2.5 mg PO DAILY [facility] Last Admin: 06/24/19 09:14 Dose: 2.5 mg Azathioprine (Imuran) 150 mg PO QAM [facility] Last Admin: 06/24/19 09:14 Dose: 150 mg Benzonatate (Tessalon) 200 mg PO TID [facility] Last Admin: 06/24/19 09:14 Dose: 200 mg Cyclobenzaprine HCl (Flexeril) 10 mg PO TIDPRN PRN PRN Reason: Moderate Pain (4-6) Last Admin: 06/15/19 22:10 Dose: 10 mg Diphenhydramine HCl (Benadryl) 25 mg IM/IV Q3H PRN PRN Reason: Itching Diphenhydramine HCl (Benadryl) 25 mg PO Q3H PRN PRN Reason: Itching Docusate Sodium (Colace) 100 mg PO BID [facility] Last Admin: 06/24/19 09:14 Dose: 100 mg Enoxaparin Sodium (Lovenox) 40 mg SC 0900 [facility] Last Admin: 06/24/19 09:14 Dose: 40 mg Flecainide Acetate (Tambocor) 50 mg PO Q12HR [facility] Last Admin: 06/24/19 09:15 Dose: 50 mg Guaifenesin/Dextromethorphan (Mucinex Dm) 1 tab PO Q12HR [facility] Last Admin: 06/24/19 09:15 Dose: 1 tab Iron/Minerals/Multivitamins (Theragran M) 1 tab PO DAILY [facility] Last Admin: 06/24/19 09:15 Dose: 1 tab Magnesium Hydroxide (Milk Of Magnesium) 30 ml PO Q12H PRN PRN Reason: Constipation Last Admin: 05/20/19 20:53 Dose: 30 ml Melatonin (Melatonin) 3 mg PO HSPRN PRN PRN Reason: Insomnia Last Admin: 06/22/19 23:04 Dose: 3 mg Metoprolol Succinate (Toprol Xl) 25 mg PO DAILY [facility] Last Admin: 06/24/19 09:15 Dose: 25 mg Ondansetron HCl (Zofran) 4 mg IVP Q6H PRN PRN Reason: Nausea/Vomiting Last Admin: 06/20/19 18:25 Dose: 4 mg Oxymetazoline HCl (Afrin Nasal Mist) 0 ml NS Q12H PRN PRN Reason: NASAL CONGESTION Pantoprazole Sodium (Protonix) 40 mg PO DAILY [facility] Last Admin: 06/24/19 09:15 Dose: 40 mg Polyethylene Glycol (Miralax) 17 gm PO DAILYPRN PRN PRN Reason: Constipation Prednisone (Prednisone) 10 mg PO DAILY [facility] Last Admin: 06/24/19 09:15 Dose: 10 mg Promethazine HCl (Phenergan) 12.5 mg IM Q4H PRN PRN Reason: Nausea/Vomiting Sodium Chloride (Flush - Normal Saline) 10 ml IVF Q12HR [facility] Last Admin: 06/24/19 09:15 Dose: 10 ml Sodium Chloride (Flush - Normal Saline) 10 ml IVF PRN PRN PRN Reason: Saline Flush Zolpidem Tartrate (Ambien) 5 mg PO HSPRN PRN PRN Reason: Insomnia - Allergies Allergies/Adverse Reactions: Allergies Allergy/AdvReac Type Severity Reaction Status Date / Time No Known Allergies Allergy Unverified 06/19/15 15:23
--- NOTE | 2019-06-24 19:56 | PRG ---
DATE OF SERVICE: 06/24/2019 Andres Gauthier has a chest tube to water seal to have an air leak. Clinically, he is doing well. This is the best what he has looked since he was admitted to the hospital. Hopefully, if he is stable for few days, he can be discharged home. We will check a chest x-ray in the morning. Job ID: [id number]
[2019-06-25] MEDS: Zolpidem Tartrate 5 MG TAB PO PRN (00:03)
--- NOTE | 2019-06-25 08:04 | RAD ---
Portable frontal chest radiograph: 06/25/2019 COMPARISON: 06/20/2019 HISTORY: Evaluate pneumothorax on the right FINDINGS: Heart and mediastinal contours are stable. Stable right-sided chest tube. Severe bullous em physematous changes are noted in bilateral lung apices, limiting assessment for subtle pneumothorax. On this examination there is no definite/discrete pneumothorax appreciated on either si de. Nonspecific patchy opacity in the perihilar regions and both lung bases again noted. No significant interval change when compared to 06/20/2019. Impression: Stable portable frontal chest radiograph as detailed above.
--- NOTE | 2019-06-25 08:55 | PDOC.HOSPP ---
- Subjective Encounter Date: 06/25/19 Encounter Time: 10:30 Subjective: Patient without complaint. No SOB or chest pain today. - Objective Vital Signs & Weight: Vital Signs (12 hours) Temp 06/25/19 07:11 98.8 F 06/25/19 03:39 97.3 F L 06/24/19 23:24 98.6 F Weight Admit Weight 171 lb 11.841 oz Weight 175 lb Most Recent Monitor Data Heart Rate from ECG 80 NIBP 125/81 NIBP BP-Mean 95 Respiration from ECG 30 SpO2 100 I&O: 06/24/19 06/25/19 06/26/19 06:59 06:59 06:59 Intake Total 2109 2019 Output Total 1338 1275 Balance 772 745 Result Diagrams: 06/23/19 08:15 06/23/19 08:15 Hospitalist ROS - Review of Systems Respiratory: denies: cough, shortness of breath Cardiovascular: denies: chest pain, palpitations Gastrointestinal: denies: nausea, vomiting, abdominal pain Neurological: denies: weakness, numbness - Medication Medications: Active Medications Generic Name Dose Route Start Last Admin Trade Name Freq PRN Reason Stop Dose Admin Acetaminophen 650 mg 05/11/19 13:45 05/19/19 07:17 Tylenol PO 650 mg Q4H PRN Administration Headache/Fever/Mild Pain (1-3) Acetaminophen/Codeine Phosphate 1 tab 06/20/19 18:08 06/21/19 01:10 Tylenol #3 PO 1 tab Q4H PRN Administration Moderate Pain (4-6) Amlodipine Besylate 2.5 mg 06/10/19 09:00 06/24/19 09:14 Norvasc PO 2.5 mg DAILY EVELYN Administration Azathioprine 150 mg 05/13/19 09:00 06/24/19 09:14 Imuran PO 150 mg QAM EVELYN Administration Benzonatate 200 mg 06/20/19 21:00 06/24/19 20:42 Tessalon PO 200 mg TID EVELYN Administration Cyclobenzaprine HCl 10 mg 05/12/19 13:17 06/15/19 22:10 Flexeril PO 10 mg TIDPRN PRN Administration Moderate Pain (4-6) Docusate Sodium 100 mg 06/10/19 09:00 06/24/19 20:42 Colace PO 100 mg BID EVELYN Administration Enoxaparin Sodium 40 mg 05/12/19 09:00 06/24/19 09:14 Lovenox SC 40 mg 0900 EVELYN Administration Flecainide Acetate 50 mg 05/27/19 21:00 06/24/19 20:42 Tambocor PO 50 mg Q12HR EVELYN Administration Guaifenesin/Dextromethorphan 1 tab 06/21/19 09:00 06/24/19 20:42 Mucinex Dm PO 1 tab Q12HR EVELYN Administration Iron/Minerals/Multivitamins 1 tab 06/23/19 09:00 06/24/19 09:15 Theragran M PO 1 tab DAILY EVELYN Administration Magnesium Hydroxide 30 ml 05/19/19 09:31 05/20/19 20:53 Milk Of Magnesium PO 30 ml Q12H PRN Administration Constipation Melatonin 3 mg 06/22/19 10:45 06/22/19 23:04 Melatonin PO 3 mg HSPRN PRN Administration Insomnia Metoprolol Succinate 25 mg 05/26/19 09:00 06/24/19 09:15 Toprol Xl PO 25 mg DAILY EVELYN Administration Ondansetron HCl 4 mg 05/30/19 08:58 06/20/19 18:25 Zofran IVP 4 mg Q6H PRN Administration Nausea/Vomiting Pantoprazole Sodium 40 mg 05/13/19 09:00 06/24/19 09:15 Protonix PO 40 mg DAILY EVELYN Administration Prednisone 10 mg 05/22/19 09:00 06/24/19 09:15 Prednisone PO 10 mg DAILY EVELYN Administration Sodium Chloride 10 ml 05/13/19 21:00 06/24/19 20:43 Flush - Normal Saline IVF 10 ml Q12HR EVELYN Administration Zolpidem Tartrate 5 mg 05/30/19 08:58 06/25/19 00:03 Ambien PO 5 mg HSPRN PRN Administration Insomnia - Exam General Appearance: NAD Eye: anicteric sclera ENT: moist mucosa Heart: RRR, no murmur, no gallops, no rubs Respiratory: CTAB, no wheezes, no rales, no ronchi Respiratory - other findings: left chest tube in place, not to suction just water seal currently Gastrointestinal: soft, non-tender, non-distended, normal bowel sounds Psychiatric: normal affect, normal behavior, A&O x 3 Hosp A/P (1) Spontaneous pneumothorax Code(s): J93.83 - OTHER PNEUMOTHORAX Status: Acute (2) Sarcoidosis Code(s): D86.9 - SARCOIDOSIS, UNSPECIFIED Status: Chronic (3) Acute respiratory failure with hypoxemia Code(s): J96.01 - ACUTE RESPIRATORY FAILURE WITH HYPOXIA Status: Acute (4) Paroxysmal SVT (supraventricular tachycardia) Code(s): I47.1 - SUPRAVENTRICULAR TACHYCARDIA Status: Acute (5) Diastolic dysfunction Code(s): I51.89 - OTHER ILL-DEFINED HEART DISEASES Status: Acute (6) HTN (hypertension) Code(s): I10 - ESSENTIAL (PRIMARY) HYPERTENSION Status: Chronic Qualifiers: Hypertension type: essential hypertension Qualified Code(s): I10 - Essential (primary) hypertension - Plan PT/OT, respiratory therapy home when ok with pulmonology and CT surg
[2019-06-25] MEDS: Enoxaparin Sodium 40 MG/0.4 ML SYRINGE SC SCH (09:12)
[2019-06-25] MEDS: azaTHIOprine 50 MG TAB PO SCH (09:13)
[2019-06-25] MEDS: Benzonatate 100 MG CAP PO SCH ×3 (09:13→21:04)
[2019-06-25] MEDS: Amlodipine 5 MG TAB PO SCH (09:13)
[2019-06-25] MEDS: Flecainide 50 MG TAB PO SCH ×2 (09:13→21:04)
[2019-06-25] MEDS: predniSONE 20 MG TAB PO SCH (09:14)
[2019-06-25] MEDS: Multivitamin W/ Minerals 1 TAB PO SCH (09:14)
[2019-06-25] MEDS: guaiFENesin/DM ER PO SCH ×2 (09:14→21:04)
[2019-06-25] MEDS: Docusate 100 MG CAP PO SCH ×2 (09:14→21:04)
[2019-06-25] MEDS: Melatonin 3 MG TAB PO PRN (21:45)
--- NOTE | 2019-06-25 23:09 | PRG ---
DATE OF SERVICE: 06/25/2019 Andres Gauthier complaints. We actually decided to discontinue telemetry monitoring since he has had no more supraventricular rhythm abnormalities. This will allow him to ambulate more until we are ready to put a Heimlich valve on his chest tube and send him home. I am optimistic that we are getting close. He has no new exam findings. We will continue . Job ID: [id number]
[2019-06-26] MEDS: Amlodipine 5 MG TAB PO SCH (10:26)
[2019-06-26] MEDS: azaTHIOprine 50 MG TAB PO SCH (10:27)
[2019-06-26] MEDS: Benzonatate 100 MG CAP PO SCH ×3 (10:28→20:58)
[2019-06-26] MEDS: predniSONE 20 MG TAB PO SCH (10:28)
[2019-06-26] MEDS: Flecainide 50 MG TAB PO SCH ×2 (10:28→20:59)
[2019-06-26] MEDS: guaiFENesin/DM ER PO SCH ×2 (10:28→20:59)
[2019-06-26] MEDS: Multivitamin W/ Minerals 1 TAB PO SCH (10:28)
[2019-06-26] MEDS: Docusate 100 MG CAP PO SCH ×2 (10:30→20:59)
[2019-06-26] MEDS: Enoxaparin Sodium 40 MG/0.4 ML SYRINGE SC SCH (10:30)
--- NOTE | 2019-06-26 11:29 | PDOC.HOSPP ---
- Subjective Encounter Date: 06/26/19 Encounter Time: 11:30 Subjective: Dr. Galloway clamped tube this AM. Patient feeling well. - Objective Vital Signs & Weight: Vital Signs (12 hours) Temp Pulse Pulse Pulse BP BP BP 06/26/19 11:25 97.4 F L 06/26/19 10:26 91 125/72 06/26/19 09:31 84 90 125/72 126/72 06/26/19 08:00 06/26/19 07:39 98.6 F Pulse Ox Pulse Ox Pulse Ox Pulse Ox 06/26/19 11:25 06/26/19 10:26 06/26/19 09:31 92 L 86 L 94 L 06/26/19 08:00 100 06/26/19 07:39 Weight Admit Weight 171 lb 11.841 oz Weight 175 lb Most Recent Monitor Data Heart Rate from ECG 82 NIBP 126/72 NIBP BP-Mean 90 Respiration from ECG 23 SpO2 100 I&O: 06/25/19 06/26/19 06/27/19 06:59 06:59 06:59 Intake Total 2020 1380 Output Total 1275 955 Balance 745 425 Result Diagrams: 06/23/19 08:15 06/23/19 08:15 Hospitalist ROS - Review of Systems Constitutional: denies: fever, chills Respiratory: denies: cough, dry, shortness of breath Cardiovascular: denies: chest pain, palpitations Gastrointestinal: denies: nausea, vomiting, abdominal pain, diarrhea, constipation - Medication Medications: Active Medications Generic Name Dose Route Start Last Admin Trade Name Freq PRN Reason Stop Dose Admin Acetaminophen 650 mg 05/11/19 13:45 05/19/19 07:17 Tylenol PO 650 mg Q4H PRN Administration Headache/Fever/Mild Pain (1-3) Acetaminophen/Codeine Phosphate 1 tab 06/20/19 18:08 06/21/19 01:10 Tylenol #3 PO 1 tab Q4H PRN Administration Moderate Pain (4-6) Amlodipine Besylate 2.5 mg 06/10/19 09:00 06/26/19 10:26 Norvasc PO 2.5 mg DAILY EVELYN Administration Azathioprine 150 mg 05/13/19 09:00 06/26/19 10:27 Imuran PO 150 mg QAM EVELYN Administration Benzonatate 200 mg 06/20/19 21:00 06/26/19 10:28 Tessalon PO 200 mg TID EVELYN Administration Cyclobenzaprine HCl 10 mg 05/12/19 13:17 06/15/19 22:10 Flexeril PO 10 mg TIDPRN PRN Administration Moderate Pain (4-6) Docusate Sodium 100 mg 06/10/19 09:00 06/26/19 10:30 Colace PO Not Given BID EVELYN Enoxaparin Sodium 40 mg 05/12/19 09:00 06/26/19 10:30 Lovenox SC 40 mg 0900 EVELYN Administration Flecainide Acetate 50 mg 05/27/19 21:00 06/26/19 10:28 Tambocor PO 50 mg Q12HR EVELYN Administration Guaifenesin/Dextromethorphan 1 tab 06/21/19 09:00 06/26/19 10:28 Mucinex Dm PO 1 tab Q12HR EVELYN Administration Iron/Minerals/Multivitamins 1 tab 06/23/19 09:00 06/26/19 10:28 Theragran M PO 1 tab DAILY VEELYN Administration Magnesium Hydroxide 30 ml 05/19/19 09:31 05/20/19 20:53 Milk Of Magnesium PO 30 ml Q12H PRN Administration Constipation Melatonin 3 mg 06/22/19 10:45 06/25/19 21:45 Melatonin PO 3 mg HSPRN PRN Administration Insomnia Metoprolol Succinate 25 mg 05/26/19 09:00 06/26/19 10:27 Toprol Xl PO 25 mg DAILY EVELYN Administration Ondansetron HCl 4 mg 05/30/19 08:58 06/20/19 18:25 Zofran IVP 4 mg Q6H PRN Administration Nausea/Vomiting Pantoprazole Sodium 40 mg 05/13/19 09:00 06/26/19 10:28 Protonix PO 40 mg DAILY EVELYN Administration Prednisone 10 mg 05/22/19 09:00 06/26/19 10:28 Prednisone PO 10 mg DAILY EVELYN Administration Sodium Chloride 10 ml 05/13/19 21:00 06/26/19 10:31 Flush - Normal Saline IVF 10 ml Q12HR EVELYN Administration Zolpidem Tartrate 5 mg 05/30/19 08:58 06/25/19 00:03 Ambien PO 5 mg HSPRN PRN Administration Insomnia - Exam General Appearance: NAD Heart: RRR, no murmur, no gallops Respiratory: CTAB, no wheezes, no rales, no ronchi Respiratory - other findings: right chest tube in place with valve Gastrointestinal: soft, non-tender, non-distended, normal bowel sounds Psychiatric: normal affect, normal behavior, A&O x 3 Hosp A/P (1) Spontaneous pneumothorax Code(s): J93.83 - OTHER PNEUMOTHORAX Status: Acute (2) Sarcoidosis Code(s): D86.9 - SARCOIDOSIS, UNSPECIFIED Status: Chronic (3) Acute respiratory failure with hypoxemia Code(s): J96.01 - ACUTE RESPIRATORY FAILURE WITH HYPOXIA Status: Acute (4) Paroxysmal SVT (supraventricular tachycardia) Code(s): I47.1 - SUPRAVENTRICULAR TACHYCARDIA Status: Acute (5) Diastolic dysfunction Code(s): I51.89 - OTHER ILL-DEFINED HEART DISEASES Status: Acute (6) HTN (hypertension) Code(s): I10 - ESSENTIAL (PRIMARY) HYPERTENSION Status: Chronic Qualifiers: Hypertension type: essential hypertension Qualified Code(s): I10 - Essential (primary) hypertension - Plan out of bed/ambulate plan is to put a valve on the chest tube and send home when Dr. Galloway determines he is ready
[2019-06-26] MEDS ORDERED: Budesonide 0.25 MG/2 ML NEB ONE (20:31)
[2019-06-26] MEDS: Zolpidem Tartrate 5 MG TAB PO PRN (20:59)
--- NOTE | 2019-06-26 21:44 | PRG ---
DATE OF SERVICE: 06/26/2019 Andres Gauthier is doing well. A Heimlich valve attached today. He has been walking more. Discussed going home tomorrow, but he thinks he needs to wait until Monday to get a little stronger and get instructions on bath and change his dressing. Overall, he appears to be stabilizing. He is in no distress and he looks the best he has looked since he has been in the hospital. Hopefully, we will be able to slowly remove his chest tube and not have a recurrence of this problem. Job ID: [id number]
[2019-06-27] MEDS: Benzonatate 100 MG CAP PO SCH ×3 (09:41→20:30)
[2019-06-27] MEDS: azaTHIOprine 50 MG TAB PO SCH (09:41)
[2019-06-27] MEDS: Flecainide 50 MG TAB PO SCH ×2 (09:41→20:30)
[2019-06-27] MEDS: Multivitamin W/ Minerals 1 TAB PO SCH (09:42)
[2019-06-27] MEDS: Amlodipine 5 MG TAB PO SCH (09:43)
[2019-06-27] MEDS: guaiFENesin/DM ER PO SCH ×2 (09:43→20:30)
[2019-06-27] MEDS: predniSONE 20 MG TAB PO SCH (09:44)
[2019-06-27] MEDS: Enoxaparin Sodium 40 MG/0.4 ML SYRINGE SC SCH (09:45)
[2019-06-27] MEDS: Docusate 100 MG CAP PO SCH ×2 (09:45→20:30)
[2019-06-27 09:46] VITALS: BP 123/82
--- NOTE | 2019-06-27 14:13 | PDOC.HOSPP ---
- Subjective Encounter Date: 06/27/19 Encounter Time: 14:00 Subjective: Patient feeling well. Anticipate d/c tomorrow. - Objective Vital Signs & Weight: Vital Signs (12 hours) Temp Pulse Pulse Resp BP BP BP 06/27/19 11:31 98.6 F 06/27/19 10:16 94 19 06/27/19 09:43 91 123/82 06/27/19 09:42 102 H 123/82 121/70 06/27/19 09:00 85 17 06/27/19 08:12 98.7 F 06/27/19 08:00 94 18 Pulse Ox 06/27/19 11:31 06/27/19 10:16 92 L 06/27/19 09:43 06/27/19 09:42 06/27/19 09:00 93 L 06/27/19 08:12 06/27/19 08:00 93 L Weight Admit Weight 171 lb 11.841 oz Weight 175 lb Most Recent Monitor Data Heart Rate from ECG 82 NIBP 121/70 NIBP BP-Mean 87 Respiration from ECG 23 SpO2 100 I&O: 06/26/19 06/27/19 06/28/19 06:59 06:59 06:59 Intake Total 1380 1620 Output Total 955 750 Balance 425 870 Result Diagrams: 06/23/19 08:15 06/23/19 08:15 Hospitalist ROS - Review of Systems Respiratory: denies: cough, shortness of breath Cardiovascular: denies: chest pain, palpitations, orthopnea Gastrointestinal: denies: nausea, vomiting, abdominal pain Neurological: denies: weakness - Medication Medications: Active Medications Generic Name Dose Route Start Last Admin Trade Name Freq PRN Reason Stop Dose Admin Acetaminophen 650 mg 05/11/19 13:45 05/19/19 07:17 Tylenol PO 650 mg Q4H PRN Administration Headache/Fever/Mild Pain (1-3) Acetaminophen/Codeine Phosphate 1 tab 06/20/19 18:08 06/21/19 01:10 Tylenol #3 PO 1 tab Q4H PRN Administration Moderate Pain (4-6) Amlodipine Besylate 2.5 mg 06/10/19 09:00 06/27/19 09:43 Norvasc PO 2.5 mg DAILY EVELYN Administration Azathioprine 150 mg 05/13/19 09:00 06/27/19 09:41 Imuran PO 150 mg QAM EVELYN Administration Benzonatate 200 mg 06/20/19 21:00 06/27/19 09:41 Tessalon PO 200 mg TID EVELYN Administration Cyclobenzaprine HCl 10 mg 05/12/19 13:17 06/15/19 22:10 Flexeril PO 10 mg TIDPRN PRN Administration Moderate Pain (4-6) Docusate Sodium 100 mg 06/10/19 09:00 06/27/19 09:45 Colace PO Not Given BID [facility] Enoxaparin Sodium 40 mg 05/12/19 09:00 06/27/19 09:45 Lovenox SC 40 mg 09 EVELYN Administration Flecainide Acetate 50 mg 05/27/19 21:00 06/27/19 09:41 Tambocor PO 50 mg Q12HR EVELYN Administration Guaifenesin/Dextromethorphan 1 tab 06/21/19 09:00 06/27/19 09:43 Mucinex Dm PO 1 tab Q12HR EVELYN Administration Iron/Minerals/Multivitamins 1 tab 06/23/19 09:00 06/27/19 09:42 Theragran M PO 1 tab DAILY EVELYN Administration Magnesium Hydroxide 30 ml 05/19/19 09:31 05/20/19 20:53 Milk Of Magnesium PO 30 ml Q12H PRN Administration Constipation Melatonin 3 mg 06/22/19 10:45 06/25/19 21:45 Melatonin PO 3 mg HSPRN PRN Administration Insomnia Metoprolol Succinate 25 mg 05/26/19 09:00 06/27/19 09:42 Toprol Xl PO 25 mg DAILY EVELYN Administration Ondansetron HCl 4 mg 05/30/19 08:58 06/20/19 18:25 Zofran IVP 4 mg Q6H PRN Administration Nausea/Vomiting Pantoprazole Sodium 40 mg 05/13/19 09:00 06/27/19 09:43 Protonix PO 40 mg DAILY EVELYN Administration Prednisone 10 mg 05/22/19 09:00 06/27/19 09:44 Prednisone PO 10 mg DAILY EVELYN Administration Sodium Chloride 10 ml 05/13/19 21:00 06/27/19 09:45 Flush - Normal Saline IVF 10 ml Q12HR EVELYN Administration Zolpidem Tartrate 5 mg 05/30/19 08:58 06/26/19 20:59 Ambien PO 5 mg HSPRN PRN Administration Insomnia - Exam General Appearance: NAD Eye: anicteric sclera ENT: moist mucosa Heart: RRR, no murmur, no gallops, no rubs Respiratory: CTAB, no wheezes, no rales, no ronchi Respiratory - other findings: chest tube in place Gastrointestinal: soft, non-tender, non-distended, normal bowel sounds Psychiatric: normal affect, normal behavior, A&O x 3 Hosp A/P (1) Spontaneous pneumothorax Code(s): J93.83 - OTHER PNEUMOTHORAX Status: Acute (2) Sarcoidosis Code(s): D86.9 - SARCOIDOSIS, UNSPECIFIED Status: Chronic (3) Acute respiratory failure with hypoxemia Code(s): J96.01 - ACUTE RESPIRATORY FAILURE WITH HYPOXIA Status: Acute (4) Paroxysmal SVT (supraventricular tachycardia) Code(s): I47.1 - SUPRAVENTRICULAR TACHYCARDIA Status: Acute (5) Diastolic dysfunction Code(s): I51.89 - OTHER ILL-DEFINED HEART DISEASES Status: Acute (6) HTN (hypertension) Code(s): I10 - ESSENTIAL (PRIMARY) HYPERTENSION Status: Chronic Qualifiers: Hypertension type: essential hypertension Qualified Code(s): I10 - Essential (primary) hypertension - Plan likely home tomorrow with valve on chest tube
--- NOTE | 2019-06-27 22:29 | PRG ---
DATE OF SERVICE: 06/27/2019 Andres Gauthier is doing well. He is ambulating with a Heimlich valve. The nurses are educating him on care of his chest tube. Vital signs remained stable. He has equal breath sounds. Hopefully, he will be a candidate for discharge tomorrow. Job ID: [id number]
[2019-06-27] MEDS: Cyclobenzaprine 10 MG TAB PO PRN (23:52)
[2019-06-28] MEDS: predniSONE 20 MG TAB PO SCH (09:25)
[2019-06-28] MEDS: azaTHIOprine 50 MG TAB PO SCH (09:25)
[2019-06-28] MEDS: Multivitamin W/ Minerals 1 TAB PO SCH (09:26)
[2019-06-28] MEDS: Benzonatate 100 MG CAP PO SCH ×2 (09:26→14:29)
[2019-06-28] MEDS: Flecainide 50 MG TAB PO SCH (09:26)
[2019-06-28] MEDS: Amlodipine 5 MG TAB PO SCH (09:26)
[2019-06-28] MEDS: Enoxaparin Sodium 40 MG/0.4 ML SYRINGE SC SCH (09:27)
[2019-06-28] MEDS: Docusate 100 MG CAP PO SCH (09:27)
[2019-06-28] MEDS: guaiFENesin/DM ER PO SCH (09:27)
[2019-06-28 10:31] VITALS: TEMP 99
== END 2019-06-28 14:50 | disposition home or self-care (01) | DRG 208 ==
LOC: ERS 11:44 → CCU 15:27 → T4-A 05-14 09:29 → CCU 05-16 10:40 → IMCU/EMU 05-21 15:13
PROVIDERS: ADMIT Internal Medicine; ATTEND Internal Medicine
PROC: 0BH17EZ Insertion of Endotracheal Airway into Trachea, Via Natural or Artificial Opening (ICD-10-PCS; principal; 2019-05-11)
PROC: 5A1935Z Respiratory Ventilation, Less than 24 Consecutive Hours (ICD-10-PCS; 2019-05-11)
PROC: 0W9930Z Drainage of Right Pleural Cavity with Drainage Device, Percutaneous Approach (ICD-10-PCS; 2019-05-16)
PROC: 0W9900Z Drainage of Right Pleural Cavity with Drainage Device, Open Approach (ICD-10-PCS; 2019-05-17)
PROC: 0W9930Z Drainage of Right Pleural Cavity with Drainage Device, Percutaneous Approach (ICD-10-PCS; 2019-06-16)
PROC: 3E0L3GC Introduction of Other Therapeutic Substance into Pleural Cavity, Percutaneous Approach (ICD-10-PCS; 2019-06-19)
DX: J96.01 Acute respiratory failure with hypoxia (principal); I47.1 Supraventricular tachycardia; I50.32 Chronic diastolic (congestive) heart failure; E87.3 Alkalosis; J93.12 Secondary spontaneous pneumothorax; N17.9 Acute kidney failure, unspecified; D86.0 Sarcoidosis of lung; J96.02 Acute respiratory failure with hypercapnia; F41.9 Anxiety disorder, unspecified; F51.01 Primary insomnia; R63.0 Anorexia; F32.9 Major depressive disorder, single episode, unspecified; I27.20 Pulmonary hypertension, unspecified; I11.0 Hypertensive heart disease with heart failure; Z90.49 Acquired absence of other specified parts of digestive tract
CPT/HCPCS: 31500; 32551; 36415; 51702; 71045; 80048; 80053; 80069; 82805; 83735; 83880; 84484; 85007; 85025; 85027; 93005; 93010; 93306; 93970; 94002; 94003; 94640; 94660; 96374; 96375; J0131; J0282; J1650; J1885; J1956; J2001; J2250; J2270; J2405; J2704; J2920; J2930; J3010; J3490; J7070; J7500; J7512; J7620; J7626; S0028

== ENCOUNTER 2019-07-22 15:44 | Outpatient (CLI) | payer OTHER, BC ==
--- NOTE | 2019-07-22 16:09 | RAD ---
Exam: CHEST TWO VIEWS: HISTORY: Pneumothorax Comparison: 04/25/2019 FINDINGS: Stable right-sided large bore chest tube. Stable bullous/emphysematous changes of the lung parenchym a along with pulmonary fibrosis. Stable configuration of the cardiac silhouette. No pneumothorax is appreciated on this exam. No acute osseous abnormalities. IMPRESSION: No significant interval change. Stable right-sided chest tube. No obvious pneumothorax. Stable emphys ematous change as well as pulmonary fibrosis. Transcribed Date/Time: 07/22/2019 6:52 PM
== END 2019-07-22 15:45 | disposition home or self-care (01) ==
LOC: RAD 15:44
PROVIDERS: ATTEND Internal Medicine Critical Care Medicine
DX: J93.9 Pneumothorax, unspecified (principal); J43.9 Emphysema, unspecified; J84.10 Pulmonary fibrosis, unspecified
CPT/HCPCS: 71046

== ENCOUNTER 2019-07-31 10:43 | Outpatient (CLI) | payer OTHER, BC ==
--- NOTE | 2019-07-31 11:45 | RAD ---
CHEST 2 VIEWS: Date: 07/31/2019 HISTORY: Dyspnea. COMPARISON: 07/22/2019. FINDINGS: Very severe bilateral hyperinflation and chronic lung changes, as well as severe interstitial changes bilaterally, and bilateral bullous emphysema changes. The previously noted right-sided chest tube medley s been removed. There is no significant pneumothorax. IMPRESSION: Extensive hyperinflation, bullous change, and chronic interstitial lung disease bilaterally. No evide nce for residual pneumothorax following removal of the right chest tube. POS: OFF
== END 2019-07-31 10:44 | disposition home or self-care (01) ==
LOC: RAD 10:43
PROVIDERS: ATTEND Internal Medicine Critical Care Medicine
DX: R06.00 Dyspnea, unspecified (principal); J98.4 Other disorders of lung
CPT/HCPCS: 71046

== ENCOUNTER 2019-09-03 10:55 | Outpatient (CLI) | payer OTHER, BC ==
--- NOTE | 2019-09-03 11:35 | CT ---
EXAM: CTA of the chest HISTORY: Shortness of breath COMPARISON: None TECHNIQUE: Multiple contiguous axial images were obtained a CTA of the chest with contrast per pulmon bertha embolism protocol. 3-D oblique MIP reformats and direct coronal reformats were performed. FINDINGS: HEART: Normal in size without focal cardiac abnormality. PULMONARY ARTERIES: Normal in caliber without filling defects to suggest pulmonary emboli. MEDIASTINUM: There are calcified bilateral hilar and mediastinal lymph nodes. There are enlarged subc arinal lymph nodes. LUNGS: Emphysematous changes are seen in the lungs. No suspicious pulmonary nodule. No focal infiltra te. Bronchiectasis is seen in the right middle lobe and lingula. PLEURAL SPACE: No pleural effusion or pneumothorax. Calcified pleural plaques are seen in the right a pex. CHEST WALL SOFT TISSUES: Unremarkable VISUALIZED OSSEOUS STRUCTURES: Degenerative changes are seen in the spine. VISUALIZED SUBDIAPHRAGMATIC STRUCTURES: Unremarkable IMPRESSION: 1. No evidence of pulmonary thromboembolism 2. Severe emphysema
[2019-09-03] MEDS ORDERED: Iopamidol 370 76% 100 ML VIAL ONE (13:45)
== END 2019-09-03 10:56 | disposition home or self-care (01) ==
LOC: CT 10:55
PROVIDERS: ATTEND Internal Medicine Critical Care Medicine
DX: R55 Syncope and collapse (principal); J43.9 Emphysema, unspecified
CPT/HCPCS: 71275; 82565; Q9967

== ENCOUNTER 2019-11-18 10:25 | Outpatient (CLI) | payer OTHER, BC ==
--- NOTE | 2019-11-18 10:42 | RAD ---
EXAM: Two views chest PROVIDED CLINICAL HISTORY: Dyspnea COMPARISON: 03/27/2018 and 07/31/2019 FINDINGS: Cardiac silhouette is at the upper limits of normal in size. Pulmonary vasculature is within normal l imits. Bullous emphysematous changes are again seen in the upper lobes bilaterally with scattered areas of scarring and chronic interstitial fibrotic lung changes again noted greatest in the right marietta ng base. Mild blunting of the right lateral costophrenic angle is present, but this is likely due to chronic pleural and parenchymal scarring. Chest is overall stable when compared to the prior exams . No acute osseous abnormality is appreciated. IMPRESSION: Overall stable chronic lung changes without evidence of an acute cardiopulmonary process..
== END 2019-11-18 10:26 | disposition home or self-care (01) ==
LOC: RAD 10:25
PROVIDERS: ATTEND Internal Medicine Critical Care Medicine
DX: R06.00 Dyspnea, unspecified (principal); J98.4 Other disorders of lung
CPT/HCPCS: 71046

== ENCOUNTER 2019-11-18 19:52 | Inpatient (IN) | payer OTHER, BC ==
[2019-11-18] MEDS ORDERED: Norepinephrine 8 MG/0.9% NS 250 ML ONE (20:10)
[2019-11-18 20:18] LABS: #Lymphocytes 2.4 thou/uL (1.20-3.40); #Monocytes 0.7 thou/uL (0.11-0.59); #Neutrophils 8.3 thou/uL (1.40-6.50); %Basophils 0.1 % (0.0-1.0); %Eosinophils 0.2 % (0.0-10.0); %Lymphocytes 21.3 % (21.0-51.0); %Monocytes 5.8 % (0.0-10.0); %Neutrophils 72.6 % (42.0-75.0); Hemoglobin 11.6 g/dL (14.0-18.0); Mean Corpuscular Hemoglobin 31.1 pg (27.0-31.0); Mean Platelet Volume 9.1 fL (7.4-10.4); Platelet Count 126 thou/uL (130-400); RBC Distribution Width 15.6 % (11.5-14.5); Red Blood Cell (RBC) Count 3.74 mill/uL (4.70-6.10); White Blood Cell (WBC) Count 11.4 thou/uL (4.8-10.8)
[2019-11-18] MEDS ORDERED: EPINEPHrine 1 MG/ML AMP ONE (20:25)
[2019-11-18] MEDS ORDERED: Sodium Bicarb 50 MEQ/50 ML Abboject 8.4% SYRINGE ONE (20:36)
[2019-11-18 20:41] LABS: ALT (SGPT) 24 U/L (8-55); AST (SGOT) 40 U/L (5-34); Albumin 2.9 g/dL (3.5-5.0); Alkaline Phosphatase 91 U/L (40-110); Anion Gap 22 mmol/L (10-20); BUN (Urea Nitrogen) 23 mg/dL (8.4-25.7); Bilirubin, Total 0.8 mg/dL (0.2-1.2); Calc. Creatinine Clearance 0 mL/min (70-130); Calcium 7.6 mg/dL (7.8-10.44); Carbon Dioxide 17 mmol/L (22-29); Chloride 111 mmol/L (98-107); Estimated GFR-MDRD 65; Globulin 2.1 g/dL (2.4-3.5); Glucose 216 mg/dL (70-105); Hypochromia SLIGHT = 6-15 cells (100X) (0-5/hpf); MDiff Complete? YES; Macrocytosis MODERATE=16-30 cells (100X) (0-5/hpf); Platelet Morphology Comment Appears Decreased; Polychromasia SLIGHT = 2-3 cells (100X) (0-2/hpf); Potassium 4.6 mmol/L (3.5-5.1); Schistocytes SLIGHT = 2-5 cells (100X) (0-1/hpf); Sodium 145 mmol/L (136-145); Tear Drops SLIGHT = 2-5 cells (100X) (0-1/hpf)
--- NOTE | 2019-11-18 20:46 | RAD ---
CHEST ONE VIEW: Indication: Unresponsive with intubation. Comparison: 11-18-2019 at 10:33 a.m. FINDINGS: Patient has been intervally intubated. The ET tube tip is seen 9 mm above the level of the marcello. Th ere is persistent cardiomegaly. There is a new gastric catheter in place. Tip projects in the region of the fundus of the stomach. Interstitial opacities and emphysematous change is similar appearing. N o pneumothorax is evident. IMPRESSION: 1. Interval intubation. 2. Persistent cardiomegaly and chronic lung changes. POS: BH
[2019-11-18 20:54] LABS: Actual Bicarbonate (HCO3a) 21.7 mEq/L (22-28); Analyzer IN Cardio ER; Base Excess (BEa) -12.5 mEq/L (-2.0 to +3.0); Calcium, Ionized 1.02 mmol/L (1.12-1.30); Carboxyhemoglobin (COHb) 0.3 gm% (0.0-3.0); Hemoglobin (Hb) 13.3 g/dL (14.0-18.0); O2 Tension (PaO2), arterial 179.7 mmHg (80.0-100.0); Potassium - ABG Lab 3.76 mmol/L (3.70-5.30)
[2019-11-18 20:54] LABS: CKMB 1.1 ng/mL (0-6.6)
[2019-11-18 20:55] LABS: CO2 Tension 103.4 mmHg (35.0-45.0); pH, Arterial 6.94 (7.35-7.45)
[2019-11-18 20:56] LABS: Puncture Site FEMORAL
[2019-11-18] MEDS ORDERED: Vecuronium 10 MG VIAL ONE (20:59)
[2019-11-18 21:01] LABS: Actual Bicarbonate (HCO3a) 23.8 mEq/L (22-28); Analyzer IN Cardio ER; Base Excess (BEa) -3.6 mEq/L (-2.0 to +3.0); CO2 Tension 52.7 mmHg (35.0-45.0); Calcium, Ionized 0.93 mmol/L (1.12-1.30); Carboxyhemoglobin (COHb) 0.4 gm% (0.0-3.0); Hemoglobin (Hb) 13.3 g/dL (14.0-18.0); O2 Tension (PaO2), arterial 454.6 mmHg (80.0-100.0); Potassium - ABG Lab 3.58 mmol/L (3.70-5.30); pH, Arterial 7.27 (7.35-7.45)
[2019-11-18 21:06] LABS: ALV-art Gradient 192.525 (0-20); Puncture Site ALINE
[2019-11-18 21:31] LABS: Bilirubin Negative (Negative); Blood, Urine 2+ (Negative); Clarity Turbid (Clear); Glucose, Urine (Dipstick) 200 mg/dL (Negative); Leukocyte Negative Leu/uL (Negative); Nitrite Negative (Negative); Protein, Urine (Dipstick) 600 mg/dL (Neg-Trace); RBC/HPF 21-50 HPF (0-3); Squamous Epithelial 0-3 HPF (0-3); Urobilinogen Normal mg/dL (Less than 2); WBC/HPF 21-50 HPF (0-3)
[2019-11-18 21:50] LABS: Bacteria/HPF Rare-Few HPF (None Seen); Sperm/HPF 3+ HPF (None Seen)
[2019-11-18] MEDS ORDERED: Propofol BOLUS 1,000 MG/100 ML VIAL IV PRN (21:59)
[2019-11-18] MEDS ORDERED: Lorazepam 2 MG/ML VIAL SLOW IVP PRN (21:59)
[2019-11-18] MEDS ORDERED: DISCONTINUE PREVIOUS NARCOTIC PAIN MEDICATIONS AND BENZODIAZEPINES FS SCH (21:59)
[2019-11-18] MEDS ORDERED: Fentanyl BOLUS 250 ML IVPB PRN (21:59)
[2019-11-18] MEDS ORDERED: fentaNYL Citrate/PF 2,000 MCG in Sodium Chloride 0.9% 60 ML IV SCH (21:59)
[2019-11-18] MEDS ORDERED: Morphine 2 MG/ML SYRINGE SLOW IVP PRN (21:59)
[2019-11-18] MEDS ORDERED: Enoxaparin Sodium 40 MG/0.4 ML SYRINGE SC SCH (22:15)
[2019-11-18] MEDS: Sodium Bicarbonate 150 MEQ in Dextrose 5% in Water 1,000 ML IV SCH (22:25)
[2019-11-18 22:40] LABS: Actual Bicarbonate (HCO3a) 25.6 mEq/L (22-28); Base Excess (BEa) 0.8 mEq/L (-2.0 to +3.0); CO2 Tension 41.7 mmHg (35.0-45.0); Calcium, Ionized 0.93 mmol/L (1.12-1.30); Carboxyhemoglobin (COHb) 1.3 gm% (0.0-3.0); Hemoglobin (Hb) 14.1 g/dL (14.0-18.0); Potassium - ABG Lab 3.27 mmol/L (3.70-5.30); pH, Arterial 7.41 (7.35-7.45)
[2019-11-18] MEDS: methylPREDNISolone Sod Succ 40 MG VIAL IVP SCH (22:41)
[2019-11-18 22:43] LABS: ALV-art Gradient 191.375 (0-20); Puncture Site ART LINE
[2019-11-18] MEDS: Propofol 1,000 MG/100 ML VIAL IV PRN (22:48)
[2019-11-18] MEDS: Piperacillin/Tazobactam 3.375 GM in Sodium Chloride 0.9% 100 ML IVPB SCH (22:56)
[2019-11-18] MEDS: Famotidine/PF 20 mg/2ml Vial SLOW IVP SCH (22:57)
[2019-11-18] MEDS: EPINEPHrine 4 MG in Dextrose 5% in Water 250 ML IV SCH (22:57)
[2019-11-18] MEDS: Vecuronium 10 MG VIAL IV PRN (23:16)
[2019-11-18 23:33] LABS: Lactic Acid 8.9 mmol/L (0.5-2.2)
[2019-11-18 23:45] LABS: Troponin I 8.364 ng/mL (< 0.028)
[2019-11-19 01:34] VITALS: BMI 26.8
[2019-11-19] MEDS: Vecuronium 10 MG VIAL IV PRN ×4 (03:44→18:09)
[2019-11-19 04:41] LABS: Anion Gap 22 mmol/L (10-20); BUN (Urea Nitrogen) 30 mg/dL (8.4-25.7); Calc. Creatinine Clearance 60 mL/min (70-130); Calcium 7.6 mg/dL (7.8-10.44); Carbon Dioxide 26 mmol/L (22-29); Chloride 103 mmol/L (98-107); Estimated GFR-MDRD 52; Glucose 415 mg/dL (70-105); Potassium 3.4 mmol/L (3.5-5.1); Sodium 148 mmol/L (136-145)
[2019-11-19] MEDS: Famotidine/PF 20 mg/2ml Vial SLOW IVP SCH ×2 (05:56→22:10)
[2019-11-19] MEDS: Piperacillin/Tazobactam 3.375 GM in Sodium Chloride 0.9% 100 ML IVPB SCH ×3 (05:56→18:00)
[2019-11-19] MEDS: methylPREDNISolone Sod Succ 40 MG VIAL IVP SCH ×4 (05:57→17:58)
[2019-11-19] MEDS: EPINEPHrine 4 MG in Dextrose 5% in Water 250 ML IV SCH (06:09)
[2019-11-19 06:26] LABS: Band 7 % (5-11); Hemoglobin 13.8 g/dL (14.0-18.0); Lymphocytes 3 % (21-51); MDiff Complete? YES; Mean Corpuscular HGB CONC 30.2 g/dL (32.0-36.0); Mean Corpuscular Hemoglobin 30.2 pg (27.0-31.0); Mean Corpuscular Volume 99.7 fL (78.0-98.0); Monocytes 7 % (0-10); Neutrophil 83 % (42-75); Platelet Count 190 thou/uL (130-400); RBC Distribution Width 16.1 % (11.5-14.5); Red Blood Cell (RBC) Count 4.57 mill/uL (4.70-6.10); White Blood Cell (WBC) Count 23.8 thou/uL (4.8-10.8)
[2019-11-19 07:18] LABS: Actual Bicarbonate (HCO3a) 21.5 mEq/L (22-28); Base Excess (BEa) -3.6 mEq/L (-2.0 to +3.0); Calcium, Ionized 0.98 mmol/L (1.12-1.30); Carboxyhemoglobin (COHb) 1.4 gm% (0.0-3.0); Hemoglobin (Hb) 14.2 g/dL (14.0-18.0); O2 Tension (PaO2), arterial 122.5 mmHg (80.0-100.0); Potassium - ABG Lab 3.51 mmol/L (3.70-5.30); pH, Arterial 7.36 (7.35-7.45)
[2019-11-19 07:19] LABS: Puncture Site LINE
[2019-11-19] MEDS: Propofol 1,000 MG/100 ML VIAL IV PRN ×2 (07:42→22:11)
[2019-11-19 08:17] LABS: CKMB 57.5 ng/mL (0-6.6)
[2019-11-19] MEDS: Albumin 25% 25 GM/100 ML BOT IVPB SCH ×3 (09:13→22:10)
[2019-11-19] MEDS ORDERED: Sodium Bicarb 50 MEQ/50 ML Abboject 8.4% SYRINGE ONE ×3 (09:16→09:17)
[2019-11-19] MEDS ORDERED: EPINEPHrine 1 MG/10 ML Abboject SYRINGE ONE ×2 (09:16→09:17)
[2019-11-19] MEDS: Norepinephrine 16 MG in Dextrose 5% in Water 234 ML IVPB SCH (09:19)
[2019-11-19] MEDS ORDERED: Sterile Water 0 ML ONE (12:23)
[2019-11-19] MEDS ORDERED: Sterile Water 10 ML ONE ×2 (12:43→18:07)
[2019-11-19] MEDS: Sodium Bicarbonate 150 MEQ in Dextrose 5% in Water 1,000 ML IV SCH (12:55)
--- NOTE | 2019-11-19 13:13 | RAD ---
PORTABLE CHEST: HISTORY: Intubation. COMPARISON: 11/18/2019. FINDINGS: Cardiomegaly. Vascular engorgement again noted. Hazy interstitial and early confluent infiltrate in the right lung base again noted. Interstitial and hazy infiltrate in the left lung base again noted . IMPRESSION: Cardiomegaly. Bibasilar infiltrates. No significantly changed. POS: AGW
[2019-11-19] MEDS: Sodium Chloride 0.45% 1,000 ML IV SCH ×2 (17:10→18:05)
--- NOTE | 2019-11-19 17:17 | PRG ---
DATE OF SERVICE: 11/19/2019 SUBJECTIVE: Andres Gauthier has been hemodynamically stable. We are switching him from epinephrine to norepinephrine today because of his resting tachycardia. This afternoon, he is in sinus rhythm more than he is in atrial fibrillation. OBJECTIVE: LUNGS: Clear anteriorly. HEART: Regular rhythm. ABDOMEN: Soft. DIAGNOSTIC STUDIES: Chest radiograph is unchanged. White count is 23.8, hemoglobin 13.8, platelets 190. Electrolytes; sodium 148, potassium 3.4, chloride 103, bicarb 26, BUN 30, and creatinine 1.66. Intake and outputs, positive 348 that does not account the fluid he received in the ER, which was either 3 or 4 L as I recall. His troponin got up to 22. It is not really surprising after his cardiac arrest. He appears to have suffered a significant anoxic injury. I have talked to the by phone today and updated her. Unfortunately, I am not optimistic that he will have a neurological recovery. Job ID: [id number]
[2019-11-19] MEDS ORDERED: Dextrose 50% Abboject 50 ML SYRINGE IVP PRN (17:29)
[2019-11-19] MEDS ORDERED: Dextrose 5% in Water 1,000 ML IV PRN (17:29)
[2019-11-19] MEDS ORDERED: methylPREDNISolone Sod Succ/PF 125 MG/2 ML VIAL IVP SCH (18:00)
[2019-11-19] MEDS: HumaLOG 300 UNITS/3 ML VIAL SC PRN (18:26)
[2019-11-19] MEDS: Enoxaparin Sodium 40 MG/0.4 ML SYRINGE SC SCH (22:11)
[2019-11-19] MEDS: Acetaminophen 650 MG/20.3 ML UDCUP PO PRN (22:46)
--- NOTE | 2019-11-19 23:52 | HP ---
HISTORY OF PRESENT ILLNESS: Mr. Gauthier is a 54-year-old male who I have cared for with sarcoid for many years. His contacted me by phone, stating that he had passed out on the commode and was unconscious and on his way to [facility] in an ambulance. Immediately preceded here and when I arrived, he was CPR in progress in one of the trauma rooms. With bicarb administration of additional epinephrine and volume resuscitation, he eventually stabilized. He was transferred to critical care unit for further management. I met with the multiple times while he is in the emergency department. PAST MEDICAL HISTORY: Remarkable for: 1. Two-month hospitalization associated with spontaneous pneumothorax. 2. Advanced sarcoidosis with apical bullous disease. 3. 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 4. History of multiple chest tubes being placed when he was in the hospital in June. 5. History of hypertension. 6. History of lipid disorder. 7. History of atrial fibrillation/SVT when he is in the hospital. Last admission, he has not had any recurrence since he left the hospital. 8. Chronic Imuran and prednisone use for his sarcoid. He actually was initially treated with steroids and relapsed and was placed on Imuran. 9. History of adrenal insufficiency. It was felt to be relative. He felt poorly when we eventually tapered him off his steroids. FAMILY HISTORY: Negative for lung disease in early age. SOCIAL HISTORY: He is a nonsmoker and nondrinker. He has a very supportive . PHYSICAL EXAMINATION: GENERAL: No distress. Once he was resuscitated, although he was not following any commands and had an agonal respiratory rate. He is on epinephrine drip. VITAL SIGNS: Blood pressure up to 170 prior to being transferred to critical care unit. HEENT: His pupils are sluggish. CHEST: Equal breath sounds. Chest x-ray did not show recurrent pneumothorax. HEART: Regular rhythm. ABDOMEN: Soft. EXTREMITIES: Without asymmetry. IMPRESSION: Status post [id number] arrest on the commode. I suspect this was vagal mediated leading to a drop in blood pressure. I had seen him earlier in the day and he actually looks the best, he has looked in quite some time. His had called me on Monday claiming that his legs are swollen up to his knees, so we doubled his Lasix from 20 to 40 mg a day. He had no edema when I saw him in the office. He had been complaining of constipation over the weekend. He has been resuscitated, but I am not optimistic that he will not end up with a severe neurological injury. CRITICAL CARE TIME: 2 hours. Job ID: [id number]
[2019-11-20] MEDS: Piperacillin/Tazobactam 3.375 GM in Sodium Chloride 0.9% 100 ML IVPB SCH ×4 (00:07→17:16)
[2019-11-20] MEDS: methylPREDNISolone Sod Succ 40 MG VIAL IVP SCH ×4 (00:08→17:16)
[2019-11-20] MEDS: HumaLOG 300 UNITS/3 ML VIAL SC PRN ×3 (00:09→09:49)
[2019-11-20] MEDS: Acetaminophen 650 MG/20.3 ML UDCUP PO PRN ×3 (03:00→21:23)
[2019-11-20] MEDS: Albumin 25% 25 GM/100 ML BOT IVPB SCH ×2 (04:06→08:40)
[2019-11-20] MEDS: Sodium Chloride 0.45% 1,000 ML IV SCH ×2 (05:30→19:31)
[2019-11-20] MEDS: Propofol 1,000 MG/100 ML VIAL IV PRN ×3 (05:30→20:01)
--- NOTE | 2019-11-20 06:32 | OP ---
DATE OF PROCEDURE: 11/18/2019 PROCEDURE: Arterial line placement. DESCRIPTION OF PROCEDURE: Right groin was prepped for a central line placement by the ER physician. More chlorhexidine was applied to the area. Femoral artery was palpated. In a sterile fashion, a 5-Croatian needle was introduced into the femoral artery. Wire was passed. The catheter was easily inserted and sewn in place x2 and connected to arterial monitor. Good waveform was obtained. Sterile dressing was applied. Job ID: [id number]
[2019-11-20 07:17] LABS: Actual Bicarbonate (HCO3a) 22.6 mEq/L (22-28); Base Excess (BEa) 0.4 mEq/L (-2.0 to +3.0); CO2 Tension 29.6 mmHg (35.0-45.0); Calcium, Ionized 0.96 mmol/L (1.12-1.30); Carboxyhemoglobin (COHb) 1.1 gm% (0.0-3.0); Hemoglobin (Hb) 13.2 g/dL (14.0-18.0); O2 Tension (PaO2), arterial 84.8 mmHg (80.0-100.0); Potassium - ABG Lab 3.29 mmol/L (3.70-5.30)
[2019-11-20 07:18] LABS: Puncture Site LINE
[2019-11-20] MEDS: Famotidine/PF 20 mg/2ml Vial SLOW IVP SCH (08:40)
--- NOTE | 2019-11-20 08:52 | PRG ---
DATE OF SERVICE: 11/20/2019 SUBJECTIVE: Andres Gauthier has not improved neurologically. With sedation holiday, he becomes very tachypneic and dyssynchronous with ventilation. OBJECTIVE: VITAL SIGNS: His heart rate is 108, blood pressure 147/73, respiratory rate 16. Intake and outputs positive 2567. LUNGS: Clear anteriorly. HEART: Regular rhythm. ABDOMEN: Soft. EXTREMITIES: Without clubbing, cyanosis, or edema. For some reason, lab and x-ray were not done this morning. We will get these ordered. Critical care time 35 min. Job ID: [id number] MTDD
[2019-11-20 09:03] LABS: Hemoglobin 12.8 g/dL (14.0-18.0); Mean Corpuscular Hemoglobin 30.3 pg (27.0-31.0); Mean Corpuscular Volume 97.5 fL (78.0-98.0); Red Blood Cell (RBC) Count 4.23 mill/uL (4.70-6.10)
[2019-11-20 09:04] VITALS: TEMP 99.4
[2019-11-20 09:20] LABS: Anion Gap 19 mmol/L (10-20); BUN (Urea Nitrogen) 36 mg/dL (8.4-25.7); Calc. Creatinine Clearance 43 mL/min (70-130); Calcium 7.8 mg/dL (7.8-10.44); Carbon Dioxide 28 mmol/L (22-29); Chloride 102 mmol/L (98-107); Estimated GFR-MDRD 35; Glucose 169 mg/dL (70-105); Potassium 3.3 mmol/L (3.5-5.1); Sodium 146 mmol/L (136-145)
[2019-11-20 09:28] LABS: Band 12 % (5-11); Lymphocytes 4 % (21-51); MDiff Complete? YES; Mean Platelet Volume 9.3 fL (7.4-10.4); Monocytes 1 % (0-10); Neutrophil 82 % (42-75); Nucleated RBC 1 % (0); Platelet Count 112 thou/uL (130-400); Platelet Morphology Comment Appears Decreased; Polychromasia MODERATE = 3-4 cells (100X) (0-2/hpf); RBC Distribution Width 16.1 % (11.5-14.5); Reactive Lymphocytes 1 % (0-10)
--- NOTE | 2019-11-20 09:40 | RAD ---
PORTABLE CHEST: History: Respiratory distress. Comparison: Prior day's exam. FINDINGS: Heart size is enlarged. Endotracheal and NG tubes are in satisfactory position. Bibasilar parenchymal lung changes are stable as compared to the prior exam. Severe chronic lung changes with prominent bu llous changes in the lung apices are again noted. IMPRESSION: Essentially stable exam. POS: CHASE
[2019-11-20 09:50] LABS: CKMB 1.9 ng/mL (0-6.6)
--- NOTE | 2019-11-20 14:18 | EEG ---
Referring Physician: Gen ADAMES EEG # [id number] TEST TYPE: EXTENDED CONTINUOUS VIDEO EEG REPORT: This EEG was performed using 24 channel Simbiosis video digital EEG machine with 24 disc electrodes. This was an extended 2 hour 5 minutes of inpatient video EEG recording. Digital analysis of the EEG was done with spike and seizure detection which revealed no abnormalities. BACKGROUND: The posterior background rhythm is not observed. HYPERVENTILATION: Not performed. PHOTIC STIMULATION: Not performed. SLEEP: No stage change is observed. EEG DIAGNOSIS: 1.) Generalized voltage attenuation seen throughout the recording. 2.) Absence of posterior background rhythm. 3.) No reactivity to stimulation except shaking artifact. CLINICAL INTERPRETATION: THIS EEG IS CONSISTENT WITH SEVERE GENERALIZED NONSPECIFIC CEREBRAL DYSFUNCTION. NO ICTAL OR INTERICTAL EPILEPTIFORM ABNORMALITIES SEEN DURING THE RECORDING. Career Information Specialist: GARETH Auger Supervisor: EEG.JEAN MCDONALD
--- NOTE | 2019-11-20 15:34 | CON ---
DATE OF CONSULTATION: 11/20/2019 REASON FOR CONSULTATION: Anoxic brain injury. HISTORY OF PRESENT ILLNESS: Mr. Gauthier is a 54-year-old male with history significant for sarcoidosis, consulted for anoxic brain injury. The history is taken from my review of the medical records. His called Dr. Galloway and stated that he passed out on the commode on 11/18/2019 and he was became unconscious. He was given CPR and bicarb administration and additional epinephrine stabilized and transferred to Critical Care for further management. However, the patient has been sedated with absence of brainstem reflexes and long tract signs with sluggish pupils. Neurology was consulted to rule out seizures and further recommendations regarding prognosis. REVIEW OF SYSTEMS: Unobtainable. PAST MEDICAL HISTORY: Sarcoidosis, asthmatic bronchitis, history of multiple chest tube placements, hypertension, hyperlipidemia, atrial fibrillation, adrenal insufficiency. FAMILY HISTORY: There is no family history of lung disease. SOCIAL HISTORY: , lives with his . Denies smoking. He is a nonsmoker and does not drink alcohol. ALLERGIES: NO KNOWN DRUG ALLERGIES. MEDICATIONS: 1. Solu-Medrol. 2. Epinephrine. 3. Tylenol. 4. Lovenox. 5. Lorazepam. 6. DuoNeb. 7. Propofol. 8. Famotidine. 9. Insulin. 10. Morphine. PHYSICAL EXAMINATION: 88 GENERAL: The patient is sedated with propofol. He does not follow commands. Does not maintain any eye contact. He is intubated and breathing over the vent. CHEST: Clear. ABDOMEN: Soft. HEART: Regular rate and rhythm. NEUROLOGIC: Mental status; the patient is intubated and sedated. There is no gaze preference. He does not open eyes to noxious stimuli. Cranial nerves; pupils 3.5 mm, round, sluggishly responsive to light. Corneals negative. Gag negative. Tongue midline. No gaze preference. Motor; muscle tone and bulk are normal. No spontaneous movements observed. Sensory; no withdrawal of all four extremities to nailbed pressure. Reflexes absent bilaterally. Toes equivocal bilaterally. DATA REVIEWED: I reviewed the EEG, which was consistent with a severe generalized nonspecific cerebral dysfunction, in which it can be secondary to sedation and also toxic brain injury; however, no seizure activity was observed during the EEG recording. ASSESSMENT AND PLAN: A 54-year-old male with a history significant for chronic sarcoidosis. He is consulted for consulted for altered mental status. EEG consistent with a severe generalized nonspecific cerebral dysfunction. He has minimally preserved brainstem reflexes and absent long tract signs. Consider MRI of the brain to rule out anoxic brain injury. EEG did not show any underlying seizure activity. The patient's prognosis seems to be poor based on current exam findings but exam limited by sedation. Final neurological examination will be 48 hours post sedation. The findings were discussed in detail with the patient's and also the prognosis. Thank you for the consult. Job ID: [id number] MTDD
[2019-11-20] MEDS ORDERED: Sodium Chloride 0.9% 1,000 ML IV SCH (16:30)
--- NOTE | 2019-11-20 18:31 | PRG ---
DATE OF SERVICE: 11/20/2019 SUBJECTIVE: Mr. Gauthier's status is unchanged. He is currently sedated. Neurology consult is pending. OBJECTIVE: VITAL SIGNS: Blood pressure 113/76, pulse 113, respirations 20. GENERAL: Intubated and sedated. LUNGS: Clear to auscultation. HEART: Regular rate and rhythm. ABDOMEN: Soft, nontender, nondistended. EXTREMITIES: No edema. PERTINENT LABORATORIES: Troponin 9.1, creatinine 2.3. IMPRESSION: 1. Tre-gc-hgnsgmws arrest. 2. Sarcoidosis. 3. Elevated troponin. RECOMMENDATIONS: At this point, we will continue supportive care. Neurology consultation is pending. He likely has anoxic brain injury with poor prognosis. Otherwise, from my standpoint, if his status changes, we will then make changes appropriately. Otherwise, I have no further recommendations. Job ID: [id number]
[2019-11-20] MEDS: Norepinephrine 8 MG/0.9% NS 250 ML ONE (19:27)
[2019-11-20] MEDS: Vecuronium 10 MG VIAL IV PRN (20:01)
[2019-11-20] MEDS: Enoxaparin Sodium 40 MG/0.4 ML SYRINGE SC SCH (20:01)
[2019-11-21] MEDS: Piperacillin/Tazobactam 3.375 GM in Sodium Chloride 0.9% 100 ML IVPB SCH ×2 (00:40→05:38)
[2019-11-21] MEDS: methylPREDNISolone Sod Succ 40 MG VIAL IVP SCH ×2 (00:41→05:38)
--- NOTE | 2019-11-21 00:52 | CON ---
DATE OF CONSULTATION: 11/19/2019 TOTAL CRITICAL CARE TIME: 40 minutes. Critical care time spent both at bedside and discussing the case with Dr. Casey Galloway in addition to the ER physician on 09/18/2019. HISTORY OF PRESENT ILLNESS: Mr. Gauthier is an unfortunate 54-year-old gentleman with a history of chronic sarcoidosis in addition to recurrent pneumothorax, who recently presented with jyr-he-cbytfanp arrest. His states he was not breathing. EMS was summoned. He was intubated in the field. He was brought to the emergency room, where he subsequently coded. He was coded x3 at that time. Dr. Casey Galloway saw and evaluated the patient at the time. He did have sodium bicarbonate with a total of 4 to 5 amps given with return of spontaneous circulation. PAST MEDICAL HISTORY: Hypertension, hyperlipidemia, sarcoidosis, recurrent pleural effusions. HOME MEDICATIONS: 1. Brovana. 2. Amlodipine. 3. Lipitor. 4. Hydrochlorothiazide. 5. Isosorbide. 6. Losartan. 7. Prednisone. 8. Tamsulosin. 9. Toprol-XL. 10. Atorvastatin. ALLERGIES: NONE. REVIEW OF SYSTEMS: Unobtainable as he is currently intubated and sedated. PHYSICAL EXAMINATION: GENERAL: He is currently intubated, sedated. He is on IV epinephrine for blood pressure support. VITAL SIGNS: Blood pressure 109/75, pulse 116, respirations 20. NEUROLOGIC: The patient is alert and oriented x3 with no focal neurologic deficits. HEENT: Sclerae without icterus. Mouth has moist mucous membranes with normal pallor. NECK: No JVD. Carotid upstroke brisk. No bruits bilaterally. LUNGS: Clear to auscultation with unlabored respirations. BACK: No scoliosis or kyphosis. CARDIAC: Regular rate and rhythm with normal S1 and S2. No S3 or S4 noted. No significant rubs, murmurs, thrills, or gallops noted throughout the precordium. PMI is not displaced. There is no parasternal heave. ABDOMEN: Soft, nontender, nondistended. No peritoneal signs present. No hepatosplenomegaly. No abnormal striae. EXTREMITIES: 2+ femoral and 2+ dorsalis pedis pulses. No cyanosis, clubbing, or edema. SKIN: No gross abnormalities. PERTINENT LABORATORY DATA: White blood cell count 20447, hemoglobin 13.8, hematocrit 45.6, platelet count 190. Peak troponin 22.8, CK-MB 57. IMPRESSION: 1. Vzz-uo-eogqrfnh arrest. 2. Sarcoidosis. 3. Recurrent pneumothorax. RECOMMENDATIONS: Mr. Gauthier did not have acute ST-T wave changes noted on the EKG. Given jyw-if-hkihntft arrest, I would recommend continue supportive care. We would like to see if he regains neurologic function prior to proceeding with any further coronary intervention. Based on his numbers, it appears this is more likely related to pulmonary insult. We will continue to assess. Otherwise, I have no further recommendations. Job ID: [id number]
[2019-11-21] MEDS: Acetaminophen 650 MG/20.3 ML UDCUP PO PRN ×2 (01:22→05:38)
[2019-11-21] MEDS ORDERED: Norepinephrine 8 MG/0.9% NS 250 ML ONE (01:28)
[2019-11-21] MEDS: Norepinephrine 8 MG/0.9% NS 250 ML ONE (01:29)
[2019-11-21 05:30] LABS: Anion Gap 32 mmol/L (10-20); BUN (Urea Nitrogen) 53 mg/dL (8.4-25.7); Calc. Creatinine Clearance 29 mL/min (70-130); Calcium 7.6 mg/dL (7.8-10.44); Carbon Dioxide 18 mmol/L (22-29); Chloride 101 mmol/L (98-107); Estimated GFR-MDRD 23; Potassium 4.8 mmol/L (3.5-5.1); Sodium 146 mmol/L (136-145)
[2019-11-21 05:33] LABS: Glucose 58 mg/dL (70-105)
[2019-11-21 06:56] LABS: Anisocytosis SLIGHT = 6-15 cells (100X) (0-5/hpf); Band 15 % (5-11); Hemoglobin 14.1 g/dL (14.0-18.0); Lymphocytes 1 % (21-51); MDiff Complete? YES; Mean Corpuscular HGB CONC 29.5 g/dL (32.0-36.0); Mean Corpuscular Hemoglobin 29.8 pg (27.0-31.0); Mean Platelet Volume 9.4 fL (7.4-10.4); Monocytes 3 % (0-10); Neutrophil 81 % (42-75); Nucleated RBC 7 % (0); Platelet Count 146 thou/uL (130-400); RBC Distribution Width 16.3 % (11.5-14.5); Red Blood Cell (RBC) Count 4.73 mill/uL (4.70-6.10); White Blood Cell (WBC) Count 28.7 thou/uL (4.8-10.8)
[2019-11-21 07:07] LABS: Actual Bicarbonate (HCO3a) 15.9 mEq/L (22-28); Base Excess (BEa) -12.1 mEq/L (-2.0 to +3.0); CO2 Tension 43.8 mmHg (35.0-45.0); Calcium, Ionized 0.87 mmol/L (1.12-1.30); Carboxyhemoglobin (COHb) 1.1 gm% (0.0-3.0); Hemoglobin (Hb) 14.3 g/dL (14.0-18.0)
[2019-11-21 07:11] LABS: Puncture Site LRA; pH, Arterial 7.18 (7.35-7.45)
--- NOTE | 2019-11-21 07:40 | RAD ---
Chest one view HISTORY: Dyspnea. Follow-up. COMPARISON: 11/20/2019. : Findings: Cardiac silhouette is magnified and enlarged. Pulmonary vasculature remains upper limits of normal. Scattered ill-defined areas of coarsened interstitial prominence similar in appearance to the previou s exam. Mediastinum is midline. Lines and tubes appear unchanged in position. No evidence of pneumothorax. IMPRESSION : Ill-defined widespread parenchymal infiltrate, cardiomegaly, and other findings are stable.
[2019-11-21] MEDS ORDERED: Famotidine/PF 20 mg/2ml Vial SLOW IVP SCH (09:00)
[2019-11-21] MEDS: Sodium Chloride 0.45% 1,000 ML IV SCH (09:24)
[2019-11-21] MEDS: Norepinephrine 16 MG in Dextrose 5% in Water 234 ML IVPB SCH (09:47)
[2019-11-21 10:21] VITALS: BP 89/54
[2019-11-21] MEDS ORDERED: EPINEPHrine 1 MG/ML AMP ONE (11:44)
[2019-11-21] MEDS ORDERED: EPINEPHrine 1 MG/10 ML Abboject SYRINGE ONE (11:45)
--- NOTE | 2019-11-21 13:23 | PQF ---
CLINICAL DOCUMENTATION IMPROVEMENT CLARIFICATION FORM: ICD-10 Updated PLEASE DO AN ADDENDUM TO THE PROGRESS NOTE WITH ANY DOCUMENTATION UPDATES OR ADDITIONS AND CARRY THROUGH TO DC SUMMARY. THANK YOU. DATE: 11/21/2019 ATTN: Dr. Galloway Please exercise your independent, professional judgment in responding to the clarification form. Clinical indicators are provided on the bottom of this form for your review Please check appropriate box(s) to clarify if the following diagnosis has been ruled in or ruled out: Respiratory Failure [ ] Ruled in diagnosis [ ] Continue to treat [ ] Resolved [ ] Ruled out diagnosis [ ] Improving [ ] Cannot rule out diagnosis [ ] Other diagnosis [ ] Unable to determine In addition, please specify: Present on Admission (POA): [ ] Yes [ ] No [ ] Unable to determine For continuity of documentation, please document condition throughout progress notes and discharge summary. Thank You. CLINICAL INDICATORS - SIGNS / SYMPTOMS / LABS / RESULTS AND LOCATION IN MR ER Record 11/17: VS: BP 130/21, MAP 57, Pulse 137, Resp. 16, O2 sat: 86 on ( Ventilator) Neuro Exam: GCS Total 3 Diagnosis: s/p cardiac arrest possible PE, respiratory failure LABS: 11/17 ABG pH 6.94 pCO2 103.4 Lactic acid 10.4 RISKS: H&P 11/17: PMH: Two-month hospitalization associated with spontaneous pneumothorax. Advanced sarcoidosis with apical bullous disease. S/P wji-xe-miiuodej arrest on the commode. TREATMENT: 11/18 (Rolando) He was intubated in the field. Order 11/17: Resp: Vent continuous. MAR: Order 11/17: Duoneb q 4hr Thank you, Amita (This form is maintained as a part of the permanent medical record) 2014 [employer]. All Rights Reserved Amita Gil RN, BSN [email or web address] [facility]
--- NOTE | 2019-11-22 04:25 | DIS ---
DATE OF ADMISSION: 11/18/2019 DATE OF DISCHARGE: 11/21/2019 SUMMARY HISTORY OF PRESENT ILLNESS: Mr. Gauthier is an unfortunate gentleman who I have known for quite some time, who had an exi-cn-qxpblcex arrest at home recently. He was resuscitated in the emergency room. He never fully regained consciousness. This morning, he became acidemic and as the morning progressed, became hypotensive. His made him a do not resuscitate patient last night appropriately in my opinion. She was contacted by phone and asked to come to the hospital and barely made to the hospital before he . Family did not want an autopsy. The body was released to the home. Job ID: [id number]
--- NOTE | 2019-12-02 22:51 | PQF ---
[employer] KATIE Gottlieb CASEY ADAMES MD [id number] CLINICAL DOCUMENTATION CLARIFICATION FORM: POST DISCHARGE Addendum to original discharge summary date: ____ Late entry note date: __ DATE: 12/03/2019 ATTN: Casey Guerin Please exercise your independent, professional judgment in responding to the clarification form. Clinical indicators are provided on the bottom of this form for your review Please check appropriate box(s) to determine sequence of events: [ ] Cardiac arrest [ ] Due to (please specify): [ ] Underlying condition [ ] Anoxic brain injury [ ] Respiratory failure [ ] Other (please specify) [ ] Cardiac arrest of unknown etiology [ ] Other diagnosis [ ] Unable to determine In addition, please specify: Present on Admission (POA): [ ] Yes [ ] No [ ] Unable to determine For continuity of documentation, please document condition throughout progress notes and discharge summary. Thank You. CLINICAL INDICATORS - SIGNS / SYMPTOMS / LABS ED final diagnosis: S/p cardiac arrest and respiratory failure - ED provider report He appears to have suffered a significant anoxic injury - Progress note 11/18 by Casey Adames MD He likely has anoxic brain injury with poor prognosis - Progress note 11/19 by Lauro Marshall AB on 11/17: pH 6.94, pCO2 103.4 and lactic acid 10.4 GCS total 3 - ED provider report RISKS: H documents "two-month hospitalization associated with spontaneous pneumothorax" - H&P 11/17 by Casey Adames MD Advanced sarcoidosis with apical bullous disease - H&P 11/17 by Casey Adames MD TREATMENT: He was intubated in the field - Consult 11/18 by Lauro Marshall MD Resp: Vent continuous - Order 11/17 (This form is maintained as a part of the permanent medical record) 2014 [employer]. All Rights Reserved Ernesto [email or web address]
== END 2019-11-21 12:08 | disposition expired | DRG 296 ==
LOC: ERS 19:52 → CCU 21:00
PROVIDERS: ADMIT Internal Medicine Critical Care Medicine; ATTEND Internal Medicine Critical Care Medicine
PROC: 04HY32Z Insertion of Monitoring Device into Lower Artery, Percutaneous Approach (ICD-10-PCS; principal; 2019-11-18)
PROC: 0BH17EZ Insertion of Endotracheal Airway into Trachea, Via Natural or Artificial Opening (ICD-10-PCS; 2019-11-18)
PROC: 5A1945Z Respiratory Ventilation, 24-96 Consecutive Hours (ICD-10-PCS; 2019-11-18)
DX: I46.9 Cardiac arrest, cause unspecified (principal); R40.2112 Coma scale, eyes open, never, at arrival to emergency department; R40.2312 Coma scale, best motor response, none, at arrival to emergency department; R40.2212 Coma scale, best verbal response, none, at arrival to emergency department; J96.90 Respiratory failure, unspecified, unspecified whether with hypoxia or hypercapnia; Z66 Do not resuscitate; J93.9 Pneumothorax, unspecified; D86.9 Sarcoidosis, unspecified; I10 Essential (primary) hypertension; R00.0 Tachycardia, unspecified; E78.5 Hyperlipidemia, unspecified; I48.91 Unspecified atrial fibrillation; G93.89 Other specified disorders of brain; I95.9 Hypotension, unspecified
CPT/HCPCS: 36415; 36416; 36556; 51702; 71045; 71046; 80048; 80053; 81003; 81015; 82533; 82553; 82805; 83605; 83735; 84484; 85025; 87086; 94002; 94003; 94640; 95712; 95816; 95819; 95957; 96361; 96365; 96375; 96376; J0171; J1650; J2060; J2543; J2704; J2920; J3490; J7070; J7620; P9045; P9047; S0028